=== PATIENT | female | born 1975 | race Two or more races ===

== ENCOUNTER 2016-06-11 14:30 | Inpatient (IN) | payer MEDICAID ==
[2016-06-11 15:13] LABS: APPEARANCE,URINE SLIGHTLY-CLOUDY; BILIRUBIN,URINE NEGATIVE (NEGATIVE); GLUCOSE, URINE NEGATIVE (NEGATIVE); KETONES,URINE NEGATIVE (NEGATIVE); LEUKOCYTE ESTERASE,URINE NEGATIVE (NEGATIVE); NITRITE,URINE NEGATIVE (NEGATIVE); PROTEIN,URINE 30 mg/dL (NEGATIVE); URINE SPECIFIC GRAVITY 1.025; UROBILINOGEN,URINE NEGATIVE mg/dL (<2.0)
[2016-06-11 15:30] LABS: URINE BARBITURATES SCREEN NEGATIVE; URINE METHADONE SCREEN NEGATIVE; URINE PHENCYCLIDINE SCREEN NEGATIVE
--- NOTE | 2016-06-11 16:01 | L&D Flow Sheet ---
LD Flowsheet Datetime Report Generated by CPN: 06/11/2016 16:00 Datetime: 06/11/2016 15:51 Vital Signs NBP Sys/Belia/Mean (mmHg): 106 (QS system process) : 67 (QS system process) : 81 (QS system process) Pulse: 72 (QS system process) LaborFlag: Antepartum (QS system process) Datetime: 06/11/2016 15:21 Vital Signs NBP Sys/Belia/Mean (mmHg): 107 (QS system process) : 67 (QS system process) : 81 (QS system process) Pulse: 76 (QS system process) LaborFlag: Antepartum (QS system process) Datetime: 06/11/2016 15:00 Pain Pain Presence: None/Denies (Patrick Akash, RN) Vaginal Exam Vaginal Bleeding: Scant (Annotations: Pt states she noticed after VE and only pink on tissue when she wipes. States Dr stripped her membranes in office. ) (Patrick Akash, RN) Maternal Assessment Level of Consciousness: Fully Conscious (Patrick Akash, RN) DTR's/Clonus: DTRs 2+; No Clonus (Patrick Akash, RN) Headache: Denies (Patrick Akash, RN) Breath Sounds, Left: Clear and Equal (Patrick Akash, RN) Breath Sounds, Right: Clear and Equal (Patrick Akash, RN) Nausea/Vomiting: Denies (Patrick Akash, RN) RUQ Epigastric Pain: Denies (Patrick Akash, RN) Patient Care Patient Position/Activity: Left Lateral (Patrick Bustos RN) Comfort Measures: Breathing/Relaxation; Family Support (Patrick Bustos RN) I/O Interventions: Clear Liquids Given (Patrick Bustos RN) Teaching Instructional Method: Demo; Verbal; Patient Instructed; Family/Support Person Instructed; Verbalized Understanding (Patrick Bustos RN) Plan of Care: Plan of Care Discussed (Patrick Bustos RN) Unit Routine: [place] to Room; [place]; Bed; Visiting Policy; Waiting Areas; Security; Phone/Cell Phone Use; Photography; Unit Personnel; Handwashing; Flu/Illness Precautions; Monitoring; IV Pumps; Safety/Fall Risk Prevention; Diet/Nutrition Services; Bathroom Privileges (Patrick Bustos RN) Labor/Induction: Labor Stages (Patrick Bustos RN) Pain Management: Pain Scale/Goals; Comfort Measures (Patrick Bustos RN) Related: Common Discomforts of ; Maternal Physical Changes; Maternal Emotional Changes; Nutrition; Hydration; Activity and Rest (Patrick Bustos, RN) LaborFlag: Antepartum (QS system process) Datetime: 06/11/2016 14:49 Vital Signs NBP Sys/Belia/Mean (mmHg): 118 (QS system process) : 73 (QS system process) : 90 (QS system process) Pulse: 75 (QS system process) Communication Communication Comments: Patient sent to Labor and Delivery by Carlton Jones for repeat NST and extended monitoring for varibles during NST at office. Pt VE done at office 2-/-2. Pt scheduled for induction on Tuesday. (Patrick Bustos RN) LaborFlag: Antepartum (QS system process)
[2016-06-11] MEDS ORDERED: RINGERS SOLUTION,LACTATED 1,000 ML IV ONE (17:43)
[2016-06-11] MEDS ORDERED: RINGERS SOLUTION,LACTATED 300 ML IV ONE (17:43)
[2016-06-11] MEDS ORDERED: RINGERS SOLUTION,LACTATED 1,000 ML IV PRN (17:43)
[2016-06-11] MEDS: RINGERS SOLUTION,LACTATED 1,000 ML IV PRN ×2 (17:43→19:38)
[2016-06-11] MEDS: DINOPROSTONE 10 MG VAGINAL INSERT.SR PV PRN ×2 (19:00→19:38)
[2016-06-11 19:04] LABS: ABSOLUTE BASOPHILS # (AUTO) 0.1 10^3/uL (0.0-0.2); ABSOLUTE EOSINOPHILS # (AUTO) 0.1 10^3/uL (0.0-0.6); ABSOLUTE LYMPHOCYTES (AUTO) 2.2 10^3/uL (0.5-4.7); ABSOLUTE MONOCYTES (AUTO) 1.1 10^3/uL (0.1-1.4); ABSOLUTE NEUT (AUTO) 9.6 10^3/uL (1.7-8.2); BASOPHILS % (AUTO) 0.6 % (0-2); EOSINOPHILS % (AUTO) 0.4 % (0-6); HEMATOCRIT 34.9 % (36.0-47.0); HEMOGLOBIN 11.4 g/dL (12.0-15.5); HGB HCT DIFFERENCE -0.7; MEAN CORPUSCULAR HGB CONC 32.8 g/dL (32.0-36.0); MEAN CORPUSCULAR VOLUME 79 fl (80-97); MONOCYTES % (AUTO) 8.3 % (3-13); RED BLOOD COUNT 4.41 10^6/uL (3.72-5.28); RED CELL DISTRIBUTION WIDTH 16.9 % (11.5-14.0); SEGMENTED NEUTROPHILS % (AUTO) 73.7 % (42-78)
[2016-06-11] MEDS ORDERED: DINOPROSTONE 10 MG VAGINAL INSERT.SR ONE (19:25)
[2016-06-11] MEDS ORDERED: ACETAMINOPHEN 325 MG TABLET PO PRN (19:41)
[2016-06-11] MEDS ORDERED: ZOLPIDEM TARTRATE 5 MG TABLET PO PRN (19:41)
[2016-06-11] MEDS ORDERED: ACETAMINOPHEN 325 MG TABLET ONE (19:43)
--- NOTE | 2016-06-11 20:01 | L&D Flow Sheet ---
LD Flowsheet Datetime Report Generated by CPN: 06/11/2016 20:00 Datetime: 06/11/2016 19:53 NBP Sys/Belia/Mean (mmHg): 109 (QS system process) : 69 (QS system process) : 84 (QS system process) Pulse: 80 (QS system process) LaborFlag: Antepartum (QS system process) Datetime: 06/11/2016 19:48 Analgesics/Sedatives: Tylenol (mg) @ 650 (Helen Agustín, RN) Datetime: 06/11/2016 19:33 Cervical Ripening Agents: Cervidil (Helen Agustín, RN) Datetime: 06/11/2016 19:22 NBP Sys/Belia/Mean (mmHg): 110 (QS system process) : 78 (QS system process) : 89 (QS system process) Pulse: 85 (QS system process) LaborFlag: Antepartum (QS system process) Datetime: 06/11/2016 19:15 Monitor Mode: External; Palpation (Patrick Akash, RN) Frequency (min): irregular (Patrick Bustos RN) Quality: Mild (Patrick Bustos RN) Resting Tone (Palpate): Relaxed (Patrick Bustos RN) Monitor Mode: External US (Patrick Bustos RN) FHR Baseline Rate : 135 (Patrick Bustos RN) Variability: Moderate 6-25 bpm (Patrick Bustos RN) Accelerations: 15X15 (Patrick Bustos RN) Decelerations: None (Patrick Bustos RN) Level of Consciousness: Fully Conscious (Helen Randolph RN) Communication: RN at Bedside; RN Reviewed Strip (Patrick Bustos RN) Communication Comments: Report to Jean Randolph RN Care relinquished at this time. (Patrick Bustos RN) Datetime: 06/11/2016 18:48 Monitor Interventions for FHR: Ultrasound Adjusted (Patrick Bustos RN) Communication: RN at Bedside (Patrick Bustos RN) Datetime: 06/11/2016 18:45 Respirations: 20 (Patrick Bustos, OLGA) Monitor Mode: External; Palpation (Patrick Bustos, OLGA) Frequency (min): 2-8 (Patrick Bustos RN) Quality: Mild (Patrick Bustos RN) Duration (sec): 70-100 (Patrick Bustos, RN) Resting Tone (Palpate): Relaxed (Patrick Bustos RN) Monitor Mode: External US (Patrick Bustos RN) FHR Baseline Rate : 125 (Patrick Bustos, RN) Variability: Moderate 6-25 bpm (Patrick Bustos, RN) Accelerations: 15X15 (Patrick Bustos RN) Decelerations: None (Patrick Bustos RN) Pain Presence: None/Denies (Patrick Bustos RN) Level of Consciousness: Fully Conscious (Patrick Bustos RN) Headache: Denies (Patrick Bustos RN) Nausea/Vomiting: Denies (Patrick Bustos RN) RUQ Epigastric Pain: Denies (Patrick Bustos RN) Communication: RN at Bedside; RN Reviewed Strip (Patrick Bustos RN) LaborFlag: Antepartum (QS system process) Datetime: 06/11/2016 18:33 Patient Care Comments: Pt given meal tray. (Patrick Bustos RN) Datetime: 06/11/2016 18:15 Respirations: 20 (Patrick Bustos RN) Monitor Mode: External; Palpation (Patrick Bustos RN) Resting Tone (Palpate): Relaxed (Patrick Bustos RN) Contraction Comments: uterine irritability noted (Patrick Bustos RN) Monitor Mode: External US (Patrick Bustos RN) FHR Baseline Rate : 125 (Patrick Bustos RN) Variability: Moderate 6-25 bpm (Patrick Bustos RN) Accelerations: 15X15 (Patrick Bustos RN) Decelerations: None (Patrick Bustos RN) Pain Presence: None/Denies (Patrick Bustos RN) Level of Consciousness: Fully Conscious (Patrick Bustos RN) Headache: Denies (Patrick Bustos RN) Nausea/Vomiting: Denies (Patrick Bustos RN) RUQ Epigastric Pain: Denies (Patrick Bustos RN) IV/Blood Work: IV Started; IV Bolus Started (Patrick Bustos RN) Patient Care Comments: 18G L Forearm, Site WNL, Good Blood return, pt tolerated well. (Patrick Bustos RN) Communication: RN at Bedside; RN Reviewed Strip (Patrick Bustos RN) LaborFlag: Antepartum (QS system process) Datetime: 06/11/2016 17:58 Procedures: Consents Signed (Patrick Thompsoneet, RN) Datetime: 06/11/2016 17:51 NBP Sys/Belia/Mean (mmHg): 130 (QS system process) : 73 (QS system process) : 93 (QS system process) Pulse: 78 (QS system process) LaborFlag: Antepartum (QS system process) Datetime: 06/11/2016 17:45 Monitor Mode: External; Palpation (Patrick Akash, RN) Resting Tone (Palpate): Relaxed (Patrick Akash, RN) Contraction Comments: irregular (Patrick Aksah, RN) Monitor Mode: External US (Patrick Akash, RN) FHR Baseline Rate : 125 (Patrick Akash, RN) Variability: Moderate 6-25 bpm (Patrick Akash, RN) Accelerations: 15X15 (Patrick Akash, RN) Decelerations: None (Patrick Akash, RN) Communication: RN at Bedside; RN Reviewed Strip (Patrick Akash, RN) Datetime: 06/11/2016 17:44 Communication Comments: H Beau CNM at bedside to assess pt; orders to admit pt for IOL for post dates/ AMA. Orders for cervidil at 1900, pt may order dinner tray now. (Patrick Akash, RN) Datetime: 06/11/2016 17:40 I/O Interventions: Up to BR (Patrick Akash, RN) Datetime: 06/11/2016 17:22 NBP Sys/Belia/Mean (mmHg): 110 (QS system process) : 74 (QS system process) : 88 (QS system process) Pulse: 71 (QS system process) LaborFlag: Antepartum (QS system process) Datetime: 06/11/2016 17:15 Monitor Mode: External; Palpation (Patrick Bustos RN) Frequency (min): irregular (Patrick Bustos RN) Quality: Mild (Patrick Bustos RN) Resting Tone (Palpate): Relaxed (Patrick Bustos RN) Monitor Mode: External US (Patrick Bustos RN) FHR Baseline Rate : 135 (Patrick Bustos RN) Variability: Moderate 6-25 bpm (Patrick Bustos RN) Accelerations: 15X15 (Patrick Bustos, RN) Decelerations: None (Patrick Bustos RN) Pain Presence: None/Denies (Patrick Bustos RN) Communication: RN at Bedside; RN Reviewed Strip (Patrick Bustos RN) LaborFlag: Antepartum (QS system process) Datetime: 06/11/2016 16:51 NBP Sys/Belia/Mean (mmHg): 109 (QS system process) : 71 (QS system process) : 85 (QS system process) Pulse: 71 (QS system process) LaborFlag: Antepartum (QS system process) Datetime: 06/11/2016 16:45 Monitor Mode: External; Palpation (Patrick Bustos RN) Frequency (min): irregular (Patrick Bustos, OLGA) Quality: Mild (Patrick Bustos RN) Resting Tone (Palpate): Relaxed (Patrick Bustos RN) Monitor Mode: External US (Patrick Bustos RN) FHR Baseline Rate : 135 (Patrick Bustos, RN) Variability: Moderate 6-25 bpm (Patrick Bustos, RN) Accelerations: 15X15 (Patrick Bustos, RN) Decelerations: None (Patrick Bustos, RN) Pain Presence: None/Denies (Patrick Bustos RN) Communication: RN at Bedside; RN Reviewed Strip (Patrick Bustos RN) LaborFlag: Antepartum (QS system process) Datetime: 06/11/2016 16:21 NBP Sys/Belia/Mean (mmHg): 113 (QS system process) : 72 (QS system process) : 87 (QS system process) Pulse: 66 (QS system process) LaborFlag: Antepartum (QS system process) Datetime: 06/11/2016 16:15 Monitor Mode: External; Palpation (Patrick Bustos RN) Frequency (min): 10-11 (Patrick Bustos RN) Quality: Mild (Patrick Bustos RN) Duration (sec): 70-90 (Patrick Bustos RN) Resting Tone (Palpate): Relaxed (Patrick Bustos RN) Monitor Mode: External US (Patrick Butsos RN) FHR Baseline Rate : 135 (Patrick Bustos RN) Variability: Moderate 6-25 bpm (Patrick Bustos RN) Accelerations: 15X15 (Patrick Bustos RN) Decelerations: None (Patrick Bustos RN) Communication: RN at Bedside; RN Reviewed Strip (Patrick Bustos RN)
[2016-06-11] MEDS ORDERED: ZOLPIDEM TARTRATE 5 MG TABLET ONE (21:47)
[2016-06-12] MEDS ORDERED: ACETAMINOPHEN 325 MG TABLET ONE (03:20)
--- NOTE | 2016-06-12 04:47 | L&D Current Admission ---
Current Admit Datetime Report Generated by CPN: 06/12/2016 04:45 ADMISSION INFORMATION Current Admit Date/Time: 06/11/2016 17:46 (06/11/2016 15:00:Patrick Bustos RN) Reason for Admission: Induction of Labor (06/11/2016 15:00:Patrick Bustos RN) EGA per Dates: 41.1 (06/11/2016 15:00:QS system process) Method of Arrival: Ambulatory (06/11/2016 15:00:Patrick Bustos RN) Reason for Induction: Postterm; Other (06/11/2016 15:00:Patrick Bustos RN) Reason for Induction- Other: AMA (06/11/2016 15:00:Patrick Bustos RN) Records Available: Yes (06/11/2016 15:00:Patrick Bustos RN) General Admission Information: Reviewed; Updated; Confirmed (06/11/2016 15:00:Patrick Bustos RN) General Admission Reviewed By: Kena Bustos RN (06/11/2016 15:00:Patrick Bustos RN) BELONGINGS/ADVANCED DIRECTIVES Disposition of Belongings: Kept with Patient (06/11/2016 15:00:Patrick Bustos RN) Comments Regarding Disposition: See [facility] belongings form filled out by patient (06/11/2016 15:00:Patrick Bustos RN) Advance Direct for Healthcare: No, and Wants No Information (06/11/2016 15:00:Patrick Bustos RN) Durable Power of Finance Controller: No (06/11/2016 15:00:Patrick Bustos RN) Living Will: No (06/11/2016 15:00:Patrick Bustos RN) Organ Donor: No (06/11/2016 15:00:Patrick Bustos RN) Pt Rights Information Given: Yes (06/11/2016 15:00:Patrick Bustos RN) Pt Understands Pt Rights: Yes (06/11/2016 15:00:Patrick Bustos RN) LEARNING ASSESSMENT Knowledge Level: Understands L_D Process (06/11/2016 15:00:Patrick Bustos RN) Barriers to Learning: None (06/11/2016 15:00:Patrick Bustos RN) Learning Readiness: Motivated (06/11/2016 15:00:Patrick Bustos RN) Learns Best By: 1 to 1 Instruction (06/11/2016 15:00:Patrick Bustos RN) Learning Needs: Labor and Delivery Process; Pain Management; Symptoms to Report; Treatment Plan; Medication; Diagnosis (06/11/2016 15:00:Patrick Bustos RN) DOMESTIC VIOLANCE SCREENING Dom Viol Threatened/Hurt: No (06/11/2016 15:00:Patrick Bustos RN) Hx of Abuse/Neglect past 2yrs: No (06/11/2016 15:00:Patrick Bustos RN) Feel Unsafe Going Home: No (06/11/2016 15:00:Patrick Bustos RN) Addt'l Observ Indicating Abuse: No (06/11/2016 15:00:Patrick Bustos RN) Reason Unable to Complete Screen: N/A, Screen Completed (06/11/2016 15:00:Patrick Bustos RN) Considered Personal Harm/Suicide: No (06/11/2016 15:00:Patrick Bustos RN) NUTRITIONAL/FUNCTIONAL SCREENING Problem with Appetite >5 Days: No (06/11/2016 15:00:Patrick Bustos RN) Chew/Swallow Difficulties: No (06/11/2016 15:00:Patrick Bustos RN) Inappropriate Wt Gain/Loss: No (06/11/2016 15:00:Patrick Bustos RN) Presence Skin Breakdown/Ulcer: No (06/11/2016 15:00:Patrick Bustos RN) Special Diet: No (06/11/2016 15:00:Patrick Bustos RN) Pt Requests Weigh Boss Visit: No (06/11/2016 15:00:Patrick Bustos RN) Hx of Any of the Following?: N/A (06/11/2016 15:00:Patrick Bustos RN) New Diagnosis of: N/A (06/11/2016 15:00:Patrick Bustos RN) Requires Assist w/Ambulation: No (06/11/2016 15:00:Patrick Bustos RN) Uses Assist Device to Ambulate: No (06/11/2016 15:00:Patrick Bustos RN) Pt Requires Help w/ADL's: No (06/11/2016 15:00:Patrick Bustos RN)
--- NOTE | 2016-06-12 04:47 | L&D Flow Sheet ---
LD Flowsheet Datetime Report Generated by CPN: 06/12/2016 04:45 Datetime: 06/12/2016 04:30 Monitor Mode: External; Palpation (Rucsandra Sapphire, RN) Frequency (min): 1.5-6 (Rucsandra Sapphire, RN) Quality: Mild (Rucsandra Sapphire, RN) Duration (sec): 40-80 (Rucsandra Sapphire, RN) Resting Tone (Palpate): Relaxed (Rucsandra Sapphire, RN) Monitor Mode: External US (Rucsandra Sapphire, RN) FHR Baseline Rate : 130 (Rucsandra Sapphire, RN) Variability: Moderate 6-25 bpm (Rucsandra Sapphire, RN) Accelerations: 15X15 (Rucsandra Sapphire, RN) Decelerations: None (Rucsandra Sapphire, RN) I/O Interventions: Up to BR (Rucsandra Sapphire, RN) Datetime: 06/12/2016 04:22 NBP Sys/Belia/Mean (mmHg): 113 (QS system process) : 78 (QS system process) : 91 (QS system process) Pulse: 73 (QS system process) LaborFlag: Antepartum (QS system process) Datetime: 06/12/2016 04:13 Additional Nursing Comments: Report given and care relinquished to Mati Leary, RN (Helen Agustín, RN) Datetime: 06/12/2016 04:00 Monitor Mode: External (Helen Randolph, RN) Frequency (min): occasional (Helen Randolph, RN) Quality: Moderate (Helen Agustín, RN) Duration (sec): 40-60 (Helen Agustín, RN) Resting Tone (Palpate): Relaxed (Helen Agustín, RN) Contraction Comments: irritability (Helen Agustín, RN) Monitor Mode: External US (Helen Agustín, RN) FHR Baseline Rate : 140 (Helen Agustín, RN) FHR Baseline Changes: No Baseline Change (Helen Agustín, RN) Variability: Moderate 6-25 bpm (Helen Agusítn, RN) Accelerations: None (Helen Agustín, RN) Decelerations: None (Helen Agustín, RN) Datetime: 06/12/2016 03:52 NBP Sys/Belia/Mean (mmHg): 122 (QS system process) : 82 (QS system process) : 98 (QS system process) Pulse: 73 (QS system process) LaborFlag: Antepartum (QS system process) Datetime: 06/12/2016 03:30 Monitor Mode: External (Helen Agustín, RN) Frequency (min): occasional (Helen Agustín, RN) Quality: Moderate (Helen Agustín, RN) Resting Tone (Palpate): Relaxed (Helen Agustín, RN) Contraction Comments: alot of irritability (Helen Agustín, RN) Monitor Mode: External US (Helen Agustín, RN) FHR Baseline Rate : 140 (Helen Agustín, RN) FHR Baseline Changes: Return to Previous Baseline (Helen Agustín, RN) Variability: Moderate 6-25 bpm (Helen Agustín, RN) Accelerations: None (Helen Agustín, RN) Decelerations: None (Helen Agustín, RN) Datetime: 06/12/2016 03:25 Monitor Interventions for UA: [place] Adjusted (Helen Prideoon, RN) Analgesics/Sedatives: Tylenol (mg) @ 650 (Helen Agustín, RN) Datetime: 06/12/2016 03:22 NBP Sys/Belia/Mean (mmHg): 121 (QS system process) : 87 (QS system process) : 100 (QS system process) Pulse: 67 (QS system process) LaborFlag: Antepartum (QS system process) Datetime: 06/12/2016 03:06 Pain Scale: 3 (Helen Randolph RN) Pain Presence: Intermittent (Helen Randolph RN) Pain Type: Cramping (Helen Randolph RN) Pain Location: Abdomen (Helen Randolph RN) Pain Assessment Comments: Also states that her h/a is back. (Helen Randolph RN) Patient Care Comments: Pt turned from L to R side. (Helen Randolph RN) LaborFlag: Antepartum (QS system process) Datetime: 06/12/2016 03:00 Monitor Mode: External (Helen Randolph, RN) Frequency (min): irregular (Helen Randolph, RN) Quality: Mild/Moderate (Helen Randolph, RN) Pattern: Normal: <= 5 Contractions in 10 Minutes (Helen Randolph, RN) Resting Tone (Palpate): Relaxed (Helen Randolph, RN) Monitor Mode: External US (Helen Randolph, RN) FHR Baseline Rate : 175 (eHlen Randolph, RN) FHR Baseline Changes: Tachycardia (Helen Randolph, RN) Variability: Moderate 6-25 bpm (Helen Randolph, RN) Accelerations: None (Helen Randolph RN) Decelerations: None (Helen Randolph RN) Patient Position/Activity: Left Lateral (Natali Fierro RN) Patient Care Comments: pt repositioned (Natali Fierro RN) Datetime: 06/12/2016 02:52 NBP Sys/Belia/Mean (mmHg): 109 (QS system process) : 65 (QS system process) : 82 (QS system process) Pulse: 65 (QS system process) LaborFlag: Antepartum (QS system process) Datetime: 06/12/2016 02:40 IV/Blood Work: IV Bolus Started (Natali Fierro RN) Patient Care Comments: bolus for tachycardia (Natali Fierro RN) Datetime: 06/12/2016 02:30 Monitor Mode: External (Helen Agustín, RN) Frequency (min): irrittablity (Helen Agustín, RN) Quality: Mild/Moderate (Helen Agustín, RN) Pattern: Normal: <= 5 Contractions in 10 Minutes (Helen Agustín, RN) Monitor Mode: External US (Helen Agustín, RN) FHR Baseline Rate : 165 (Helen Agustín, RN) FHR Baseline Changes: Tachycardia (Helen Agustín, RN) Variability: Moderate 6-25 bpm (Helen Agustín, RN) Accelerations: None (Helen Agustín, RN) Decelerations: None (Helen Agustín, RN) Datetime: 06/12/2016 02:23 NBP Sys/Belia/Mean (mmHg): 105 (QS system process) : 60 (QS system process) : 76 (QS system process) Pulse: 61 (QS system process) LaborFlag: Antepartum (QS system process) Datetime: 06/12/2016 02:00 Monitor Mode: External (Helen Agustín, RN) Frequency (min): irregular (Helen Agustín, RN) Quality: Mild/Moderate (Helen Agustín, RN) Duration (sec): 40-60 (Helen Agustín, RN) Pattern: Normal: <= 5 Contractions in 10 Minutes (Helen Agustín, RN) Resting Tone (Palpate): Relaxed (Helen Agustín, RN) Monitor Mode: External US (Helen Agustín, RN) FHR Baseline Rate : 145 (Helen Agustín, RN) FHR Baseline Changes: No Baseline Change (Helen Agustín, RN) Variability: Moderate 6-25 bpm (Helen Agustín, RN) Accelerations: 15X15 (Helen Agustín, RN) Decelerations: None (Helen Agustín, RN) Datetime: 06/12/2016 01:52 NBP Sys/Belia/Mean (mmHg): 93 (QS system process) : 57 (QS system process) : 70 (QS system process) Pulse: 71 (QS system process) LaborFlag: Antepartum (QS system process) Datetime: 06/12/2016 01:39 IV/Blood Work: New IV Bag Hung (Natali Chalman, RN) Datetime: 06/12/2016 01:32 I/O Interventions: Up to BR (Helen Agustín, RN) Datetime: 06/12/2016 01:31 Patient Care Comments: pt repositioned to side. (Natali Chalman, RN) Datetime: 06/12/2016 01:30 Monitor Mode: External (Helen Agustín, RN) Frequency (min): 2-7 (Helen Agustín, RN) Quality: Mild (Helen Agustín, RN) Duration (sec): 40-90 (Helen Agustín, RN) Pattern: Normal: <= 5 Contractions in 10 Minutes (Helen Agustín, RN) Resting Tone (Palpate): Relaxed (Helen Agustín, RN) Monitor Mode: External US (Helen Agustín, RN) FHR Baseline Rate : 140 (Helen Agustín, RN) FHR Baseline Changes: No Baseline Change (Helen Agustín, RN) Variability: Moderate 6-25 bpm (Helen Agustín, RN) Accelerations: 15X15 (Helen Agustín, RN) Decelerations: Late (Helen Agustín, RN) Comments: late x 1 (Helen Agustín, RN) Datetime: 06/12/2016 01:22 NBP Sys/Belia/Mean (mmHg): 99 (QS system process) : 55 (QS system process) : 72 (QS system process) Pulse: 61 (QS system process) LaborFlag: Antepartum (QS system process) Datetime: 06/12/2016 01:00 Monitor Mode: External (Helen Agustín, RN) Frequency (min): 2-7 (Helen Agustín, RN) Quality: Mild (Helen Agustín, RN) Duration (sec): 50-70 (Helen Agustín, RN) Resting Tone (Palpate): Relaxed (Helen Agustín, RN) Monitor Mode: External US (Helen Agustín, RN) FHR Baseline Rate : 135 (Helen Agustín, RN) FHR Baseline Changes: No Baseline Change (Helen Agustín, RN) Variability: Moderate 6-25 bpm (Helen Agustín, RN) Accelerations: 15X15 (Helen Agustín, RN) Decelerations: None (Helen Agustín, RN) Datetime: 06/12/2016 00:52 NBP Sys/Belia/Mean (mmHg): 99 (QS system process) : 58 (QS system process) : 75 (QS system process) Pulse: 62 (QS system process) LaborFlag: Antepartum (QS system process) Datetime: 06/12/2016 00:30 Monitor Mode: External (Helen Agustín, RN) Frequency (min): 2-6 (Helen Agustín, RN) Quality: Mild (Helen Agustín, RN) Duration (sec): 40-70 (Helen Agustín, RN) Pattern: Normal: <= 5 Contractions in 10 Minutes (Helen Agustín, RN) Resting Tone (Palpate): Relaxed (Helen Agustín, RN) Monitor Mode: External US (Helen Agustín, RN) FHR Baseline Rate : 135 (Helen Agustín, RN) FHR Baseline Changes: No Baseline Change (Helen Agustín, RN) Variability: Moderate 6-25 bpm (Helen Agustín, RN) Accelerations: 15X15 (Helen Agustín, RN) Decelerations: None (Helen Agustín, RN) Datetime: 06/12/2016 00:22 NBP Sys/Belia/Mean (mmHg): 96 (QS system process) : 56 (QS system process) : 72 (QS system process) Pulse: 67 (QS system process) LaborFlag: Antepartum (QS system process) Datetime: 06/12/2016 00:00 Monitor Mode: External (Helen Agustín, RN) Frequency (min): irregular (Helen Agustín, RN) Quality: Mild (Helen Agustín, RN) Duration (sec): 50-60 (Helen Agustín, RN) Pattern: Normal: <= 5 Contractions in 10 Minutes (Helen Agustín, RN) Resting Tone (Palpate): Relaxed (Helen Agustín, RN) Contraction Comments: irritability (Helen Agustín, RN) Monitor Mode: External US (Helen Agustín, RN) FHR Baseline Rate : 140 (Helen Agustín, RN) FHR Baseline Changes: No Baseline Change (Helen Agustín, RN) Variability: Moderate 6-25 bpm (Helen Agustín, RN) Accelerations: 15X15 (Helen Agustín, RN) Decelerations: None (Helen Agustín, RN) Datetime: 06/11/2016 23:52 NBP Sys/Belia/Mean (mmHg): 102 (QS system process) : 58 (QS system process) : 75 (QS system process) Pulse: 68 (QS system process) LaborFlag: Antepartum (QS system process) Datetime: 06/11/2016 23:47 Patient Care Comments: Pt turned from R side to L (Helen Agustín, RN) Datetime: 06/11/2016 23:30 Monitor Mode: External (Helen Agustín, RN) Frequency (min): 5-7 (Helen Agustín, RN) Quality: Mild (Helen Agustín, RN) Duration (sec): 50-80 (Helen Agustín, RN) Resting Tone (Palpate): Relaxed (Helen Agustín, RN) Monitor Mode: External US (Helen Agustín, RN) FHR Baseline Rate : 135 (Helen Agustín, RN) FHR Baseline Changes: No Baseline Change (Helen Agustín, RN) Variability: Moderate 6-25 bpm (Helen Agustín, RN) Accelerations: 15X15 (Helen Agustín, RN) Decelerations: Late (Helen Agustín, RN) Datetime: 06/11/2016 23:23 NBP Sys/Belia/Mean (mmHg): 109 (QS system process) : 68 (QS system process) : 84 (QS system process) Pulse: 76 (QS system process) LaborFlag: Antepartum (QS system process) Datetime: 06/11/2016 23:01 Monitor Mode: External (Helen Agustín, RN) Frequency (min): occasional (Helen Agustín, RN) Quality: Mild (Helen Agustín, RN) Duration (sec): 50 (Helen Agustín, RN) Resting Tone (Palpate): Relaxed (Helen Agustín, RN) Contraction Comments: irritability (Helen Agustín, RN) Monitor Mode: External US (Helen Agustín, RN) FHR Baseline Rate : 130 (Helen Agustín, RN) FHR Baseline Changes: No Baseline Change (Helen Agustín, RN) Variability: Moderate 6-25 bpm (Helen Agustín, RN) Accelerations: 15X15 (Helen Agustín, RN) Decelerations: None (Helen Agustín, RN) Datetime: 06/11/2016 22:52 NBP Sys/Belia/Mean (mmHg): 112 (QS system process) : 73 (QS system process) : 86 (QS system process) Pulse: 79 (QS system process) LaborFlag: Antepartum (QS system process) Datetime: 06/11/2016 22:30 Monitor Mode: External (Helen Agustín, RN) Frequency (min): irritability (Helen Agustín, RN) Quality: Mild (Helen Agustín, RN) Resting Tone (Palpate): Relaxed (Helen Agustín, RN) Monitor Mode: External US (Helen Agustín, RN) FHR Baseline Rate : 130 (Helen Agustín, RN) FHR Baseline Changes: No Baseline Change (Helen Agustín, RN) Variability: Moderate 6-25 bpm (Helen Agustín, RN) Accelerations: 15X15 (Helen Agustín, RN) Decelerations: None (Helen Agustín, RN) Datetime: 06/11/2016 22:23 NBP Sys/Belia/Mean (mmHg): 112 (QS system process) : 70 (QS system process) : 86 (QS system process) Pulse: 69 (QS system process) LaborFlag: Antepartum (QS system process) Datetime: 06/11/2016 22:00 Monitor Mode: External (Helen Agustín, RN) Frequency (min): occasional (Helen Agsutín, RN) Frequency (min): occasionally (Helen Agustín, RN) Quality: Mild (Helen Agustín, RN) Duration (sec): 50-60 (Helen Agustín, RN) Duration (sec): 50 (Helen Agustín, RN) Pattern: Normal: <= 5 Contractions in 10 Minutes (Helen Agustín, RN) Resting Tone (Palpate): Relaxed (Helen Agustín, RN) Contraction Comments: irritability in between noted. (Helen Agustín, RN) Contraction Comments: irritabillity noted. (Helen Agustín, RN) Monitor Mode: External US (Helen Agustín, RN) FHR Baseline Rate : 140 (Helen Agustín, RN) FHR Baseline Rate : 160 (Helen Agustín, RN) FHR Baseline Changes: No Baseline Change (Helen Agustín, RN) Variability: Moderate 6-25 bpm (Helen Agustín, RN) Accelerations: 15X15 (Helen Agustín, RN) Decelerations: None (Helen Agustín, RN) Comments: FHR had a 10 min section of tachcardia in 180's. (Helen Agustín, RN) Datetime: 06/11/2016 21:53 NBP Sys/Belia/Mean (mmHg): 100 (QS system process) : 69 (QS system process) : 80 (QS system process) Pulse: 74 (QS system process) LaborFlag: Antepartum (QS system process) Datetime: 06/11/2016 21:48 Analgesics/Sedatives: Ambien (mg) @ 5 (Helen Agustín, RN) Medication Comments: 10 mg had been ordered but patient only wanted 5 mg. (Helen Agustín, RN) Datetime: 06/11/2016 21:42 IV/Blood Work: IV Bolus Started (Helen Agustín, RN) Datetime: 06/11/2016 21:40 Patient Care Comments: Pt turned from L side to R. (Helen Agustín, RN) Communication: Provider at Bedside (Helen Agustín, RN) Datetime: 06/11/2016 21:30 Frequency (min): 0 (Helen Agustín, RN) Resting Tone (Palpate): Relaxed (Helen Agustín, RN) Monitor Mode: External US (Helen Agustín, RN) FHR Baseline Rate : 145 (Helen Agustín, RN) FHR Baseline Changes: No Baseline Change (Helen Agustín, RN) Variability: Moderate 6-25 bpm (Helen Agustín, RN) Accelerations: 15X15 (Helen Agustín, RN) Decelerations: None (Helen Agustín, RN) Datetime: 06/11/2016 21:22 NBP Sys/Belia/Mean (mmHg): 99 (QS system process) : 63 (QS system process) : 75 (QS system process) Pulse: 73 (QS system process) LaborFlag: Antepartum (QS system process) Datetime: 06/11/2016 21:07 Pain Scale: 2 (Helen Randolph RN) Pain Presence: Constant (Helen Randolph RN) Pain Type: Dull (Helen Randolph RN) Pain Location: Head (Helen Randolph RN) Medication Comments: Offered pt Ambien. She declines at present. (Helen Randolph RN) LaborFlag: Antepartum (QS system process) Datetime: 06/11/2016 21:03 I/O Interventions: Up to BR (Helen Randolph, OLGA) Datetime: 06/11/2016 21:00 Monitor Mode: External (Helen Agustín, RN) Frequency (min): irritability (Helen Agustín, RN) Quality: Mild (Helen Agustín, RN) Resting Tone (Palpate): Relaxed (Helen Agustín, RN) Monitor Mode: External US (Helen Agustín, RN) FHR Baseline Rate : 135 (Helen Agustín, RN) FHR Baseline Changes: No Baseline Change (Helen Agustín, RN) Variability: Moderate 6-25 bpm (Helen Agustín, RN) Accelerations: 15X15 (Helen Agustín, RN) Decelerations: None (Helen Agustín, RN) Datetime: 06/11/2016 20:53 NBP Sys/Belia/Mean (mmHg): 107 (QS system process) : 71 (QS system process) : 84 (QS system process) Pulse: 88 (QS system process) LaborFlag: Antepartum (QS system process) Datetime: 06/11/2016 20:30 Monitor Mode: External (Helen Agustín, RN) Frequency (min): rare (Helen Agustín, RN) Quality: Mild (Helen Agustín, RN) Duration (sec): 40 (Helen Agustín, RN) Resting Tone (Palpate): Relaxed (Helen Agustín, RN) Monitor Mode: External US (Helen Agustín, RN) FHR Baseline Rate : 140 (Helen Agustín, RN) FHR Baseline Changes: No Baseline Change (Helen Agustín, RN) Variability: Moderate 6-25 bpm (Helen Agustín, RN) Accelerations: 15X15 (Helen Agustín, RN) Decelerations: None (Helen Agustín, RN) Datetime: 06/11/2016 20:23 NBP Sys/Belia/Mean (mmHg): 114 (QS system process) : 78 (QS system process) : 90 (QS system process) Pulse: 100 (QS system process) LaborFlag: Antepartum (QS system process) Datetime: 06/11/2016 20:00 Monitor Mode: External (Helen Agustín, RN) Frequency (min): Occasional (Helen Agustín, RN) Quality: Mild (Helen Agustín, RN) Duration (sec): 40-50 (Helen Agustín, RN) Resting Tone (Palpate): Relaxed (Helen Agustín, RN) Monitor Mode: External US (Helen Agustín, RN) FHR Baseline Rate : 130 (Helen Agustín, RN) FHR Baseline Changes: No Baseline Change (Helen Agustín, RN) Variability: Moderate 6-25 bpm (Helen Agustín, RN) Accelerations: 15X15 (Helen Agustín, RN) Decelerations: None (Helen Agustín, RN) Datetime: 06/11/2016 19:53 NBP Sys/Belia/Mean (mmHg): 109 (QS system process) : 69 (QS system process) : 84 (QS system process) Pulse: 80 (QS system process) Respirations: 18 (Helen Agustín, RN) LaborFlag: Antepartum (QS system process) Datetime: 06/11/2016 19:48 Analgesics/Sedatives: Tylenol (mg) @ 650 (Helen Randolph, RN) Datetime: 06/11/2016 19:33 Dilatation (cm): 2.0 (Helen Randolph RN) Effacement (%): 60 (Helen Randolph RN) Station: -2 (Helen Randolph, RN) Exam by: SERA Cabrera (Helen Randolph RN) Dilatation (cm): 1-2 cm (Helen Randolph RN) Effacement: 60-70_ effaced (Helen Randolph RN) Station: minus 2 (Helen Randolph, OLGA) Consistency: Soft (Helen Randolph RN) Position: Midposition (Helen Randolph RN) Total Kramer's Score: 7 (QS system process) : 5-8 = Small percentage of induction failure (QS system process) Cervical Ripening Agents: Cervidil (Helen Randolph, OLGA) Datetime: 06/11/2016 19:30 Monitor Mode: External (Helen Randolph, RN) Frequency (min): occasional (Helen Randolph, RN) Quality: Mild (Helen Agustín, RN) Duration (sec): 50-60 (Helen Agustín, RN) Resting Tone (Palpate): Relaxed (Helen Randolph, RN) Monitor Mode: External US (Helen Randolph, RN) FHR Baseline Rate : 130 (Helen Agustín, RN) FHR Baseline Changes: No Baseline Change (Helen Agustín, RN) Variability: Moderate 6-25 bpm (Helen Agustín, RN) Accelerations: 15X15 (Helen Agustín, RN) Decelerations: None (Helen Randolph, RN) Pain Scale: 4 (Helen Randolph, RN) Pain Presence: Constant (Helen Randolph, RN) Pain Type: Dull; Pressure (Helen Randolph, RN) Pain Location: Head (Helen Randolph, RN) Pain Assessment Comments: states is at base of head. (Helen Ranodlph, RN) LaborFlag: Antepartum (QS system process) Datetime: 06/11/2016 19:22 NBP Sys/Belia/Mean (mmHg): 110 (QS system process) : 78 (QS system process) : 89 (QS system process) Pulse: 85 (QS system process) I/O Interventions: Up to BR (Helen Randolph, RN) LaborFlag: Antepartum (QS system process) Datetime: 06/11/2016 19:15 Monitor Mode: External; Palpation (Patrick Bustos RN) Frequency (min): irregular (Patrick Butsos RN) Quality: Mild (Patrick Bustos RN) Resting Tone (Palpate): Relaxed (Patrick Bustos RN) Monitor Mode: External US (Patrick Bustos RN) FHR Baseline Rate : 135 (Patrick Bustos RN) Variability: Moderate 6-25 bpm (Patrick Bustos RN) Accelerations: 15X15 (Patrick Bustos RN) Decelerations: None (Patrick Bustos RN) Level of Consciousness: Fully Conscious (Helen Randolph RN) Headache: Localized (Annotations: is at base of head. Pt states she thinks it is tension because she is nervous about this delivery.) (Helen Randolph RN) Breath Sounds, Left: Clear and Equal (Helen Randolph RN) Breath Sounds, Right: Clear and Equal (Helen Randolph RN) Nausea/Vomiting: Denies (Helen Randolph RN) RUQ Epigastric Pain: Denies (Helen Randolph RN) Communication: RN at Bedside; RN Reviewed Strip (Patrick Bustos RN) Communication Comments: Report to Jean Randolph RN Care relinquished at this time. (Patrick Bustos RN) Datetime: 06/11/2016 18:48 Monitor Interventions for FHR: Ultrasound Adjusted (Patrick Bustos RN) Communication: RN at Bedside (Patrick Bustos RN) Datetime: 06/11/2016 18:45 Respirations: 20 (Patrick Bustos, OLGA) Monitor Mode: External; Palpation (Patrick Bustos, OLGA) Frequency (min): 2-8 (Patrick Bustos RN) Quality: Mild (Patrick Bustos RN) Duration (sec): 70-100 (Patrick Bustos, RN) Resting Tone (Palpate): Relaxed (Patrick Bustos, OLGA) Monitor Mode: External US (Patrick Bustos RN) FHR Baseline Rate : 125 (Patrick Bustos, RN) Variability: Moderate 6-25 bpm (Patrick Bustos, RN) Accelerations: 15X15 (Patrick Bustos, RN) Decelerations: None (Patrick Bustos RN) Pain Presence: None/Denies (Patrick Bustos RN) Level of Consciousness: Fully Conscious (Patrick Bustos RN) Headache: Denies (Patrick Bustos RN) Nausea/Vomiting: Denies (Patrick Bustos RN) RUQ Epigastric Pain: Denies (Patrick Bustos RN) Communication: RN at Bedside; RN Reviewed Strip (Patrick Bustos RN) LaborFlag: Antepartum (QS system process) Datetime: 06/11/2016 18:33 Patient Care Comments: Pt given meal tray. (Patrick Bustos RN) Datetime: 06/11/2016 18:15 Respirations: 20 (Patrick Bustos RN) Monitor Mode: External; Palpation (Patrick Bustos RN) Resting Tone (Palpate): Relaxed (Patrick Bustos RN) Contraction Comments: uterine irritability noted (Patrick Bustos RN) Monitor Mode: External US (Patrick Bustos RN) FHR Baseline Rate : 125 (Patrick Bustos RN) Variability: Moderate 6-25 bpm (Patrick Bustos RN) Accelerations: 15X15 (Patrick Bustos RN) Decelerations: None (Patrick Bustos RN) Pain Presence: None/Denies (Patrick Bustos RN) Level of Consciousness: Fully Conscious (Patrick Bustos RN) Headache: Denies (Patrick Bustos RN) Nausea/Vomiting: Denies (Patrick Bustos RN) RUQ Epigastric Pain: Denies (Patrick Bustos RN) IV/Blood Work: IV Started; IV Bolus Started (Patrick Bustos RN) Patient Care Comments: 18G L Forearm, Site WNL, Good Blood return, pt tolerated well. (Patrick Bustos RN) Communication: RN at Bedside; RN Reviewed Strip (Patrick Bustos RN) LaborFlag: Antepartum (QS system process) Datetime: 06/11/2016 17:58 Procedures: Consents Signed (Patrick Bustos RN) Datetime: 06/11/2016 17:51 NBP Sys/Belia/Mean (mmHg): 130 (QS system process) : 73 (QS system process) : 93 (QS system process) Pulse: 78 (QS system process) LaborFlag: Antepartum (QS system process) Datetime: 06/11/2016 17:45 Monitor Mode: External; Palpation (Patrick Akash, RN) Resting Tone (Palpate): Relaxed (Patrick Akash, RN) Contraction Comments: irregular (Patrick Akash, RN) Monitor Mode: External US (Patrick Akash, RN) FHR Baseline Rate : 125 (Patrick Akash, RN) Variability: Moderate 6-25 bpm (Patrick Akash, RN) Accelerations: 15X15 (Patrick Akash, RN) Decelerations: None (Patrick Akash, RN) Communication: RN at Bedside; RN Reviewed Strip (Patrick Akash, RN) Datetime: 06/11/2016 17:44 Communication Comments: H Beau CNM at bedside to assess pt; orders to admit pt for IOL for post dates/ AMA. Orders for cervidil at 1900, pt may order dinner tray now. (Patrick Akash, RN) Datetime: 06/11/2016 17:40 I/O Interventions: Up to BR (Patrick Akash, RN) Datetime: 06/11/2016 17:22 NBP Sys/Belia/Mean (mmHg): 110 (QS system process) : 74 (QS system process) : 88 (QS system process) Pulse: 71 (QS system process) LaborFlag: Antepartum (QS system process) Datetime: 06/11/2016 17:15 Monitor Mode: External; Palpation (Patrick Akash, RN) Frequency (min): irregular (Patrick Akash, RN) Quality: Mild (Patrick Akash, RN) Resting Tone (Palpate): Relaxed (Patrick Bustos RN) Monitor Mode: External US (Patrick Bustos RN) FHR Baseline Rate : 135 (Patrick Bustos RN) Variability: Moderate 6-25 bpm (Patrick Bustos RN) Accelerations: 15X15 (Patrick Bustos RN) Decelerations: None (Patrick Bustos RN) Pain Presence: None/Denies (Patrick Bustos RN) Communication: RN at Bedside; RN Reviewed Strip (Patrick Bustos RN) LaborFlag: Antepartum (QS system process) Datetime: 06/11/2016 16:51 NBP Sys/Belia/Mean (mmHg): 109 (QS system process) : 71 (QS system process) : 85 (QS system process) Pulse: 71 (QS system process) LaborFlag: Antepartum (QS system process) Datetime: 06/11/2016 16:45 Monitor Mode: External; Palpation (Patrick Bustos RN) Frequency (min): irregular (Patrick Bustos RN) Quality: Mild (Patrick Bustos RN) Resting Tone (Palpate): Relaxed (Patrick Bustos RN) Monitor Mode: External US (Patrick Bustos RN) FHR Baseline Rate : 135 (Patrick Bustos RN) Variability: Moderate 6-25 bpm (Patrick Bustos RN) Accelerations: 15X15 (Patrick Bustos RN) Decelerations: None (Patrick Bustos RN) Pain Presence: None/Denies (Patrick Bustos RN) Communication: RN at Bedside; RN Reviewed Strip (Patrick Bustos RN) LaborFlag: Antepartum (QS system process)
--- NOTE | 2016-06-12 04:47 | L&D General Admission ---
General Admit Datetime Report Generated by CPN: 06/12/2016 04:45 CARE Height (in): 68 (06/11/2016 15:42:QS system process) Height (in): 68 (06/11/2016 14:46:QS system process) ALLERGIES Medication Allergies: No Known Allergies (06/11/2016) (06/11/2016 14:46:QS system process) LABS Hemoglobin: 11.4 L (06/11/2016 18:46:QS system process) Hematocrit: 34.9 L (06/11/2016 18:46:QS system process) MCV: 79 L (06/11/2016 18:46:QS system process)
--- NOTE | 2016-06-12 04:47 | L&D Admission Assessment ---
LD ADM ASMT Datetime Report Generated by CPN: 06/12/2016 04:45 PATIENT ASSESSMENT Assessment Type: Ongoing Assessment (06/11/2016 19:15:Helen Agustín, RN) Assessment Type: Admission Assessment (06/11/2016 15:00:Partick Akash, RN) WEIGHT Weight (lb): 187 (06/11/2016 14:46:QS system process) Weight (kg): 85.0 (06/11/2016 14:46:QS system process) Total Wt Gain (lb): 15 (06/11/2016 14:46:QS system process) Wt Gain (kg): 6.8 (06/11/2016 14:46:QS system process) PAIN Pain Scale: 3 (06/12/2016 03:06:Helen Randolph RN) Pain Scale: 2 (06/11/2016 21:07:Helen Randolph RN) Pain Scale: 4 (06/11/2016 19:30:Helen Randolph RN) Pain Presence: Intermittent (06/12/2016 03:06:Helen Randolph RN) Pain Presence: Constant (06/11/2016 21:07:Helen Randolph RN) Pain Presence: Constant (06/11/2016 19:30:Helen Randolph RN) Pain Presence: None/Denies (06/11/2016 18:45:Patrick Bustos RN) Pain Presence: None/Denies (06/11/2016 18:15:Patrick Bustos RN) Pain Presence: None/Denies (06/11/2016 17:15:Patrick Bustos RN) Pain Presence: None/Denies (06/11/2016 16:45:Patrick Bustos RN) Pain Presence: None/Denies (06/11/2016 15:45:Patrick Bustos RN) Pain Presence: None/Denies (06/11/2016 15:00:Patrick Bustos RN) Pain Type: Cramping (06/12/2016 03:06:Helen Randolph RN) Pain Type: Dull (06/11/2016 21:07:Helen Randolph RN) Pain Type: Dull; Pressure (06/11/2016 19:30:Helen Randolph RN) Pain Location: Abdomen (06/12/2016 03:06:Helen Randolph RN) Pain Location: Head (06/11/2016 21:07:Helen Randolph RN) Pain Location: Head (06/11/2016 19:30:Helen Randolph RN) Pain Comments: Also states that her h/a is back. (06/12/2016 03:06:Helen Randolph RN) Pain Comments: states is at base of head. (06/11/2016 19:30:Helen Randolph RN) CONTRACTIONS Frequency (min): 1.5-6 (06/12/2016 04:30:Stefanie Leary RN) Frequency (min): occasional (06/12/2016 04:00:Helen Randolph RN) Frequency (min): occasional (06/12/2016 03:30:Helen Randolph RN) Frequency (min): irregular (06/12/2016 03:00:Helen Randolph RN) Frequency (min): irrittablity (06/12/2016 02:30:Helen Randolph RN) Frequency (min): irregular (06/12/2016 02:00:Helen Randolph RN) Frequency (min): 2-7 (06/12/2016 01:30:Helen Randolph RN) Frequency (min): 2-7 (06/12/2016 01:00:Helen Randolph RN) Frequency (min): 2-6 (06/12/2016 00:30:Helen Randolph RN) Frequency (min): irregular (06/12/2016 00:00:Helen Agustín, RN) Frequency (min): 5-7 (06/11/2016 23:30:Helen Agustín, RN) Frequency (min): occasional (06/11/2016 23:01:Helen Agustín, RN) Frequency (min): irritability (06/11/2016 22:30:Helen Agustín, RN) Frequency (min): occasional (06/11/2016 22:00:Helen Agustín, RN) Frequency (min): occasionally (06/11/2016 22:00:Helen Agustín, RN) Frequency (min): 0 (06/11/2016 21:30:Helen Agustín, RN) Frequency (min): irritability (06/11/2016 21:00:Helen Agustín, RN) Frequency (min): rare (06/11/2016 20:30:Helen Agustín, RN) Frequency (min): Occasional (06/11/2016 20:00:Helen Agustín, RN) Frequency (min): occasional (06/11/2016 19:30:Helen Agustín, RN) Frequency (min): irregular (06/11/2016 19:15:Patrick Akash, RN) Frequency (min): 2-8 (06/11/2016 18:45:Patrick Akash, RN) Frequency (min): irregular (06/11/2016 17:15:Patrick Akash, RN) Frequency (min): irregular (06/11/2016 16:45:Patrick Akash, RN) Frequency (min): 10-11 (06/11/2016 16:15:Patrick Akash, RN) Frequency (min): 6-10 (06/11/2016 15:15:Patrick Akash, RN) Duration (sec): 40-80 (06/12/2016 04:30:Stefanie Leary RN) Duration (sec): 40-60 (06/12/2016 04:00:Helen Agustín, RN) Duration (sec): 40-60 (06/12/2016 02:00:Helen Agustín, RN) Duration (sec): 40-90 (06/12/2016 01:30:Helen Agustín, RN) Duration (sec): 50-70 (06/12/2016 01:00:Helen Agustín, RN) Duration (sec): 40-70 (06/12/2016 00:30:Helen Agustín, RN) Duration (sec): 50-60 (06/12/2016 00:00:Helen Agustín, RN) Duration (sec): 50-80 (06/11/2016 23:30:Helen Agustín, RN) Duration (sec): 50 (06/11/2016 23:01:Helen Agustín, RN) Duration (sec): 50-60 (06/11/2016 22:00:Helen Agustín, RN) Duration (sec): 50 (06/11/2016 22:00:Helen Agustín, RN) Duration (sec): 40 (06/11/2016 20:30:Helen Agustín, RN) Duration (sec): 40-50 (06/11/2016 20:00:Helen Agustín, RN) Duration (sec): 50-60 (06/11/2016 19:30:Helen Agustín, RN) Duration (sec): 70-100 (06/11/2016 18:45:Patrick Akash, RN) Duration (sec): 70-90 (06/11/2016 16:15:Patrick Akash, RN) Duration (sec): 60-90 (06/11/2016 15:15:Patrick Akash, RN) Quality: Mild (06/12/2016 04:30:Stefanie Leary RN) Quality: Moderate (06/12/2016 04:00:Helen Agustín, RN) Quality: Moderate (06/12/2016 03:30:Helen Agustín, RN) Quality: Mild/Moderate (06/12/2016 03:00:Helen Agustín, RN) Quality: Mild/Moderate (06/12/2016 02:30:Helen Agustín, RN) Quality: Mild/Moderate (06/12/2016 02:00:Helen Agustín, RN) Quality: Mild (06/12/2016 01:30:Helen Agustín, RN) Quality: Mild (06/12/2016 01:00:Helen Agustín, RN) Quality: Mild (06/12/2016 00:30:Helen Agustín, RN) Quality: Mild (06/12/2016 00:00:Helen Agustín, RN) Quality: Mild (06/11/2016 23:30:Helen Agustín, RN) Quality: Mild (06/11/2016 23:01:Helen Agustín, RN) Quality: Mild (06/11/2016 22:30:Helen Agustín, RN) Quality: Mild (06/11/2016 22:00:Hleen Agustín, RN) Quality: Mild (06/11/2016 21:00:Helen Agustín, RN) Quality: Mild (06/11/2016 20:30:Helen Agustín, RN) Quality: Mild (06/11/2016 20:00:Helen Agustín, RN) Quality: Mild (06/11/2016 19:30:Helen Agustín, RN) Quality: Mild (06/11/2016 19:15:Patrick Akash, RN) Quality: Mild (06/11/2016 18:45:Patrick Akash, RN) Quality: Mild (06/11/2016 17:15:Patrick Akash, RN) Quality: Mild (06/11/2016 16:45:Patrick Akash, RN) Quality: Mild (06/11/2016 16:15:Patrick Akash, RN) Quality: Mild (06/11/2016 15:45:Patrick Akash, RN) Quality: Mild (06/11/2016 15:15:Patrick Akash, RN) Pattern: Normal: <= 5 Contractions in 10 Minutes (06/12/2016 03:00:Helen Agustín, RN) Pattern: Normal: <= 5 Contractions in 10 Minutes (06/12/2016 02:30:Helen Agustín, RN) Pattern: Normal: <= 5 Contractions in 10 Minutes (06/12/2016 02:00:Helen Agustín, RN) Pattern: Normal: <= 5 Contractions in 10 Minutes (06/12/2016 01:30:Helen Agustín, RN) Pattern: Normal: <= 5 Contractions in 10 Minutes (06/12/2016 00:30:Helen Agustín, RN) Pattern: Normal: <= 5 Contractions in 10 Minutes (06/12/2016 00:00:Helen Agustín, RN) Pattern: Normal: <= 5 Contractions in 10 Minutes (06/11/2016 22:00:Helen Agustín, RN) Resting Tone [place]: Relaxed (06/12/2016 04:30:Stefanie Leary, RN) Resting Tone [place]: Relaxed (06/12/2016 04:00:Helen Agustín, RN) Resting Tone [place]: Relaxed (06/12/2016 03:30:Helen Agustín, RN) Resting Tone [place]: Relaxed (06/12/2016 03:00:Helen Agustín, RN) Resting Tone [place]: Relaxed (06/12/2016 02:00:Helen Agustín, RN) Resting Tone [place]: Relaxed (06/12/2016 01:30:Helen Agustín, RN) Resting Tone [place]: Relaxed (06/12/2016 01:00:Helen Agustín, RN) Resting Tone [place]: Relaxed (06/12/2016 00:30:Helen Agustín, RN) Resting Tone [place]: Relaxed (06/12/2016 00:00:Helen Agustín, RN) Resting Tone [place]: Relaxed (06/11/2016 23:30:Helen Agustín, RN) Resting Tone [place]: Relaxed (06/11/2016 23:01:Helen Agustín, RN) Resting Tone [place]: Relaxed (06/11/2016 22:30:Helen Agustín, RN) Resting Tone [place]: Relaxed (06/11/2016 22:00:Helen Agustín, RN) Resting Tone [place]: Relaxed (06/11/2016 21:30:Helen Agustín, RN) Resting Tone [place]: Relaxed (06/11/2016 21:00:Helen Agustín, RN) Resting Tone [place]: Relaxed (06/11/2016 20:30:Helen Agustín, RN) Resting Tone [place]: Relaxed (06/11/2016 20:00:Helen Agustín, RN) Resting Tone [place]: Relaxed (06/11/2016 19:30:Helen Agustín, RN) Resting Tone [place]: Relaxed (06/11/2016 19:15:Patrick Bustos RN) Resting Tone [place]: Relaxed (06/11/2016 18:45:Patrick [place], RN) Resting Tone [place]: Relaxed (06/11/2016 18:15:Patrick Akash, RN) Resting Tone [place]: Relaxed (06/11/2016 17:45:Patrick Akash, RN) Resting Tone [place]: Relaxed (06/11/2016 17:15:Patrick [place], RN) Resting Tone [place]: Relaxed (06/11/2016 16:45:Patrick [place], RN) Resting Tone [place]: Relaxed (06/11/2016 16:15:Patrick [place], RN) Resting Tone [place]: Relaxed (06/11/2016 15:45:Patrick [place], RN) Resting Tone [place]: Relaxed (06/11/2016 15:15:Patrick Akash, RN) Contraction Comments: irritability (06/12/2016 04:00:Helen Randolph RN) Contraction Comments: alot of irritability (06/12/2016 03:30:Helen Randolph RN) Contraction Comments: irritability (06/12/2016 00:00:Helen Randolph RN) Contraction Comments: irritability (06/11/2016 23:01:Helen Randolph RN) Contraction Comments: irritability in between noted. (06/11/2016 22:00:Helen Randolph RN) Contraction Comments: irritabillity noted. (06/11/2016 22:00:Helen Randolph RN) Contraction Comments: uterine irritability noted (06/11/2016 18:15:Patrick Bustos RN) Contraction Comments: irregular (06/11/2016 17:45:Patrick Bustos RN) Contraction Comments: Irregular (06/11/2016 15:45:Patrick Bustos RN) VAGINAL EXAM Dilatation (cm): 2.0 (06/11/2016 19:33:Helen Randolph RN) Effacement (%): 60 (06/11/2016 19:33:Helen Randolph RN) Station: -2 (06/11/2016 19:33:Helen Randolph RN) AGARWAL'S SCORE Agarwal's Score Dilatation (cm): 1-2 cm (06/11/2016 19:33:Helen Randolph RN) Agarwal's Score Effacement (%): 60-70_ effaced (06/11/2016 19:33:Helen Randolph RN) Agarwal's Score Station: minus 2 (06/11/2016 19:33:Helen Randolph RN) Agarwal's Score Consistency: Soft (06/11/2016 19:33:Helen Randolph RN) Agarwal's Score Position: Midposition (06/11/2016 19:33:Hleen Randolph RN) Total Agarwal's Score: 7 (06/11/2016 19:33:QS system process) Agarwal's Score Text: 5-8 = Small percentage of induction failure (06/11/2016 19:33:QS system process) NEURO Level of Consciousness: Fully Conscious (06/11/2016 19:15:Helen Randolph RN) Level of Consciousness: Fully Conscious (06/11/2016 18:45:Patrick Bustos RN) Level of Consciousness: Fully Conscious (06/11/2016 18:15:Patrick Bustos RN) Level of Consciousness: Fully Conscious (06/11/2016 15:45:Patrick Bustos RN) Level of Consciousness: Fully Conscious (06/11/2016 15:00:Patrick Bustos RN) DTR's/Clonus: DTRs 2+; No Clonus (06/11/2016 15:00:Patrick Bustos RN) Headache: Localized (Annotations: is at base of head. Pt states she thinks it is tension because she is nervous about this delivery.) (06/11/2016 19:15:Helen Randolph RN) Headache: Denies (06/11/2016 18:45:Patrick Bustos RN) Headache: Denies (06/11/2016 18:15:Patrick Bustos RN) Headache: Denies (06/11/2016 15:45:Patrick Bustos RN) Headache: Denies (06/11/2016 15:00:Patrick Bustos RN) Dizziness: No (06/11/2016 19:15:Helen Randolph RN) Dizziness: No (06/11/2016 15:00:Patrick Bustos RN) Blurred Vision: Yes (Annotations: at times) (06/11/2016 19:15:Helen Randolph RN) Blurred Vision: No (06/11/2016 15:00:Patrick Bustos RN) Extremity Numbness/Tingling : None (06/11/2016 19:15:Helen Randolph RN) Extremity Numbness/Tingling : None (06/11/2016 15:00:Patrick Bustos RN) Extremity Movement: Full Range of Motion (06/11/2016 19:15:Helen Randolph RN) CARDIOVASCULAR Heart Rhythm: Regular (06/11/2016 19:15:Helen Randolph RN) Heart Rhythm: Regular (06/11/2016 15:00:Patrick Bustos RN) [place]ailbeds: [place] (06/11/2016 19:15:Helen Randolph RN) [place]ailbeds: [place] (06/11/2016 15:00:Patrick Bustos RN) Capillary Refill: Less than 3 Seconds (06/11/2016 19:15:Helen Randolph RN) Capillary Refill: Less than 3 Seconds (06/11/2016 15:00:Patrick Bustos RN) Lower Extremities Edema: None (06/11/2016 19:15:Helen Randolph RN) Lower Extremities Edema: None (06/11/2016 15:00:Patrick Bustos RN) Lower Extremities Edema Degree: None (06/11/2016 19:15:Helen Randolph RN) Lower Extremities Edema Degree: None (06/11/2016 15:00:Patrick Bustos RN) Upper Extremities Edema: None (06/11/2016 19:15:Helen Randolph RN) Upper Extremities Edema: None (06/11/2016 15:00:Patrick Bustos RN) Upper Extremities Edema Degree: None (06/11/2016 19:15:Helen Randolph RN) Upper Extremities Edema Degree: None (06/11/2016 15:00:Patrick Bustos RN) Facial Edema: None (06/11/2016 19:15:Helen Randolph RN) Facial Edema: None (06/11/2016 15:00:Patrick Bustos RN) Gwendolyn's Sign Left Leg: Negative (06/11/2016 19:15:Helen Randolph RN) Gwendolyn's Sign Left Leg: Negative (06/11/2016 15:00:Patrick Bustos RN) Gwendolyn's Sign Right Leg: Negative (06/11/2016 19:15:Helen Randolph RN) Gwendolyn's Sign Right Leg: Negative (06/11/2016 15:00:Patrick Bustos RN) DVT RISK ASSESSMENT DVT Risk Age: Age 41-60 years (06/11/2016 19:15:Helen Randolph RN) DVT Risk Age: Age 41-60 years (06/11/2016 15:00:Patrick Bustos RN) DVT Risk BMI: BMI<31 (06/11/2016 19:15:Helen Randolph RN) DVT Risk BMI: BMI 31 to 40 (06/11/2016 15:00:Patrick Bustos RN) DVT Risk Surgery: None Applicable (06/11/2016 19:15:Helen Randolph RN) DVT Risk Surgery: None Applicable (06/11/2016 15:00:Patrick Bustos RN) DVT Risk Other: Women Only- or (<1 month) (06/11/2016 19:15:Helen Randolph RN) DVT Risk Other: Women Only- or (<1 month) (06/11/2016 15:00:Patrick Bustos RN) DVT Risk Total: 2 (06/11/2016 19:15:QS system process) DVT Risk Total: 3 (06/11/2016 15:00:QS system process) DVT Risk Text: Moderate Risk (10-20%) - Consider stockings, compresssion device, pharmacological therapy per hospital policy (06/11/2016 19:15:QS system process) DVT Risk Text: High Risk (20-40%)- Consider stockings, compresssion device, pharmacological therapy per hospital policy (06/11/2016 15:00:QS system process) RESPIRATORY Respiratory Effort: Unlabored; Regular Rhythm (06/11/2016 19:15:Helen Randolph RN) Respiratory Effort: Unlabored; Regular Rhythm; Equal Expansion (06/11/2016 15:00:Patrick Bustos RN) Breath Sounds, Left: Clear and Equal (06/11/2016 19:15:Helen Randolph RN) Breath Sounds, Left: Clear and Equal (06/11/2016 15:00:Patrick Bustos RN) Breath Sounds, Right: Clear and Equal (06/11/2016 19:15:Helen Randolph RN) Breath Sounds, Right: Clear and Equal (06/11/2016 15:00:Patrick Bustos RN) Cough Productivity: None (06/11/2016 19:15:Helen Randolph RN) Cough Productivity: None (06/11/2016 15:00:Patrick Bustos RN) GASTROINTESTINAL Nausea/Vomiting: Denies (06/11/2016 19:15:Helen Randolph RN) Nausea/Vomiting: Denies (06/11/2016 18:45:Patrick Bustos RN) Nausea/Vomiting: Denies (06/11/2016 18:15:Patrick Bustos RN) Nausea/Vomiting: Denies (06/11/2016 15:45:Patrick Bustos RN) Nausea/Vomiting: Denies (06/11/2016 15:00:Patrick Bustos RN) Bowel Sounds: Normoactive (06/11/2016 19:15:Helen Randolph RN) Bowel Sounds: Normoactive (06/11/2016 15:00:Patrick Bustos RN) RUQ Epigastric Pain: Denies (06/11/2016 19:15:Helen Randolph RN) RUQ Epigastric Pain: Denies (06/11/2016 18:45:Patrick Bustos RN) RUQ Epigastric Pain: Denies (06/11/2016 18:15:Patrick Bustos RN) RUQ Epigastric Pain: Denies (06/11/2016 15:45:Patrick Bustos RN) RUQ Epigastric Pain: Denies (06/11/2016 15:00:Patrick Bustos RN) Bowel Patterns: Soft, Formed Stool (06/11/2016 19:15:Helen Randolph RN) Bowel Patterns: Soft, Formed Stool (06/11/2016 15:00:Patrick Bustos RN) Hemorrhoids: None (06/11/2016 19:15:Helen Randolph RN) Hemorrhoids: None (06/11/2016 15:00:Patrick Bustos RN) Diet Type: Regular diet (06/11/2016 19:15:Helen Randolph RN) Diet Type: Regular diet (06/11/2016 15:00:Patrick Akash, RN) Last Meal: 06/11/2016 11:00 (06/11/2016 15:00:Patrick Akash, RN) GENITOURINARY Bladder: Nondistended (06/11/2016 15:00:Patrick Akash, RN) Frequency of Urination: No (06/11/2016 15:00:Patrick Akash, RN) Urination Burning: No (06/11/2016 15:00:Patrick Akash, RN) CVA Tenderness: No (06/11/2016 15:00:Patrick Akash, RN) Vaginal Discharge Amount: None (06/11/2016 15:00:Patrick Akash, RN) Vaginal Discharge Color: N/A (06/11/2016 15:00:Patrick Akash, RN) Vaginal Discharge Odor: Non-Odorous (06/11/2016 15:00:Patrick Akash, RN) Vaginal Discharge Character: None (06/11/2016 15:00:Patrick Akash, RN) INTEGUMENTARY Skin Color: Normal for Race (06/11/2016 19:15:Helen Randolph RN) Skin Color: Normal for Race (06/11/2016 15:00:Patrick Bustos RN) Skin Temperature: Warm (06/11/2016 19:15:Helen Randolph RN) Skin Temperature: Warm (06/11/2016 15:00:Patrick Bustos RN) Skin Moisture: Dry (06/11/2016 19:15:Helen Randolph RN) Skin Moisture: Dry (06/11/2016 15:00:Patrick Bustos RN) Surgical Scars: gall bladder removal (06/11/2016 19:15:Helen Randolph RN) AKUA SKIN ASSESSMENT [place] Scale Sensory Perception: No Impairment- Responds to verbal commands. Has no sensory deficit which would limit ability to feel or voice pain or discomfort (06/11/2016 19:15:Helen Randolph RN) [place] Scale Sensory Perception: No Impairment- Responds to verbal commands. Has no sensory deficit which would limit ability to feel or voice pain or discomfort (06/11/2016 15:00:Patrick Bustos RN) [place] Scale Moisture: Rarely Moist- Skin is usually dry. Linen only requires changing at routine intervals (06/11/2016 19:15:Helen Randolph RN) [place] Scale Moisture: Rarely Moist- Skin is usually dry. Linen only requires changing at routine intervals (06/11/2016 15:00:Patrick Bustos RN) Akua Scale Activity: Walks Frequently- Walks outside the room at least twice a day and inside room at least every 2 hours during the day. (06/11/2016 19:15:Helen Randolph RN) Akua Scale Activity: Walks Frequently- Walks outside the room at least twice a day and inside room at least every 2 hours during the day. (06/11/2016 15:00:Patrick Bustos RN) Akua Scale Mobility: No Limitations- Makes major and frequent changes in position without assistance (06/11/2016 19:15:Helen Randolph RN) Akua Scale Mobility: No Limitations- Makes major and frequent changes in position without assistance (06/11/2016 15:00:Patrick Bustos RN) Akua Scale Nutrition: Excellent- Eats most of every meal. Never refuses a meal. Usually eats a total of 4 or more servings of meat and dairy products. Occasionally eats between meals. Does not require supplementation (06/11/2016 19:15:Helen Randolph RN) Akua Scale Nutrition: Excellent- Eats most of every meal. Never refuses a meal. Usually eats a total of 4 or more servings of meat and dairy products. Occasionally eats between meals. Does not require supplementation (06/11/2016 15:00:Patrick Bustos RN) [place] Scale Friction and Shear: No Apparent Problem- Moves in bed and in chair independently and has sufficient muscle strength to lift up completely during move. Maintains good position in bed or chair at all times (06/11/2016 19:15:Helen Randolph RN) Akua Scale Friction and Shear: No Apparent Problem- Moves in bed and in chair independently and has sufficient muscle strength to lift up completely during move. Maintains good position in bed or chair at all times (06/11/2016 15:00:Patrick Bustos RN) [place] Scale Total: 23 (06/11/2016 19:15:QS system process) [place] Scale Total: 23 (06/11/2016 15:00:QS system process) [place] Scale Risk: No Risk of Pressure Ulcer Noted at this Time (06/11/2016 19:15:QS system process) [place] Scale Risk: No Risk of Pressure Ulcer Noted at this Time (06/11/2016 15:00:QS system process) SUPPORT Family Support: Significant Other supportive, at bedside frequently (06/11/2016 15:00:Patrick Akash, RN) Emotional State: Calm/Relaxed (06/11/2016 15:00:Patrick Akash, RN) SAFETY Call [place] Within Reach: Yes (06/11/2016 15:00:Patrick Akash, RN) Side Rails Up: Yes (06/11/2016 15:00:Patrick Akash, RN) Bed Wheels Locked: Yes (06/11/2016 15:00:Patrick Akash, RN) Arm Bands Present: Yes (06/11/2016 15:00:Patrick Akash, RN) Isolation: [place] (06/11/2016 15:00:Patrick Akash, RN) FALL SCREEN Fall Risk History of Falling: (0) No (06/11/2016 15:00:Patrick Bustos RN) Fall Risk Secondary Diagnosis: (0) No (06/11/2016 15:00:Patrick Bustos RN) Fall Risk Ambulatory Aid: (0) None/Bedrest/Wheelchair/Nurse Assist (06/11/2016 15:00:Patrick Bustos RN) Fall Risk IV Therapy: (0) No (06/11/2016 15:00:Patrick Bustos RN) Fall Risk Gait: (0) Normal/Bedrest/Immobile (06/11/2016 15:00:Patrick Bustos RN) Fall Risk Mental Status: (0) Oriented to Own Ability (06/11/2016 15:00:Patrick Bustos RN) Fall Risk Score: 0 (06/11/2016 15:00:QS system process) Fall Risk Score Definition: No Risk: No action required (06/11/2016 15:00:QS system process) RECENT TRAVEL/INFECTIOUS DISEASE Recent Exp Communicable Disease: No (06/11/2016 15:00:Patrick Bustos RN) Cough or Fever: No (06/11/2016 15:00:Patrick Bustos RN) Foreign Travel Past 10 Days: No (06/11/2016 15:00:Patrick Bustos RN) Open Wounds or Sores: No (06/11/2016 15:00:Patrick Bustos RN) Prior Antibiotic Resistance Tx: No (06/11/2016 15:00:Patrick Bustos RN) Cultures Obtained: Not Applicable (06/11/2016 15:00:Patrick Bustos RN) Isolation Initiated: No (06/11/2016 15:00:Patrick Bustos RN) Pt/Family Education: Not Applicable (06/11/2016 15:00:Patrick Bustos RN) BABY A FHR Baseline Rate (bpm) Baby A: 130 (06/12/2016 04:30:Stefanie Leary RN) FHR Baseline Rate (bpm) Baby A: 140 (06/12/2016 04:00:Helen Randolph RN) FHR Baseline Rate (bpm) Baby A: 140 (06/12/2016 03:30:Helen Randolph RN) FHR Baseline Rate (bpm) Baby A: 175 (06/12/2016 03:00:Helen Randolph RN) FHR Baseline Rate (bpm) Baby A: 165 (06/12/2016 02:30:Helen Randolph RN) FHR Baseline Rate (bpm) Baby A: 145 (06/12/2016 02:00:Helen Randolph RN) FHR Baseline Rate (bpm) Baby A: 140 (06/12/2016 01:30:Helen Randolph RN) FHR Baseline Rate (bpm) Baby A: 135 (06/12/2016 01:00:Helen Randolph RN) FHR Baseline Rate (bpm) Baby A: 135 (06/12/2016 00:30:Helen Randolph RN) FHR Baseline Rate (bpm) Baby A: 140 (06/12/2016 00:00:Helen Randolph RN) FHR Baseline Rate (bpm) Baby A: 135 (06/11/2016 23:30:Helen Randolph RN) FHR Baseline Rate (bpm) Baby A: 130 (06/11/2016 23:01:Helen Randolph RN) FHR Baseline Rate (bpm) Baby A: 130 (06/11/2016 22:30:Helen Randolph RN) FHR Baseline Rate (bpm) Baby A: 140 (06/11/2016 22:00:Helen Randolph RN) FHR Baseline Rate (bpm) Baby A: 160 (06/11/2016 22:00:Helen Randolph RN) FHR Baseline Rate (bpm) Baby A: 145 (06/11/2016 21:30:Helen Randolph RN) FHR Baseline Rate (bpm) Baby A: 135 (06/11/2016 21:00:Helen Randolph RN) FHR Baseline Rate (bpm) Baby A: 140 (06/11/2016 20:30:Helen Randolph RN) FHR Baseline Rate (bpm) Baby A: 130 (06/11/2016 20:00:Helen Randolph RN) FHR Baseline Rate (bpm) Baby A: 130 (06/11/2016 19:30:Helen Randolph RN) FHR Baseline Rate (bpm) Baby A: 135 (06/11/2016 19:15:Patrick Bustos RN) FHR Baseline Rate (bpm) Baby A: 125 (06/11/2016 18:45:Patrick Bustos RN) FHR Baseline Rate (bpm) Baby A: 125 (06/11/2016 18:15:Patrick Bustos RN) FHR Baseline Rate (bpm) Baby A: 125 (06/11/2016 17:45:Patrick Bustos RN) FHR Baseline Rate (bpm) Baby A: 135 (06/11/2016 17:15:Patrick Bustos RN) FHR Baseline Rate (bpm) Baby A: 135 (06/11/2016 16:45:Patrick Bustos RN) FHR Baseline Rate (bpm) Baby A: 135 (06/11/2016 16:15:Patrick Bustos RN) FHR Baseline Rate (bpm) Baby A: 140 (06/11/2016 15:45:Patrick Bustos RN) FHR Baseline Rate (bpm) Baby A: 140 (06/11/2016 15:15:Patrick Bustos RN) Variability Baby A: Moderate 6-25 bpm (06/12/2016 04:30:Stefanie Leary RN) Variability Baby A: Moderate 6-25 bpm (06/12/2016 04:00:Helen Randolph RN) Variability Baby A: Moderate 6-25 bpm (06/12/2016 03:30:Helen Randolph RN) Variability Baby A: Moderate 6-25 bpm (06/12/2016 03:00:Helen Randolph RN) Variability Baby A: Moderate 6-25 bpm (06/12/2016 02:30:Helen Randolph RN) Variability Baby A: Moderate 6-25 bpm (06/12/2016 02:00:Helen Randolph RN) Variability Baby A: Moderate 6-25 bpm (06/12/2016 01:30:Helen Randolph RN) Variability Baby A: Moderate 6-25 bpm (06/12/2016 01:00:Helen Randolph RN) Variability Baby A: Moderate 6-25 bpm (06/12/2016 00:30:Helen Randolph RN) Variability Baby A: Moderate 6-25 bpm (06/12/2016 00:00:Helen Randolph RN) Variability Baby A: Moderate 6-25 bpm (06/11/2016 23:30:Helen Randolph RN) Variability Baby A: Moderate 6-25 bpm (06/11/2016 23:01:Helen Randolph RN) Variability Baby A: Moderate 6-25 bpm (06/11/2016 22:30:Helen Randolph RN) Variability Baby A: Moderate 6-25 bpm (06/11/2016 22:00:Helen Randolph RN) Variability Baby A: Moderate 6-25 bpm (06/11/2016 21:30:Helen Randolph RN) Variability Baby A: Moderate 6-25 bpm (06/11/2016 21:00:Helen Randolph RN) Variability Baby A: Moderate 6-25 bpm (06/11/2016 20:30:Helen Randolph RN) Variability Baby A: Moderate 6-25 bpm (06/11/2016 20:00:Helen Randolph RN) Variability Baby A: Moderate 6-25 bpm (06/11/2016 19:30:Helen Randolph RN) Variability Baby A: Moderate 6-25 bpm (06/11/2016 19:15:Patrick Bustos RN) Variability Baby A: Moderate 6-25 bpm (06/11/2016 18:45:Patrick Bustos RN) Variability Baby A: Moderate 6-25 bpm (06/11/2016 18:15:Patrick Bustos RN) Variability Baby A: Moderate 6-25 bpm (06/11/2016 17:45:Patrick Bustos RN) Variability Baby A: Moderate 6-25 bpm (06/11/2016 17:15:Patrick Bustos RN) Variability Baby A: Moderate 6-25 bpm (06/11/2016 16:45:Patrick Bustos RN) Variability Baby A: Moderate 6-25 bpm (06/11/2016 16:15:Patrick Bustos RN) Variability Baby A: Moderate 6-25 bpm (06/11/2016 15:45:Patrick Bustos RN) Variability Baby A: Moderate 6-25 bpm (06/11/2016 15:15:Patrick Bustos RN) Accelerations Baby A: 15X15 (06/12/2016 04:30:Stefanie Leary RN) Accelerations Baby A: None (06/12/2016 04:00:Helen Randolph RN) Accelerations Baby A: None (06/12/2016 03:30:Helen Randolph RN) Accelerations Baby A: None (06/12/2016 03:00:Helen Randolph RN) Accelerations Baby A: None (06/12/2016 02:30:Helen Randolph RN) Accelerations Baby A: 15X15 (06/12/2016 02:00:Helen Randolph RN) Accelerations Baby A: 15X15 (06/12/2016 01:30:Helen Randolph RN) Accelerations Baby A: 15X15 (06/12/2016 01:00:Helen Randolph RN) Accelerations Baby A: 15X15 (06/12/2016 00:30:Helen Randolph RN) Accelerations Baby A: 15X15 (06/12/2016 00:00:Helen Randolph RN) Accelerations Baby A: 15X15 (06/11/2016 23:30:Helen Randolph RN) Accelerations Baby A: 15X15 (06/11/2016 23:01:Helen Randolph RN) Accelerations Baby A: 15X15 (06/11/2016 22:30:Helen Randolph RN) Accelerations Baby A: 15X15 (06/11/2016 22:00:Helen Randolph RN) Accelerations Baby A: 15X15 (06/11/2016 21:30:Helen Randolph RN) Accelerations Baby A: 15X15 (06/11/2016 21:00:eHlen Randolph RN) Accelerations Baby A: 15X15 (06/11/2016 20:30:Helen Randolph RN) Accelerations Baby A: 15X15 (06/11/2016 20:00:Helen Randolph RN) Accelerations Baby A: 15X15 (06/11/2016 19:30:Helen Randolph RN) Accelerations Baby A: 15X15 (06/11/2016 19:15:Patrick Bustos RN) Accelerations Baby A: 15X15 (06/11/2016 18:45:Patrick Bustos RN) Accelerations Baby A: 15X15 (06/11/2016 18:15:Patrick Bustos RN) Accelerations Baby A: 15X15 (06/11/2016 17:45:Patrick Bustos RN) Accelerations Baby A: 15X15 (06/11/2016 17:15:Patrick Bustos RN) Accelerations Baby A: 15X15 (06/11/2016 16:45:Patrick Bustos RN) Accelerations Baby A: 15X15 (06/11/2016 16:15:Patrick Bustos RN) Accelerations Baby A: 15X15 (06/11/2016 15:45:Patrick Bustos RN) Accelerations Baby A: 15X15 (06/11/2016 15:15:Patrick Bustos RN) Decelerations Baby A: None (06/12/2016 04:30:Stefanie Leary RN) Decelerations Baby A: None (06/12/2016 04:00:Helen Randolph RN) Decelerations Baby A: None (06/12/2016 03:30:Helen Randolph RN) Decelerations Baby A: None (06/12/2016 03:00:Helen Randolph RN) Decelerations Baby A: None (06/12/2016 02:30:Helen Randolph RN) Decelerations Baby A: None (06/12/2016 02:00:Helen Randolph RN) Decelerations Baby A: Late (06/12/2016 01:30:Helen Randolph RN) Decelerations Baby A: None (06/12/2016 01:00:Helen Randolph RN) Decelerations Baby A: None (06/12/2016 00:30:Helen Randolph RN) Decelerations Baby A: None (06/12/2016 00:00:Helen Randolph RN) Decelerations Baby A: Late (06/11/2016 23:30:Helen Randolph RN) Decelerations Baby A: None (06/11/2016 23:01:Helen Randolph RN) Decelerations Baby A: None (06/11/2016 22:30:Helen Randolph RN) Decelerations Baby A: None (06/11/2016 22:00:Helen Randolph RN) Decelerations Baby A: None (06/11/2016 21:30:Helen Randolph RN) Decelerations Baby A: None (06/11/2016 21:00:Helen Randolph RN) Decelerations Baby A: None (06/11/2016 20:30:Helen Randolph RN) Decelerations Baby A: None (06/11/2016 20:00:Helen Randolph RN) Decelerations Baby A: None (06/11/2016 19:30:Helen Randolph RN) Decelerations Baby A: None (06/11/2016 19:15:Patrick Bustos RN) Decelerations Baby A: None (06/11/2016 18:45:Patrick Bustos RN) Decelerations Baby A: None (06/11/2016 18:15:Patrick Bustos RN) Decelerations Baby A: None (06/11/2016 17:45:Patrick Bustos RN) Decelerations Baby A: None (06/11/2016 17:15:Patrick Bustos RN) Decelerations Baby A: None (06/11/2016 16:45:Patrick Bustos RN) Decelerations Baby A: None (06/11/2016 16:15:Patrick Bustos RN) Decelerations Baby A: None (06/11/2016 15:45:Patrick Bustos RN) Decelerations Baby A: None (06/11/2016 15:15:Patrick Bustos RN) ADDITIONAL COMMENTS Assessment Flag: Admission Assessment (06/11/2016 15:00:QS system process)
[2016-06-12] MEDS: RINGERS SOLUTION,LACTATED 1,000 ML IV PRN ×2 (06:00→11:41)
--- NOTE | 2016-06-12 06:23 | L&D Current Admission ---
Current Admit Datetime Report Generated by CPN: 06/12/2016 06:00 ADMISSION INFORMATION Current Admit Date/Time: 06/11/2016 17:46 (06/11/2016 15:00:Patrick Bustos RN) Reason for Admission: Induction of Labor (06/11/2016 15:00:Patrick Bustos RN) EGA per Dates: 41.1 (06/11/2016 15:00:QS system process) Method of Arrival: Ambulatory (06/11/2016 15:00:aPtrick Bustos RN) Reason for Induction: Postterm; Other (06/11/2016 15:00:Patrick Bustos RN) Reason for Induction- Other: AMA (06/11/2016 15:00:Patrick Bustos RN) Records Available: Yes (06/11/2016 15:00:Patrick Bustos RN) General Admission Information: Reviewed; Updated; Confirmed (06/11/2016 15:00:Patrick Bustos RN) General Admission Reviewed By: Kena Bustos RN (06/11/2016 15:00:Patrick Bustos RN) BELONGINGS/ADVANCED DIRECTIVES Disposition of Belongings: Kept with Patient (06/11/2016 15:00:Patrick Bustos RN) Comments Regarding Disposition: See [facility] belongings form filled out by patient (06/11/2016 15:00:Patrick Bustos RN) Advance Direct for Healthcare: No, and Wants No Information (06/11/2016 15:00:Patrick Bustos RN) Durable Power of Stove Fitter: No (06/11/2016 15:00:Patrick Bustos RN) Living Will: No (06/11/2016 15:00:Patrick Bustos RN) Organ Donor: No (06/11/2016 15:00:Patrick Bustos RN) Pt Rights Information Given: Yes (06/11/2016 15:00:Patrick Bustos RN) Pt Understands Pt Rights: Yes (06/11/2016 15:00:Patrick Bustos RN) LEARNING ASSESSMENT Knowledge Level: Understands L_D Process (06/11/2016 15:00:Patrick Bustos RN) Barriers to Learning: None (06/11/2016 15:00:Patrick Bustos RN) Learning Readiness: Motivated (06/11/2016 15:00:Patrick Bustos RN) Learns Best By: 1 to 1 Instruction (06/11/2016 15:00:Patrick Bustos RN) Learning Needs: Labor and Delivery Process; Pain Management; Symptoms to Report; Treatment Plan; Medication; Diagnosis (06/11/2016 15:00:Patrick Bustos RN) DOMESTIC VIOLANCE SCREENING Dom Viol Threatened/Hurt: No (06/11/2016 15:00:Patrick Bustos RN) Hx of Abuse/Neglect past 2yrs: No (06/11/2016 15:00:Patrick Bustos RN) Feel Unsafe Going Home: No (06/11/2016 15:00:Patrick Bustos RN) Addt'l Observ Indicating Abuse: No (06/11/2016 15:00:Patrick Bustos RN) Reason Unable to Complete Screen: N/A, Screen Completed (06/11/2016 15:00:Patrick Bustos RN) Considered Personal Harm/Suicide: No (06/11/2016 15:00:Patrick Bustos RN) NUTRITIONAL/FUNCTIONAL SCREENING Problem with Appetite >5 Days: No (06/11/2016 15:00:Patrick Bustos RN) Chew/Swallow Difficulties: No (06/11/2016 15:00:Patrick Bustos RN) Inappropriate Wt Gain/Loss: No (06/11/2016 15:00:Patrick Bustos RN) Presence Skin Breakdown/Ulcer: No (06/11/2016 15:00:Patrick Bustos RN) Special Diet: No (06/11/2016 15:00:Patrick Bustos RN) Pt Requests Checkroom Attendant Visit: No (06/11/2016 15:00:Patrick Bustos RN) Hx of Any of the Following?: N/A (06/11/2016 15:00:Patrick Bustos RN) New Diagnosis of: N/A (06/11/2016 15:00:Patrick Bustos RN) Requires Assist w/Ambulation: No (06/11/2016 15:00:Patrick Bustos RN) Uses Assist Device to Ambulate: No (06/11/2016 15:00:Patrick Bustos RN) Pt Requires Help w/ADL's: No (06/11/2016 15:00:Patrick Bustos RN)
--- NOTE | 2016-06-12 06:23 | L&D General Admission ---
General Admit Datetime Report Generated by CPN: 06/12/2016 06:00 INFORMATION Patient Age: 41 (04/30/2016 18:04:QS system process) EDC: 06/03/2016 00:00 (04/30/2016 18:08:Yane Vitale RN) LMP: 08/28/2015 00:00 (04/30/2016 18:08:Patrick Bustos RN) : 4 (04/30/2016 18:08:Yane Vitale RN) Para: 2 (04/30/2016 18:08:Helen Randolph RN) Term: 2 (04/30/2016 18:08:Yane Vitale RN) Induced Abortions: 1 (04/30/2016 18:08:Yane Vitale RN) Livin (04/30/2016 18:08:Patrick Bustos RN) Cesareans: 0 (04/30/2016 18:08:Patrick Bustos RN) Baby, Number in Womb: 1 (04/30/2016 18:40:Yane Iam, RN) CARE Primary Paper Tester: [facility] (04/30/2016 18:08:Yane Vitale RN) Month of 1st Visit: September (04/30/2016 18:08:Yane Vitale RN) Adequate Care: Yes (04/30/2016 18:08:Yane Vitale RN) Prepregnancy Weight (lb): 172 (04/30/2016 18:08:Patrick Bustos RN) Prepregnancy Weight (kg): 78.2 (04/30/2016 18:08:QS system process) Height (in): 68 (06/11/2016 15:42:QS system process) ALLERGIES Medication Allergy: No (04/30/2016 18:08:Yane Vitale RN) Medication Allergies: No Known Allergies (06/11/2016) (06/11/2016 14:46:QS system process) Latex Allergy: No Latex Allergies (04/30/2016 18:08:Yane Vitale RN) Food Allergies: n/a (04/30/2016 18:08:Yane Vitale RN) Environmental Allergies: n/a (04/30/2016 18:08:Yane Vitale RN) COMMUNICATION Primary Language: Ukrainian (04/30/2016 18:08:Yane Vitale RN) Medical Tx Preferred Language: Ukrainian (04/30/2016 18:08:Yane Vitale RN) Communication Barrier(s): None (04/30/2016 18:08:Patrick Bustos RN) DEMOGRAPHICS Address: [address] [place] [id number] (04/30/2016 18:04:QS system process) Zipcode: [address] (04/30/2016 18:04:QS system process) Home (04/30/2016 18:04:QS system process) SSN: [id number] (04/30/2016 18:04:QS system process) Next of Kin Name: JERAYM WYNNE (04/30/2016 18:04:QS system process) Next of Kin (04/30/2016 18:04:QS system process) Next of Kin Relationship: SPO (04/30/2016 18:04:QS system process) Date of : 1975 (04/30/2016 18:04:QS system process) Marital Status: (04/30/2016 18:04:QS system process) Sex: Female (04/30/2016 18:04:QS system process) Race: Other (04/30/2016 18:04:QS system process) Ethnicity: Non- or (04/30/2016 18:04:QS system process) Hoahaoism: Taoist (04/30/2016 18:04:QS system process) DRUG AND ALCOHOL USE Alcohol: No (04/30/2016 18:08:Yane Vitale RN) Cigarettes: Never Smoker. [id number] (04/30/2016 18:08:Yane Vitale RN) Marijuana: No (04/30/2016 18:08:Yane Vitale RN) Cocaine: No (04/30/2016 18:08:Yane Vitale RN) Other Illicit Drugs: No (04/30/2016 18:08:Yane Vitale RN) VACCINE HISTORY Influenza Vaccine: No (04/30/2016 18:08:Yane Vitale RN) Pneumococcal Vaccine: No (04/30/2016 18:08:Yaen Vitale RN) Tetanus Vaccine: Uncertain (04/30/2016 18:08:Yane Vitale RN) Tdap Vaccine: Yes (04/30/2016 18:08:Patrick Bustos RN) Tdap Date: 11/23/2011 (04/30/2016 18:08:Patrick Bustos RN) Hepatitis B Vaccine: Uncertain (04/30/2016 18:08:Yane Vitale RN) Tanning Wheel Filler: [facility] (04/30/2016 18:08:Yane Vitale RN) Feeding Preference: Breast (04/30/2016 18:08:Yane Vitale RN) Benefit of Breast Feed Discussed: Yes (04/30/2016 18:08:Yane Vitale RN) Circumcision: N/A (04/30/2016 18:08:Yane Vitale RN) Classes Attended: No (04/30/2016 18:08:Yane Vitale RN) Tubal Ligation: No (04/30/2016 18:08:Yane Vitale RN) Tubal Authorization Signed: N/A (04/30/2016 18:08:Yane Vitale RN) Consent: N/A (04/30/2016 18:08:Yane Vitale RN) Consent Signed: N/A (04/30/2016 18:08:Yane Vitale RN) Pain Management Plans: Natural (04/30/2016 18:08:Patrick Bustos RN) Plans for Labor and Delivery: None (04/30/2016 18:08:Yane Vitale RN) Support Person: Jeramy Wnyne (04/30/2016 18:08:Yane Vitale RN) Support Person Relationship: (04/30/2016 18:08:Yane Vitale RN) Cultural/Spritual Practice: [facility] (04/30/2016 18:08:Yane Vitale RN) Spir/Cult Dietary Needs: [facility] (04/30/2016 18:08:Yane Vitale RN) LIVING SITUATION/DISCHARGE PLAN Living Arrangements: House (04/30/2016 18:08:Yane Vitale RN) Adequate Access to:: Electric; Heat; Refrigeration; Plumbing/Running water; Phone; Transportation (04/30/2016 18:08:Yane Vitale RN) WIC Program: [facility] (04/30/2016 18:08:Yane Vitale RN) Discharge District Captain Person: Jeramy Wynne (04/30/2016 18:08:Yane Vitale RN) Person to Help after Discharge: Jeramy Wynne (04/30/2016 18:08:Yane Vitale RN) Currently Using Commun Resources: [facility] (04/30/2016 18:08:Yane Vitale RN) Outside Agency/Back End Architect: [facility] (04/30/2016 18:08:Yane Vitale RN) Car Seat for Discharge: [facility] (04/30/2016 18:08:Yane Vitale RN) Adoption Requested: [facility] (04/30/2016 18:08:Yane Vitale RN) Pt Contact w/infant Post : N/A (04/30/2016 18:08:Yane Vitale RN) LABS Blood Type: O Positive (04/30/2016 18:08:Patrick Bustos RN) Antibody Screen: Negative (04/30/2016 18:08:Patrick Bustos RN) Hemoglobin: 11.4 L (06/11/2016 18:46:QS system process) Hematocrit: 34.9 L (06/11/2016 18:46:QS system process) MCV: 79 L (06/11/2016 18:46:QS system process) Group Beta Strep: Negative (04/30/2016 18:08:Patrick Bustos RN) Gonorrhea: Negative (04/30/2016 18:08:Patrick Bustos RN) Chlamydia: Negative (04/30/2016 18:08:Patrick Bustos RN) RPR/VDRL: Nonreactive (04/30/2016 18:08:Yane Vitale RN) HIV Exposure Test: Negative (04/30/2016 18:08:Patrick Bustos RN) Hepatitis B: Negative (04/30/2016 18:08:Patrick Bustos RN) Rubella: Immune (04/30/2016 18:08:Patrick Bustos RN) Varicella: Positive (04/30/2016 18:08:Patrick Bustos RN) Varicella Titer: 641 (04/30/2016 18:08:Patrick Bustos RN) OB/PREVIOUS HISTORY LMP: 08/28/2015 00:00 (04/30/2016 18:08:Patrick Bustos RN) Previous Procedures: Ultrasound; NST (04/30/2016 18:08:Yane Vitale RN) Current Procedures: Ultrasound; NST (04/30/2016 18:08:Yane Vitale RN) History of Previous : No (04/30/2016 18:08:Yane Vitale RN) History of Gestational Diabetes: No (04/30/2016 18:08:Yane Vitale RN) History of PIH: No (04/30/2016 18:08:Yane Vitale RN) History of Incompetent Cervix: No (04/30/2016 18:08:Yane Vitale RN) History of Placenta Previa/Abrup: No (04/30/2016 18:08:Yane Vitale RN) History of Macrosomia: No (04/30/2016 18:08:Yane Vitale RN) History of IUGR: No (04/30/2016 18:08:Yane Vitale RN) History of Hemorrhage: No (04/30/2016 18:08:Yane Vitale RN) History of Loss/Stillborn: No (04/30/2016 18:08:Yane Vitale RN) History of : No (04/30/2016 18:08:Yane Vitale RN) History of D (Rh) Sensitization: No (04/30/2016 18:08:Yane Vitale RN) History Recurrent Loss/Stillborn: No (04/30/2016 18:08:Yane Vitale RN) History Depression/PP Depression: No (04/30/2016 18:08:Yane Vitale RN) History of Uterine Anomaly/NEVAEH: No (04/30/2016 18:08:Yane Vitale RN) History of Infertility: No (04/30/2016 18:08:Yane Vitale RN) History of ART Treatment: No (04/30/2016 18:08:Yane Vitale RN) History of NEVAEH: No (04/30/2016 18:08:Yane Vitale RN) Comments Obstetrical History: G1- 1993 at 40 weeks G2- 1995- at 40 weeks G3- 2007- EAB G4- current (04/30/2016 18:08:Yane Vitale RN) MEDICAL HISTORY Med Hx Diabetes: No (04/30/2016 18:08:Ynae Vitale RN) Med Hx Hypertension: No (04/30/2016 18:08:Yane Vitale RN) Med Hx Heart Disease: No (04/30/2016 18:08:Yane Vitale RN) Med Hx Autoimmune Disorder: No (04/30/2016 18:08:Yane Vitale RN) Med Hx Kidney Disease/UTI: No (04/30/2016 18:08:Yane Vitale RN) Med Hx Neurologic/Epilepsy: No (04/30/2016 18:08:Yane Vitale RN) Med Hx Psychiatric Disorders: No (04/30/2016 18:08:Yane Vtiale RN) Med Hx Hepatitis/Liver Disease: No (04/30/2016 18:08:Yane Vitale RN) Med Hx Varicosities/Phlebitis: No (04/30/2016 18:08:Yane Vitale RN) Med Hx Thyroid Dysfunction: No (04/30/2016 18:08:Yane Vitale RN) Med Hx Trauma/Violence: No (04/30/2016 18:08:Yane Vitale RN) Med Hx Blood Transfusion: No (04/30/2016 18:08:Yane Vitale RN) Med Hx Pulmonary (Asthma,TB): No (04/30/2016 18:08:Yane Vitale RN) Med Hx Breast: No (04/30/2016 18:08:Yane Vitale RN) Med Hx HOMICIDE SQUAD SERGEANT Surgery: No (04/30/2016 18:08:Yane Vitale RN) Med Hx Hospitalization/Surgery: Yes (04/30/2016 18:08:Yane Vitale RN) Med Hx Anesthetic Complications: No (04/30/2016 18:08:Yane Vitale RN) Med Hx Abnormal Pap Smear: No (04/30/2016 18:08:Yane Vitale RN) Other Medical Diseases: No (04/30/2016 18:08:Yane Vitale RN) Med Hx Significant Family Hx: No (04/30/2016 18:08:Yane Vitale RN) Details of Med/Surg Hx: 1994 gallbladder removal (04/30/2016 18:08:Yane Vitale RN) INFECTIOUS HISTORY Inf Hx Gonorrhea: No (04/30/2016 18:08:Yane Vitale RN) Inf Hx Chlamydia: Yes (04/30/2016 18:08:Yane Vitale RN) Inf Hx Syphilis: No (04/30/2016 18:08:Yane Vitale RN) Inf Hx HIV/AIDS: No (04/30/2016 18:08:Yane Vitale RN) Inf Hx Human Papilloma Virus: No (04/30/2016 18:08:Yane Vitale RN) Inf Hx Pt/Partner Genital Herpes: No (04/30/2016 18:08:Yane Vitale RN) Inf Hx Tuberculosis/Exposure: No (04/30/2016 18:08:Yane Vitale RN) Inf Hx Hepatitis B,C: No (04/30/2016 18:08:Yane Vitale RN) Inf Hx Rash or Viral Illness: No (04/30/2016 18:08:Yane Vitale RN) Details of Infectious Hx: Chlamydia 1994 (04/30/2016 18:08:Yane Vitale RN) GENETIC HISTORY Gen Hx Age >=35 at [place]: Yes (04/30/2016 18:08:Mary Vidales RN) Gen Hx Thalassemia: No (04/30/2016 18:08:Yane Vitale RN) Gen Hx Congenital Heart Defect: No (04/30/2016 18:08:Yane Vitale RN) Gen Hx Neural Tube Defect: No (04/30/2016 18:08:Yane Vitale RN) Gen Hx Down's Syndrome: No (04/30/2016 18:08:Yane Vitale RN) Gen Hx Andrew-Sachs: No (04/30/2016 18:08:Yane Vitale RN) Gen Hx Cara: No (04/30/2016 18:08:Yane Vitale RN) Gen Hx Familial Dysautonomia: No (04/30/2016 18:08:Yane Vitale RN) Gen Hx Sickle Cell Disease/Trait: No (04/30/2016 18:08:Yane Vitale RN) Gen Hx Hemophilia/Blood Disorder: No (04/30/2016 18:08:Yane Vitale RN) Gen Hx Muscular Dystrophy: No (04/30/2016 18:08:Yane Vitale RN) Gen Hx Cystic Fibrosis: No (04/30/2016 18:08:Yane Vitale RN) Gen Hx Huntingtons Chorea: No (04/30/2016 18:08:Yane Vitale RN) Gen Hx Mental Retardation/Autism: No (04/30/2016 18:08:Yane Vitale RN) Gen Hx Tested for Fragile X: No (04/30/2016 18:08:Yane Vitale RN) Gen Hx Other Inher/Chromosomal: No (04/30/2016 18:08:Yane Vitale RN) Gen Hx Maternal Metabolic DO: No (04/30/2016 18:08:Yane Vitale RN) Gen Hx Pt Father or FOB Defect: No (04/30/2016 18:08:Yane Vitale RN) Gen Hx Other Genetic History: No (04/30/2016 18:08:Yane Vitale RN) Gen Hx Drugs/Meds since LMP: Yes (04/30/2016 18:08:Yane Vitale RN) Gen Hx Medications: folic acid, tylenol tylenol (04/30/2016 18:08:Patrick Bustos RN)
[2016-06-12] MEDS: DINOPROSTONE 10 MG VAGINAL INSERT.SR PV PRN (07:00)
[2016-06-12] MEDS ORDERED: MISOPROSTOL 0.2 MG TABLET ONE (07:08)
[2016-06-12] MEDS ORDERED: OXYTOCIN/NORMAL SALINE 20 UNIT/1,000 ML RTUINJ ONE (07:08)
[2016-06-12] MEDS ORDERED: LIDOCAINE 1% INJ-PF (10 MG/ML) 30 ML SDV ONE (07:08)
--- NOTE | 2016-06-12 08:01 | L&D Flow Sheet ---
LD Flowsheet Datetime Report Generated by CPN: 06/12/2016 08:00 Datetime: 06/12/2016 07:22 NBP Sys/Belia/Mean (mmHg): 118 (QS system process) : 61 (QS system process) : 81 (QS system process) Pulse: 74 (QS system process) LaborFlag: Antepartum (QS system process) Datetime: 06/12/2016 07:18 Communication Comments: Dr Atkinson at bedside (Rucsandra Sapphire, RN) Datetime: 06/12/2016 07:14 Monitor Mode: External; Palpation (Natali Fierro, RN) Frequency (min): 2-4 (Natali Fierro, RN) Quality: Moderate to Strong (Natali Vadim, RN) Duration (sec): 40-80 (Natali Pjman, RN) Pattern: Normal: <= 5 Contractions in 10 Minutes (Natali Vadim, RN) Resting Tone (Palpate): Relaxed (Natali Vadim, RN) Monitor Mode: External US (Natali Chalman, RN) FHR Baseline Rate : 150 (Natali Pjman, RN) Variability: Moderate 6-25 bpm (Natali Chalman, RN) Decelerations: Late (Natali Pjman, RN) Stage 2 Comments: of viable baby girl, see delivery summary (Rucholo Leary, RN) Datetime: 06/12/2016 07:12 Pushing Progress: with Pushing (Stefanie Leary, RN) Datetime: 06/12/2016 07:10 Pushing Progress: Descent with Pushing; Presenting Part Visible (Rucsandra Sapphire, RN) Datetime: 06/12/2016 07:09 Maternal Comments: pt instructed to continue breathing through ctx like blowing out candles. (Rucsandra Sapphire, RN) Datetime: 06/12/2016 07:08 Maternal Comments: pt continues to pushing involuntarily. (Rucsandra Sapphire, RN) Datetime: 06/12/2016 07:05 Maternal Comments: pt pushing uncontrollably. Instructed to breath through ctx. (Stefanie Leary, RN) Datetime: 06/12/2016 07:04 Maternal Comments: Additional staff at bedside. (Stefanie Leary, OLGA) Datetime: 06/12/2016 07:02 Dilatation (cm): 10.0 (Stefanie Leary RN) Effacement (%): 100 (Stefanie Leary RN) Station: 0 (Stefanie Leary RN) Exam by: Hieu Leary RN (Stefanie Leary RN) Vaginal Bleeding: Normal Show (Stefanie Leary RN) Datetime: 06/12/2016 07:01 Maternal Comments: pt transfered from birthing ball to bed (Stefanie Leary RN) Datetime: 06/12/2016 07:00 Frequency (min): 1.5-3 (Zelda Souza RN) Quality: Moderate to Strong (Zelda Souza RN) Duration (sec): 40-70 (Zelda Souza RN) Duration Criteria: Less than Two 120 Second Contractions (Zelda Souza RN) Pattern: Normal: <= 5 Contractions in 10 Minutes (Zelda Souza RN) Resting Tone (Palpate): Relaxed (Zelda Souza RN) Monitor Mode: External US (Zelda Souza RN) FHR Baseline Rate : 140 (Zelda Souza RN) Variability: Moderate 6-25 bpm (Zelda Souza RN) Accelerations: 15X15 (Zelda Harley, RN) Comments: RN remains at bedside adjusting u/s continuously monitoring FHT (Zeldachet Ivoryco, RN) Comments: broken tracing, unable to determine decel noted (Zelda Harley, RN) Datetime: 06/12/2016 06:59 Membranes Rupture Method: Spontaneous (Stefanie Leary, OLGA) Amniotic Fluid Color: Clear (Stefanie Leary, OLGA) Amniotic Fluid Amount: Small (Stefanie Leary, OLGA) Maternal Comments: pt reports feeling a gush of fluid (Stefanie Leary, OLGA) Datetime: 06/12/2016 06:58 Maternal Comments: pt reports feeling increased pressure. (Stefanie Leary, RN) Datetime: 06/12/2016 06:55 Maternal Comments: pt remains on birthing ball (Stefanie Leary, RN) Datetime: 06/12/2016 06:45 Monitor Mode: External; Palpation (Natali Pjman, RN) Frequency (min): 2-5 (Natali Chalman, RN) Quality: Moderate to Strong (Natali Chalman, RN) Duration (sec): 50-90 (Natali Chalman, RN) Pattern: Normal: <= 5 Contractions in 10 Minutes (Natali Chalman, RN) Resting Tone (Palpate): Relaxed (Natali Chalman, RN) Monitor Mode: External US (Natali Chalman, RN) FHR Baseline Rate : 140 (Natali Chalman, RN) FHR Baseline Changes: No Baseline Change (Natali Chalman, RN) Variability: Moderate 6-25 bpm (Natali Chalman, RN) Decelerations: None (Natali Chalman, RN) Datetime: 06/12/2016 06:44 Pain Relief Measures: Comfort Measures (Rucsandra Sapphire, RN) Comfort Measures: Hot/Cold Pack (Rucsandra Sapphire, RN) LaborFlag: Antepartum (QS system process) Datetime: 06/12/2016 06:41 Monitor Interventions for UA: [place] Adjusted (Rucslidiara Sapphire, RN) Datetime: 06/12/2016 06:39 Maternal Comments: Pt remains on birthing ball, maternal pulse palpated and tracing (Rucsandra Sapphire, RN) Datetime: 06/12/2016 06:34 Pain Scale: 4 (Stefanie Leary RN) Pain Presence: Intermittent (Stefanie Leary RN) Pain Type: Contraction (Stefanie Leary RN) Pain Location: Abdomen (Stefanie Leary RN) Pain Relief Measures: Comfort Measures (Stefanie Leary RN) Pain Coping: Breathing Through Contractions (Stefanie Leary RN) Comfort Measures: Breathing/Relaxation; Coaching; Family Support (Stefanie Leary RN) LaborFlag: Antepartum (QS system process) Datetime: 06/12/2016 06:30 Monitor Mode: External; Palpation (Stefanie Leary RN) Frequency (min): 2-4 (Stefanie Leary RN) Quality: Mild/Moderate (Stefanie Leary RN) Duration (sec): 50-70 (Stefanie Leary RN) Resting Tone (Palpate): Relaxed (Stefanie Leary RN) Monitor Mode: External US (Stefanie Leary RN) FHR Baseline Rate : 140 (Stefanie Leary RN) Variability: Moderate 6-25 bpm (Stefanie Leary RN) Accelerations: None (Stefanie Leary RN) Decelerations: None (Stefanie Leary RN) Dilatation (cm): 3.0 (Stefanie Leary RN) Effacement (%): 70 (Stefanie Leary RN) Station: -1 (Stefanie Leary RN) Exam by: Hieu Leary RN (Stefanie Leary RN) Vaginal Bleeding: None (Stefanie Leary RN) Medication Comments: Cervidil removed. (Stefanie Leary RN) Datetime: 06/12/2016 06:23 NBP Sys/Belia/Mean (mmHg): 146 (QS system process) : 60 (QS system process) : 86 (QS system process) Pulse: 90 (QS system process) LaborFlag: Antepartum (QS system process) Datetime: 06/12/2016 06:17 Maternal Comments: pt reports having a BM (Stefanie Leary RN) Patient Position/Activity: Birthing Ball (Stefanie Leary RN) Datetime: 06/12/2016 06:06 Maternal Comments: pt states she is trying to have a BM (Rucsandra Sapphire, RN) Datetime: 06/12/2016 06:00 Monitor Mode: External; Palpation (Rucsandra Sapphire, RN) Frequency (min): 2-7 (Rucsandra Sapphire, RN) Quality: Mild/Moderate (Rucsandra Sapphire, RN) Duration (sec): 40-80 (Rucsandra Sapphire, RN) Resting Tone (Palpate): Relaxed (Rucsandra Sapphire, RN) Monitor Mode: External US (Rucsandra Sapphire, RN) FHR Baseline Rate : 135 (Rucsandra Sapphire, RN) Variability: Moderate 6-25 bpm (Rucsandra Sapphire, RN) Accelerations: 15X15 (Rucsandra Sapphire, RN) Decelerations: None (Rucsandra Sapphire, RN) Datetime: 06/12/2016 05:58 I/O Interventions: Up to BR (Stefanie Leary, OLGA) Datetime: 06/12/2016 05:56 Dilatation (cm): 3.0 (Stefanie Leary RN) Effacement (%): 70 (Stefanie Leary RN) Station: -2 (Stefanie Leary RN) Exam by: Hieu Leary RN (Stefanie Leary, RN) Vaginal Bleeding: None (Stefanie Leary RN) Datetime: 06/12/2016 05:30 Monitor Mode: External; Palpation (Stefanie eLary, OLGA) Frequency (min): occasional (Stefanie Leary RN) Quality: Mild (Stefanie Leary RN) Duration (sec): 40-60 (Stefanie Leary RN) Resting Tone (Palpate): Relaxed (Rucsandra Leary, RN) Monitor Mode: External US (Stefanie Leary, RN) FHR Baseline Rate : 130 (Rucsandra Leary, RN) Variability: Moderate 6-25 bpm (Rucsandra Sapphire, RN) Accelerations: 15X15 (Rucsandra Sapphire, RN) Decelerations: None (Rucsandra Sapphire, RN) Datetime: 06/12/2016 05:22 NBP Sys/Belia/Mean (mmHg): 109 (QS system process) : 70 (QS system process) : 85 (QS system process) Pulse: 61 (QS system process) LaborFlag: Antepartum (QS system process) Datetime: 06/12/2016 05:00 Monitor Mode: External; Palpation (Stefanie Leary, RN) Frequency (min): x2 (Rusharondaandra Leary, RN) Quality: Mild (Rucsandra Sapphire, RN) Duration (sec): 40-50 (Rucsandra Leary, RN) Resting Tone (Palpate): Relaxed (Rucholo Leary, RN) Contraction Comments: irritability noted (Honeyandra Leary, RN) Monitor Mode: External US (Stefanie Leary, RN) FHR Baseline Rate : 135 (Honeyandra Leary, RN) Variability: Moderate 6-25 bpm (Rucsandra Sapphire, RN) Accelerations: 15X15 (Rucsandra Sapphire, RN) Decelerations: None (Rucsandra Sapphire, RN) Datetime: 06/12/2016 04:52 NBP Sys/Belia/Mean (mmHg): 114 (QS system process) : 75 (QS system process) : 90 (QS system process) Pulse: 61 (QS system process) LaborFlag: Antepartum (QS system process) Datetime: 06/12/2016 04:35 Maternal Comments: pt back to bed without incident. (Rucsandra Sapphire, RN) Datetime: 06/12/2016 04:30 Monitor Mode: External; Palpation (Rucsandra Sapphire, RN) Frequency (min): 1.5-6 (Rucsandra Sapphire, RN) Quality: Mild (Rucsandra Sapphire, RN) Duration (sec): 40-80 (Rucsandra Sapphire, RN) Resting Tone (Palpate): Relaxed (Rucsandra Sapphire, RN) Monitor Mode: External US (Rucsandra Sapphire, RN) FHR Baseline Rate : 130 (Rucsandra Sapphire, RN) Variability: Moderate 6-25 bpm (Rucsandra Sapphire, RN) Accelerations: 15X15 (Rucsandra Sapphire, RN) Decelerations: None (Rucsandra Sapphire, RN) I/O Interventions: Up to BR (Rucsandra Sapphire, RN) Datetime: 06/12/2016 04:22 NBP Sys/Belia/Mean (mmHg): 113 (QS system process) : 78 (QS system process) : 91 (QS system process) Pulse: 73 (QS system process) LaborFlag: Antepartum (QS system process) Datetime: 06/12/2016 04:13 Additional Nursing Comments: Report given and care relinquished to Erika Leary RN (Helen Agustín, RN) Datetime: 06/12/2016 04:00 Monitor Mode: External (Helen Agustín, RN) Frequency (min): occasional (Helen Agustín, RN) Quality: Moderate (Helen Agustín, RN) Duration (sec): 40-60 (Helen Agustín, RN) Resting Tone (Palpate): Relaxed (Helen Agustín, RN) Contraction Comments: irritability (Helen Agustín, RN) Monitor Mode: External US (Helen Agustín, RN) FHR Baseline Rate : 140 (Helen Agustín, RN) FHR Baseline Changes: No Baseline Change (Helen Agustín, RN) Variability: Moderate 6-25 bpm (Helen Agustín, RN) Accelerations: None (Helen Agustín, RN) Decelerations: None (Helen Agustín, RN) Datetime: 06/12/2016 03:52 NBP Sys/Belia/Mean (mmHg): 122 (QS system process) : 82 (QS system process) : 98 (QS system process) Pulse: 73 (QS system process) LaborFlag: Antepartum (QS system process) Datetime: 06/12/2016 03:30 Monitor Mode: External (Helen Agustín, RN) Frequency (min): occasional (Helen Agustín, RN) Quality: Moderate (Helen Agustín, RN) Resting Tone (Palpate): Relaxed (Helen Agustín, RN) Contraction Comments: alot of irritability (Helen Agustín, RN) Monitor Mode: External US (Helen Agustín, RN) FHR Baseline Rate : 140 (Helen Agustín, RN) FHR Baseline Changes: Return to Previous Baseline (Helen Agustín, RN) Variability: Moderate 6-25 bpm (Helen Agustín, RN) Accelerations: None (Helen Agustín, RN) Decelerations: None (Helen Agustín, RN) Datetime: 06/12/2016 03:25 Monitor Interventions for UA: [place] Adjusted (Helen Randolph RN) Analgesics/Sedatives: Tylenol (mg) @ 650 (Helen Randolph RN) Datetime: 06/12/2016 03:22 NBP Sys/Belia/Mean (mmHg): 121 (QS system process) : 87 (QS system process) : 100 (QS system process) Pulse: 67 (QS system process) LaborFlag: Antepartum (QS system process) Datetime: 06/12/2016 03:06 Pain Scale: 3 (Helen Randolph RN) Pain Presence: Intermittent (Helen Randolph RN) Pain Type: Cramping (Helen Randolph RN) Pain Location: Abdomen (Helen Randolph RN) Pain Assessment Comments: Also states that her h/a is back. (Helen Randolph RN) Patient Care Comments: Pt turned from L to R side. (Helen Randolph RN) LaborFlag: Antepartum (QS system process) Datetime: 06/12/2016 03:00 Monitor Mode: External (Helen Randolph, RN) Frequency (min): irregular (Helen Randolph, RN) Quality: Mild/Moderate (Helen Randolph, RN) Pattern: Normal: <= 5 Contractions in 10 Minutes (Helen Randolph RN) Resting Tone (Palpate): Relaxed (Helen Randolph, RN) Monitor Mode: External US (Helen Randolph, RN) FHR Baseline Rate : 175 (Helen Randolph, RN) FHR Baseline Changes: Tachycardia (Helen Randolph, RN) Variability: Moderate 6-25 bpm (Helen Randolph, RN) Accelerations: None (Helen Randolph, RN) Decelerations: None (Helen Randolph RN) Patient Position/Activity: Left Lateral (Natali Fierro RN) Patient Care Comments: pt repositioned (Natali Fierro RN) Datetime: 06/12/2016 02:52 NBP Sys/Belia/Mean (mmHg): 109 (QS system process) : 65 (QS system process) : 82 (QS system process) Pulse: 65 (QS system process) LaborFlag: Antepartum (QS system process) Datetime: 06/12/2016 02:40 IV/Blood Work: IV Bolus Started (Natali Fierro RN) Patient Care Comments: bolus for tachycardia (Natali Fierro RN) Datetime: 06/12/2016 02:30 Monitor Mode: External (Helen Randolph RN) Frequency (min): irrittablity (Helen Randolph RN) Quality: Mild/Moderate (Helen Randolph RN) Pattern: Normal: <= 5 Contractions in 10 Minutes (Helen Randolph RN) Monitor Mode: External US (Helen Randolph RN) FHR Baseline Rate : 165 (Helen Randolph RN) FHR Baseline Changes: Tachycardia (Helen Randolph RN) Variability: Moderate 6-25 bpm (Helen Randolph RN) Accelerations: None (Helen Randolph RN) Decelerations: None (Helen Agustín, RN) Datetime: 06/12/2016 02:23 NBP Sys/Belia/Mean (mmHg): 105 (QS system process) : 60 (QS system process) : 76 (QS system process) Pulse: 61 (QS system process) LaborFlag: Antepartum (QS system process) Datetime: 06/12/2016 02:00 Monitor Mode: External (Helen Agustín, RN) Frequency (min): irregular (Helen Agustín, RN) Quality: Mild/Moderate (Helen Agustín, RN) Duration (sec): 40-60 (Helen Agustín, RN) Pattern: Normal: <= 5 Contractions in 10 Minutes (Helen Agustín, RN) Resting Tone (Palpate): Relaxed (Helen Agustín, RN) Monitor Mode: External US (Helen Agustín, RN) FHR Baseline Rate : 145 (Helen Agustín, RN) FHR Baseline Changes: No Baseline Change (Helen Agustín, RN) Variability: Moderate 6-25 bpm (Helen Agustín, RN) Accelerations: 15X15 (Helen Agustín, RN) Decelerations: None (Helne Agustín, RN) Datetime: 06/12/2016 01:52 NBP Sys/Belia/Mean (mmHg): 93 (QS system process) : 57 (QS system process) : 70 (QS system process) Pulse: 71 (QS system process) LaborFlag: Antepartum (QS system process) Datetime: 06/12/2016 01:39 IV/Blood Work: New IV Bag Hung (Natali Chalman, RN) Datetime: 06/12/2016 01:32 I/O Interventions: Up to BR (Helen Randolph, RN) Datetime: 06/12/2016 01:31 Patient Care Comments: pt repositioned to side. (Natali Fierro RN) Datetime: 06/12/2016 01:30 Monitor Mode: External (Helen Randolph RN) Frequency (min): 2-7 (Helen Randolph RN) Quality: Mild (Helen Randolph RN) Duration (sec): 40-90 (Helen Randolph, RN) Pattern: Normal: <= 5 Contractions in 10 Minutes (Helen Randolph, RN) Resting Tone (Palpate): Relaxed (Helen Randolph RN) Monitor Mode: External US (Helen Randolph RN) FHR Baseline Rate : 140 (Helen Randolph RN) FHR Baseline Changes: No Baseline Change (Helen Randolph RN) Variability: Moderate 6-25 bpm (Helen Randolph, RN) Accelerations: 15X15 (Helen Randolph, RN) Decelerations: Late (Helen Agustín, RN) Comments: late x 1 (Helen Agustín, RN) Datetime: 06/12/2016 01:22 NBP Sys/Belia/Mean (mmHg): 99 (QS system process) : 55 (QS system process) : 72 (QS system process) Pulse: 61 (QS system process) LaborFlag: Antepartum (QS system process) Datetime: 06/12/2016 01:00 Monitor Mode: External (Helen Agustín, RN) Frequency (min): 2-7 (Helen Agustín, RN) Quality: Mild (Helen Agustín, RN) Duration (sec): 50-70 (Helen Agustín, RN) Resting Tone (Palpate): Relaxed (Helen Agustín, RN) Monitor Mode: External US (Helen Agustín, RN) FHR Baseline Rate : 135 (Helen Agustín, RN) FHR Baseline Changes: No Baseline Change (Helen Agustín, RN) Variability: Moderate 6-25 bpm (Helen Agustín, RN) Accelerations: 15X15 (Helen Agustín, RN) Decelerations: None (Helen Agustín, RN) Datetime: 06/12/2016 00:52 NBP Sys/Belia/Mean (mmHg): 99 (QS system process) : 58 (QS system process) : 75 (QS system process) Pulse: 62 (QS system process) LaborFlag: Antepartum (QS system process) Datetime: 06/12/2016 00:30 Monitor Mode: External (Helne Agustín, RN) Frequency (min): 2-6 (Helen Agustín, RN) Quality: Mild (Helen Agustín, RN) Duration (sec): 40-70 (Helen Agustín, RN) Pattern: Normal: <= 5 Contractions in 10 Minutes (Helen Agustín, RN) Resting Tone (Palpate): Relaxed (Helen Agustín, RN) Monitor Mode: External US (Helen Agustín, RN) FHR Baseline Rate : 135 (Helen Agustín, RN) FHR Baseline Changes: No Baseline Change (Helen Agustín, RN) Variability: Moderate 6-25 bpm (Helen Agustín, RN) Accelerations: 15X15 (Helen Agustín, RN) Decelerations: None (Helen Agustín, RN) Datetime: 06/12/2016 00:22 NBP Sys/Belia/Mean (mmHg): 96 (QS system process) : 56 (QS system process) : 72 (QS system process) Pulse: 67 (QS system process) LaborFlag: Antepartum (QS system process) Datetime: 06/12/2016 00:00 Monitor Mode: External (Helen Agustín, RN) Frequency (min): irregular (Helen Agustín, RN) Quality: Mild (Helen Agustín, RN) Duration (sec): 50-60 (Helen Agustín, RN) Pattern: Normal: <= 5 Contractions in 10 Minutes (Helen Agustín, RN) Resting Tone (Palpate): Relaxed (Helen Agustín, RN) Contraction Comments: irritability (Helen Agustín, RN) Monitor Mode: External US (Helen Agustín, RN) FHR Baseline Rate : 140 (Helen Agustín, RN) FHR Baseline Changes: No Baseline Change (Helen Agustín, RN) Variability: Moderate 6-25 bpm (Heeln Agustín, RN) Accelerations: 15X15 (Helen Agustín, RN) Decelerations: None (Helen Agustín, RN) Datetime: 06/11/2016 23:52 NBP Sys/Belia/Mean (mmHg): 102 (QS system process) : 58 (QS system process) : 75 (QS system process) Pulse: 68 (QS system process) LaborFlag: Antepartum (QS system process) Datetime: 06/11/2016 23:47 Patient Care Comments: Pt turned from R side to L (Helen Agustín, RN) Datetime: 06/11/2016 23:30 Monitor Mode: External (Helen Agustín, RN) Frequency (min): 5-7 (Helen Agustín, RN) Quality: Mild (Helen Agustín, RN) Duration (sec): 50-80 (Helen Agustín, RN) Resting Tone (Palpate): Relaxed (Helen Agustín, RN) Monitor Mode: External US (Helen Agustín, RN) FHR Baseline Rate : 135 (Helen Agustín, RN) FHR Baseline Changes: No Baseline Change (Helen Agustín, RN) Variability: Moderate 6-25 bpm (Helen Agustín, RN) Accelerations: 15X15 (Helen Agustín, RN) Decelerations: Late (Helen Agustín, RN) Datetime: 06/11/2016 23:23 NBP Sys/Belia/Mean (mmHg): 109 (QS system process) : 68 (QS system process) : 84 (QS system process) Pulse: 76 (QS system process) LaborFlag: Antepartum (QS system process) Datetime: 06/11/2016 23:01 Monitor Mode: External (Helen Agustín, RN) Frequency (min): occasional (Helen Agustín, RN) Quality: Mild (Helen Agustín, RN) Duration (sec): 50 (Helen Agustín, RN) Resting Tone (Palpate): Relaxed (Helen Agustín, RN) Contraction Comments: irritability (Helen Agustín, RN) Monitor Mode: External US (Helen Agustín, RN) FHR Baseline Rate : 130 (Helen Agustín, RN) FHR Baseline Changes: No Baseline Change (Helen Agustín, RN) Variability: Moderate 6-25 bpm (Helen Agustín, RN) Accelerations: 15X15 (Helen Agustín, RN) Decelerations: None (Helen Agustín, RN) Datetime: 06/11/2016 22:52 NBP Sys/Belia/Mean (mmHg): 112 (QS system process) : 73 (QS system process) : 86 (QS system process) Pulse: 79 (QS system process) LaborFlag: Antepartum (QS system process) Datetime: 06/11/2016 22:30 Monitor Mode: External (Helen Agustín, RN) Frequency (min): irritability (Helen Agustín, RN) Quality: Mild (Helen Agustín, RN) Resting Tone (Palpate): Relaxed (Helen Agustín, RN) Monitor Mode: External US (Helen Agustín, RN) FHR Baseline Rate : 130 (Helen Agsutín, RN) FHR Baseline Changes: No Baseline Change (Helen Agustín, RN) Variability: Moderate 6-25 bpm (Helen Agustín, RN) Accelerations: 15X15 (Helen Agustín, RN) Decelerations: None (Helen Agustín, RN) Datetime: 06/11/2016 22:23 NBP Sys/Belia/Mean (mmHg): 112 (QS system process) : 70 (QS system process) : 86 (QS system process) Pulse: 69 (QS system process) LaborFlag: Antepartum (QS system process) Datetime: 06/11/2016 22:00 Monitor Mode: External (Helen Agustín, RN) Frequency (min): occasional (Helen Agustín, RN) Frequency (min): occasionally (Helen Randolph, RN) Quality: Mild (Helen Agustín, RN) Duration (sec): 50-60 (Helen Agustín, RN) Duration (sec): 50 (Helen Agustín, RN) Pattern: Normal: <= 5 Contractions in 10 Minutes (Helen Agustín, RN) Resting Tone (Palpate): Relaxed (Helen Agustín, RN) Contraction Comments: irritability in between noted. (Helen Randolph, RN) Contraction Comments: irritabillity noted. (Helen Randolph, RN) Monitor Mode: External US (Helen Randolph, RN) FHR Baseline Rate : 140 (Helen Agustín, RN) FHR Baseline Rate : 160 (Helen Agustín, RN) FHR Baseline Changes: No Baseline Change (Helen Randolph, RN) Variability: Moderate 6-25 bpm (Helen Agustín, RN) Accelerations: 15X15 (Helen Agustín, RN) Decelerations: None (Helen Randolph, RN) Comments: FHR had a 10 min section of tachcardia in 180's. (Helen Randolph, RN) Datetime: 06/11/2016 21:53 NBP Sys/Belia/Mean (mmHg): 100 (QS system process) : 69 (QS system process) : 80 (QS system process) Pulse: 74 (QS system process) LaborFlag: Antepartum (QS system process) Datetime: 06/11/2016 21:48 Analgesics/Sedatives: Ambien (mg) @ 5 (Helen Agustín, RN) Medication Comments: 10 mg had been ordered but patient only wanted 5 mg. (Helen Agustín, RN) Datetime: 06/11/2016 21:42 IV/Blood Work: IV Bolus Started (Helen Agustín, RN) Datetime: 06/11/2016 21:40 Patient Care Comments: Pt turned from L side to R. (Helen Agustín, RN) Communication: Provider at Bedside (Helen Agustín, RN) Datetime: 06/11/2016 21:30 Frequency (min): 0 (Helen Agustín, RN) Resting Tone (Palpate): Relaxed (Helen Agustín, RN) Monitor Mode: External US (Helen Agustín, RN) FHR Baseline Rate : 145 (Helen Agustín, RN) FHR Baseline Changes: No Baseline Change (Helen Agustín, RN) Variability: Moderate 6-25 bpm (Helen Agustín, RN) Accelerations: 15X15 (Helen Agustín, RN) Decelerations: None (Helen Agustín, RN) Datetime: 06/11/2016 21:22 NBP Sys/Belia/Mean (mmHg): 99 (QS system process) : 63 (QS system process) : 75 (QS system process) Pulse: 73 (QS system process) LaborFlag: Antepartum (QS system process) Datetime: 06/11/2016 21:07 Pain Scale: 2 (Helen Randolph RN) Pain Presence: Constant (Helen Randolph RN) Pain Type: Dull (Helen Randolph RN) Pain Location: Head (Helen Randolph RN) Medication Comments: Offered pt Ambien. She declines at present. (Helen Randolph RN) LaborFlag: Antepartum (QS system process) Datetime: 06/11/2016 21:03 I/O Interventions: Up to BR (Helen Randolph RN) Datetime: 06/11/2016 21:00 Monitor Mode: External (Helen Randolph RN) Frequency (min): irritability (Helen Randolph RN) Quality: Mild (Helen Randolph RN) Resting Tone (Palpate): Relaxed (Helen Randolph RN) Monitor Mode: External US (Helen Randolph RN) FHR Baseline Rate : 135 (Helen Agustín, RN) FHR Baseline Changes: No Baseline Change (Helen Agustín, RN) Variability: Moderate 6-25 bpm (Helen Agustín, RN) Accelerations: 15X15 (Helen Agustín, RN) Decelerations: None (Helen Agustín, RN) Datetime: 06/11/2016 20:53 NBP Sys/Belia/Mean (mmHg): 107 (QS system process) : 71 (QS system process) : 84 (QS system process) Pulse: 88 (QS system process) LaborFlag: Antepartum (QS system process) Datetime: 06/11/2016 20:30 Monitor Mode: External (Helen Agustín, RN) Frequency (min): rare (Helen Agustín, RN) Quality: Mild (Helen Agustín, RN) Duration (sec): 40 (Helen Agustín, RN) Resting Tone (Palpate): Relaxed (Helen Agustín, RN) Monitor Mode: External US (Helen Agustín, RN) FHR Baseline Rate : 140 (Helen Agustín, RN) FHR Baseline Changes: No Baseline Change (Helen Agustín, RN) Variability: Moderate 6-25 bpm (Helen Agustín, RN) Accelerations: 15X15 (Helen Agustín, RN) Decelerations: None (Helen Agustín, RN) Datetime: 06/11/2016 20:23 NBP Sys/Belia/Mean (mmHg): 114 (QS system process) : 78 (QS system process) : 90 (QS system process) Pulse: 100 (QS system process) LaborFlag: Antepartum (QS system process) Datetime: 06/11/2016 20:00 Monitor Mode: External (Helen Agustín, RN) Frequency (min): Occasional (Helen Agustín, RN) Quality: Mild (Helen Agustín, RN) Duration (sec): 40-50 (Helen Agustín, RN) Resting Tone (Palpate): Relaxed (Helen Agustín, RN) Monitor Mode: External US (Helen Agustín, RN) FHR Baseline Rate : 130 (Helen Agustín, RN) FHR Baseline Changes: No Baseline Change (Helen Agustín, RN) Variability: Moderate 6-25 bpm (Helen Agustín, RN) Accelerations: 15X15 (Helen Randolph RN) Decelerations: None (Helen Randolph RN)
[2016-06-12] MEDS ORDERED: AMMONIA INHALANTS 10 AMPUL/BOX IH ONE (09:46)
--- NOTE | 2016-06-12 10:46 | Delivery Summary ---
Del Sum A-C Datetime Report Generated by CPN: 06/12/2016 10:46 ADMISSION DATA Chief Complaint: Other Chief Complaint Comments: Variables on nst at office, extended monitoring Indication for Induction: Post Dates Admission Impression: Term, Intrauterine ; No Active Labor; Intact Membranes; Induction of Labor Admit Provider Comments: Pt sent in from office for variables on NST in office. Will admit to L _ D for induction of labor considering gestational age and AMA. GBS negative Plan for cervidil over night, pitocin in AM. See record for complete medical, surgical, hsitory. DELIVERY PERSONNEL Delivery Doctor:: Jovon Atkinson, DO Labor and Delivery Nurse:: Asiya Hyatt RNdeputy attorney general Nurse:: Stefanie Leary RN Fish Smoker/VARNISHING UNIT TOOL SETTER: Jennifer Ogden, STAFF FORESTER Additional Personnel: : Iliana Rutherford, RN MATERNAL INFORMATION Delivery Anesthesia: None Medications After Delivery: Pitocin Drip 20 Units/1000ml NSS Estimated Blood Loss (ml): 400 Maternal Complications: Precipitous Labor (<3hrs) Provider Comments: of viable female by nurse control Placenta delievered spontaneous and intact with 3v cord Fundus firm LABOR SUMMARY EDC: 06/03/2016 00:00 No. Babies in Womb: 1 Attempted: No Labor Anesthesia: None LABOR INFORMATION Reason for Induction: Not Applicable Onset of Labor: 06/12/2016 06:30 Complete Dilatation: 06/12/2016 07:02 Cervical Ripening Agents: Cervidil Oxytocin: N/A Group B Beta Strep: Negative Antibiotics # of Doses: 0 Antibiotics Time of Last Dose: n/a Steroids Given: None Reason Steroids Not Administered: Not Applicable MEMBRANES Membranes Rupture Method: Spontaneous Rupture of Membranes: 06/12/2016 06:59 Length of Rupture (hr): 0.25 Amniotic Fluid Color: Clear Amniotic Fluid Amount: Small Amniotic Fluid Odor: Normal STAGES OF LABOR Stage 1 hr: 0 Stage 1 min: 32 Stage 2 hr: 0 Stage 2 min: 12 Stage 3 hr: 0 Stage 3 min: 13 Total Time in Labor hr: 0 Total Time in Labor min: 57 VAGINAL DELIVERY Episiotomy: None Laceration Extension: First Degree Laceration Type: Perineal; Periurethral Laceration Repair: Yes Laceration Repair Note: repaired with 2-0 and 3-0 chromic in usual fashion with good hemostasis Sponge Count Correct: N/A Sharps Count Correct: Yes CSECTION DELIVERY Primary Indication: N/A Secondary Indication: N/A CSection Incidence: N/A Labor: N/A Elective: N/A CSection Incision: N/A BABY A INFORMATION Infant Delivery Date/Time: 06/12/2016 07:14 Method of Delivery: Vaginal Born in Route : No : N/A Forceps: N/A Vacuum Extraction: N/A Shoulder Dystocia : No PRESENTATION/POSITION BABY A Presentation: Cephalic Cephalic Presentation: Vertex Vertex Position: Left Occipital Anterior Breech Presentation: N/A PLACENTA INFORMATION BABY A Placenta Delivery Time : 06/12/2016 07:27 Placenta Method of Delivery: Spontaneous Placenta Status: Delivered SCORES BABY A Heart Rate 1 min: >100 bpm Resp Effort 1 min: Good Cry Reflex Irritability 1 min: Cough or Sneeze or Pulls Away Muscle Tone 1 min: Active Motion Color 1 min: Body Faison, Extremities Blue Resuscitation Effort 1 min: Tactile Stimulation SCORE 1 MIN: 9 Heart Rate 5 min: >100 bpm Resp Effort 5 min: Good Cry Reflex Irritability 5 min: Cough or Sneeze or Pulls Away Muscle Tone 5 min: Active Motion Color 5 min: Body Faison, Extremities Blue Resuscitation Effort 5 min: N/A SCORE 5 MIN: 9 INFORMATION BABY A Gestational Age at Delivery: 41.2 Gestational Status: Late Term- 41- 41.6 Weeks Infant Outcome : Liveborn Condition : Stable Sex: Female IDENTIFICATION BABY A Infant Verification Date/Time: 06/12/2016 09:05 ID Band Number: [id number] Mother's Name Verified: Yes RN Verifying Infant: Eran Hyatt RN and Nini Bazan RN WEIGHT/LENGTH BABY A Birthweight (gm): 3600 Infant Weight (lb): 7 Weight (oz): 15 Infant Length (in): 21.00 Infant Length (cm): 53.34 CORD INFORMATION BABY A No. Cord Vessels: 3 Nuchal Cord : N/A Cord Blood Taken: Yes-For Eval (Mom's Blood Type - or O+) Infant Suction: None ASSESSMENT BABY A Complications: Other Infant Complications- Other: terminal meconium Physical Findings at Delivery: Within Normal Limits Infant Respirations: Appears Normal Skin to Skin: Yes Skin to Skin Time (min): 45 Loader Helper Sorting Yard/ALS Called : No Infant Care By: Matt Rutherford RN Transferred To: Remains with Mother BABY B INFORMATION : N/A SIGNATURES Signature: with User ID: [email or web address]
[2016-06-12] MEDS ORDERED: BENZOCAINE/MENTHOL AEROSOL SPRAY 56 ML TOP PRN (10:52)
[2016-06-12] MEDS ORDERED: DIBUCAINE 1% OINTMENT 28 GM TP PRN (10:52)
[2016-06-12] MEDS ORDERED: ACETAMINOPHEN WITH CODEINE #3 TABLET PO PRN ×2 (10:52)
[2016-06-12] MEDS ORDERED: MEASLES,MUMPS&RUBELLA VACC/PF 0.5 ML VIAL SUBCUT PRN (10:52)
[2016-06-12] MEDS ORDERED: DIPH/PERTUSS(ACELL)/TETANUS VAC/PF 0.5 ML SYR (>=10YO) IM PRN (10:52)
[2016-06-12] MEDS ORDERED: ZOLPIDEM TARTRATE 5 MG TABLET PO PRN (10:52)
[2016-06-12] MEDS ORDERED: OXYTOCIN/NORMAL SALINE 1,000 ML IV PRN (10:52)
[2016-06-12] MEDS ORDERED: ONDANSETRON HCL INJ/PF 4 MG/2 ML SDV ONE (11:05)
--- NOTE | 2016-06-12 11:30 | Admission Physical ---
Datetime Report Generated by CPN: 06/12/2016 11:30 CURRENT ADMISSION Hx Assessment: The History has been Reviewed and is Current Chief Complaint: Other Chief Complaint Other: Variables on nst at office, extended monitoring Indication for Induction: Post Dates Admit Plan: Admit to Unit; Initiate Labor Induction Protocol ALLERGIES Medication Allergies: No Medication Allergies: No Known Allergies (06/11/2016) Latex: No Latex Allergies Food Allergies: n/a Environmental Allergies: n/a OBSTETRICAL HISTORY EDC: 06/03/2016 00:00 : 4 Para: 2 Term: 2 IAB: 1 Livin Cesareans: 0 Gestational Diabetes: No Rh Sensitization: No Incompetent Cervix: No NEVAEH: No Infertility: No ART Treatment: No Uterine Anomaly: No IUGR: No Hx Previous C/S: No Macrosomia: No Hx Loss/Stillborn: No PIH: No Hx : No Placenta Previa/Abruption: No Depression/PP Depression: No PTL/PROM: No Post Hemorrhage: No Current Procedures: Ultrasound; NST Obstetrical History Comments: G1- 1993 at 40 weeks G2- 1995- at 40 weeks G3- 2006- EAB G4- current SEE RECORDS Alcohol: No Marijuana : No Cocaine: No Other Illicit Drugs: No Cigarettes: Never Smoker. [id number] MEDICAL HISTORY Diabetes: No Blood Transfusion: No Pulmonary Disease (Asthma, TB): No Breast Disease: No Hypertension: No Title Attorney Surgery: No Heart Disease: No Hosp/Surgery: Yes Autoimmune Disorder: No Anesthetic Complications: No Kidney Disease: No Abnormal Pap Smear: No Neuro/Epilepsy: No Psychiatric Disorders: No Other Medical Diseases: No Hepatitis/Liver Disease: No Significant Family History: No Varicosities/Phlebitis: No Trauma/Violence : No Thyroid Dysfunction: No Medical History Comments: 1994 gallbladder removal INFECTIOUS HISTORY Gonorrhea: No Genital Herpes: No Chlamydia: Yes Tuberculosis: No Syphilis: No Hepatitis: No HIV/AIDS Exposure: No Rash or Viral Illness: No HPV: No Infectious History Comments: Chlamydia 1995 PHYSICAL EXAM General: Normal HEENT: Normal Neurologic: Normal Thyroid: Deferred Heart: Normal Lungs: Normal Breast: Deferred Back: Normal Abdomen: Normal Genitourinary Exam: Normal Extremities: Normal DTRs: Normal Pelvic Type: Adequate Physical Exam Comments: proven to 7 lbs 11 oz Vital Signs: Reviewed; Within Normal Limits VAGINAL EXAM Dilatation: 2 Effacement: 50 Station: -2 Contraction Comments: irregular MEMBRANES Membranes: Intact FETUS A EGA: 41.1 Monitoring: External US FHR- Baseline: 135 Variability: Moderate 6-25bpm Decelerations: None FHR Category: Category I Estimated Weight (gm): 3600 Presentation: Vertex Admit Comment: Pt sent in from office for variables on NST in office. Will admit to L _ D for induction of labor considering gestational age and AMA. GBS negative Plan for cervidil over night, pitocin in AM. See record for complete medical, surgical, hsitory. PLANS FOR LABOR AND DELIVERY Labor and Delivery: None Pain Management: Natural Feeding Preference: Both Benefit of Breast Feed Discussed: Yes Circumcision: N/A INFORMED CONSENT Assignment: Tahira Gonzalez MD Signature: with User ID: Prema : with User ID: [email or web address]
[2016-06-12] MEDS: IBUPROFEN 800 MG TABLET PO SCH ×2 (14:32→21:35)
[2016-06-12] MEDS: FERROUS SULFATE 325 MG TABLET PO SCH (17:17)
[2016-06-12] MEDS: DOCUSATE SODIUM 100 MG CAPSULE PO SCH (17:17)
--- NOTE | 2016-06-12 19:01 | L&D Flow Sheet ---
LD Flowsheet Datetime Report Generated by CPN: 06/12/2016 19:00 Datetime: 06/12/2016 11:30 Pain Scale: 2 (Asiya Hyatt, RN) Pain Presence: Intermittent (Asiya Hyatt, RN) Pain Type: Cramping (Asiya Hyatt, RN) Pain Location: Abdomen (Asiya Hyatt, RN) Pain Goal: 0 (Asiya Hyatt, RN) Pain Relief Measures: Comfort Measures (Asiya Hyatt, RN) Datetime: 06/12/2016 10:54 NBP Sys/Belia/Mean (mmHg): 94 (QS system process) : 64 (QS system process) : 75 (QS system process) Pulse: 90 (QS system process) Respirations: 16 (Asiya Hyatt RN) Datetime: 06/12/2016 10:39 NBP Sys/Belia/Mean (mmHg): 93 (QS system process) : 63 (QS system process) : 73 (QS system process) Pulse: 86 (QS system process) Respirations: 16 (Asiya Hyatt RN) Datetime: 06/12/2016 10:24 NBP Sys/Belia/Mean (mmHg): 98 (QS system process) : 56 (QS system process) : 71 (QS system process) Pulse: 93 (QS system process) Respirations: 16 (Asiya Hyatt RN) Pain Scale: 2 (Asiya Hyatt RN) Pain Presence: Intermittent (Asiya Hyatt RN) Pain Type: Cramping (Asiya Hyatt RN) Pain Location: Abdomen (Asiya Hyatt RN) Pain Goal: 0 (Asiya Hyatt, RN) Pain Relief Measures: Comfort Measures (Asiya Hyatt RN) Datetime: 06/12/2016 10:09 NBP Sys/Belia/Mean (mmHg): 126 (QS system process) : 57 (QS system process) : 80 (QS system process) Pulse: 102 (QS system process) Respirations: 16 (Asiya Hyatt RN) Pain Scale: 2 (Asiya Hyatt RN) Pain Presence: Intermittent (Asiya Hyatt RN) Pain Type: Cramping (Asiya Hyatt RN) Pain Location: Abdomen (Asiya Hyatt RN) Pain Goal: 0 (Asiya Hyatt RN) Pain Relief Measures: Comfort Measures (Asiya Hyatt RN) Datetime: 06/12/2016 09:53 NBP Sys/Belia/Mean (mmHg): 96 (QS system process) : 56 (QS system process) : 71 (QS system process) Pulse: 84 (QS system process) Respirations: 16 (Asiya Hyatt RN) Pain Scale: 2 (Asiya Hyatt RN) Pain Presence: Intermittent (Asiya Hyatt RN) Pain Type: Cramping (Asiya Hyatt RN) Pain Location: Abdomen (Asiya Haytt RN) Pain Goal: 0 (Asiya Hyatt RN) Pain Relief Measures: Comfort Measures (Asiya Hyatt RN) Datetime: 06/12/2016 09:22 NBP Sys/Belia/Mean (mmHg): 104 (QS system process) : 66 (QS system process) : 80 (QS system process) Pulse: 88 (QS system process) Respirations: 16 (Asiya Hyatt RN) Pain Scale: 2 (Asiya Hyatt RN) Pain Presence: Intermittent (Asiya Hyatt RN) Pain Type: Cramping (Asiya Hyatt RN) Pain Location: Abdomen (Asiya Hyatt RN) Pain Goal: 0 (Asiya Hyatt RN) Pain Relief Measures: Comfort Measures (Asiya Hyatt RN) Datetime: 06/12/2016 08:52 NBP Sys/Belia/Mean (mmHg): 106 (QS system process) : 83 (QS system process) : 92 (QS system process) Pulse: 100 (QS system process) Respirations: 16 (Asiya Hyatt RN) Pain Scale: 2 (Asiya Hyatt RN) Pain Presence: Constant (Asiya Hyatt RN) Pain Type: N/A (Asiya Hyatt RN) Pain Location: Abdomen (Asiya Hyatt RN) Pain Goal: 0 (Asiya Hyatt RN) Pain Relief Measures: Comfort Measures (Asiya Hyatt, RN) Datetime: 06/12/2016 08:22 NBP Sys/Belia/Mean (mmHg): 107 (QS system process) : 56 (QS system process) : 76 (QS system process) Pulse: 77 (QS system process) Respirations: 16 (Asiya Hyatt RN) Pain Scale: 2 (Asiya Hyatt RN) Pain Presence: Constant (Asiya Hyatt RN) Pain Type: Cramping (Asiya Hyatt RN) Pain Location: Abdomen (Asiya Hyatt RN) Pain Goal: 0 (Asiya Hyatt RN) Pain Relief Measures: Comfort Measures (Asiya Hyatt, OLGA) Datetime: 06/12/2016 07:27 Stage of : Recovery (Asiya Hyatt, RN) Datetime: 06/12/2016 07:22 NBP Sys/Belia/Mean (mmHg): 118 (QS system process) : 61 (QS system process) : 81 (QS system process) Pulse: 74 (QS system process) LaborFlag: Antepartum (QS system process) Datetime: 06/12/2016 07:18 Communication Comments: Dr Atkinson at bedside (Rucsandra Sapphire, RN) Datetime: 06/12/2016 07:14 Monitor Mode: External; Palpation (Natali iFerro, RN) Frequency (min): 2-4 (Natali Fierro, RN) Quality: Moderate to Strong (Natali Chalman, RN) Duration (sec): 40-80 (Natali Chalman, RN) Pattern: Normal: <= 5 Contractions in 10 Minutes (Natali Chalman, RN) Resting Tone (Palpate): Relaxed (Natali Chalman, RN) Monitor Mode: External US (Natali Fierro, RN) FHR Baseline Rate : 150 (Natali Chalman, RN) Variability: Moderate 6-25 bpm (Natali Chalman, RN) Decelerations: Late (Natali Chalman, RN) Stage 2 Comments: of viable baby girl, see delivery summary (Stefanie Leary, RN) Datetime: 06/12/2016 07:12 Pushing Progress: with Pushing (Stefanie Sapphire, RN) Datetime: 06/12/2016 07:10 Pushing Progress: Descent with Pushing; Presenting Part Visible (Rucsandra Sapphire, RN) Datetime: 06/12/2016 07:09 Maternal Comments: pt instructed to continue breathing through ctx like blowing out candles. (Rucsandra Sapphire, RN) Datetime: 06/12/2016 07:08 Maternal Comments: pt continues to pushing involuntarily. (Rucsandra Sapphire, RN) Communication Comments: call placed to Dr. Gonzalez again to attempt to reach her for delivery (Shannan Chato, RN) Datetime: 06/12/2016 07:06 Communication Comments: Call placed to Dr. Gonzalez to give update on patient's cervical exam and to request her for delivery (Shannan Chato, RN) Datetime: 06/12/2016 07:05 Maternal Comments: pt pushing uncontrollably. Instructed to breath through ctx. (Rucsandra Sapphire, RN) Datetime: 06/12/2016 07:04 Maternal Comments: Additional staff at bedside. (Rucsandra Sapphire, RN) Datetime: 06/12/2016 07:02 Dilatation (cm): 10.0 (Stefanie Leary RN) Effacement (%): 100 (Stefanie Leary RN) Station: 0 (Stefanie Leary RN) Exam by: Hieu Leary RN (Stefanie Leary RN) Vaginal Bleeding: Normal Show (Stefanie Leary RN) Datetime: 06/12/2016 07:01 Maternal Comments: pt transfered from birthing ball to bed (Honeygalindo Sapphire, RN) Datetime: 06/12/2016 07:00 Frequency (min): 1.5-3 (Zelda Souza RN) Quality: Moderate to Strong (Zelda Souza RN) Duration (sec): 40-70 (Zelda Souza RN) Duration Criteria: Less than Two 120 Second Contractions (Zelda Souza RN) Pattern: Normal: <= 5 Contractions in 10 Minutes (Zelda Souza RN) Resting Tone (Palpate): Relaxed (Zelda Souza RN) Monitor Mode: External US (Zelda Souza RN) FHR Baseline Rate : 140 (Zelda Souza RN) Variability: Moderate 6-25 bpm (Zelda Souza RN) Accelerations: 15X15 (Zelda Souza RN) Comments: RN remains at bedside adjusting u/s continuously monitoring FHT (Zelda Souza RN) Comments: broken tracing, unable to determine decel noted (Zelda Souza RN)
[2016-06-13] MEDS: IBUPROFEN 800 MG TABLET PO SCH ×3 (06:05→21:07)
--- NOTE | 2016-06-13 06:12 | L&D Current Admission ---
Current Admit Datetime Report Generated by CPN: 06/13/2016 06:00 ADMISSION INFORMATION Current Admit Date/Time: 06/11/2016 17:46 (06/11/2016 15:00:Patrick Bustos RN) Reason for Admission: Induction of Labor (06/11/2016 15:00:Patrick Bustos RN) EGA per Dates: 41.1 (06/11/2016 15:00:QS system process) Method of Arrival: Ambulatory (06/11/2016 15:00:Patrick Bustos RN) Reason for Induction: Postterm; Other (06/11/2016 15:00:Patrick Bustos RN) Reason for Induction- Other: AMA (06/11/2016 15:00:Patrick Bustos RN) Records Available: Yes (06/11/2016 15:00:Patrick Bustos RN) General Admission Information: Reviewed; Updated; Confirmed (06/11/2016 15:00:Patrick Bustos RN) General Admission Reviewed By: Kena Bustos RN (06/11/2016 15:00:Patrick Bustos RN) BELONGINGS/ADVANCED DIRECTIVES Disposition of Belongings: Kept with Patient (06/11/2016 15:00:Patrick Bustos RN) Comments Regarding Disposition: See [facility] belongings form filled out by patient (06/11/2016 15:00:Patrick Bustos RN) Advance Direct for Healthcare: No, and Wants No Information (06/11/2016 15:00:Patrick Bustos RN) Durable Power of Manager Branch: No (06/11/2016 15:00:Patrick Bustos RN) Living Will: No (06/11/2016 15:00:Patrick Bustos RN) Organ Donor: No (06/11/2016 15:00:Patrick Bustos RN) Pt Rights Information Given: Yes (06/11/2016 15:00:Patrick Bustos RN) Pt Understands Pt Rights: Yes (06/11/2016 15:00:Patrick Bustos RN) LEARNING ASSESSMENT Knowledge Level: Understands L_D Process (06/11/2016 15:00:Patrick Bustos RN) Barriers to Learning: None (06/11/2016 15:00:Patrick Bustos RN) Learning Readiness: Motivated (06/11/2016 15:00:Patrick Bustos RN) Learns Best By: 1 to 1 Instruction (06/11/2016 15:00:Patrick Bustos RN) Learning Needs: Labor and Delivery Process; Pain Management; Symptoms to Report; Treatment Plan; Medication; Diagnosis (06/11/2016 15:00:Patrick Bustos RN) DOMESTIC VIOLANCE SCREENING Dom Viol Threatened/Hurt: No (06/11/2016 15:00:Patrick Bustos RN) Hx of Abuse/Neglect past 2yrs: No (06/11/2016 15:00:Patrick Bustos RN) Feel Unsafe Going Home: No (06/11/2016 15:00:Patrick Bustos RN) Addt'l Observ Indicating Abuse: No (06/11/2016 15:00:Patrick Bustos RN) Reason Unable to Complete Screen: N/A, Screen Completed (06/11/2016 15:00:Patrick Bustos RN) Considered Personal Harm/Suicide: No (06/11/2016 15:00:Patrick Bustos RN) NUTRITIONAL/FUNCTIONAL SCREENING Problem with Appetite >5 Days: No (06/11/2016 15:00:Patrick Bustos RN) Chew/Swallow Difficulties: No (06/11/2016 15:00:Patrick Bustos RN) Inappropriate Wt Gain/Loss: No (06/11/2016 15:00:Patrick Bustos RN) Presence Skin Breakdown/Ulcer: No (06/11/2016 15:00:Patrick Bustos RN) Special Diet: No (06/11/2016 15:00:Patrick Bustos RN) Pt Requests Telegraph Mechanic Visit: No (06/11/2016 15:00:Patrick Bustos RN) Hx of Any of the Following?: N/A (06/11/2016 15:00:Patrick Bustos RN) New Diagnosis of: N/A (06/11/2016 15:00:Patrick Bustos RN) Requires Assist w/Ambulation: No (06/11/2016 15:00:Patrick Bustos RN) Uses Assist Device to Ambulate: No (06/11/2016 15:00:Patrick Bustos RN) Pt Requires Help w/ADL's: No (06/11/2016 15:00:Patrick Bustos RN)
--- NOTE | 2016-06-13 06:12 | L&D General Admission ---
General Admit Datetime Report Generated by CPN: 06/13/2016 06:00 INFORMATION Patient Age: 41 (04/30/2016 18:04:QS system process) EDC: 06/03/2016 00:00 (04/30/2016 18:08:Yane Vitale RN) LMP: 08/28/2015 00:00 (04/30/2016 18:08:Patrick Bustos RN) : 4 (04/30/2016 18:08:Yane Vitale RN) Para: 2 (04/30/2016 18:08:Helen Randolph RN) Term: 2 (04/30/2016 18:08:Yane Vitale RN) Induced Abortions: 1 (04/30/2016 18:08:Yane Vitale RN) Livin (04/30/2016 18:08:Patrick Bustos RN) Cesareans: 0 (04/30/2016 18:08:Patrick Bustos RN) Baby, Number in Womb: 1 (04/30/2016 18:40:Yane Iam, RN) CARE Primary Rod Puller And Coiler: [facility] (04/30/2016 18:08:Yane Vitale RN) Month of 1st Visit: September (04/30/2016 18:08:Yane Vitale RN) Adequate Care: Yes (04/30/2016 18:08:Yane Vitale RN) Prepregnancy Weight (lb): 172 (04/30/2016 18:08:Patrick Bustos RN) Prepregnancy Weight (kg): 78.2 (04/30/2016 18:08:QS system process) Height (in): 68 (06/12/2016 11:28:QS system process) ALLERGIES Medication Allergy: No (04/30/2016 18:08:Yane Vitale RN) Medication Allergies: No Known Allergies (06/11/2016) (06/11/2016 14:46:QS system process) Latex Allergy: No Latex Allergies (04/30/2016 18:08:Yane Vitale RN) Food Allergies: n/a (04/30/2016 18:08:Yane Vitale RN) Environmental Allergies: n/a (04/30/2016 18:08:Yane Vitale RN) COMMUNICATION Primary Language: Singaporean (04/30/2016 18:08:Yane Vitale RN) Medical Tx Preferred Language: Singaporean (04/30/2016 18:08:Yane Vitale RN) Communication Barrier(s): None (04/30/2016 18:08:Patrick Bustos RN) DEMOGRAPHICS Address: [address] [place] [id number] (04/30/2016 18:04:QS system process) Zipcode: [address] (04/30/2016 18:04:QS system process) Home (04/30/2016 18:04:QS system process) SSN: [id number] (04/30/2016 18:04:QS system process) Next of Kin Name: JERAMY WYNNE (04/30/2016 18:04:QS system process) Next of Kin (04/30/2016 18:04:QS system process) Next of Kin Relationship: SPO (04/30/2016 18:04:QS system process) Date of : 1975 (04/30/2016 18:04:QS system process) Marital Status: (04/30/2016 18:04:QS system process) Sex: Female (04/30/2016 18:04:QS system process) Race: Other (04/30/2016 18:04:QS system process) Ethnicity: Non- or (04/30/2016 18:04:QS system process) Christianity: Taoism (04/30/2016 18:04:QS system process) DRUG AND ALCOHOL USE Alcohol: No (04/30/2016 18:08:Yane Vitale RN) Cigarettes: Never Smoker. [id number] (04/30/2016 18:08:Yane Vitale RN) Marijuana: No (04/30/2016 18:08:Yane Vitale RN) Cocaine: No (04/30/2016 18:08:Yane Vitale RN) Other Illicit Drugs: No (04/30/2016 18:08:Yane Vtiale RN) VACCINE HISTORY Influenza Vaccine: No (04/30/2016 18:08:Yane Vitale RN) Pneumococcal Vaccine: No (04/30/2016 18:08:Yane Vitale RN) Tetanus Vaccine: Uncertain (04/30/2016 18:08:Yane Vitale RN) Tdap Vaccine: Yes (04/30/2016 18:08:Patrick Bustos RN) Tdap Date: 11/23/2011 (04/30/2016 18:08:Patrick Bustos RN) Hepatitis B Vaccine: Uncertain (04/30/2016 18:08:Yane Vitale RN) Forest Officer: [facility] (04/30/2016 18:08:Yane Vitale RN) Feeding Preference: Both (04/30/2016 18:08:Shelby Smith RN) Benefit of Breast Feed Discussed: Yes (04/30/2016 18:08:Yane Vitale RN) Circumcision: N/A (04/30/2016 18:08:Yane Vitale RN) Classes Attended: No (04/30/2016 18:08:Yane Vitale RN) Tubal Ligation: No (04/30/2016 18:08:Yane Vitale RN) Tubal Authorization Signed: N/A (04/30/2016 18:08:Yane Vitale RN) Consent: N/A (04/30/2016 18:08:Yane Vitale RN) Consent Signed: N/A (04/30/2016 18:08:Yane Vitale RN) Pain Management Plans: Natural (04/30/2016 18:08:Patrick Bustos RN) Plans for Labor and Delivery: None (04/30/2016 18:08:Yane Vitale RN) Support Person: Jeramy Wynne (04/30/2016 18:08:Yane Vitale RN) Support Person Relationship: (04/30/2016 18:08:Yane Vitale RN) Cultural/Spritual Practice: [facility] (04/30/2016 18:08:Yane Vitale RN) Spir/Cult Dietary Needs: [facility] (04/30/2016 18:08:Yane Vitale RN) LIVING SITUATION/DISCHARGE PLAN Living Arrangements: House (04/30/2016 18:08:Yane Vitale RN) Adequate Access to:: Electric; Heat; Refrigeration; Plumbing/Running water; Phone; Transportation (04/30/2016 18:08:Yane Vitale RN) WIC Program: [facility] (04/30/2016 18:08:Yane Vitale RN) Discharge Animal Killer Person: Jeramy Wynne (04/30/2016 18:08:Yane Vitale RN) Person to Help after Discharge: Jeramy Wynne (04/30/2016 18:08:Yane Vitale RN) Currently Using Commun Resources: [facility] (04/30/2016 18:08:Yane Vitale RN) Outside Agency/Position Description Manager: [facility] (04/30/2016 18:08:Yane Vitale RN) Car Seat for Discharge: [facility] (04/30/2016 18:08:Yane Vitale RN) Adoption Requested: [facility] (04/30/2016 18:08:Yane Vitale RN) Pt Contact w/infant Post : N/A (04/30/2016 18:08:Yane Vitale RN) LABS Blood Type: O Positive (04/30/2016 18:08:Patrick Bustos RN) Antibody Screen: Negative (04/30/2016 18:08:Patrick Bustos RN) Hemoglobin: 11.4 L (06/11/2016 18:46:QS system process) Hematocrit: 34.9 L (06/11/2016 18:46:QS system process) MCV: 79 L (06/11/2016 18:46:QS system process) Group Beta Strep: Negative (04/30/2016 18:08:Patrick Bustos RN) Gonorrhea: Negative (04/30/2016 18:08:Patrick Bustos RN) Chlamydia: Negative (04/30/2016 18:08:Patrick Bustos RN) RPR/VDRL: Nonreactive (04/30/2016 18:08:Yane Vitale RN) HIV Exposure Test: Negative (04/30/2016 18:08:Patrick Bustos RN) Hepatitis B: Negative (04/30/2016 18:08:Patrick Bustos RN) Rubella: Immune (04/30/2016 18:08:Patrick Bustos RN) Varicella: Positive (04/30/2016 18:08:Patrick Bustos RN) Varicella Titer: 641 (04/30/2016 18:08:Patrick Bustos RN) OB/PREVIOUS HISTORY LMP: 08/28/2015 00:00 (04/30/2016 18:08:Patrick Bustos RN) Previous Procedures: Ultrasound; NST (04/30/2016 18:08:Yane Vitale RN) Current Procedures: Ultrasound; NST (04/30/2016 18:08:Yane Vitale RN) History of Previous : No (04/30/2016 18:08:Yane Vitale RN) History of Gestational Diabetes: No (04/30/2016 18:08:Yane Vitale RN) History of PIH: No (04/30/2016 18:08:Yane Vitale RN) History of Incompetent Cervix: No (04/30/2016 18:08:Yane Vitale RN) History of Placenta Previa/Abrup: No (04/30/2016 18:08:Yane Vitale RN) History of Macrosomia: No (04/30/2016 18:08:Yane Vitale RN) History of IUGR: No (04/30/2016 18:08:Yane Vitale RN) History of Hemorrhage: No (04/30/2016 18:08:Yane Vitale RN) History of Loss/Stillborn: No (04/30/2016 18:08:Yane Vitlae RN) History of : No (04/30/2016 18:08:Yane Vitale RN) History of D (Rh) Sensitization: No (04/30/2016 18:08:Yane Vitale RN) History Recurrent Loss/Stillborn: No (04/30/2016 18:08:Yane Vitale RN) History Depression/PP Depression: No (04/30/2016 18:08:Yane Vitale RN) History of Uterine Anomaly/NEVAEH: No (04/30/2016 18:08:Yane Vitale RN) History of Infertility: No (04/30/2016 18:08:Yane Vitale RN) History of ART Treatment: No (04/30/2016 18:08:Yane Vitale RN) History of NEVAEH: No (04/30/2016 18:08:Yane Vitale RN) Comments Obstetrical History: G1- 1993 at 40 weeks G2- 1995- at 40 weeks G3- 2007- EAB G4- current (04/30/2016 18:08:Yane Vitale RN) MEDICAL HISTORY Med Hx Diabetes: No (04/30/2016 18:08:Yane Vitale RN) Med Hx Hypertension: No (04/30/2016 18:08:Yane Vitale RN) Med Hx Heart Disease: No (04/30/2016 18:08:Yane Vitale RN) Med Hx Autoimmune Disorder: No (04/30/2016 18:08:Yane Vitale RN) Med Hx Kidney Disease/UTI: No (04/30/2016 18:08:Yane Vitale RN) Med Hx Neurologic/Epilepsy: No (04/30/2016 18:08:Yane Vitale RN) Med Hx Psychiatric Disorders: No (04/30/2016 18:08:Yane Vitale RN) Med Hx Hepatitis/Liver Disease: No (04/30/2016 18:08:Yane Vitale RN) Med Hx Varicosities/Phlebitis: No (04/30/2016 18:08:Yane Vitale RN) Med Hx Thyroid Dysfunction: No (04/30/2016 18:08:Yane Vitale RN) Med Hx Trauma/Violence: No (04/30/2016 18:08:Yane Vitale RN) Med Hx Blood Transfusion: No (04/30/2016 18:08:Yane Vitale RN) Med Hx Pulmonary (Asthma,TB): No (04/30/2016 18:08:Yane Vitale RN) Med Hx Breast: No (04/30/2016 18:08:Yane Vitale RN) Med Hx APPEALS SPECIALIST Surgery: No (04/30/2016 18:08:Yane Vitale RN) Med Hx Hospitalization/Surgery: Yes (04/30/2016 18:08:Yane Vitale RN) Med Hx Anesthetic Complications: No (04/30/2016 18:08:Yane Vitale RN) Med Hx Abnormal Pap Smear: No (04/30/2016 18:08:Yane Vitale RN) Other Medical Diseases: No (04/30/2016 18:08:Yane Vitale RN) Med Hx Significant Family Hx: No (04/30/2016 18:08:Yane Vitale RN) Details of Med/Surg Hx: 1994 gallbladder removal (04/30/2016 18:08:Yane Vitale RN) INFECTIOUS HISTORY Inf Hx Gonorrhea: No (04/30/2016 18:08:Yane Vitale RN) Inf Hx Chlamydia: Yes (04/30/2016 18:08:Yane Vitale RN) Inf Hx Syphilis: No (04/30/2016 18:08:Yane Vitale RN) Inf Hx HIV/AIDS: No (04/30/2016 18:08:Yane Vitale RN) Inf Hx Human Papilloma Virus: No (04/30/2016 18:08:Yane Vitale RN) Inf Hx Pt/Partner Genital Herpes: No (04/30/2016 18:08:Yane Vitale RN) Inf Hx Tuberculosis/Exposure: No (04/30/2016 18:08:Yane Vitale RN) Inf Hx Hepatitis B,C: No (04/30/2016 18:08:Yane Vitale RN) Inf Hx Rash or Viral Illness: No (04/30/2016 18:08:Yane Vitale RN) Details of Infectious Hx: Chlamydia 1994 (04/30/2016 18:08:Yane Vitale RN) GENETIC HISTORY Gen Hx Age >=35 at [place]: Yes (04/30/2016 18:08:Mary Vidales RN) Gen Hx Thalassemia: No (04/30/2016 18:08:Yane Vitale RN) Gen Hx Congenital Heart Defect: No (04/30/2016 18:08:Yane Vitale RN) Gen Hx Neural Tube Defect: No (04/30/2016 18:08:Yane Vitale RN) Gen Hx Down's Syndrome: No (04/30/2016 18:08:Yane Vitale RN) Gen Hx Andrew-Sachs: No (04/30/2016 18:08:Yane Vitale RN) Gen Hx Cara: No (04/30/2016 18:08:Yane Vitale RN) Gen Hx Familial Dysautonomia: No (04/30/2016 18:08:Yane Vitale RN) Gen Hx Sickle Cell Disease/Trait: No (04/30/2016 18:08:Yane Vitale RN) Gen Hx Hemophilia/Blood Disorder: No (04/30/2016 18:08:Yane Vitale RN) Gen Hx Muscular Dystrophy: No (04/30/2016 18:08:Yane Vitale RN) Gen Hx Cystic Fibrosis: No (04/30/2016 18:08:Yane Vitale RN) Gen Hx Huntingtons Chorea: No (04/30/2016 18:08:Yane Vitale RN) Gen Hx Mental Retardation/Autism: No (04/30/2016 18:08:Yane Vitale RN) Gen Hx Tested for Fragile X: No (04/30/2016 18:08:Yane Vitale RN) Gen Hx Other Inher/Chromosomal: No (04/30/2016 18:08:Yane Vitale RN) Gen Hx Maternal Metabolic DO: No (04/30/2016 18:08:Yane Vitale RN) Gen Hx Pt Father or FOB Defect: No (04/30/2016 18:08:Yane Vitale RN) Gen Hx Other Genetic History: No (04/30/2016 18:08:Yane Vitale RN) Gen Hx Drugs/Meds since LMP: Yes (04/30/2016 18:08:Yane Vitale RN) Gen Hx Medications: folic acid, tylenol tylenol (04/30/2016 18:08:Patrick Bustos RN)
--- NOTE | 2016-06-13 06:24 | L&D Care Plan ---
LD CARE PLANS Datetime Report Generated by CPN: 06/13/2016 06:16 Datetime: 06/11/2016 17:48 Pain State: Risk For (Patrick Bustos RN) Related To: Labor and Delivery Process; Treatment and Procedures; Post (Patrick Bustos RN) Goal(s): Patients Pain will be Assessed and Managed; Patient will Verbalize Adequate Relief of Pain or the Ability to [place] with Current Pain (Patrick Bustos RN) Interventions: Assess Pain Severity on Scale of 0 (None) to 5 (Severe); Assess Type, Location and Intensity of Pain Each Time Client Reports Discomfort and Notify Provider if Unusal Pain Develops; Encourage Proper Breathing and Relaxation Techniques; Offer Alternatives Such as Repositioning, Calm Environment, Massages, Diversional Activities, Ice Pack, Splinting, and Ambulation; Administer Analgesics as Ordered; Assist with Epidural Placement as Appropriate; Evaluate Therapeutic Effectiveness of Medication and Treatments (Patrick Bustos RN) Outcome: Patient will Report Absence or Relief of Pain Consistent with Established Pain Goal (Patrick Bustos RN) Status: Ongoing (Patrick Bustos RN) Outcome: Patient will have a Decrease in Signs and Symptoms of Discomfort (Patrick Bustos RN) Status: Ongoing (Patrick Bustos RN) Outcome: Pain will be Controlled During Procedures (Patrick Bustos RN) Status: Ongoing (Patrick Bustos RN) Anxiety State: Risk For (Patrick Bustos RN) Related To: Labor and Delivery Process; Significant Life Event (Patrick Bustos RN) Goal(s): Patient will have Decreased Anxiety and be able to Function at Acceptable Levels (Patrick Bustos RN) Interventions: Assess Verbal and Nonverbal Behavioral Indicators of Anxiety; Assist Patient to Identify and Verbalize Symptoms of Anxiety; Identify and Demonstrate Techniques to Control Anxiety; Assist Patient with Coping Mechanisms to Manage Anxiety; Explain to Patient, Using a Calm Reassuring Approach and Nonmedical Terms, All Activities, Procedures, and Concerns; Instruct Patient and Family about Post Discharge Care, Limitations, Symptoms to Report and Resources Available (Patrick Bustos RN) Outcome: Patient will Identify, Verbalize and Demonstrate Techniques to Control Anxiety (Patrick Bustos RN) Status: Ongoing (Patrick Bustos RN) Outcome: Patient's Posture, Facial Expressions, Gestures and Activity Level will Reflect Decreased Anxiety (Patrick Bustos RN) Status: Ongoing (Patrikc Bustos RN) Outcome: Patient will Verbalize a Sense of Control and/or Acceptance of the Situation (Patrick Bustos RN) Status: Ongoing (Patrick Bustos RN) Outcome: Patient will Identify and Utilize Support Person (Patrick Bustos RN) Status: Ongoing (Patrick Bustos RN) Knowledge Deficit State: Risk For (Patrick Bustos RN) Related To: Labor and Delivery Process (Patrick Bustos RN) Goal(s): Patient will Accurately Verbalize Understanding of Plan of Care and Treatment; Patient and Family will Accurately Verbalize Understanding of the Disease Process (Patrick Bustos RN) Interventions: Assess Motivation and Willingness of Patient/Family to Learn; Assess Preferred Learning Mode: One to One Instruction, Reading, Videos, Group Discussion or Demonstration; Assess Barriers to Learning: Pain, Emotional State, Language Barrier, Cognitive Impairment, Visual or Hearing Deficits; Assess Patient and Family Knowledge of Disease Process, Medications and Treatment; Discuss Therapy and/or Treatment Options, Describe Rationale Behind Management, Therapy and Treatment Recommendations; Instruct Patient and Family on Signs and Symptoms to Report; Instruct Patient and Family on Medication Effects and Side Effects; Provide Appropriate and Timely Education Using Multiple Techniques; Provide Patient and Family with Support Group Information and Resources; Give Clear and Thorough Explanations and Demonstrations (Patrick Bustos RN) Outcome: Patient and Family will Verbalize Understanding of Condition, Treatment and Signs and Symptoms to Report (Patrick Bustos RN) Status: Ongoing (Patrick Bustos RN) Outcome: Patient will Identify Perceived Learning Needs and Express Motivation to Learn (Patrick Bustos RN) Status: Ongoing (Patrick Bustos RN) Outcome: Patient will Verbalize Understanding of Desired Content, and/or Performs Desired Skill Prior to Discharge (Patrick Bustos RN) Status: Ongoing (Patrick Bustos RN) Infection State: Risk For (Patrick Bustos RN) Related To: Invasive Procedures (Patrick Bustos RN) Goal(s): The Patient will be Free of Infection, Vital Signs Stable and Lab Work within Normal Parameters (Patrick Bustos RN) Interventions: Instruct and Reinforce Proper Handwashing, Hygiene, and Care Techniques to Patient and Family; Monitor Vital Signs; Monitor Patient for the Following Signs of Infection: Fever, Abdominal Tenderness, Unusual Discharge; Monitor Aminiotic Fluid, Urine and Lochia for Color and Odor; Observe Wounds, Incisions and Invasive Line Sites for Redness, Drainage and Edema; Assess IV Sites per Hospital Policy; Monitor Lab and Test Results and Notify Provider of Abnormal Findings; Assess Nutritional Status and Promote Good Nutrition (Patrick Bustos RN) Outcome: Patient will Remain Free of Infection (Patrick Bustos RN) Status: Ongoing (Patrick Bustos RN) Outcome: Infection will be Recognized Early to Allow for Prompt Treatment (Patrick Bustos RN) Status: Ongoing (Patrick Bustos RN) Outcome: Patient will have Vital Signs Within Expected Range (Patrick Bustos RN) Status: Ongoing (Patrick Bustos RN) Injury State: Risk For (Patrick Bustos RN) Related To: Labor and Delivery Process (Patrick Bustos RN) Goal(s): Patient will Remain Free from Injury (Patrick Bustos RN) Interventions: Monitoring as per Hospital Protocol; Assess Neurological Status; Perform Risk Assessment of Patients with Induction and ; Perform Fall Risk Assessment and Prevention per Hospital Protocol; Perform DVT Risk Assessment and Prophylaxis per Hospital Protocol; Ensure that Oxygen, Suction, and Resuscitation Medications and Equipment are Readily Available; Confirm Patient ID Prior to Procedure(s) and Medication Administration per Hospital Policy (Patrick Bustos RN) Outcome: Successful Fall Risk Prevention (Patrick Bustos RN) Status: Ongoing (Patrick Bustos RN) Outcome: Patient will Deliver without Adverse [place] (Patrick Bustos RN) Status: Ongoing (Patrick Bustos RN) Outcome: Patient's Neurological Status will Remain Stable (Patrick Bustos RN) Status: Ongoing (Patrick Bustos RN) Impaired Skin Integrity State: Risk For (Patrick Bustos RN) Related To: Vaginal Delivery; Invasive Procedures (Patrick Bustos RN) Goal(s): Patient will Maintain Optimal Skin Integrity, Free of Breakdown, Injury or Infection (Patrick Bustos RN) Interventions: Complete Screening for Pressure Ulcer Risk and Initiate Protocol per Hospital Policy; Monitor Site of Skin Impairment for Color Changes, Redness, Swelling, Warmth, Pain or Other Signs of Infection; Encourage and Assist with Position Changes; Monitor Patient's Mobility Status; Provide Adequate Nutrition and Fluids; Teach Patient Appropriate Hygienic Care; Teach Patient/Family Skin Care Management (Patrick Bustos RN) Outcome: Patient will not have Evidence of Injury Such as Skin Breakdown, Scrapes, Cuts, or Bruising (Patrick Bustos RN) Status: Ongoing (Patrick Bustos RN) Outcome: Patient will Report Any Altered Sensation or Pain at Site of Skin Impairment (Patrick Bustos RN) Status: Ongoing (Patrick Bustos RN) Outcome: Patients Incisions and Wounds will be without Signs or Symptoms of Infection (Patrick Bustos RN) Status: Ongoing (Patrick Bustos RN) Outcome: Patient will Demonstrate Understanding of Plan to Heal Skin and Prevent Reinjury and Verbalize Risk Factors (Patrick Bustos RN) Status: Ongoing (Patrick Bustos RN)
[2016-06-13 07:09] LABS: HEMATOCRIT 27.4 % (36.0-47.0); MEAN CORPUSCULAR HEMOGLOBIN 25.7 pg (27.0-33.4); MEAN CORPUSCULAR HGB CONC 32.1 g/dL (32.0-36.0); MEAN CORPUSCULAR VOLUME 80 fl (80-97); RED BLOOD COUNT 3.42 10^6/uL (3.72-5.28); RED CELL DISTRIBUTION WIDTH 16.8 % (11.5-14.0)
[2016-06-13 07:17] LABS: HEMOGLOBIN 8.8 g/dL (12.0-15.5)
[2016-06-13] MEDS: FERROUS SULFATE 325 MG TABLET PO SCH ×2 (09:03→17:08)
[2016-06-13] MEDS: DOCUSATE SODIUM 100 MG CAPSULE PO SCH ×2 (09:03→17:09)
[2016-06-13] MEDS: SENNOSIDES/DOCUSATE 8.6-50 MG 1 EACH TABLET PO SCH (09:03)
[2016-06-13] MEDS: PRENATAL VITAMIN W-O CA NO5/FE FUMARATE/FA CAPSULE PO SCH (09:03)
--- NOTE | 2016-06-13 09:23 | PDOC PROGRESS REPORT ---
Subjective-OB Subjective: Post Delivery Day: 1 41 year old. Denies any needs at this time, states pain is well controlled, voiding without difficulty, lochia is stable. Physical Exam (OB) Vital Signs: Temp Pulse Resp BP Pulse Ox 97.8 F 73 18 97/61 L 100 06/13/16 07:41 06/13/16 07:41 06/13/16 07:41 06/13/16 07:41 06/13/16 07:41 Intake & Output 06/12/16 06/13/16 06/14/16 06:59 06:59 06:59 Weight 85 kg - Lochia Lochia Amount: Small 10-25 ml Lochia Color: Rubra/Red - Abdomen Description: Tender, Soft, Round Hernia Present: No Fundal Description: Firm, Midline Describe if Not Midline: deviation to left post void Fundal Height: u/u - u/2 Objective-Diagnostic Laboratory: 06/13/16 06:47 06/13/16 06:47 WBC 14.0 H RBC 3.42 L Hgb 8.8 L D Hct 27.4 L MCV 80 MCH 25.7 L MCHC 32.1 RDW 16.8 H Plt Count 213 Assessment and Plan(PN) - Assessment and Plan (1) Acute blood loss anemia Is this a current diagnosis for this admission?: YesPlan: ferrous sulfate increase dietary iron (2) Vaginal delivery Is this a current diagnosis for this admission?: YesPlan: routine pp care d/c home tomorrow - Time Spent with Patient Time with patient: Less than 15 minutes Critical Time spent with patient: Less than 15 minutes Medications reviewed and adjusted accordingly: Yes - Disposition Anticipated Discharge: Home Within: within 24 hours
[2016-06-14] MEDS: IBUPROFEN 800 MG TABLET PO SCH (05:26)
--- NOTE | 2016-06-14 06:11 | L&D Current Admission ---
Current Admit Datetime Report Generated by CPN: 06/14/2016 06:00 ADMISSION INFORMATION Current Admit Date/Time: 06/11/2016 17:46 (06/11/2016 15:00:Patrick Bustos RN) Reason for Admission: Induction of Labor (06/11/2016 15:00:Patrick Bustos RN) EGA per Dates: 41.1 (06/11/2016 15:00:QS system process) Method of Arrival: Ambulatory (06/11/2016 15:00:Patrick Bustos RN) Reason for Induction: Postterm; Other (06/11/2016 15:00:Patrick Bustos RN) Reason for Induction- Other: AMA (06/11/2016 15:00:Patrick Bustos RN) Records Available: Yes (06/11/2016 15:00:Patrick Bustos RN) General Admission Information: Reviewed; Updated; Confirmed (06/11/2016 15:00:Patrick Bustos RN) General Admission Reviewed By: Kena Bustos RN (06/11/2016 15:00:Patrick Bustos RN) BELONGINGS/ADVANCED DIRECTIVES Disposition of Belongings: Kept with Patient (06/11/2016 15:00:Patrick Bustos RN) Comments Regarding Disposition: See [facility] belongings form filled out by patient (06/11/2016 15:00:Patrick Bustos RN) Advance Direct for Healthcare: No, and Wants No Information (06/11/2016 15:00:Patrick Bustos RN) Durable Power of Application Infrastructure Engineer: No (06/11/2016 15:00:Patrick Bustos RN) Living Will: No (06/11/2016 15:00:Patrick Bustos RN) Organ Donor: No (06/11/2016 15:00:Patrick Bustos RN) Pt Rights Information Given: Yes (06/11/2016 15:00:Patrick Bustos RN) Pt Understands Pt Rights: Yes (06/11/2016 15:00:Patrick Bustos RN) LEARNING ASSESSMENT Knowledge Level: Understands L_D Process (06/11/2016 15:00:Patrick Bustos RN) Barriers to Learning: None (06/11/2016 15:00:Patrick Bustos RN) Learning Readiness: Motivated (06/11/2016 15:00:Patrick Bustos RN) Learns Best By: 1 to 1 Instruction (06/11/2016 15:00:Patrick Bustos RN) Learning Needs: Labor and Delivery Process; Pain Management; Symptoms to Report; Treatment Plan; Medication; Diagnosis (06/11/2016 15:00:Patrick Bustos RN) DOMESTIC VIOLANCE SCREENING Dom Viol Threatened/Hurt: No (06/11/2016 15:00:Patrick Bustos RN) Hx of Abuse/Neglect past 2yrs: No (06/11/2016 15:00:Patrick Bustos RN) Feel Unsafe Going Home: No (06/11/2016 15:00:Patrick Bustos RN) Addt'l Observ Indicating Abuse: No (06/11/2016 15:00:Patrick Bustos RN) Reason Unable to Complete Screen: N/A, Screen Completed (06/11/2016 15:00:Patrick Bustos RN) Considered Personal Harm/Suicide: No (06/11/2016 15:00:Patrick Bustos RN) NUTRITIONAL/FUNCTIONAL SCREENING Problem with Appetite >5 Days: No (06/11/2016 15:00:Patrick Bustos RN) Chew/Swallow Difficulties: No (06/11/2016 15:00:Patrick Bustos RN) Inappropriate Wt Gain/Loss: No (06/11/2016 15:00:Patrick Bustos RN) Presence Skin Breakdown/Ulcer: No (06/11/2016 15:00:Patrick Bustos RN) Special Diet: No (06/11/2016 15:00:Patrick Bustos RN) Pt Requests Director Of Special Services Visit: No (06/11/2016 15:00:Patrick Bustos RN) Hx of Any of the Following?: N/A (06/11/2016 15:00:Patrick Bustos RN) New Diagnosis of: N/A (06/11/2016 15:00:Patrick Bustos RN) Requires Assist w/Ambulation: No (06/11/2016 15:00:Patrick Bustos RN) Uses Assist Device to Ambulate: No (06/11/2016 15:00:Patrick Bustos RN) Pt Requires Help w/ADL's: No (06/11/2016 15:00:Patrick Bustos RN)
--- NOTE | 2016-06-14 06:11 | L&D General Admission ---
General Admit Datetime Report Generated by CPN: 06/14/2016 06:00 INFORMATION Patient Age: 41 (04/30/2016 18:04:QS system process) EDC: 06/03/2016 00:00 (04/30/2016 18:08:Yane Vitale RN) LMP: 08/28/2015 00:00 (04/30/2016 18:08:Patrick Bustos RN) : 4 (04/30/2016 18:08:Yane Vitale RN) Para: 2 (04/30/2016 18:08:Helen Randolph RN) Term: 2 (04/30/2016 18:08:Yane Vitale RN) Induced Abortions: 1 (04/30/2016 18:08:Yane Vitale RN) Livin (04/30/2016 18:08:Patrick Bustos RN) Cesareans: 0 (04/30/2016 18:08:Patrick Bustos RN) Baby, Number in Womb: 1 (04/30/2016 18:40:Yane Iam, RN) CARE Primary Elementary Reading Specialist: [employer] [facility] (04/30/2016 18:08:Yane Vitale RN) Month of 1st Visit: September (04/30/2016 18:08:Yane Vitale RN) Adequate Care: Yes (04/30/2016 18:08:Yane Vitale RN) Prepregnancy Weight (lb): 172 (04/30/2016 18:08:Patrick Bustos RN) Prepregnancy Weight (kg): 78.2 (04/30/2016 18:08:QS system process) Height (in): 68 (06/12/2016 11:28:QS system process) ALLERGIES Medication Allergy: No (04/30/2016 18:08:Yane Vitale RN) Medication Allergies: No Known Allergies (06/11/2016) (06/11/2016 14:46:QS system process) Latex Allergy: No Latex Allergies (04/30/2016 18:08:Yane Vitale RN) Food Allergies: n/a (04/30/2016 18:08:Yane Vitale RN) Environmental Allergies: n/a (04/30/2016 18:08:Yane Vitale RN) COMMUNICATION Primary Language: Nigerien (04/30/2016 18:08:Yane Vitale RN) Medical Tx Preferred Language: Nigerien (04/30/2016 18:08:Yane Vitale RN) Communication Barrier(s): None (04/30/2016 18:08:Patrick Bustos RN) DEMOGRAPHICS Address: [address] [place] [id number] (04/30/2016 18:04:QS system process) Zipcode: [address] (04/30/2016 18:04:QS system process) Home (04/30/2016 18:04:QS system process) SSN: [id number] (04/30/2016 18:04:QS system process) Next of Kin Name: JERAMY WYNNE (04/30/2016 18:04:QS system process) Next of Kin (04/30/2016 18:04:QS system process) Next of Kin Relationship: SPO (04/30/2016 18:04:QS system process) Date of : 1975 (04/30/2016 18:04:QS system process) Marital Status: (04/30/2016 18:04:QS system process) Sex: Female (04/30/2016 18:04:QS system process) Race: Other (04/30/2016 18:04:QS system process) Ethnicity: Non- or (04/30/2016 18:04:QS system process) Jew: Congregation (04/30/2016 18:04:QS system process) DRUG AND ALCOHOL USE Alcohol: No (04/30/2016 18:08:Yane Vitale RN) Cigarettes: Never Smoker. 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: [facility] (04/30/2016 18:08:Yane Vitale RN) Feeding Preference: Both (04/30/2016 18:08:Shelby Smith RN) Benefit of Breast Feed Discussed: Yes (04/30/2016 18:08:Yane Vitale RN) Circumcision: N/A (04/30/2016 18:08:Yane Vitale RN) Classes Attended: No (04/30/2016 18:08:Yane Vitale RN) Tubal Ligation: No (04/30/2016 18:08:Yane Vitale RN) Tubal Authorization Signed: N/A (04/30/2016 18:08:Yane Vitale RN) Consent: N/A (04/30/2016 18:08:Yane Vitale RN) Consent Signed: N/A (04/30/2016 18:08:Yane Vitale RN) Pain Management Plans: Natural (04/30/2016 18:08:Patrick Bustos RN) Plans for Labor and Delivery: None (04/30/2016 18:08:Yane Vitale RN) Support Person: Jeramy Wynne (04/30/2016 18:08:Yane Vitale RN) Support Person Relationship: (04/30/2016 18:08:Yane Vitale RN) Cultural/Spritual Practice: [facility] (04/30/2016 18:08:Yane Vitale RN) Spir/Cult Dietary Needs: [facility] (04/30/2016 18:08:Yane Vitale RN) LIVING SITUATION/DISCHARGE PLAN Living Arrangements: House (04/30/2016 18:08:Yane Vitale RN) Adequate Access to:: Electric; Heat; Refrigeration; Plumbing/Running water; Phone; Transportation (04/30/2016 18:08:Yane Vitale RN) WIC Program: [facility] (04/30/2016 18:08:Yane Vitale RN) Discharge Deputy Editor In Chief Person: Jeramy Wynne (04/30/2016 18:08:Yane Vitale RN) Person to Help after Discharge: Jeramy Wynne (04/30/2016 18:08:Yane Vitale RN) Currently Using Commun Resources: [facility] (04/30/2016 18:08:Yane Vitale RN) Outside Agency/Cleat Layer: [facility] (04/30/2016 18:08:Yane Vitale RN) Car Seat for Discharge: [facility] (04/30/2016 18:08:Yane Vitale RN) Adoption Requested: [facility] (04/30/2016 18:08:Yane Vitale RN) Pt Contact w/ Post : N/A (04/30/2016 18:08:Yane Vitale RN) LABS Blood Type: O Positive (04/30/2016 18:08:Patrick Bustos RN) Antibody Screen: Negative (04/30/2016 18:08:Patrick Bustos RN) Hemoglobin: 8.8 L (06/13/2016 06:47:QS system process) Hematocrit: 27.4 L (06/13/2016 06:47:QS system process) MCV: 80 (06/13/2016 06:47:QS system process) Group Beta Strep: Negative (04/30/2016 18:08:Patrick Bustos RN) Gonorrhea: Negative (04/30/2016 18:08:Patrick Bustos RN) Chlamydia: Negative (04/30/2016 18:08:Patrick Bustos RN) RPR/VDRL: Nonreactive (04/30/2016 18:08:Yane Vitale RN) HIV Exposure Test: Negative (04/30/2016 18:08:Patrick Bustos RN) Hepatitis B: Negative (04/30/2016 18:08:Patrick Bustos RN) Rubella: Immune (04/30/2016 18:08:Patrick Bustos RN) Varicella: Positive (04/30/2016 18:08:Patrick Bustos RN) Varicella Titer: 641 (04/30/2016 18:08:Patrick Bustos RN) OB/PREVIOUS HISTORY LMP: 08/28/2015 00:00 (04/30/2016 18:08:Patrick Bustos RN) Previous Procedures: Ultrasound; NST (04/30/2016 18:08:Yane Vitale RN) Current Procedures: Ultrasound; NST (04/30/2016 18:08:Yane Vitale RN) History of Previous : No (04/30/2016 18:08:Yane Vitale RN) History of Gestational Diabetes: No (04/30/2016 18:08:Yane Vitale RN) History of PIH: No (04/30/2016 18:08:Yane Vitale RN) History of Incompetent Cervix: No (04/30/2016 18:08:Yane Vitale RN) History of Placenta Previa/Abrup: No (04/30/2016 18:08:Yane Vitale RN) History of Macrosomia: No (04/30/2016 18:08:Yane Vitale RN) History of IUGR: No (04/30/2016 18:08:Yane Vitale RN) History of Hemorrhage: No (04/30/2016 18:08:Yane Vitale RN) History of Loss/Stillborn: No (04/30/2016 18:08:Yane Vitale RN) History of : No (04/30/2016 18:08:Yane Vitale RN) History of D (Rh) Sensitization: No (04/30/2016 18:08:Yane Vitale RN) History Recurrent Loss/Stillborn: No (04/30/2016 18:08:Yane Vitale RN) History Depression/PP Depression: No (04/30/2016 18:08:Yane Vitale RN) History of Uterine Anomaly/NEVAEH: No (04/30/2016 18:08:Yane Vitale RN) History of Infertility: No (04/30/2016 18:08:Yane Vitale RN) History of ART Treatment: No (04/30/2016 18:08:Yane Vitale RN) History of NEVAEH: No (04/30/2016 18:08:Yane Vitale RN) Comments Obstetrical History: G1- 1993 at 40 weeks G2- 1995- at 40 weeks G3- 2007- EAB G4- current (04/30/2016 18:08:Yane Vitale RN) MEDICAL HISTORY Med Hx Diabetes: No (04/30/2016 18:08:Yane Vitale RN) Med Hx Hypertension: No (04/30/2016 18:08:Yane Vitale RN) Med Hx Heart Disease: No (04/30/2016 18:08:Yane Vitale RN) Med Hx Autoimmune Disorder: No (04/30/2016 18:08:Yane Vitale RN) Med Hx Kidney Disease/UTI: No (04/30/2016 18:08:Yane Vitale RN) Med Hx Neurologic/Epilepsy: No (04/30/2016 18:08:Yane Vitale RN) Med Hx Psychiatric Disorders: No (04/30/2016 18:08:Yane Vitale RN) Med Hx Hepatitis/Liver Disease: No (04/30/2016 18:08:Yane Vitale RN) Med Hx Varicosities/Phlebitis: No (04/30/2016 18:08:Yane Vitale RN) Med Hx Thyroid Dysfunction: No (04/30/2016 18:08:Yane Vitale RN) Med Hx Trauma/Violence: No (04/30/2016 18:08:Yane Vitale RN) Med Hx Blood Transfusion: No (04/30/2016 18:08:Yane Vitale RN) Med Hx Pulmonary (Asthma,TB): No (04/30/2016 18:08:Yane Vitale RN) Med Hx Breast: No (04/30/2016 18:08:Yane Vitale RN) Med Hx [employer] Surgery: No (04/30/2016 18:08:Yane Vitale RN) Med Hx Hospitalization/Surgery: Yes (04/30/2016 18:08:Yane Vitale RN) Med Hx Anesthetic Complications: No (04/30/2016 18:08:Yane Vitale RN) Med Hx Abnormal Pap Smear: No (04/30/2016 18:08:Yane Vitale RN) Other Medical Diseases: No (04/30/2016 18:08:Yane Vitale RN) Med Hx Significant Family Hx: No (04/30/2016 18:08:Yane Vitale RN) Details of Med/Surg Hx: 1994 gallbladder removal (04/30/2016 18:08:Yane Vitale RN) INFECTIOUS HISTORY Inf Hx Gonorrhea: No (04/30/2016 18:08:Yane Vitale RN) Inf Hx Chlamydia: Yes (04/30/2016 18:08:Yane Vitale RN) Inf Hx Syphilis: No (04/30/2016 18:08:Yane Vitale RN) Inf Hx HIV/AIDS: No (04/30/2016 18:08:Yane Vitale RN) Inf Hx Human Papilloma Virus: No (04/30/2016 18:08:Yane Vitale RN) Inf Hx Pt/Partner Genital Herpes: No (04/30/2016 18:08:Yane Vitale RN) Inf Hx Tuberculosis/Exposure: No (04/30/2016 18:08:Yane Vitale RN) Inf Hx Hepatitis B,C: No (04/30/2016 18:08:Yane Vitale RN) Inf Hx Rash or Viral Illness: No (04/30/2016 18:08:Yane Vitale RN) Details of Infectious Hx: Chlamydia 1994 (04/30/2016 18:08:Yane Vitale RN) GENETIC HISTORY Gen Hx Age >=35 at [place]: Yes (04/30/2016 18:08:Mary Vidales RN) Gen Hx Thalassemia: No (04/30/2016 18:08:Yane Vitale RN) Gen Hx Congenital Heart Defect: No (04/30/2016 18:08:Yane Vitale RN) Gen Hx Neural Tube Defect: No (04/30/2016 18:08:Yane Vitale RN) Gen Hx Down's Syndrome: No (04/30/2016 18:08:Yane Vitale RN) Gen Hx Andrew-Sachs: No (04/30/2016 18:08:Yane Vitale RN) Gen Hx Cara: No (04/30/2016 18:08:Yane Vitale RN) Gen Hx Familial Dysautonomia: No (04/30/2016 18:08:Yane Vitale RN) Gen Hx Sickle Cell Disease/Trait: No (04/30/2016 18:08:Yane Vitale RN) Gen Hx Hemophilia/Blood Disorder: No (04/30/2016 18:08:Yane Vitale RN) Gen Hx Muscular Dystrophy: No (04/30/2016 18:08:Yane Vitale RN) Gen Hx Cystic Fibrosis: No (04/30/2016 18:08:Yane Vitale RN) Gen Hx Huntingtons Chorea: No (04/30/2016 18:08:Yane Vitale RN) Gen Hx Mental Retardation/Autism: No (04/30/2016 18:08:Yane Vitale RN) Gen Hx Tested for Fragile X: No (04/30/2016 18:08:Yane Vitale RN) Gen Hx Other Inher/Chromosomal: No (04/30/2016 18:08:Yane Vitale RN) Gen Hx Maternal Metabolic DO: No (04/30/2016 18:08:Yane Vitale RN) Gen Hx Pt Father or FOB Defect: No (04/30/2016 18:08:Yane Vitale RN) Gen Hx Other Genetic History: No (04/30/2016 18:08:Yane Vitale RN) Gen Hx Drugs/Meds since LMP: Yes (04/30/2016 18:08:Yane Vitale RN) Gen Hx Medications: folic acid, tylenol tylenol (04/30/2016 18:08:Patrick Bustos RN)
[2016-06-14 09:27] VITALS: BP 102/57
[2016-06-14] MEDS: FERROUS SULFATE 325 MG TABLET PO SCH (09:36)
[2016-06-14] MEDS: SENNOSIDES/DOCUSATE 8.6-50 MG 1 EACH TABLET PO SCH (09:36)
[2016-06-14] MEDS: PRENATAL VITAMIN W-O CA NO5/FE FUMARATE/FA CAPSULE PO SCH (09:36)
[2016-06-14] MEDS: DOCUSATE SODIUM 100 MG CAPSULE PO SCH (09:36)
--- NOTE | 2016-06-14 10:10 | PDOC PROGRESS REPORT ---
Subjective-OB Subjective: Post Delivery Day: 41 year old. Denies any needs at this time Doing well, no c/o, voiding, scant lochia, Physical Exam (OB) Vital Signs: Temp Pulse Resp BP Pulse Ox 98.1 F 81 15 102/57 L 100 06/14/16 09:23 06/14/16 09:23 06/14/16 09:23 06/14/16 09:23 06/14/16 09:23 Intake & Output 06/13/16 06/14/16 06/15/16 06:59 06:59 06:59 Intake Total 240 Balance 240 - Lochia Lochia Amount: Scant < 10 ml Lochia Color: Rubra/Red - Abdomen Description: Soft, Round Hernia Present: No Fundal Description: Firm, Midline Describe if Not Midline: deviation to left post void Fundal Height: u/u - u/2 Objective-Diagnostic Laboratory: 06/13/16 06:47 Assessment and Plan(PN) - Assessment and Plan (1) Acute blood loss anemia Is this a current diagnosis for this admission?: Yes (2) Vaginal delivery Is this a current diagnosis for this admission?: Yes - Time Spent with Patient Medications reviewed and adjusted accordingly: Yes - Disposition Anticipated Discharge: Home Within: Other - home today
--- NOTE | 2016-06-14 10:13 | PDOC DISCHARGE SUMMARY ---
Discharge Summary-OB Discharge Date: 06/14/16 - Final Diagnosis (2) Vaginal delivery Is this a current diagnosis for this admission?: Yes - Discharge Medication Home Medications: Acetaminophen [Tylenol Extra Strength] 500 mg PO Q6 PRN 04/30/16 Folic Acid 0.4 mg PO DAILY 04/30/16 Gestational Age: 41.2 Reason(s) for Admission: Induction of Labor Procedures: NST, Ultrasound Intrapartum Procedure(s): Spontaneous Vaginal Delivery Complication(s): Laceration-Perineal, Laceration-Periurethral Laceration-Degree: 1st - Diagnosis Test Laboratory: Temp Pulse Resp BP Pulse Ox 98.1 F 81 15 102/57 L 100 06/14/16 09:23 06/14/16 09:23 06/14/16 09:23 06/14/16 09:23 06/14/16 09:23 06/11/16 06/11/16 06/13/16 14:43 18:46 06:47 RBC 4.41 3.42 L Hgb 11.4 L 8.8 L D Hct 34.9 L 27.4 L Urine Opiates Screen NEGATIVE - Discharge information/Instructions Discharge Activity: Activity As Tolerated, Keep Legs Elevated, Pelvic Rest, No tub bath Discharge Diet: As Tolerated, Regular Disposition: HOME, SELF-CARE Follow up with: [facility] in: 4, Weeks
--- NOTE | 2016-06-15 06:11 | L&D Current Admission ---
Current Admit Datetime Report Generated by CPN: 06/15/2016 06:00 ADMISSION INFORMATION Current Admit Date/Time: 06/11/2016 17:46 (06/11/2016 15:00:Patrick Bustos RN) Reason for Admission: Induction of Labor (06/11/2016 15:00:Patrick Bustos RN) EGA per Dates: 41.1 (06/11/2016 15:00:QS system process) Method of Arrival: Ambulatory (06/11/2016 15:00:Patrick Bustos RN) Reason for Induction: Postterm; Other (06/11/2016 15:00:Patrick Bustos RN) Reason for Induction- Other: AMA (06/11/2016 15:00:Patrick Bustos RN) Records Available: Yes (06/11/2016 15:00:Patrick Bustos RN) General Admission Information: Reviewed; Updated; Confirmed (06/11/2016 15:00:Patrick Bustos RN) General Admission Reviewed By: Kena Bustos RN (06/11/2016 15:00:Patrick Bustos RN) BELONGINGS/ADVANCED DIRECTIVES Disposition of Belongings: Kept with Patient (06/11/2016 15:00:Patrick Bustos RN) Comments Regarding Disposition: See [facility] belongings form filled out by patient (06/11/2016 15:00:Patrick Bustos RN) Advance Direct for Healthcare: No, and Wants No Information (06/11/2016 15:00:Patrick Busots RN) Durable Power of Abstract Clerk: No (06/11/2016 15:00:Patrick Bustos RN) Living Will: No (06/11/2016 15:00:Patrick Bustos RN) Organ Donor: No (06/11/2016 15:00:Patrick Bustos RN) Pt Rights Information Given: Yes (06/11/2016 15:00:Patrick Bustos RN) Pt Understands Pt Rights: Yes (06/11/2016 15:00:Patrick Bustos RN) LEARNING ASSESSMENT Knowledge Level: Understands L_D Process (06/11/2016 15:00:Patrick Bustos RN) Barriers to Learning: None (06/11/2016 15:00:Patrick Bustos RN) Learning Readiness: Motivated (06/11/2016 15:00:Patrick Bustos RN) Learns Best By: 1 to 1 Instruction (06/11/2016 15:00:Patrick Bustos RN) Learning Needs: Labor and Delivery Process; Pain Management; Symptoms to Report; Treatment Plan; Medication; Diagnosis (06/11/2016 15:00:Patrick Bustos RN) DOMESTIC VIOLANCE SCREENING Dom Viol Threatened/Hurt: No (06/11/2016 15:00:Patrick Bustos RN) Hx of Abuse/Neglect past 2yrs: No (06/11/2016 15:00:Patrick Bustos RN) Feel Unsafe Going Home: No (06/11/2016 15:00:Patrick Bustos RN) Addt'l Observ Indicating Abuse: No (06/11/2016 15:00:Patrick Bustos RN) Reason Unable to Complete Screen: N/A, Screen Completed (06/11/2016 15:00:Patrick Bustos RN) Considered Personal Harm/Suicide: No (06/11/2016 15:00:Patrick Bustos RN) NUTRITIONAL/FUNCTIONAL SCREENING Problem with Appetite >5 Days: No (06/11/2016 15:00:Patrick Bustos RN) Chew/Swallow Difficulties: No (06/11/2016 15:00:Patrick Bustos RN) Inappropriate Wt Gain/Loss: No (06/11/2016 15:00:Patrick Bustos RN) Presence Skin Breakdown/Ulcer: No (06/11/2016 15:00:Patrick Bustos RN) Special Diet: No (06/11/2016 15:00:Patrick Bustos RN) Pt Requests Utility Aide Visit: No (06/11/2016 15:00:Patrick Bustos RN) Hx of Any of the Following?: N/A (06/11/2016 15:00:Patrick Bustos RN) New Diagnosis of: N/A (06/11/2016 15:00:Patrick Bustos RN) Requires Assist w/Ambulation: No (06/11/2016 15:00:Patrick Bustos RN) Uses Assist Device to Ambulate: No (06/11/2016 15:00:Patrick Bustos RN) Pt Requires Help w/ADL's: No (06/11/2016 15:00:Patrick Bustos RN)
--- NOTE | 2016-06-15 06:11 | L&D General Admission ---
General Admit Datetime Report Generated by CPN: 06/15/2016 06:00 INFORMATION Patient Age: 41 (04/30/2016 18:04:QS system process) EDC: 06/03/2016 00:00 (04/30/2016 18:08:Yane Vitale RN) LMP: 08/28/2015 00:00 (04/30/2016 18:08:Patrick Bustos RN) : 4 (04/30/2016 18:08:Yane Vitale RN) Para: 2 (04/30/2016 18:08:Helen Randolph RN) Term: 2 (04/30/2016 18:08:Yane Vitale RN) Induced Abortions: 1 (04/30/2016 18:08:Yane Vitale RN) Livin (04/30/2016 18:08:Patrick Bustos RN) Cesareans: 0 (04/30/2016 18:08:Patrick Bustos RN) Baby, Number in Womb: 1 (04/30/2016 18:40:Yane Iam, RN) CARE Primary Produce Specialist: [facility] (04/30/2016 18:08:Yane Vitale RN) Month of 1st Visit: September (04/30/2016 18:08:Yane Vitale RN) Adequate Care: Yes (04/30/2016 18:08:Yane Vtiale RN) Prepregnancy Weight (lb): 172 (04/30/2016 18:08:Patrick Bustos RN) Prepregnancy Weight (kg): 78.2 (04/30/2016 18:08:QS system process) Height (in): 68 (06/14/2016 10:13:QS system process) ALLERGIES Medication Allergy: No (04/30/2016 18:08:Yane Vitale RN) Medication Allergies: No Known Allergies (06/11/2016) (06/11/2016 14:46:QS system process) Latex Allergy: No Latex Allergies (04/30/2016 18:08:Yane Vitale RN) Food Allergies: n/a (04/30/2016 18:08:Yane Vitale RN) Environmental Allergies: n/a (04/30/2016 18:08:Yane Vitale RN) COMMUNICATION Primary Language: Cambodian (04/30/2016 18:08:Yane Vitale RN) Medical Tx Preferred Language: Cambodian (04/30/2016 18:08:Yane Vitale RN) Communication Barrier(s): None (04/30/2016 18:08:Patrick Bustos RN) DEMOGRAPHICS Address: [address] [place] [id number] (04/30/2016 18:04:QS system process) Zipcode: [id number] (04/30/2016 18:04:QS system process) Home (04/30/2016 18:04:QS system process) SSN: [id number] (04/30/2016 18:04:QS system process) Next of Kin Name: JERAMY WYNNE (04/30/2016 18:04:QS system process) Next of Kin (04/30/2016 18:04:QS system process) Next of Kin Relationship: SPO (04/30/2016 18:04:QS system process) Date of : 1975 (04/30/2016 18:04:QS system process) Marital Status: (04/30/2016 18:04:QS system process) Sex: Female (04/30/2016 18:04:QS system process) Race: Other (04/30/2016 18:04:QS system process) Ethnicity: Non- or (04/30/2016 18:04:QS system process) Anabaptist: Anabaptism (04/30/2016 18:04:QS system process) DRUG AND ALCOHOL USE Alcohol: No (04/30/2016 18:08:Yane Vitale RN) Cigarettes: Never Smoker. 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: [facility] (04/30/2016 18:08:Yane Vitale RN) Feeding Preference: Both (04/30/2016 18:08:Shelby Smith RN) Benefit of Breast Feed Discussed: Yes (04/30/2016 18:08:Yane Vitale RN) Circumcision: N/A (04/30/2016 18:08:Yane Vitale RN) Classes Attended: No (04/30/2016 18:08:Yane Vitale RN) Tubal Ligation: No (04/30/2016 18:08:Yane Vitale RN) Tubal Authorization Signed: N/A (04/30/2016 18:08:Yane Vitale RN) Consent: N/A (04/30/2016 18:08:Yane Vitale RN) Consent Signed: N/A (04/30/2016 18:08:Yane Vitale RN) Pain Management Plans: Natural (04/30/2016 18:08:Patrick Bustos RN) Plans for Labor and Delivery: None (04/30/2016 18:08:Yane Vitale RN) Support Person: Jeramy Wynne (04/30/2016 18:08:Yane Vitale RN) Support Person Relationship: (04/30/2016 18:08:Yane Vitale RN) Cultural/Spritual Practice: [facility] (04/30/2016 18:08:Yane Vitale RN) Spir/Cult Dietary Needs: [facility] (04/30/2016 18:08:Yane Vitale RN) LIVING SITUATION/DISCHARGE PLAN Living Arrangements: House (04/30/2016 18:08:Yane Vitale RN) Adequate Access to:: Electric; Heat; Refrigeration; Plumbing/Running water; Phone; Transportation (04/30/2016 18:08:Yane Vitale RN) WIC Program: [facility] (04/30/2016 18:08:Yane Vitale RN) Discharge [place] Operator Person: Jeramy Wynne (04/30/2016 18:08:Yane Vitale RN) Person to Help after Discharge: Jeramy Wynne (04/30/2016 18:08:Yane Vitale RN) Currently Using Commun Resources: [facility] (04/30/2016 18:08:Yane Vitale RN) Outside Agency/Paper Cone Machine Tender: [facility] (04/30/2016 18:08:Yane Vitale RN) Car Seat for Discharge: [facility] (04/30/2016 18:08:Yane Vitale RN) Adoption Requested: [facility] (04/30/2016 18:08:Yane Vitale RN) Pt Contact w/ Post : N/A (04/30/2016 18:08:Yane Vitale RN) LABS Blood Type: O Positive (04/30/2016 18:08:Patrick Bustos RN) Antibody Screen: Negative (04/30/2016 18:08:Patrick Bustos RN) Hemoglobin: 8.8 L (06/13/2016 06:47:QS system process) Hematocrit: 27.4 L (06/13/2016 06:47:QS system process) MCV: 80 (06/13/2016 06:47:QS system process) Group Beta Strep: Negative (04/30/2016 18:08:Patrick Bustos RN) Gonorrhea: Negative (04/30/2016 18:08:Patrick Bustos RN) Chlamydia: Negative (04/30/2016 18:08:Patrick Bustos RN) RPR/VDRL: Nonreactive (04/30/2016 18:08:Yane Vitale RN) HIV Exposure Test: Negative (04/30/2016 18:08:Patrick Bustos RN) Hepatitis B: Negative (04/30/2016 18:08:Patrick Bustos RN) Rubella: Immune (04/30/2016 18:08:Patrick Bustos RN) Varicella: Positive (04/30/2016 18:08:Patrick Bustos RN) Varicella Titer: 641 (04/30/2016 18:08:Partick Bustos RN) OB/PREVIOUS HISTORY LMP: 08/28/2015 00:00 (04/30/2016 18:08:Patrick Bustos RN) Previous Procedures: Ultrasound; NST (04/30/2016 18:08:Yane Vitale RN) Current Procedures: Ultrasound; NST (04/30/2016 18:08:Yane Vitale RN) History of Previous : No (04/30/2016 18:08:Yane Vitale RN) History of Gestational Diabetes: No (04/30/2016 18:08:Yane Vitale RN) History of PIH: No (04/30/2016 18:08:Yane Vitale RN) History of Incompetent Cervix: No (04/30/2016 18:08:Yane Vitale RN) History of Placenta Previa/Abrup: No (04/30/2016 18:08:Yane Vitale RN) History of Macrosomia: No (04/30/2016 18:08:Yane Vitale RN) History of IUGR: No (04/30/2016 18:08:Yane Vitale RN) History of Hemorrhage: No (04/30/2016 18:08:Yane Vitale RN) History of Loss/Stillborn: No (04/30/2016 18:08:Yane Vitale RN) History of : No (04/30/2016 18:08:Yane Vitale RN) History of D (Rh) Sensitization: No (04/30/2016 18:08:Yane Vitale RN) History Recurrent Loss/Stillborn: No (04/30/2016 18:08:Yane Vitale RN) History Depression/PP Depression: No (04/30/2016 18:08:Yane Vitale RN) History of Uterine Anomaly/NEVAEH: No (04/30/2016 18:08:Yane Vitale RN) History of Infertility: No (04/30/2016 18:08:Yane Vitale RN) History of ART Treatment: No (04/30/2016 18:08:Yane Vitale RN) History of NEVAEH: No (04/30/2016 18:08:Yane Vitale RN) Comments Obstetrical History: G1- 1993 at 40 weeks G2- 1995- at 40 weeks G3- 2007- EAB G4- current (04/30/2016 18:08:Yane Vitale RN) MEDICAL HISTORY Med Hx Diabetes: No (04/30/2016 18:08:Yane Vitale RN) Med Hx Hypertension: No (04/30/2016 18:08:Yane Vitale RN) Med Hx Heart Disease: No (04/30/2016 18:08:Yane Vitale RN) Med Hx Autoimmune Disorder: No (04/30/2016 18:08:Yane Vitale RN) Med Hx Kidney Disease/UTI: No (04/30/2016 18:08:Yane Vitale RN) Med Hx Neurologic/Epilepsy: No (04/30/2016 18:08:Yane Vitale RN) Med Hx Psychiatric Disorders: No (04/30/2016 18:08:Yane Vitale RN) Med Hx Hepatitis/Liver Disease: No (04/30/2016 18:08:Yane Vitale RN) Med Hx Varicosities/Phlebitis: No (04/30/2016 18:08:Yane Vitale RN) Med Hx Thyroid Dysfunction: No (04/30/2016 18:08:Yane Vitale RN) Med Hx Trauma/Violence: No (04/30/2016 18:08:Yane Vitale RN) Med Hx Blood Transfusion: No (04/30/2016 18:08:Yane Vitale RN) Med Hx Pulmonary (Asthma,TB): No (04/30/2016 18:08:Yane Vitale RN) Med Hx Breast: No (04/30/2016 18:08:Yane Vitale RN) 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 Surgery: No (04/30/2016 18:08:Yane Vitale RN) Med Hx Hospitalization/Surgery: Yes (04/30/2016 18:08:Yane Vitale RN) Med Hx Anesthetic Complications: No (04/30/2016 18:08:Yane Vitale RN) Med Hx Abnormal Pap Smear: No (04/30/2016 18:08:Yane Vitale RN) Other Medical Diseases: No (04/30/2016 18:08:Yane Vitale RN) Med Hx Significant Family Hx: No (04/30/2016 18:08:Yane Vitale RN) Details of Med/Surg Hx: 1994 gallbladder removal (04/30/2016 18:08:Yane Vitale RN) INFECTIOUS HISTORY Inf Hx Gonorrhea: No (04/30/2016 18:08:Yane Vitale RN) Inf Hx Chlamydia: Yes (04/30/2016 18:08:Yane Vitale RN) Inf Hx Syphilis: No (04/30/2016 18:08:Yane Vitale RN) Inf Hx HIV/AIDS: No (04/30/2016 18:08:Yane Vitale RN) Inf Hx Human Papilloma Virus: No (04/30/2016 18:08:Yane Vitale RN) Inf Hx Pt/Partner Genital Herpes: No (04/30/2016 18:08:Yane Vitale RN) Inf Hx Tuberculosis/Exposure: No (04/30/2016 18:08:Yane Vitale RN) Inf Hx Hepatitis B,C: No (04/30/2016 18:08:Yane Vitale RN) Inf Hx Rash or Viral Illness: No (04/30/2016 18:08:Yane Vitale RN) Details of Infectious Hx: Chlamydia 1994 (04/30/2016 18:08:Yane Vitale RN) GENETIC HISTORY Gen Hx Age >=35 at [place]: Yes (04/30/2016 18:08:Mary Vidales RN) Gen Hx Thalassemia: No (04/30/2016 18:08:Yane Vitale RN) Gen Hx Congenital Heart Defect: No (04/30/2016 18:08:Yane Vitale RN) Gen Hx Neural Tube Defect: No (04/30/2016 18:08:Yane Vitale RN) Gen Hx Down's Syndrome: No (04/30/2016 18:08:Yane Vitale RN) Gen Hx Andrew-Sachs: No (04/30/2016 18:08:Yane Vitale RN) Gen Hx Cara: No (04/30/2016 18:08:Yane Vitale RN) Gen Hx Familial Dysautonomia: No (04/30/2016 18:08:Yane Vitale RN) Gen Hx Sickle Cell Disease/Trait: No (04/30/2016 18:08:Yane Vitale RN) Gen Hx Hemophilia/Blood Disorder: No (04/30/2016 18:08:Yane Vitale RN) Gen Hx Muscular Dystrophy: No (04/30/2016 18:08:Yane Vitale RN) Gen Hx Cystic Fibrosis: No (04/30/2016 18:08:Yane Vitale RN) Gen Hx [place] Chorea: No (04/30/2016 18:08:Yane Vitale RN) Gen Hx Mental Retardation/Autism: No (04/30/2016 18:08:Yane Vitale RN) Gen Hx Tested for Fragile X: No (04/30/2016 18:08:Yane Vitale RN) Gen Hx Other Inher/Chromosomal: No (04/30/2016 18:08:Yane Vitale RN) Gen Hx Maternal Metabolic DO: No (04/30/2016 18:08:Yane Vitale RN) Gen Hx Pt Father or FOB Defect: No (04/30/2016 18:08:Yane Vitale RN) Gen Hx Other Genetic History: No (04/30/2016 18:08:Yane Vitale RN) Gen Hx Drugs/Meds since LMP: Yes (04/30/2016 18:08:Yane Vitale RN) Gen Hx Medications: folic acid, tylenol tylenol (04/30/2016 18:08:Patrick Bustos RN)
--- NOTE | 2016-06-16 06:12 | L&D General Admission ---
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[employer] [facility] (04/30/2016 18:08:Yane Vitale RN) Month of 1st Visit: September (04/30/2016 18:08:Yane Vitale RN) Adequate Care: Yes (04/30/2016 18:08:Yane Vitale RN) Prepregnancy Weight (lb): 172 (04/30/2016 18:08:Patrick Bustos RN) Prepregnancy Weight (kg): 78.2 (04/30/2016 18:08:QS system process) Height (in): 68 (06/14/2016 10:13:QS system process) ALLERGIES Medication Allergy: No (04/30/2016 18:08:Yane Vitale RN) Medication Allergies: No Known Allergies (06/11/2016) (06/11/2016 14:46:QS system process) Latex Allergy: No Latex Allergies (04/30/2016 18:08:Yane Vitale RN) Food Allergies: n/a (04/30/2016 18:08:Yane Vitale RN) Environmental Allergies: n/a (04/30/2016 18:08:Yane Vitale RN) COMMUNICATION Primary Language: Swiss (04/30/2016 18:08:Yane Vitale RN) Medical Tx Preferred Language: Swiss (04/30/2016 18:08:Yane Vitale RN) Communication Barrier(s): None (04/30/2016 18:08:Patrick Bustos RN) DEMOGRAPHICS Address: [address] [place] [id number] (04/30/2016 18:04:QS system process) Zipcode: [phone] (04/30/2016 18:04:QS system process) Home (04/30/2016 18:04:QS system process) SSN: [id number] (04/30/2016 18:04:QS system process) Next of Kin Name: JERAMY WYNNE (04/30/2016 18:04:QS system process) Next of Kin (04/30/2016 18:04:QS system process) Next of Kin Relationship: SPO (04/30/2016 18:04:QS system process) Date of : 1975 (04/30/2016 18:04:QS system process) Marital Status: (04/30/2016 18:04:QS system process) Sex: Female (04/30/2016 18:04:QS system process) Race: Other (04/30/2016 18:04:QS system process) Ethnicity: Non- or (04/30/2016 18:04:QS system process) Mormon: Cheondoism (04/30/2016 18:04:QS system process) DRUG AND ALCOHOL USE Alcohol: No (04/30/2016 18:08:Yane Vitale RN) Cigarettes: Never Smoker. [id number] (04/30/2016 18:08:Yane Vitale RN) Marijuana: No (04/30/2016 18:08:Yane Vitale RN) Cocaine: No (04/30/2016 18:08:Yane Vitale RN) Other Illicit Drugs: No (04/30/2016 18:08:Yane Vitale RN) VACCINE HISTORY Influenza Vaccine: No (04/30/2016 18:08:Yane Vitale RN) Pneumococcal Vaccine: No (04/30/2016 18:08:Yane Vitale RN) Tetanus Vaccine: Uncertain (04/30/2016 18:08:Yane Vitale RN) Tdap Vaccine: Yes (04/30/2016 18:08:Patrick Bustos RN) Tdap Date: 11/23/2011 (04/30/2016 18:08:Patrick Bustos RN) Hepatitis B Vaccine: Uncertain (04/30/2016 18:08:Yane Vitale RN) Conservation Educator: [facility] (04/30/2016 18:08:Yane Vitale RN) Feeding Preference: Both (04/30/2016 18:08:Shelby Smith RN) Benefit of Breast Feed Discussed: Yes (04/30/2016 18:08:Yane Vitale RN) Circumcision: N/A (04/30/2016 18:08:Yane Vitale RN) Classes Attended: No (04/30/2016 18:08:Ynae Vitale RN) Tubal Ligation: No (04/30/2016 18:08:Yane Vitale RN) Tubal Authorization Signed: N/A (04/30/2016 18:08:Yane Vitale RN) Consent: N/A (04/30/2016 18:08:Yane Vitale RN) Consent Signed: N/A (04/30/2016 18:08:Yane Vitale RN) Pain Management Plans: Natural (04/30/2016 18:08:Patrick Bustos RN) Plans for Labor and Delivery: None (04/30/2016 18:08:Yane Vitale RN) Support Person: Jeramy Wynne (04/30/2016 18:08:Yane Vitale RN) Support Person Relationship: (04/30/2016 18:08:Yane Vitale RN) Cultural/Spritual Practice: [facility] (04/30/2016 18:08:Yane Vitale RN) Spir/Cult Dietary Needs: [facility] (04/30/2016 18:08:Yane Vitale RN) LIVING SITUATION/DISCHARGE PLAN Living Arrangements: House (04/30/2016 18:08:Yane Vitale RN) Adequate Access to:: Electric; Heat; Refrigeration; Plumbing/Running water; Phone; Transportation (04/30/2016 18:08:Yane Vitale RN) WIC Program: [facility] (04/30/2016 18:08:Yane Vitale RN) 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: Jeramy Wynne (04/30/2016 18:08:Yane Vitale RN) Person to Help after Discharge: Jeramy Wynne (04/30/2016 18:08:Yane Vitale RN) Currently Using Commun Resources: [facility] (04/30/2016 18:08:Yane Vitale RN) Outside Agency/At Home Independent Call Center Agent: [facility] (04/30/2016 18:08:Yane Vitale RN) Car Seat for Discharge: [facility] (04/30/2016 18:08:Yane Vitale RN) Adoption Requested: [facility] (04/30/2016 18:08:Yane Vitale RN) Pt Contact w/ Post : N/A (04/30/2016 18:08:Yane Vitale RN) LABS Blood Type: O Positive (04/30/2016 18:08:Patrick Bustos RN) Antibody Screen: Negative (04/30/2016 18:08:Patrick Bustos RN) Hemoglobin: 8.8 L (06/13/2016 06:47:QS system process) Hematocrit: 27.4 L (06/13/2016 06:47:QS system process) MCV: 80 (06/13/2016 06:47:QS system process) Group Beta Strep: Negative (04/30/2016 18:08:Patrick Bustos RN) Gonorrhea: Negative (04/30/2016 18:08:Patrick Bustos RN) Chlamydia: Negative (04/30/2016 18:08:Patrick Bustos RN) RPR/VDRL: Nonreactive (04/30/2016 18:08:Yane Vitale RN) HIV Exposure Test: Negative (04/30/2016 18:08:Patrick Bustos RN) Hepatitis B: Negative (04/30/2016 18:08:Patrick Bustos RN) Rubella: Immune (04/30/2016 18:08:Patrick Bustos RN) Varicella: Positive (04/30/2016 18:08:Patrick Bustos RN) Varicella Titer: 641 (04/30/2016 18:08:Patrick Bustos RN) OB/PREVIOUS HISTORY LMP: 08/28/2015 00:00 (04/30/2016 18:08:Patrick Bustos RN) Previous Procedures: Ultrasound; NST (04/30/2016 18:08:Yane Vitale RN) Current Procedures: Ultrasound; NST (04/30/2016 18:08:Yane Vitale RN) History of Previous : No (04/30/2016 18:08:Yane Vitale RN) History of Gestational Diabetes: No (04/30/2016 18:08:Yane Vitale RN) History of PIH: No (04/30/2016 18:08:Yane Vitale RN) History of Incompetent Cervix: No (04/30/2016 18:08:Yane Vitale RN) History of Placenta Previa/Abrup: No (04/30/2016 18:08:Yane Vitale RN) History of Macrosomia: No (04/30/2016 18:08:Yane Vitale RN) History of IUGR: No (04/30/2016 18:08:Yane Vitale RN) History of Hemorrhage: No (04/30/2016 18:08:Yane Vitale RN) History of Loss/Stillborn: No (04/30/2016 18:08:Yane Vitale RN) History of : No (04/30/2016 18:08:Yane Vitale RN) History of D (Rh) Sensitization: No (04/30/2016 18:08:Yane Vitale RN) History Recurrent Loss/Stillborn: No (04/30/2016 18:08:Yane Vitale RN) History Depression/PP Depression: No (04/30/2016 18:08:Yane Vitale RN) History of Uterine Anomaly/NEVAEH: No (04/30/2016 18:08:Yane Vitale RN) History of Infertility: No (04/30/2016 18:08:Yane Vitale RN) History of ART Treatment: No (04/30/2016 18:08:Yane Vitale RN) History of NEVAEH: No (04/30/2016 18:08:Yane Vitale RN) Comments Obstetrical History: G1- 1993 at 40 weeks G2- 1995- at 40 weeks G3- 2007- EAB G4- current (04/30/2016 18:08:Yane Vitale RN) MEDICAL HISTORY Med Hx Diabetes: No (04/30/2016 18:08:Yane Vitale RN) Med Hx Hypertension: No (04/30/2016 18:08:Yane Vitale RN) Med Hx Heart Disease: No (04/30/2016 18:08:Yane Vitale RN) Med Hx Autoimmune Disorder: No (04/30/2016 18:08:Yane Vitale RN) Med Hx Kidney Disease/UTI: No (04/30/2016 18:08:Yane Vitale RN) Med Hx Neurologic/Epilepsy: No (04/30/2016 18:08:Yane Vitale RN) Med Hx Psychiatric Disorders: No (04/30/2016 18:08:Yane Vitale RN) Med Hx Hepatitis/Liver Disease: No (04/30/2016 18:08:Yane Vitale RN) Med Hx Varicosities/Phlebitis: No (04/30/2016 18:08:Yane Vitale RN) Med Hx Thyroid Dysfunction: No (04/30/2016 18:08:Yane Vitale RN) Med Hx Trauma/Violence: No (04/30/2016 18:08:Yane Vitale RN) Med Hx Blood Transfusion: No (04/30/2016 18:08:Yane Vitale RN) Med Hx Pulmonary (Asthma,TB): No (04/30/2016 18:08:Yane Vitale RN) Med Hx Breast: No (04/30/2016 18:08:Yane Vitale RN) 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 (04/30/2016 18:08:Yane Vitale RN) Med Hx Hospitalization/Surgery: Yes (04/30/2016 18:08:Yane Vitale RN) Med Hx Anesthetic Complications: No (04/30/2016 18:08:Yane Vitale RN) Med Hx Abnormal Pap Smear: No (04/30/2016 18:08:Yane Vitale RN) Other Medical Diseases: No (04/30/2016 18:08:Yane Vitale RN) Med Hx Significant Family Hx: No (04/30/2016 18:08:Yane Vitale RN) Details of Med/Surg Hx: 1994 gallbladder removal (04/30/2016 18:08:Yane Vitale RN) INFECTIOUS HISTORY Inf Hx Gonorrhea: No (04/30/2016 18:08:Yane Vitale RN) Inf Hx Chlamydia: Yes (04/30/2016 18:08:Yane Vitale RN) Inf Hx Syphilis: No (04/30/2016 18:08:Yane Vitale RN) Inf Hx HIV/AIDS: No (04/30/2016 18:08:Yane Vitale RN) Inf Hx Human Papilloma Virus: No (04/30/2016 18:08:Yane Vitale RN) Inf Hx Pt/Partner Genital Herpes: No (04/30/2016 18:08:Yane Vitale RN) Inf Hx Tuberculosis/Exposure: No (04/30/2016 18:08:Yane Vitale RN) Inf Hx Hepatitis B,C: No (04/30/2016 18:08:Yane Vitale RN) Inf Hx Rash or Viral Illness: No (04/30/2016 18:08:Yane Vitale RN) Details of Infectious Hx: Chlamydia 1994 (04/30/2016 18:08:Yane Vitale RN) GENETIC HISTORY Gen Hx Age >=35 at [place]: Yes (04/30/2016 18:08:Mary Vidales RN) Gen Hx Thalassemia: No (04/30/2016 18:08:Yane Vitale RN) Gen Hx Congenital Heart Defect: No (04/30/2016 18:08:Yane Vitale RN) Gen Hx Neural Tube Defect: No (04/30/2016 18:08:Yane Vitale RN) Gen Hx Down's Syndrome: No (04/30/2016 18:08:Yane Vitale RN) Gen Hx Andrew-Sachs: No (04/30/2016 18:08:Yane Vitale RN) Gen Hx Cara: No (04/30/2016 18:08:Yane Vitale RN) Gen Hx Familial Dysautonomia: No (04/30/2016 18:08:Yane Vitale RN) Gen Hx Sickle Cell Disease/Trait: No (04/30/2016 18:08:Yane Vitale RN) Gen Hx Hemophilia/Blood Disorder: No (04/30/2016 18:08:Yane Vitale RN) Gen Hx Muscular Dystrophy: No (04/30/2016 18:08:Yane Vitale RN) Gen Hx Cystic Fibrosis: No (04/30/2016 18:08:Yane Vitale RN) Gen Hx [place] Chorea: No (04/30/2016 18:08:Yane Vitale RN) Gen Hx Mental Retardation/Autism: No (04/30/2016 18:08:Yane Vitale RN) Gen Hx Tested for Fragile X: No (04/30/2016 18:08:Yane Vitale RN) Gen Hx Other Inher/Chromosomal: No (04/30/2016 18:08:Yane Vitale RN) Gen Hx Maternal Metabolic DO: No (04/30/2016 18:08:Yane Vitale RN) Gen Hx Pt Father or FOB Defect: No (04/30/2016 18:08:Yane Vitale RN) Gen Hx Other Genetic History: No (04/30/2016 18:08:Yane Vitale RN) Gen Hx Drugs/Meds since LMP: Yes (04/30/2016 18:08:Yane Vitale RN) Gen Hx Medications: folic acid, tylenol tylenol (04/30/2016 18:08:Patrick Bustos RN)
--- NOTE | 2016-06-16 06:12 | L&D Current Admission ---
Current Admit Datetime Report Generated by CPN: 06/16/2016 06:00 ADMISSION INFORMATION Current Admit Date/Time: 06/11/2016 17:46 (06/11/2016 15:00:Patrick Bustos RN) Reason for Admission: Induction of Labor (06/11/2016 15:00:Patrick Bustos RN) EGA per Dates: 41.1 (06/11/2016 15:00:QS system process) Method of Arrival: Ambulatory (06/11/2016 15:00:Patrick Bustos RN) Reason for Induction: Postterm; Other (06/11/2016 15:00:Patrick Bustos RN) Reason for Induction- Other: AMA (06/11/2016 15:00:Patrick Bustos RN) Records Available: Yes (06/11/2016 15:00:Patrick Bustos RN) General Admission Information: Reviewed; Updated; Confirmed (06/11/2016 15:00:Patrick Bustos RN) General Admission Reviewed By: Kena Bustos RN (06/11/2016 15:00:Patrick Bustos RN) BELONGINGS/ADVANCED DIRECTIVES Disposition of Belongings: Kept with Patient (06/11/2016 15:00:Patrick Bustos RN) Comments Regarding Disposition: See [facility] belongings form filled out by patient (06/11/2016 15:00:Patrick Bustos RN) Advance Direct for Healthcare: No, and Wants No Information (06/11/2016 15:00:Patrick Bustos RN) Durable Power of [employer]: No (06/11/2016 15:00:Patrick Bustos RN) Living Will: No (06/11/2016 15:00:Patrick Bustos RN) Organ Donor: No (06/11/2016 15:00:Patrick Bustos RN) Pt Rights Information Given: Yes (06/11/2016 15:00:Patrick Bustos RN) Pt Understands Pt Rights: Yes (06/11/2016 15:00:Patrick Bustos RN) LEARNING ASSESSMENT Knowledge Level: Understands L_D Process (06/11/2016 15:00:Patrick Bustos RN) Barriers to Learning: None (06/11/2016 15:00:Patrick Bustos RN) Learning Readiness: Motivated (06/11/2016 15:00:Patrick Bustos RN) Learns Best By: 1 to 1 Instruction (06/11/2016 15:00:Patrick Bustos RN) Learning Needs: Labor and Delivery Process; Pain Management; Symptoms to Report; Treatment Plan; Medication; Diagnosis (06/11/2016 15:00:Patrick Bustos RN) DOMESTIC VIOLANCE SCREENING Dom Viol Threatened/Hurt: No (06/11/2016 15:00:Patrick Bustos RN) Hx of Abuse/Neglect past 2yrs: No (06/11/2016 15:00:Patrick Bustos RN) Feel Unsafe Going Home: No (06/11/2016 15:00:Patrick Bustos RN) Addt'l Observ Indicating Abuse: No (06/11/2016 15:00:Patrick Bustos RN) Reason Unable to Complete Screen: N/A, Screen Completed (06/11/2016 15:00:Patrick Bustos RN) Considered Personal Harm/Suicide: No (06/11/2016 15:00:Patrick Bustos RN) NUTRITIONAL/FUNCTIONAL SCREENING Problem with Appetite >5 Days: No (06/11/2016 15:00:Patrick Bustos RN) Chew/Swallow Difficulties: No (06/11/2016 15:00:Patrick Bustos RN) Inappropriate Wt Gain/Loss: No (06/11/2016 15:00:Patrick Bustos RN) Presence Skin Breakdown/Ulcer: No (06/11/2016 15:00:Patrick Bustos RN) Special Diet: No (06/11/2016 15:00:Patrick Bustos RN) Pt Requests [facility] Fixer Visit: No (06/11/2016 15:00:Patrick Bustos RN) Hx of Any of the Following?: N/A (06/11/2016 15:00:Patrick Bustos RN) New Diagnosis of: N/A (06/11/2016 15:00:Patrick Bustos RN) Requires Assist w/Ambulation: No (06/11/2016 15:00:Patrick Bustos RN) Uses Assist Device to Ambulate: No (06/11/2016 15:00:Patrick Bustos RN) Pt Requires Help w/ADL's: No (06/11/2016 15:00:Patrick Bustos RN)
--- NOTE | 2016-06-17 06:12 | L&D General Admission ---
General Admit Datetime Report Generated by CPN: 06/17/2016 06:00 INFORMATION Patient Age: 41 (04/30/2016 18:04:QS system process) EDC: 06/03/2016 00:00 (04/30/2016 18:08:Yane Vitale RN) LMP: 08/28/2015 00:00 (04/30/2016 18:08:Patrick Bustos RN) : 4 (04/30/2016 18:08:Yane Vitale RN) Para: 2 (04/30/2016 18:08:Helen Randolph RN) Term: 2 (04/30/2016 18:08:Yane Vitale RN) Induced Abortions: 1 (04/30/2016 18:08:Yane Vitale RN) Livin (04/30/2016 18:08:Patrick Bustos RN) Cesareans: 0 (04/30/2016 18:08:Patrick Bustos RN) Baby, Number in Womb: 1 (04/30/2016 18:40:Yane Iam, RN) CARE Primary Roller Stitcher: [employer] [facility] (04/30/2016 18:08:Yane Vitale RN) Month of 1st Visit: September (04/30/2016 18:08:Yane Vitale RN) Adequate Care: Yes (04/30/2016 18:08:Yane Vitale RN) Prepregnancy Weight (lb): 172 (04/30/2016 18:08:Patrick Bustos RN) Prepregnancy Weight (kg): 78.2 (04/30/2016 18:08:QS system process) Height (in): 68 (06/14/2016 10:13:QS system process) ALLERGIES Medication Allergy: No (04/30/2016 18:08:Yane Vitale RN) Medication Allergies: No Known Allergies (06/11/2016) (06/11/2016 14:46:QS system process) Latex Allergy: No Latex Allergies (04/30/2016 18:08:Yane Vitale RN) Food Allergies: n/a (04/30/2016 18:08:Yane Vitale RN) Environmental Allergies: n/a (04/30/2016 18:08:Yane Vitale RN) COMMUNICATION Primary Language: Honduran (04/30/2016 18:08:Yane Vitale RN) Medical Tx Preferred Language: Honduran (04/30/2016 18:08:Yane Vitale RN) Communication Barrier(s): None (04/30/2016 18:08:Patrick Bustos RN) DEMOGRAPHICS Address: [address] [place] [id number] (04/30/2016 18:04:QS system process) Zipcode: [address] (04/30/2016 18:04:QS system process) Home (04/30/2016 18:04:QS system process) SSN: [id number] (04/30/2016 18:04:QS system process) Next of Kin Name: JERAMY WYNNE (04/30/2016 18:04:QS system process) Next of Kin (04/30/2016 18:04:QS system process) Next of Kin Relationship: SPO (04/30/2016 18:04:QS system process) Date of : 1975 (04/30/2016 18:04:QS system process) Marital Status: (04/30/2016 18:04:QS system process) Sex: Female (04/30/2016 18:04:QS system process) Race: Other (04/30/2016 18:04:QS system process) Ethnicity: Non- or (04/30/2016 18:04:QS system process) Hinduism: Restorationist (04/30/2016 18:04:QS system process) DRUG AND ALCOHOL USE Alcohol: No (04/30/2016 18:08:Yane Vitale RN) Cigarettes: Never Smoker. [id number] (04/30/2016 18:08:Yane Vitale RN) Marijuana: No (04/30/2016 18:08:Yane Vitale RN) Cocaine: No (04/30/2016 18:08:Yane Vitale RN) Other Illicit Drugs: No (04/30/2016 18:08:Yane Vitale RN) VACCINE HISTORY Influenza Vaccine: No (04/30/2016 18:08:Yane Vitale RN) Pneumococcal Vaccine: No (04/30/2016 18:08:Yane Vitale RN) Tetanus Vaccine: Uncertain (04/30/2016 18:08:Yane Vitale RN) Tdap Vaccine: Yes (04/30/2016 18:08:Patrick Bustos RN) Tdap Date: 11/23/2011 (04/30/2016 18:08:Patrick Bustos RN) Hepatitis B Vaccine: Uncertain (04/30/2016 18:08:Yane Vitale RN) Dietitian Research: [facility] (04/30/2016 18:08:Yane Vitale RN) Feeding Preference: Both (04/30/2016 18:08:Shelby Smith RN) Benefit of Breast Feed Discussed: Yes (04/30/2016 18:08:Yane Vitale RN) Circumcision: N/A (04/30/2016 18:08:Yane Vitale RN) Classes Attended: No (04/30/2016 18:08:Yane Vitale RN) Tubal Ligation: No (04/30/2016 18:08:Yane Vitale RN) Tubal Authorization Signed: N/A (04/30/2016 18:08:Yane Vitale RN) Consent: N/A (04/30/2016 18:08:Yane Vitale RN) Consent Signed: N/A (04/30/2016 18:08:Yane Vitale RN) Pain Management Plans: Natural (04/30/2016 18:08:Patrick Bustos RN) Plans for Labor and Delivery: None (04/30/2016 18:08:Yane Vitale RN) Support Person: Jeramy Wynne (04/30/2016 18:08:Yane Vitale RN) Support Person Relationship: (04/30/2016 18:08:Yane Vitale RN) Cultural/Spritual Practice: [facility] (04/30/2016 18:08:Yane Vitale RN) Spir/Cult Dietary Needs: [facility] (04/30/2016 18:08:Yane Vitale RN) LIVING SITUATION/DISCHARGE PLAN Living Arrangements: House (04/30/2016 18:08:Yane Vitale RN) Adequate Access to:: Electric; Heat; Refrigeration; Plumbing/Running water; Phone; Transportation (04/30/2016 18:08:Yane Vitale RN) WIC Program: [facility] (04/30/2016 18:08:Yane Vitale RN) Discharge Motor Vehicle Compliance Analyst Person: Jeramy Wynne (04/30/2016 18:08:Yane Vitale RN) Person to Help after Discharge: Jeramy Wynne (04/30/2016 18:08:Yane Vitale RN) Currently Using Commun Resources: [facility] (04/30/2016 18:08:Yane Vitale RN) Outside Agency/Clinical Data Specialist: [facility] (04/30/2016 18:08:Yane Vitale RN) Car Seat for Discharge: [facility] (04/30/2016 18:08:Yane Vitale RN) Adoption Requested: [facility] (04/30/2016 18:08:Yane Vitale RN) Pt Contact w/ Post : N/A (04/30/2016 18:08:Yane Vitale RN) LABS Blood Type: O Positive (04/30/2016 18:08:Patrick Bustos RN) Antibody Screen: Negative (04/30/2016 18:08:Patrick Bustos RN) Hemoglobin: 8.8 L (06/13/2016 06:47:QS system process) Hematocrit: 27.4 L (06/13/2016 06:47:QS system process) MCV: 80 (06/13/2016 06:47:QS system process) Group Beta Strep: Negative (04/30/2016 18:08:Patrick Bustos RN) Gonorrhea: Negative (04/30/2016 18:08:Patrick Bustos RN) Chlamydia: Negative (04/30/2016 18:08:Patrick Bustos RN) RPR/VDRL: Nonreactive (04/30/2016 18:08:Yane Vitale RN) HIV Exposure Test: Negative (04/30/2016 18:08:Patrick Bustos RN) Hepatitis B: Negative (04/30/2016 18:08:Patrick Bustos RN) Rubella: Immune (04/30/2016 18:08:Patrick Bustos RN) Varicella: Positive (04/30/2016 18:08:Patrick Bustos RN) Varicella Titer: 641 (04/30/2016 18:08:Patrick Bustos RN) OB/PREVIOUS HISTORY LMP: 08/28/2015 00:00 (04/30/2016 18:08:Patrick Bustos RN) Previous Procedures: Ultrasound; NST (04/30/2016 18:08:Yane Vitale RN) Current Procedures: Ultrasound; NST (04/30/2016 18:08:Yane Vitale RN) History of Previous : No (04/30/2016 18:08:Yane Vitale RN) History of Gestational Diabetes: No (04/30/2016 18:08:Yane Vitale RN) History of PIH: No (04/30/2016 18:08:Yane Vitale RN) History of Incompetent Cervix: No (04/30/2016 18:08:Yane Vitale RN) History of Placenta Previa/Abrup: No (04/30/2016 18:08:Yane Vitale RN) History of Macrosomia: No (04/30/2016 18:08:Yane Vitale RN) History of IUGR: No (04/30/2016 18:08:Yane Vitale RN) History of Hemorrhage: No (04/30/2016 18:08:Yane Vitale RN) History of Loss/Stillborn: No (04/30/2016 18:08:Yane Vitale RN) History of : No (04/30/2016 18:08:Yane Vitale RN) History of D (Rh) Sensitization: No (04/30/2016 18:08:Yane Vitale RN) History Recurrent Loss/Stillborn: No (04/30/2016 18:08:Yane Vitale RN) History Depression/PP Depression: No (04/30/2016 18:08:Yane Vitale RN) History of Uterine Anomaly/NEVAEH: No (04/30/2016 18:08:Yane Vitale RN) History of Infertility: No (04/30/2016 18:08:Yane Vitale RN) History of ART Treatment: No (04/30/2016 18:08:Yane Vitale RN) History of NEVAEH: No (04/30/2016 18:08:Yane Vitale RN) Comments Obstetrical History: G1- 1993 at 40 weeks G2- 1995- at 40 weeks G3- 2007- EAB G4- current (04/30/2016 18:08:Yane Vitale RN) MEDICAL HISTORY Med Hx Diabetes: No (04/30/2016 18:08:Yane Vitale RN) Med Hx Hypertension: No (04/30/2016 18:08:Yane Vitale RN) Med Hx Heart Disease: No (04/30/2016 18:08:Yane Vitale RN) Med Hx Autoimmune Disorder: No (04/30/2016 18:08:Yane Vitale RN) Med Hx Kidney Disease/UTI: No (04/30/2016 18:08:Yane Vitale RN) Med Hx Neurologic/Epilepsy: No (04/30/2016 18:08:Yane Vitale RN) Med Hx Psychiatric Disorders: No (04/30/2016 18:08:Yane Vitale RN) Med Hx Hepatitis/Liver Disease: No (04/30/2016 18:08:Yane Vitale RN) Med Hx Varicosities/Phlebitis: No (04/30/2016 18:08:Yane Vitale RN) Med Hx Thyroid Dysfunction: No (04/30/2016 18:08:Yane Vitale RN) Med Hx Trauma/Violence: No (04/30/2016 18:08:Yane Vitale RN) Med Hx Blood Transfusion: No (04/30/2016 18:08:Yane Vitale RN) Med Hx Pulmonary (Asthma,TB): No (04/30/2016 18:08:Yane Vitale RN) Med Hx Breast: No (04/30/2016 18:08:Yane Vitale RN) Med Hx CABLE LACER Surgery: No (04/30/2016 18:08:Yane Vitale RN) Med Hx Hospitalization/Surgery: Yes (04/30/2016 18:08:Yane Vitale RN) Med Hx Anesthetic Complications: No (04/30/2016 18:08:Yane Vitale RN) Med Hx Abnormal Pap Smear: No (04/30/2016 18:08:Yane Vitale RN) Other Medical Diseases: No (04/30/2016 18:08:Yane Vitale RN) Med Hx Significant Family Hx: No (04/30/2016 18:08:Yane Vitale RN) Details of Med/Surg Hx: 1994 gallbladder removal (04/30/2016 18:08:Yane Vitale RN) INFECTIOUS HISTORY Inf Hx Gonorrhea: No (04/30/2016 18:08:Yane Vitale RN) Inf Hx Chlamydia: Yes (04/30/2016 18:08:Yane Vitale RN) Inf Hx Syphilis: No (04/30/2016 18:08:Yane Vitale RN) Inf Hx HIV/AIDS: No (04/30/2016 18:08:Yane Vitale RN) Inf Hx Human Papilloma Virus: No (04/30/2016 18:08:Yane Vitale RN) Inf Hx Pt/Partner Genital Herpes: No (04/30/2016 18:08:Yane Vitale RN) Inf Hx Tuberculosis/Exposure: No (04/30/2016 18:08:Yane Vitale RN) Inf Hx Hepatitis B,C: No (04/30/2016 18:08:Yane Vitale RN) Inf Hx Rash or Viral Illness: No (04/30/2016 18:08:Yane Vitale RN) Details of Infectious Hx: Chlamydia 1994 (04/30/2016 18:08:Yane Vitale RN) GENETIC HISTORY Gen Hx Age >=35 at [place]: Yes (04/30/2016 18:08:Mary Vidales RN) Gen Hx Thalassemia: No (04/30/2016 18:08:Yane Vitale RN) Gen Hx Congenital Heart Defect: No (04/30/2016 18:08:Yane Vitale RN) Gen Hx Neural Tube Defect: No (04/30/2016 18:08:Yane Vitale RN) Gen Hx Down's Syndrome: No (04/30/2016 18:08:Yane Vitale RN) Gen Hx Andrew-Sachs: No (04/30/2016 18:08:Yane Vitale RN) Gen Hx Cara: No (04/30/2016 18:08:Yane Vitale RN) Gen Hx Familial Dysautonomia: No (04/30/2016 18:08:Yane Vitale RN) Gen Hx Sickle Cell Disease/Trait: No (04/30/2016 18:08:Yane Vitale RN) Gen Hx Hemophilia/Blood Disorder: No (04/30/2016 18:08:Yane Vitale RN) Gen Hx Muscular Dystrophy: No (04/30/2016 18:08:Yane Vitale RN) Gen Hx Cystic Fibrosis: No (04/30/2016 18:08:Yane Vitale RN) Gen Hx Huntingtons Chorea: No (04/30/2016 18:08:Yane Vitale RN) Gen Hx Mental Retardation/Autism: No (04/30/2016 18:08:Yane Vitale RN) Gen Hx Tested for Fragile X: No (04/30/2016 18:08:Yane Vitale RN) Gen Hx Other Inher/Chromosomal: No (04/30/2016 18:08:Yane Vitale RN) Gen Hx Maternal Metabolic DO: No (04/30/2016 18:08:Yane Vitale RN) Gen Hx Pt Father or FOB Defect: No (04/30/2016 18:08:Yane Vitale RN) Gen Hx Other Genetic History: No (04/30/2016 18:08:Yane Vitale RN) Gen Hx Drugs/Meds since LMP: Yes (04/30/2016 18:08:Yane Vitale RN) Gen Hx Medications: folic acid, tylenol tylenol (04/30/2016 18:08:Patrick Bustos RN)
--- NOTE | 2016-06-17 06:12 | L&D Current Admission ---
Current Admit Datetime Report Generated by CPN: 06/17/2016 06:00 ADMISSION INFORMATION Current Admit Date/Time: 06/11/2016 17:46 (06/11/2016 15:00:Patrick Bustos RN) Reason for Admission: Induction of Labor (06/11/2016 15:00:Patrick Bustos RN) EGA per Dates: 41.1 (06/11/2016 15:00:QS system process) Method of Arrival: Ambulatory (06/11/2016 15:00:Patrick Bustos RN) Reason for Induction: Postterm; Other (06/11/2016 15:00:Patrick Bustos RN) Reason for Induction- Other: AMA (06/11/2016 15:00:Patrick Bustos RN) Records Available: Yes (06/11/2016 15:00:Patrick Bustos RN) General Admission Information: Reviewed; Updated; Confirmed (06/11/2016 15:00:Patrick Bustos RN) General Admission Reviewed By: Kena Bustos RN (06/11/2016 15:00:Patrick Bustos RN) BELONGINGS/ADVANCED DIRECTIVES Disposition of Belongings: Kept with Patient (06/11/2016 15:00:Patrick Bustos RN) Comments Regarding Disposition: See [facility] belongings form filled out by patient (06/11/2016 15:00:Patrick Bustos RN) Advance Direct for Healthcare: No, and Wants No Information (06/11/2016 15:00:Patrick Bustos RN) Durable Power of Front End Alignment Specialist: No (06/11/2016 15:00:Patrick Bustos RN) Living Will: No (06/11/2016 15:00:Patrick Bustos RN) Organ Donor: No (06/11/2016 15:00:Patrick Bustos RN) Pt Rights Information Given: Yes (06/11/2016 15:00:Patrick Bustos RN) Pt Understands Pt Rights: Yes (06/11/2016 15:00:Patrick Bustos RN) LEARNING ASSESSMENT Knowledge Level: Understands L_D Process (06/11/2016 15:00:Patrick Bustos RN) Barriers to Learning: None (06/11/2016 15:00:Patrick Bustos RN) Learning Readiness: Motivated (06/11/2016 15:00:Patrick Bustos RN) Learns Best By: 1 to 1 Instruction (06/11/2016 15:00:Patrick Bustos RN) Learning Needs: Labor and Delivery Process; Pain Management; Symptoms to Report; Treatment Plan; Medication; Diagnosis (06/11/2016 15:00:Patrick Bustos RN) DOMESTIC VIOLANCE SCREENING Dom Viol Threatened/Hurt: No (06/11/2016 15:00:Patrick Bustos RN) Hx of Abuse/Neglect past 2yrs: No (06/11/2016 15:00:Patrick Bustos RN) Feel Unsafe Going Home: No (06/11/2016 15:00:Patrick Bustos RN) Addt'l Observ Indicating Abuse: No (06/11/2016 15:00:Patrick Bustos RN) Reason Unable to Complete Screen: N/A, Screen Completed (06/11/2016 15:00:Patrick Bustos RN) Considered Personal Harm/Suicide: No (06/11/2016 15:00:Patrick Bustos RN) NUTRITIONAL/FUNCTIONAL SCREENING Problem with Appetite >5 Days: No (06/11/2016 15:00:Patrick Bustos RN) Chew/Swallow Difficulties: No (06/11/2016 15:00:Patrick Bustos RN) Inappropriate Wt Gain/Loss: No (06/11/2016 15:00:Patrick Bustos RN) Presence Skin Breakdown/Ulcer: No (06/11/2016 15:00:Patrick Bustos RN) Special Diet: No (06/11/2016 15:00:Patrick Bustos RN) Pt Requests Grave Cleaner Visit: No (06/11/2016 15:00:Patrick Bustos RN) Hx of Any of the Following?: N/A (06/11/2016 15:00:Patrick Bustos RN) New Diagnosis of: N/A (06/11/2016 15:00:Patrick Bustos RN) Requires Assist w/Ambulation: No (06/11/2016 15:00:Patrick Bustos RN) Uses Assist Device to Ambulate: No (06/11/2016 15:00:Patrick Bustos RN) Pt Requires Help w/ADL's: No (06/11/2016 15:00:Patrick Bustos RN)
--- NOTE | 2016-06-18 06:13 | L&D General Admission ---
General Admit Datetime Report Generated by CPN: 06/18/2016 06:00 INFORMATION Patient Age: 41 (04/30/2016 18:04:QS system process) EDC: 06/03/2016 00:00 (04/30/2016 18:08:Yane Vitale RN) LMP: 08/28/2015 00:00 (04/30/2016 18:08:Patrick Bustos RN) : 4 (04/30/2016 18:08:Yane Vitale RN) Para: 2 (04/30/2016 18:08:Helen Randolph RN) Term: 2 (04/30/2016 18:08:Yane Vitale RN) Induced Abortions: 1 (04/30/2016 18:08:Yane Vitale RN) Livin (04/30/2016 18:08:Patrick Bustos RN) Cesareans: 0 (04/30/2016 18:08:Patrick Bustos RN) Baby, Number in Womb: 1 (04/30/2016 18:40:Yane Iam, RN) CARE Primary Pilot Can Router: [facility] (04/30/2016 18:08:Yane Vitale RN) Month of 1st Visit: September (04/30/2016 18:08:Yane Vitale RN) Adequate Care: Yes (04/30/2016 18:08:Yane Vitale RN) Prepregnancy Weight (lb): 172 (04/30/2016 18:08:Patrick Bustos RN) Prepregnancy Weight (kg): 78.2 (04/30/2016 18:08:QS system process) Height (in): 68 (06/14/2016 10:13:QS system process) ALLERGIES Medication Allergy: No (04/30/2016 18:08:Yane Vitale RN) Medication Allergies: No Known Allergies (06/11/2016) (06/11/2016 14:46:QS system process) Latex Allergy: No Latex Allergies (04/30/2016 18:08:Yane Vitale RN) Food Allergies: n/a (04/30/2016 18:08:Yane Vitale RN) Environmental Allergies: n/a (04/30/2016 18:08:Yane Vitale RN) COMMUNICATION Primary Language: Nauruan (04/30/2016 18:08:Yane Vitale RN) Medical Tx Preferred Language: Nauruan (04/30/2016 18:08:Yane Vitale RN) Communication Barrier(s): None (04/30/2016 18:08:Patrick Bustos RN) DEMOGRAPHICS Address: [address] [place] [id number] (04/30/2016 18:04:QS system process) Zipcode: [address] (04/30/2016 18:04:QS system process) Home (04/30/2016 18:04:QS system process) SSN: [id number] (04/30/2016 18:04:QS system process) Next of Kin Name: JERAMY WYNNE (04/30/2016 18:04:QS system process) Next of Kin (04/30/2016 18:04:QS system process) Next of Kin Relationship: SPO (04/30/2016 18:04:QS system process) Date of : 1975 (04/30/2016 18:04:QS system process) Marital Status: (04/30/2016 18:04:QS system process) Sex: Female (04/30/2016 18:04:QS system process) Race: Other (04/30/2016 18:04:QS system process) Ethnicity: Non- or (04/30/2016 18:04:QS system process) Jew: Uatsdin (04/30/2016 18:04:QS system process) DRUG AND ALCOHOL USE Alcohol: No (04/30/2016 18:08:Yane Vitale RN) Cigarettes: Never Smoker. [id number] (04/30/2016 18:08:Yane Vitale RN) Marijuana: No (04/30/2016 18:08:Yane Vitale RN) Cocaine: No (04/30/2016 18:08:Yane Vitale RN) Other Illicit Drugs: No (04/30/2016 18:08:Yane Vitale RN) VACCINE HISTORY Influenza Vaccine: No (04/30/2016 18:08:Yane Vitale RN) Pneumococcal Vaccine: No (04/30/2016 18:08:Yane Vitale RN) Tetanus Vaccine: Uncertain (04/30/2016 18:08:Yane Vitale RN) Tdap Vaccine: Yes (04/30/2016 18:08:Patrick Bustos RN) Tdap Date: 11/23/2011 (04/30/2016 18:08:Patrick Bustos RN) Hepatitis B Vaccine: Uncertain (04/30/2016 18:08:Yane Vitale RN) Neurological Surgery Teacher: [facility] (04/30/2016 18:08:Yane Vitale RN) Feeding Preference: Both (04/30/2016 18:08:Shelby Smith RN) Benefit of Breast Feed Discussed: Yes (04/30/2016 18:08:Yane Vitale RN) Circumcision: N/A (04/30/2016 18:08:Yane Vitale RN) Classes Attended: No (04/30/2016 18:08:Yane Vitale RN) Tubal Ligation: No (04/30/2016 18:08:Yane Vitale RN) Tubal Authorization Signed: N/A (04/30/2016 18:08:Yane Vitale RN) Consent: N/A (04/30/2016 18:08:Yane Vitale RN) Consent Signed: N/A (04/30/2016 18:08:Yane Vitale RN) Pain Management Plans: Natural (04/30/2016 18:08:Patrick Bustos RN) Plans for Labor and Delivery: None (04/30/2016 18:08:Yane Vitale RN) Support Person: Jeramy Wynne (04/30/2016 18:08:Yane Vitale RN) Support Person Relationship: (04/30/2016 18:08:Yane Vitale RN) Cultural/Spritual Practice: [facility] (04/30/2016 18:08:Yane Vitale RN) Spir/Cult Dietary Needs: [facility] (04/30/2016 18:08:Yane Vitale RN) LIVING SITUATION/DISCHARGE PLAN Living Arrangements: House (04/30/2016 18:08:Yane Vitale RN) Adequate Access to:: Electric; Heat; Refrigeration; Plumbing/Running water; Phone; Transportation (04/30/2016 18:08:Yane Vitale RN) WIC Program: [facility] (04/30/2016 18:08:Yane Vitale RN) Discharge Continuous Miner Person: Jeramy Wynne (04/30/2016 18:08:Yane Vitale RN) Person to Help after Discharge: Jeramy Wynne (04/30/2016 18:08:Yane Vitale RN) Currently Using Commun Resources: [facility] (04/30/2016 18:08:Yane Vitale RN) Outside Agency/Reaming Machine Tender: [facility] (04/30/2016 18:08:Yane Vitale RN) Car Seat for Discharge: [facility] (04/30/2016 18:08:Yane Vitale RN) Adoption Requested: [facility] (04/30/2016 18:08:Yane Vitale RN) Pt Contact w/ Post : N/A (04/30/2016 18:08:Yane Vitale RN) LABS Blood Type: O Positive (04/30/2016 18:08:Patrick Bustos RN) Antibody Screen: Negative (04/30/2016 18:08:Patrick Bustos RN) Hemoglobin: 8.8 L (06/13/2016 06:47:QS system process) Hematocrit: 27.4 L (06/13/2016 06:47:QS system process) MCV: 80 (06/13/2016 06:47:QS system process) Group Beta Strep: Negative (04/30/2016 18:08:Patrick Bustos RN) Gonorrhea: Negative (04/30/2016 18:08:Patrick Bustos RN) Chlamydia: Negative (04/30/2016 18:08:Patrick Bustos RN) RPR/VDRL: Nonreactive (04/30/2016 18:08:Yane Vitale RN) HIV Exposure Test: Negative (04/30/2016 18:08:Patrick Bustos RN) Hepatitis B: Negative (04/30/2016 18:08:Patrick Bustos RN) Rubella: Immune (04/30/2016 18:08:Patrick Bustos RN) Varicella: Positive (04/30/2016 18:08:Patrick Bustos RN) Varicella Titer: 641 (04/30/2016 18:08:Patrick Bustos RN) OB/PREVIOUS HISTORY LMP: 08/28/2015 00:00 (04/30/2016 18:08:Patrick Bustos RN) Previous Procedures: Ultrasound; NST (04/30/2016 18:08:Yane Vitale RN) Current Procedures: Ultrasound; NST (04/30/2016 18:08:Yane Vitale RN) History of Previous : No (04/30/2016 18:08:Yane Vitale RN) History of Gestational Diabetes: No (04/30/2016 18:08:Yane Vitale RN) History of PIH: No (04/30/2016 18:08:Yane Vitale RN) History of Incompetent Cervix: No (04/30/2016 18:08:Yane Vitale RN) History of Placenta Previa/Abrup: No (04/30/2016 18:08:Yane Vitale RN) History of Macrosomia: No (04/30/2016 18:08:Yane Vitale RN) History of IUGR: No (04/30/2016 18:08:Yane Vitale RN) History of Hemorrhage: No (04/30/2016 18:08:Yane Vitale RN) History of Loss/Stillborn: No (04/30/2016 18:08:Yane Vitale RN) History of : No (04/30/2016 18:08:Yane Vitale RN) History of D (Rh) Sensitization: No (04/30/2016 18:08:Yane Vitale RN) History Recurrent Loss/Stillborn: No (04/30/2016 18:08:Yane Vitale RN) History Depression/PP Depression: No (04/30/2016 18:08:Yane Vitale RN) History of Uterine Anomaly/NEVAEH: No (04/30/2016 18:08:Yane Vitale RN) History of Infertility: No (04/30/2016 18:08:Yane Vitale RN) History of ART Treatment: No (04/30/2016 18:08:Yane Vitale RN) History of NEVAEH: No (04/30/2016 18:08:Yane Vitale RN) Comments Obstetrical History: G1- 1993 at 40 weeks G2- 1995- at 40 weeks G3- 2007- EAB G4- current (04/30/2016 18:08:Yane Vitale RN) MEDICAL HISTORY Med Hx Diabetes: No (04/30/2016 18:08:Yane Vitale RN) Med Hx Hypertension: No (04/30/2016 18:08:Yane Vitale RN) Med Hx Heart Disease: No (04/30/2016 18:08:Yane Vitale RN) Med Hx Autoimmune Disorder: No (04/30/2016 18:08:Yane Vitale RN) Med Hx Kidney Disease/UTI: No (04/30/2016 18:08:Yane Vitale RN) Med Hx Neurologic/Epilepsy: No (04/30/2016 18:08:Yane Vitale RN) Med Hx Psychiatric Disorders: No (04/30/2016 18:08:Yane Vitale RN) Med Hx Hepatitis/Liver Disease: No (04/30/2016 18:08:Yane Vitale RN) Med Hx Varicosities/Phlebitis: No (04/30/2016 18:08:Yane Vitale RN) Med Hx Thyroid Dysfunction: No (04/30/2016 18:08:Yane Vitale RN) Med Hx Trauma/Violence: No (04/30/2016 18:08:Yane Vitale RN) Med Hx Blood Transfusion: No (04/30/2016 18:08:Yane Vitale RN) Med Hx Pulmonary (Asthma,TB): No (04/30/2016 18:08:Yane Vitale RN) Med Hx Breast: No (04/30/2016 18:08:Yane Vitale RN) Med Hx CHEMIST INTERN Surgery: No (04/30/2016 18:08:Yane Vitale RN) Med Hx Hospitalization/Surgery: Yes (04/30/2016 18:08:Yane Vitale RN) Med Hx Anesthetic Complications: No (04/30/2016 18:08:Yane Vitale RN) Med Hx Abnormal Pap Smear: No (04/30/2016 18:08:Yane Vitale RN) Other Medical Diseases: No (04/30/2016 18:08:Yane Vitale RN) Med Hx Significant Family Hx: No (04/30/2016 18:08:Yane Vitale RN) Details of Med/Surg Hx: 1994 gallbladder removal (04/30/2016 18:08:Yane Vitale RN) INFECTIOUS HISTORY Inf Hx Gonorrhea: No (04/30/2016 18:08:Yane Vitale RN) Inf Hx Chlamydia: Yes (04/30/2016 18:08:Yane Vitale RN) Inf Hx Syphilis: No (04/30/2016 18:08:Yane Vitale RN) Inf Hx HIV/AIDS: No (04/30/2016 18:08:Yane Vitale RN) Inf Hx Human Papilloma Virus: No (04/30/2016 18:08:Yane Vitale RN) Inf Hx Pt/Partner Genital Herpes: No (04/30/2016 18:08:Yane Vitale RN) Inf Hx Tuberculosis/Exposure: No (04/30/2016 18:08:Yane Vitale RN) Inf Hx Hepatitis B,C: No (04/30/2016 18:08:Yane Vitale RN) Inf Hx Rash or Viral Illness: No (04/30/2016 18:08:Yane Vitale RN) Details of Infectious Hx: Chlamydia 1994 (04/30/2016 18:08:Yane Vitale RN) GENETIC HISTORY Gen Hx Age >=35 at [place]: Yes (04/30/2016 18:08:Mary Vidales RN) Gen Hx Thalassemia: No (04/30/2016 18:08:Yane Vitale RN) Gen Hx Congenital Heart Defect: No (04/30/2016 18:08:Yane Vitale RN) Gen Hx Neural Tube Defect: No (04/30/2016 18:08:Yane Vitale RN) Gen Hx Down's Syndrome: No (04/30/2016 18:08:Yane Vitale RN) Gen Hx Andrew-Sachs: No (04/30/2016 18:08:Yane Vitale RN) Gen Hx Cara: No (04/30/2016 18:08:Yane Vitale RN) Gen Hx Familial Dysautonomia: No (04/30/2016 18:08:Yane Vitale RN) Gen Hx Sickle Cell Disease/Trait: No (04/30/2016 18:08:Yane Vitale RN) Gen Hx Hemophilia/Blood Disorder: No (04/30/2016 18:08:Yane Vitale RN) Gen Hx Muscular Dystrophy: No (04/30/2016 18:08:Yane Vitale RN) Gen Hx Cystic Fibrosis: No (04/30/2016 18:08:Yane Vitale RN) Gen Hx Huntingtons Chorea: No (04/30/2016 18:08:Yane Vitale RN) Gen Hx Mental Retardation/Autism: No (04/30/2016 18:08:Yane Vitale RN) Gen Hx Tested for Fragile X: No (04/30/2016 18:08:Yane Vitale RN) Gen Hx Other Inher/Chromosomal: No (04/30/2016 18:08:Yane Vitale RN) Gen Hx Maternal Metabolic DO: No (04/30/2016 18:08:Yane Vitale RN) Gen Hx Pt Father or FOB Defect: No (04/30/2016 18:08:Yane Vitale RN) Gen Hx Other Genetic History: No (04/30/2016 18:08:Yane Vitale RN) Gen Hx Drugs/Meds since LMP: Yes (04/30/2016 18:08:Yane Vitale RN) Gen Hx Medications: folic acid, tylenol tylenol (04/30/2016 18:08:Patrick Bustos RN)
--- NOTE | 2016-06-18 06:13 | L&D Current Admission ---
Current Admit Datetime Report Generated by CPN: 06/18/2016 06:00 ADMISSION INFORMATION Current Admit Date/Time: 06/11/2016 17:46 (06/11/2016 15:00:Patrick Bustos RN) Reason for Admission: Induction of Labor (06/11/2016 15:00:Patrick Bustos RN) EGA per Dates: 41.1 (06/11/2016 15:00:QS system process) Method of Arrival: Ambulatory (06/11/2016 15:00:Patrick Bustos RN) Reason for Induction: Postterm; Other (06/11/2016 15:00:Patrick Bustos RN) Reason for Induction- Other: AMA (06/11/2016 15:00:Patrick Bustos RN) Records Available: Yes (06/11/2016 15:00:Patrick Bustos RN) General Admission Information: Reviewed; Updated; Confirmed (06/11/2016 15:00:Patrick Bustos RN) General Admission Reviewed By: Kena Bustos RN (06/11/2016 15:00:Patrick Bustos RN) BELONGINGS/ADVANCED DIRECTIVES Disposition of Belongings: Kept with Patient (06/11/2016 15:00:Patrick Bustos RN) Comments Regarding Disposition: See [facility] belongings form filled out by patient (06/11/2016 15:00:Patrick Bustos RN) Advance Direct for Healthcare: No, and Wants No Information (06/11/2016 15:00:Patrick Bustos RN) Durable Power of [place] Cutting Machine Operator: No (06/11/2016 15:00:Patrick Bustos RN) Living Will: No (06/11/2016 15:00:Patrick Bustos RN) Organ Donor: No (06/11/2016 15:00:Patrick Bustos RN) Pt Rights Information Given: Yes (06/11/2016 15:00:Patrick Bustos RN) Pt Understands Pt Rights: Yes (06/11/2016 15:00:Patrick Bustos RN) LEARNING ASSESSMENT Knowledge Level: Understands L_D Process (06/11/2016 15:00:Patrick Bustos RN) Barriers to Learning: None (06/11/2016 15:00:Patrick Bustos RN) Learning Readiness: Motivated (06/11/2016 15:00:Patrick Bustos RN) Learns Best By: 1 to 1 Instruction (06/11/2016 15:00:Patrick Bustos RN) Learning Needs: Labor and Delivery Process; Pain Management; Symptoms to Report; Treatment Plan; Medication; Diagnosis (06/11/2016 15:00:Patrick Bustos RN) DOMESTIC VIOLANCE SCREENING Dom Viol Threatened/Hurt: No (06/11/2016 15:00:Patrick Bustos RN) Hx of Abuse/Neglect past 2yrs: No (06/11/2016 15:00:Patrick Bustos RN) Feel Unsafe Going Home: No (06/11/2016 15:00:Patrick Bustos RN) Addt'l Observ Indicating Abuse: No (06/11/2016 15:00:Patrick Bustos RN) Reason Unable to Complete Screen: N/A, Screen Completed (06/11/2016 15:00:Patrick Bustos RN) Considered Personal Harm/Suicide: No (06/11/2016 15:00:Patrick Bustos RN) NUTRITIONAL/FUNCTIONAL SCREENING Problem with Appetite >5 Days: No (06/11/2016 15:00:Patrick Bustos RN) Chew/Swallow Difficulties: No (06/11/2016 15:00:Patrick Bustos RN) Inappropriate Wt Gain/Loss: No (06/11/2016 15:00:Patrick Bustos RN) Presence Skin Breakdown/Ulcer: No (06/11/2016 15:00:Patrick Bustos RN) Special Diet: No (06/11/2016 15:00:Patrick Bustos RN) Pt Requests Agile Java Developer Visit: No (06/11/2016 15:00:Patrick Bustos RN) Hx of Any of the Following?: N/A (06/11/2016 15:00:Patrick Bustos RN) New Diagnosis of: N/A (06/11/2016 15:00:Patrick Bustos RN) Requires Assist w/Ambulation: No (06/11/2016 15:00:Patrick Bustos RN) Uses Assist Device to Ambulate: No (06/11/2016 15:00:Patrick Bustos RN) Pt Requires Help w/ADL's: No (06/11/2016 15:00:Patrick Bustos RN)
--- NOTE | 2016-06-19 06:14 | L&D General Admission ---
General Admit Datetime Report Generated by CPN: 06/19/2016 06:00 INFORMATION Patient Age: 41 (04/30/2016 18:04:QS system process) EDC: 06/03/2016 00:00 (04/30/2016 18:08:Yane Vitale RN) LMP: 08/28/2015 00:00 (04/30/2016 18:08:Patrick Bustos RN) : 4 (04/30/2016 18:08:Yane Vitale RN) Para: 2 (04/30/2016 18:08:Helen Randolph RN) Term: 2 (04/30/2016 18:08:Yane Vitale RN) Induced Abortions: 1 (04/30/2016 18:08:Yane Vitale RN) Livin (04/30/2016 18:08:Patrick Bustos RN) Cesareans: 0 (04/30/2016 18:08:Patrick Bustos RN) Baby, Number in Womb: 1 (04/30/2016 18:40:Yane Iam, RN) CARE Primary Juice Bar Team Member: [facility] (04/30/2016 18:08:Yane Vitale RN) Month of 1st Visit: September (04/30/2016 18:08:Yane Vitale RN) Adequate Care: Yes (04/30/2016 18:08:Yane Vitale RN) Prepregnancy Weight (lb): 172 (04/30/2016 18:08:Patrick Bustos RN) Prepregnancy Weight (kg): 78.2 (04/30/2016 18:08:QS system process) Height (in): 68 (06/14/2016 10:13:QS system process) ALLERGIES Medication Allergy: No (04/30/2016 18:08:Yane Vitale RN) Medication Allergies: No Known Allergies (06/11/2016) (06/11/2016 14:46:QS system process) Latex Allergy: No Latex Allergies (04/30/2016 18:08:Yane Vitale RN) Food Allergies: n/a (04/30/2016 18:08:Yane Vitale RN) Environmental Allergies: n/a (04/30/2016 18:08:Yane Vitale RN) COMMUNICATION Primary Language: Guyanese (04/30/2016 18:08:Yane Vitale RN) Medical Tx Preferred Language: Guyanese (04/30/2016 18:08:Yane Vitale RN) Communication Barrier(s): None (04/30/2016 18:08:Patrick Bustos RN) DEMOGRAPHICS Address: [address] [place] [id number] (04/30/2016 18:04:QS system process) Zipcode: [address] (04/30/2016 18:04:QS system process) Home (04/30/2016 18:04:QS system process) SSN: [id number] (04/30/2016 18:04:QS system process) Next of Kin Name: JERAMY WYNNE (04/30/2016 18:04:QS system process) Next of Kin (04/30/2016 18:04:QS system process) Next of Kin Relationship: SPO (04/30/2016 18:04:QS system process) Date of : 1975 (04/30/2016 18:04:QS system process) Marital Status: (04/30/2016 18:04:QS system process) Sex: Female (04/30/2016 18:04:QS system process) Race: Other (04/30/2016 18:04:QS system process) Ethnicity: Non- or (04/30/2016 18:04:QS system process) Adventist: Synagogue (04/30/2016 18:04:QS system process) DRUG AND ALCOHOL USE Alcohol: No (04/30/2016 18:08:Yane Vitale RN) Cigarettes: Never Smoker. [id number] (04/30/2016 18:08:Yane Vitale RN) Marijuana: No (04/30/2016 18:08:Yane Vitale RN) Cocaine: No (04/30/2016 18:08:Yane Vitale RN) Other Illicit Drugs: No (04/30/2016 18:08:Yane Vitale RN) VACCINE HISTORY Influenza Vaccine: No (04/30/2016 18:08:Yane Vitale RN) Pneumococcal Vaccine: No (04/30/2016 18:08:Yane Vitale RN) Tetanus Vaccine: Uncertain (04/30/2016 18:08:Yane Vitale RN) Tdap Vaccine: Yes (04/30/2016 18:08:Patrick Bustos RN) Tdap Date: 11/23/2011 (04/30/2016 18:08:Patrick Bustos RN) Hepatitis B Vaccine: Uncertain (04/30/2016 18:08:Yane Vitale RN) Associate Media Planner: [facility] (04/30/2016 18:08:Yane Vitale RN) Feeding Preference: Both (04/30/2016 18:08:Shelby Smith RN) Benefit of Breast Feed Discussed: Yes (04/30/2016 18:08:Yane Vitale RN) Circumcision: N/A (04/30/2016 18:08:Yane Vitale RN) Classes Attended: No (04/30/2016 18:08:Yane Vitale RN) Tubal Ligation: No (04/30/2016 18:08:Yane Vitale RN) Tubal Authorization Signed: N/A (04/30/2016 18:08:Yane Vitale RN) Consent: N/A (04/30/2016 18:08:Yane Vitale RN) Consent Signed: N/A (04/30/2016 18:08:Yane Vitale RN) Pain Management Plans: Natural (04/30/2016 18:08:Patrick Bustos RN) Plans for Labor and Delivery: None (04/30/2016 18:08:Yane Vitale RN) Support Person: Jeramy Wynne (04/30/2016 18:08:Yane Vitale RN) Support Person Relationship: (04/30/2016 18:08:Yane Vitale RN) Cultural/Spritual Practice: [facility] (04/30/2016 18:08:Yane Vitale RN) Spir/Cult Dietary Needs: [facility] (04/30/2016 18:08:Yane Vitale RN) LIVING SITUATION/DISCHARGE PLAN Living Arrangements: House (04/30/2016 18:08:Yane Vitale RN) Adequate Access to:: Electric; Heat; Refrigeration; Plumbing/Running water; Phone; Transportation (04/30/2016 18:08:Yane Vitale RN) WIC Program: [facility] (04/30/2016 18:08:Yane Vitale RN) Discharge Roofer Helper Vinyl Coating Person: Jeramy Wynne (04/30/2016 18:08:Yane Vitale RN) Person to Help after Discharge: Jeramy Wynne (04/30/2016 18:08:Yane Vitale RN) Currently Using Commun Resources: [facility] (04/30/2016 18:08:Yane Vitale RN) Outside Agency/Mechanical Systems Engineer: [facility] (04/30/2016 18:08:Yane Vitale RN) Car Seat for Discharge: [facility] (04/30/2016 18:08:Yane Vitale RN) Adoption Requested: [facility] (04/30/2016 18:08:Yane Vitale RN) Pt Contact w/ Post : N/A (04/30/2016 18:08:Yane Vitale RN) LABS Blood Type: O Positive (04/30/2016 18:08:Patrick Bustos RN) Antibody Screen: Negative (04/30/2016 18:08:Patrick Bustos RN) Hemoglobin: 8.8 L (06/13/2016 06:47:QS system process) Hematocrit: 27.4 L (06/13/2016 06:47:QS system process) MCV: 80 (06/13/2016 06:47:QS system process) Group Beta Strep: Negative (04/30/2016 18:08:Patrick Bustos RN) Gonorrhea: Negative (04/30/2016 18:08:Patrick Bustos RN) Chlamydia: Negative (04/30/2016 18:08:Patrick Bustos RN) RPR/VDRL: Nonreactive (04/30/2016 18:08:Yane Vitale RN) HIV Exposure Test: Negative (04/30/2016 18:08:Patrick Bustos RN) Hepatitis B: Negative (04/30/2016 18:08:Patrick Bustos RN) Rubella: Immune (04/30/2016 18:08:Patrick Bustos RN) Varicella: Positive (04/30/2016 18:08:Patrick Bustos RN) Varicella Titer: 641 (04/30/2016 18:08:Patrick Bustos RN) OB/PREVIOUS HISTORY LMP: 08/28/2015 00:00 (04/30/2016 18:08:Patrick Bustos RN) Previous Procedures: Ultrasound; NST (04/30/2016 18:08:Yane Vitale RN) Current Procedures: Ultrasound; NST (04/30/2016 18:08:Yane Vitale RN) History of Previous : No (04/30/2016 18:08:Yane Vitale RN) History of Gestational Diabetes: No (04/30/2016 18:08:Yane Vitale RN) History of PIH: No (04/30/2016 18:08:Yane Vitale RN) History of Incompetent Cervix: No (04/30/2016 18:08:Yane Vitale RN) History of Placenta Previa/Abrup: No (04/30/2016 18:08:Yane Vitale RN) History of Macrosomia: No (04/30/2016 18:08:Yane Vitale RN) History of IUGR: No (04/30/2016 18:08:Yane Vitale RN) History of Hemorrhage: No (04/30/2016 18:08:Yane Vitale RN) History of Loss/Stillborn: No (04/30/2016 18:08:Yane Vitale RN) History of : No (04/30/2016 18:08:Yane Vitale RN) History of D (Rh) Sensitization: No (04/30/2016 18:08:Yane Vitale RN) History Recurrent Loss/Stillborn: No (04/30/2016 18:08:Yane Vitale RN) History Depression/PP Depression: No (04/30/2016 18:08:Yane Vitale RN) History of Uterine Anomaly/NEVAEH: No (04/30/2016 18:08:Yane Vitale RN) History of Infertility: No (04/30/2016 18:08:Yane Vitale RN) History of ART Treatment: No (04/30/2016 18:08:Yane Vitale RN) History of NEVAEH: No (04/30/2016 18:08:Yane Vitale RN) Comments Obstetrical History: G1- 1993 at 40 weeks G2- 1995- at 40 weeks G3- 2007- EAB G4- current (04/30/2016 18:08:Yane Vitale RN) MEDICAL HISTORY Med Hx Diabetes: No (04/30/2016 18:08:Yane Vitale RN) Med Hx Hypertension: No (04/30/2016 18:08:Yane Vitale RN) Med Hx Heart Disease: No (04/30/2016 18:08:Yane Vitale RN) Med Hx Autoimmune Disorder: No (04/30/2016 18:08:Yane Vitale RN) Med Hx Kidney Disease/UTI: No (04/30/2016 18:08:Yane Vitale RN) Med Hx Neurologic/Epilepsy: No (04/30/2016 18:08:Yane Vitale RN) Med Hx Psychiatric Disorders: No (04/30/2016 18:08:Yane Vitale RN) Med Hx Hepatitis/Liver Disease: No (04/30/2016 18:08:Yane Vitale RN) Med Hx Varicosities/Phlebitis: No (04/30/2016 18:08:Ynae Vitale RN) Med Hx Thyroid Dysfunction: No (04/30/2016 18:08:Yane Vitale RN) Med Hx Trauma/Violence: No (04/30/2016 18:08:Yane Vitale RN) Med Hx Blood Transfusion: No (04/30/2016 18:08:Yane Vitale RN) Med Hx Pulmonary (Asthma,TB): No (04/30/2016 18:08:Yane Vitale RN) Med Hx Breast: No (04/30/2016 18:08:Yane Vitale RN) Med Hx MAXILLOFACIAL PATHOLOGY Surgery: No (04/30/2016 18:08:Yane Vitale RN) Med Hx Hospitalization/Surgery: Yes (04/30/2016 18:08:Yane Vitale RN) Med Hx Anesthetic Complications: No (04/30/2016 18:08:Yane Vitale RN) Med Hx Abnormal Pap Smear: No (04/30/2016 18:08:Yane Vitale RN) Other Medical Diseases: No (04/30/2016 18:08:Yane Vitale RN) Med Hx Significant Family Hx: No (04/30/2016 18:08:Yane Vitale RN) Details of Med/Surg Hx: 1994 gallbladder removal (04/30/2016 18:08:Yane Vitale RN) INFECTIOUS HISTORY Inf Hx Gonorrhea: No (04/30/2016 18:08:Yane Vitale RN) Inf Hx Chlamydia: Yes (04/30/2016 18:08:Yane Vitale RN) Inf Hx Syphilis: No (04/30/2016 18:08:Yane Vitale RN) Inf Hx HIV/AIDS: No (04/30/2016 18:08:Yane Vitale RN) Inf Hx Human Papilloma Virus: No (04/30/2016 18:08:Yane Vitale RN) Inf Hx Pt/Partner Genital Herpes: No (04/30/2016 18:08:Yane Vitale RN) Inf Hx Tuberculosis/Exposure: No (04/30/2016 18:08:Yane Vitale RN) Inf Hx Hepatitis B,C: No (04/30/2016 18:08:Yane Vitale RN) Inf Hx Rash or Viral Illness: No (04/30/2016 18:08:Yane Vitale RN) Details of Infectious Hx: Chlamydia 1994 (04/30/2016 18:08:Yane Vitale RN) GENETIC HISTORY Gen Hx Age >=35 at [place]: Yes (04/30/2016 18:08:Mary Vidales RN) Gen Hx Thalassemia: No (04/30/2016 18:08:Yane Vitale RN) Gen Hx Congenital Heart Defect: No (04/30/2016 18:08:Yane Vitale RN) Gen Hx Neural Tube Defect: No (04/30/2016 18:08:Yane Vitale RN) Gen Hx Down's Syndrome: No (04/30/2016 18:08:Yane Vitale RN) Gen Hx Andrew-Sachs: No (04/30/2016 18:08:Yane Vitale RN) Gen Hx Cara: No (04/30/2016 18:08:Yane Vitale RN) Gen Hx Familial Dysautonomia: No (04/30/2016 18:08:Yane Vitale RN) Gen Hx Sickle Cell Disease/Trait: No (04/30/2016 18:08:Yane Vitale RN) Gen Hx Hemophilia/Blood Disorder: No (04/30/2016 18:08:Yane Vitale RN) Gen Hx Muscular Dystrophy: No (04/30/2016 18:08:Yane Vitale RN) Gen Hx Cystic Fibrosis: No (04/30/2016 18:08:Yane Vitale RN) Gen Hx Huntingtons Chorea: No (04/30/2016 18:08:Yane Vitale RN) Gen Hx Mental Retardation/Autism: No (04/30/2016 18:08:Yane Vitale RN) Gen Hx Tested for Fragile X: No (04/30/2016 18:08:Yane Vitale RN) Gen Hx Other Inher/Chromosomal: No (04/30/2016 18:08:Yane Vitale RN) Gen Hx Maternal Metabolic DO: No (04/30/2016 18:08:Yane Vitale RN) Gen Hx Pt Father or FOB Defect: No (04/30/2016 18:08:Yane Vitale RN) Gen Hx Other Genetic History: No (04/30/2016 18:08:Yane Vitale RN) Gen Hx Drugs/Meds since LMP: Yes (04/30/2016 18:08:Yane Vitale RN) Gen Hx Medications: folic acid, tylenol tylenol (04/30/2016 18:08:Patrick Bustos RN)
--- NOTE | 2016-06-19 06:14 | L&D Current Admission ---
Current Admit Datetime Report Generated by CPN: 06/19/2016 06:00 ADMISSION INFORMATION Current Admit Date/Time: 06/11/2016 17:46 (06/11/2016 15:00:Patrick Bustos RN) Reason for Admission: Induction of Labor (06/11/2016 15:00:Patrick Bustos RN) EGA per Dates: 41.1 (06/11/2016 15:00:QS system process) Method of Arrival: Ambulatory (06/11/2016 15:00:Patrick Bustos RN) Reason for Induction: Postterm; Other (06/11/2016 15:00:Patrick Bustos RN) Reason for Induction- Other: AMA (06/11/2016 15:00:Patrick Bustos RN) Records Available: Yes (06/11/2016 15:00:Patrick Bustos RN) General Admission Information: Reviewed; Updated; Confirmed (06/11/2016 15:00:Patrick Bustos RN) General Admission Reviewed By: Kena Bustos RN (06/11/2016 15:00:Patrick Bustos RN) BELONGINGS/ADVANCED DIRECTIVES Disposition of Belongings: Kept with Patient (06/11/2016 15:00:Patrick Bustos RN) Comments Regarding Disposition: See [facility] belongings form filled out by patient (06/11/2016 15:00:Patrick Bustos RN) Advance Direct for Healthcare: No, and Wants No Information (06/11/2016 15:00:Patrick Bustos RN) Durable Power of Oil Rigger: No (06/11/2016 15:00:Patrick Bustos RN) Living Will: No (06/11/2016 15:00:Patrick Bustos RN) Organ Donor: No (06/11/2016 15:00:Patrick Bustos RN) Pt Rights Information Given: Yes (06/11/2016 15:00:Patrick Bustos RN) Pt Understands Pt Rights: Yes (06/11/2016 15:00:Patrick Bustos RN) LEARNING ASSESSMENT Knowledge Level: Understands L_D Process (06/11/2016 15:00:Patrick Bustos RN) Barriers to Learning: None (06/11/2016 15:00:Patrick Bustos RN) Learning Readiness: Motivated (06/11/2016 15:00:Patrick Bustos RN) Learns Best By: 1 to 1 Instruction (06/11/2016 15:00:Patrick Bustos RN) Learning Needs: Labor and Delivery Process; Pain Management; Symptoms to Report; Treatment Plan; Medication; Diagnosis (06/11/2016 15:00:Patrick Bustos RN) DOMESTIC VIOLANCE SCREENING Dom Viol Threatened/Hurt: No (06/11/2016 15:00:Patrick Bustos RN) Hx of Abuse/Neglect past 2yrs: No (06/11/2016 15:00:Patrick Bustos RN) Feel Unsafe Going Home: No (06/11/2016 15:00:Patrick Bustos RN) Addt'l Observ Indicating Abuse: No (06/11/2016 15:00:Patrick Bustos RN) Reason Unable to Complete Screen: N/A, Screen Completed (06/11/2016 15:00:Patrick Bustos RN) Considered Personal Harm/Suicide: No (06/11/2016 15:00:Patrick Bustos RN) NUTRITIONAL/FUNCTIONAL SCREENING Problem with Appetite >5 Days: No (06/11/2016 15:00:Patrick Bustos RN) Chew/Swallow Difficulties: No (06/11/2016 15:00:Patrick Bustos RN) Inappropriate Wt Gain/Loss: No (06/11/2016 15:00:Patrick Bustos RN) Presence Skin Breakdown/Ulcer: No (06/11/2016 15:00:Patrick Bustos RN) Special Diet: No (06/11/2016 15:00:Patrick Bustos RN) Pt Requests Meter Tester Polyphase Visit: No (06/11/2016 15:00:Patrick Bustos RN) Hx of Any of the Following?: N/A (06/11/2016 15:00:Patrick Bustos RN) New Diagnosis of: N/A (06/11/2016 15:00:Patrick Bustos RN) Requires Assist w/Ambulation: No (06/11/2016 15:00:Patrick Bustos RN) Uses Assist Device to Ambulate: No (06/11/2016 15:00:Patrick Bustos RN) Pt Requires Help w/ADL's: No (06/11/2016 15:00:Patrick Bustos RN)
--- NOTE | 2016-06-20 06:12 | L&D Current Admission ---
Current Admit Datetime Report Generated by CPN: 06/20/2016 06:00 ADMISSION INFORMATION Current Admit Date/Time: 06/11/2016 17:46 (06/11/2016 15:00:Patrick Bustos RN) Reason for Admission: Induction of Labor (06/11/2016 15:00:Patrick Bustos RN) EGA per Dates: 41.1 (06/11/2016 15:00:QS system process) Method of Arrival: Ambulatory (06/11/2016 15:00:Patrick Bustos RN) Reason for Induction: Postterm; Other (06/11/2016 15:00:Patrick Bustos RN) Reason for Induction- Other: AMA (06/11/2016 15:00:Patrick Bustos RN) Records Available: Yes (06/11/2016 15:00:Patrick Bustos RN) General Admission Information: Reviewed; Updated; Confirmed (06/11/2016 15:00:Patrick Bustos RN) General Admission Reviewed By: Kena Bustos RN (06/11/2016 15:00:Patrick Bustos RN) BELONGINGS/ADVANCED DIRECTIVES Disposition of Belongings: Kept with Patient (06/11/2016 15:00:Patrick Bustos RN) Comments Regarding Disposition: See [facility] belongings form filled out by patient (06/11/2016 15:00:Patrick Bustos RN) Advance Direct for Healthcare: No, and Wants No Information (06/11/2016 15:00:Patrick Bustos RN) Durable Power of Diesel Powerplant Supervisor: No (06/11/2016 15:00:Patrick Bustos RN) Living Will: No (06/11/2016 15:00:Patrick Bustos RN) Organ Donor: No (06/11/2016 15:00:Patrick Bustos RN) Pt Rights Information Given: Yes (06/11/2016 15:00:Patrick Bustos RN) Pt Understands Pt Rights: Yes (06/11/2016 15:00:Patrick Bustos RN) LEARNING ASSESSMENT Knowledge Level: Understands L_D Process (06/11/2016 15:00:Patrick Bustos RN) Barriers to Learning: None (06/11/2016 15:00:Patrick Bustos RN) Learning Readiness: Motivated (06/11/2016 15:00:Patrick Bustos RN) Learns Best By: 1 to 1 Instruction (06/11/2016 15:00:Patrick Bustos RN) Learning Needs: Labor and Delivery Process; Pain Management; Symptoms to Report; Treatment Plan; Medication; Diagnosis (06/11/2016 15:00:Patrick Bustos RN) DOMESTIC VIOLANCE SCREENING Dom Viol Threatened/Hurt: No (06/11/2016 15:00:Patrick Bustos RN) Hx of Abuse/Neglect past 2yrs: No (06/11/2016 15:00:Patrick Bustos RN) Feel Unsafe Going Home: No (06/11/2016 15:00:Patrick Bustos RN) Addt'l Observ Indicating Abuse: No (06/11/2016 15:00:Patrick Bustos RN) Reason Unable to Complete Screen: N/A, Screen Completed (06/11/2016 15:00:Patrick Bustos RN) Considered Personal Harm/Suicide: No (06/11/2016 15:00:Patrick Bustos RN) NUTRITIONAL/FUNCTIONAL SCREENING Problem with Appetite >5 Days: No (06/11/2016 15:00:Patrick Bustos RN) Chew/Swallow Difficulties: No (06/11/2016 15:00:Patrick Bustos RN) Inappropriate Wt Gain/Loss: No (06/11/2016 15:00:Patrick Bustos RN) Presence Skin Breakdown/Ulcer: No (06/11/2016 15:00:Patrick Bustos RN) Special Diet: No (06/11/2016 15:00:Patrick Bustos RN) Pt Requests Franchise Specialist Visit: No (06/11/2016 15:00:Patrick Bustos RN) Hx of Any of the Following?: N/A (06/11/2016 15:00:Patrick Bustos RN) New Diagnosis of: N/A (06/11/2016 15:00:Patrick Bustos RN) Requires Assist w/Ambulation: No (06/11/2016 15:00:Patrick Bustos RN) Uses Assist Device to Ambulate: No (06/11/2016 15:00:Patrick Bustos RN) Pt Requires Help w/ADL's: No (06/11/2016 15:00:Patrick Bustos RN)
--- NOTE | 2016-06-20 06:12 | L&D General Admission ---
General Admit Datetime Report Generated by CPN: 06/20/2016 06:00 INFORMATION Patient Age: 41 (04/30/2016 18:04:QS system process) EDC: 06/03/2016 00:00 (04/30/2016 18:08:Yane Vitale RN) LMP: 08/28/2015 00:00 (04/30/2016 18:08:Patrick Bustos RN) : 4 (04/30/2016 18:08:Yane Vitale RN) Para: 2 (04/30/2016 18:08:Helen Randolph RN) Term: 2 (04/30/2016 18:08:Yane Vitale RN) Induced Abortions: 1 (04/30/2016 18:08:Yane Vitale RN) Livin (04/30/2016 18:08:Patrick Bustos RN) Cesareans: 0 (04/30/2016 18:08:Patrick Bustos RN) Baby, Number in Womb: 1 (04/30/2016 18:40:Yane Iam, RN) CARE Primary Plate Cutter: [facility] (04/30/2016 18:08:Yane Vitale RN) Month of 1st Visit: September (04/30/2016 18:08:Yane Vitale RN) Adequate Care: Yes (04/30/2016 18:08:Yane Vitale RN) Prepregnancy Weight (lb): 172 (04/30/2016 18:08:Patrick Bustos RN) Prepregnancy Weight (kg): 78.2 (04/30/2016 18:08:QS system process) Height (in): 68 (06/14/2016 10:13:QS system process) ALLERGIES Medication Allergy: No (04/30/2016 18:08:Yane Vitale RN) Medication Allergies: No Known Allergies (06/11/2016) (06/11/2016 14:46:QS system process) Latex Allergy: No Latex Allergies (04/30/2016 18:08:Yane Vitale RN) Food Allergies: n/a (04/30/2016 18:08:Yane Vitale RN) Environmental Allergies: n/a (04/30/2016 18:08:Yane Vitale RN) COMMUNICATION Primary Language: Tuvaluan (04/30/2016 18:08:Yane Vitale RN) Medical Tx Preferred Language: Tuvaluan (04/30/2016 18:08:Yane Vitale RN) Communication Barrier(s): None (04/30/2016 18:08:Patrick Bustos RN) DEMOGRAPHICS Address: [address] [place] [id number] (04/30/2016 18:04:QS system process) Zipcode: [address] (04/30/2016 18:04:QS system process) Home (04/30/2016 18:04:QS system process) SSN: [id number] (04/30/2016 18:04:QS system process) Next of Kin Name: JERAMY WYNNE (04/30/2016 18:04:QS system process) Next of Kin (04/30/2016 18:04:QS system process) Next of Kin Relationship: SPO (04/30/2016 18:04:QS system process) Date of : 1975 (04/30/2016 18:04:QS system process) Marital Status: (04/30/2016 18:04:QS system process) Sex: Female (04/30/2016 18:04:QS system process) Race: Other (04/30/2016 18:04:QS system process) Ethnicity: Non- or (04/30/2016 18:04:QS system process) Catholic: [employer]aritan (04/30/2016 18:04:QS system process) DRUG AND ALCOHOL USE Alcohol: No (04/30/2016 18:08:Yane Vitale RN) Cigarettes: Never Smoker. [id number] (04/30/2016 18:08:Yane Vitale RN) Marijuana: No (04/30/2016 18:08:Yane Vitale RN) Cocaine: No (04/30/2016 18:08:Yane Vitale RN) Other Illicit Drugs: No (04/30/2016 18:08:Yane Vitale RN) VACCINE HISTORY Influenza Vaccine: No (04/30/2016 18:08:Yane Vitale RN) Pneumococcal Vaccine: No (04/30/2016 18:08:Yane Vitale RN) Tetanus Vaccine: Uncertain (04/30/2016 18:08:Yane Vitale RN) Tdap Vaccine: Yes (04/30/2016 18:08:Patrick Bustos RN) Tdap Date: 11/23/2011 (04/30/2016 18:08:Patrick Bustos RN) Hepatitis B Vaccine: Uncertain (04/30/2016 18:08:Yane Vitale RN) Camera Mechanic: [facility] (04/30/2016 18:08:Yane Vitale RN) Feeding Preference: Both (04/30/2016 18:08:Shelby Smith RN) Benefit of Breast Feed Discussed: Yes (04/30/2016 18:08:Yane Vitale RN) Circumcision: N/A (04/30/2016 18:08:Yane Vitale RN) Classes Attended: No (04/30/2016 18:08:Yane Vitale RN) Tubal Ligation: No (04/30/2016 18:08:Yane Vitale RN) Tubal Authorization Signed: N/A (04/30/2016 18:08:Yane Vitale RN) Consent: N/A (04/30/2016 18:08:Yane Vitale RN) Consent Signed: N/A (04/30/2016 18:08:Yane Vitale RN) Pain Management Plans: Natural (04/30/2016 18:08:Patrick Bustos RN) Plans for Labor and Delivery: None (04/30/2016 18:08:Yane Vitale RN) Support Person: Jeramy Wynne (04/30/2016 18:08:Yane Vitale RN) Support Person Relationship: (04/30/2016 18:08:Yane Vitale RN) Cultural/Spritual Practice: [facility] (04/30/2016 18:08:Yane Vitale RN) Spir/Cult Dietary Needs: [facility] (04/30/2016 18:08:Yane Vitale RN) LIVING SITUATION/DISCHARGE PLAN Living Arrangements: House (04/30/2016 18:08:Yane Vitale RN) Adequate Access to:: Electric; Heat; Refrigeration; Plumbing/Running water; Phone; Transportation (04/30/2016 18:08:Yane Vitale RN) WIC Program: [facility] (04/30/2016 18:08:Yane Vitale RN) Discharge Director Of Medical Education Person: Jeramy Wynne (04/30/2016 18:08:Yane Vitale RN) Person to Help after Discharge: Jeramy Wynne (04/30/2016 18:08:Yane Vitale RN) Currently Using Commun Resources: [facility] (04/30/2016 18:08:Yane Vitale RN) Outside Agency/Yeast Cake Cutter: [facility] (04/30/2016 18:08:Yane Vitale RN) Car Seat for Discharge: [facility] (04/30/2016 18:08:Yane Vitale RN) Adoption Requested: [facility] (04/30/2016 18:08:Yane Vitale RN) Pt Contact w/ Post : N/A (04/30/2016 18:08:Yane Vitale RN) LABS Blood Type: O Positive (04/30/2016 18:08:Patrick Bustos RN) Antibody Screen: Negative (04/30/2016 18:08:Patrick Bustos RN) Hemoglobin: 8.8 L (06/13/2016 06:47:QS system process) Hematocrit: 27.4 L (06/13/2016 06:47:QS system process) MCV: 80 (06/13/2016 06:47:QS system process) Group Beta Strep: Negative (04/30/2016 18:08:Patrick Bustso RN) Gonorrhea: Negative (04/30/2016 18:08:Patrick Bustos RN) Chlamydia: Negative (04/30/2016 18:08:Patrick Bustos RN) RPR/VDRL: Nonreactive (04/30/2016 18:08:Yane Vitale RN) HIV Exposure Test: Negative (04/30/2016 18:08:Patrick Bustos RN) Hepatitis B: Negative (04/30/2016 18:08:Patrick Bustos RN) Rubella: Immune (04/30/2016 18:08:Patrick Bustos RN) Varicella: Positive (04/30/2016 18:08:Patrick Bustos RN) Varicella Titer: 641 (04/30/2016 18:08:Patrick Bustos RN) OB/PREVIOUS HISTORY LMP: 08/28/2015 00:00 (04/30/2016 18:08:Patrick Bustos RN) Previous Procedures: Ultrasound; NST (04/30/2016 18:08:Yane Vitale RN) Current Procedures: Ultrasound; NST (04/30/2016 18:08:Yane Vitale RN) History of Previous : No (04/30/2016 18:08:Yane Vitale RN) History of Gestational Diabetes: No (04/30/2016 18:08:Yane Vitale RN) History of PIH: No (04/30/2016 18:08:Yane Vitale RN) History of Incompetent Cervix: No (04/30/2016 18:08:Yane Vitale RN) History of Placenta Previa/Abrup: No (04/30/2016 18:08:Yane Vitale RN) History of Macrosomia: No (04/30/2016 18:08:Yane Vitale RN) History of IUGR: No (04/30/2016 18:08:Yane Vitale RN) History of Hemorrhage: No (04/30/2016 18:08:Yane Vitale RN) History of Loss/Stillborn: No (04/30/2016 18:08:Yane Vitale RN) History of : No (04/30/2016 18:08:Yane Vitale RN) History of D (Rh) Sensitization: No (04/30/2016 18:08:Yane Vitale RN) History Recurrent Loss/Stillborn: No (04/30/2016 18:08:Yane Vitale RN) History Depression/PP Depression: No (04/30/2016 18:08:Yane Vitale RN) History of Uterine Anomaly/NEVAEH: No (04/30/2016 18:08:Yane Vitale RN) History of Infertility: No (04/30/2016 18:08:Yane Vitale RN) History of ART Treatment: No (04/30/2016 18:08:Yane Vitale RN) History of NEVAEH: No (04/30/2016 18:08:Yane Vitale RN) Comments Obstetrical History: G1- 1993 at 40 weeks G2- 1995- at 40 weeks G3- 2007- EAB G4- current (04/30/2016 18:08:Yane Vitale RN) MEDICAL HISTORY Med Hx Diabetes: No (04/30/2016 18:08:Yane Vitale RN) Med Hx Hypertension: No (04/30/2016 18:08:Yane Vitale RN) Med Hx Heart Disease: No (04/30/2016 18:08:Yane Vitale RN) Med Hx Autoimmune Disorder: No (04/30/2016 18:08:Yane Vitale RN) Med Hx Kidney Disease/UTI: No (04/30/2016 18:08:Yane Vitale RN) Med Hx Neurologic/Epilepsy: No (04/30/2016 18:08:Yane Vitale RN) Med Hx Psychiatric Disorders: No (04/30/2016 18:08:Yane Vitale RN) Med Hx Hepatitis/Liver Disease: No (04/30/2016 18:08:Yane Vitale RN) Med Hx Varicosities/Phlebitis: No (04/30/2016 18:08:Yane Vitale RN) Med Hx Thyroid Dysfunction: No (04/30/2016 18:08:Yane Vitale RN) Med Hx Trauma/Violence: No (04/30/2016 18:08:Yane Vitale RN) Med Hx Blood Transfusion: No (04/30/2016 18:08:Yane Vitale RN) Med Hx Pulmonary (Asthma,TB): No (04/30/2016 18:08:Yane Vitale RN) Med Hx Breast: No (04/30/2016 18:08:Yane Vitale RN) Med Hx TIME STUDY ENGINEER Surgery: No (04/30/2016 18:08:Yane Vitale RN) Med Hx Hospitalization/Surgery: Yes (04/30/2016 18:08:Yane Vitale RN) Med Hx Anesthetic Complications: No (04/30/2016 18:08:Yane Vitale RN) Med Hx Abnormal Pap Smear: No (04/30/2016 18:08:Yane Vitale RN) Other Medical Diseases: No (04/30/2016 18:08:Yane Vitale RN) Med Hx Significant Family Hx: No (04/30/2016 18:08:Yane Vitale RN) Details of Med/Surg Hx: 1994 gallbladder removal (04/30/2016 18:08:Yane Viatle RN) INFECTIOUS HISTORY Inf Hx Gonorrhea: No (04/30/2016 18:08:Yane Vitale RN) Inf Hx Chlamydia: Yes (04/30/2016 18:08:Yane Vitale RN) Inf Hx Syphilis: No (04/30/2016 18:08:Yane Vitale RN) Inf Hx HIV/AIDS: No (04/30/2016 18:08:Yane Vitale RN) Inf Hx Human Papilloma Virus: No (04/30/2016 18:08:Yane Vitale RN) Inf Hx Pt/Partner Genital Herpes: No (04/30/2016 18:08:Yane Vitale RN) Inf Hx Tuberculosis/Exposure: No (04/30/2016 18:08:Yane Vitale RN) Inf Hx Hepatitis B,C: No (04/30/2016 18:08:Yane Vitale RN) Inf Hx Rash or Viral Illness: No (04/30/2016 18:08:Yane Vitale RN) Details of Infectious Hx: Chlamydia 1994 (04/30/2016 18:08:Yane Vitale RN) GENETIC HISTORY Gen Hx Age >=35 at [place]: Yes (04/30/2016 18:08:Mary Vidales RN) Gen Hx Thalassemia: No (04/30/2016 18:08:Yane Vitale RN) Gen Hx Congenital Heart Defect: No (04/30/2016 18:08:Yane Vitale RN) Gen Hx Neural Tube Defect: No (04/30/2016 18:08:Yane Vitale RN) Gen Hx Down's Syndrome: No (04/30/2016 18:08:Yane Vitale RN) Gen Hx Andrew-Sachs: No (04/30/2016 18:08:Yane Vitale RN) Gen Hx Cara: No (04/30/2016 18:08:Yane Vitale RN) Gen Hx Familial Dysautonomia: No (04/30/2016 18:08:Yane Vitale RN) Gen Hx Sickle Cell Disease/Trait: No (04/30/2016 18:08:Yane Vitale RN) Gen Hx Hemophilia/Blood Disorder: No (04/30/2016 18:08:Yane Vitale RN) Gen Hx Muscular Dystrophy: No (04/30/2016 18:08:Yane Vitale RN) Gen Hx Cystic Fibrosis: No (04/30/2016 18:08:Yane Vitale RN) Gen Hx Huntingtons Chorea: No (04/30/2016 18:08:Yane Vitale RN) Gen Hx Mental Retardation/Autism: No (04/30/2016 18:08:Yane Vitale RN) Gen Hx Tested for Fragile X: No (04/30/2016 18:08:Yane Vitale RN) Gen Hx Other Inher/Chromosomal: No (04/30/2016 18:08:Yane Vitale RN) Gen Hx Maternal Metabolic DO: No (04/30/2016 18:08:Yane Vitale RN) Gen Hx Pt Father or FOB Defect: No (04/30/2016 18:08:Yane Vitale RN) Gen Hx Other Genetic History: No (04/30/2016 18:08:Yane Vitale RN) Gen Hx Drugs/Meds since LMP: Yes (04/30/2016 18:08:Yane Vitale RN) Gen Hx Medications: folic acid, tylenol tylenol (04/30/2016 18:08:Patrick Bustos RN)
--- NOTE | 2016-06-21 06:12 | L&D Current Admission ---
Current Admit Datetime Report Generated by CPN: 06/21/2016 06:00 ADMISSION INFORMATION Current Admit Date/Time: 06/11/2016 17:46 (06/11/2016 15:00:Patrick Bustos RN) Reason for Admission: Induction of Labor (06/11/2016 15:00:Patrick Bustos RN) EGA per Dates: 41.1 (06/11/2016 15:00:QS system process) Method of Arrival: Ambulatory (06/11/2016 15:00:Patrick Bustos RN) Reason for Induction: Postterm; Other (06/11/2016 15:00:Patrick Bustos RN) Reason for Induction- Other: AMA (06/11/2016 15:00:Patrick Bustos RN) Records Available: Yes (06/11/2016 15:00:Patrick Bustos RN) General Admission Information: Reviewed; Updated; Confirmed (06/11/2016 15:00:Patrick Bustos RN) General Admission Reviewed By: Kena Bustos RN (06/11/2016 15:00:Patrick Bustos RN) BELONGINGS/ADVANCED DIRECTIVES Disposition of Belongings: Kept with Patient (06/11/2016 15:00:Patrick Bustos RN) Comments Regarding Disposition: See [facility] belongings form filled out by patient (06/11/2016 15:00:Patrick Bustos RN) Advance Direct for Healthcare: No, and Wants No Information (06/11/2016 15:00:Patrick Bustos RN) Durable Power of Manual Arts Therapist: No (06/11/2016 15:00:Patrick Bustos RN) Living Will: No (06/11/2016 15:00:Patrick Bustos RN) Organ Donor: No (06/11/2016 15:00:Patrick Bustos RN) Pt Rights Information Given: Yes (06/11/2016 15:00:Patrick Bustos RN) Pt Understands Pt Rights: Yes (06/11/2016 15:00:Patrick Bustos RN) LEARNING ASSESSMENT Knowledge Level: Understands L_D Process (06/11/2016 15:00:Patrick Bustos RN) Barriers to Learning: None (06/11/2016 15:00:Patrick Bustos RN) Learning Readiness: Motivated (06/11/2016 15:00:Patrick Bustos RN) Learns Best By: 1 to 1 Instruction (06/11/2016 15:00:Patrick Bustos RN) Learning Needs: Labor and Delivery Process; Pain Management; Symptoms to Report; Treatment Plan; Medication; Diagnosis (06/11/2016 15:00:Patrick Bustos RN) DOMESTIC VIOLANCE SCREENING Dom Viol Threatened/Hurt: No (06/11/2016 15:00:Patrick Bustos RN) Hx of Abuse/Neglect past 2yrs: No (06/11/2016 15:00:Patrick Bustos RN) Feel Unsafe Going Home: No (06/11/2016 15:00:Patrick Bustos RN) Addt'l Observ Indicating Abuse: No (06/11/2016 15:00:Patrick Bustos RN) Reason Unable to Complete Screen: N/A, Screen Completed (06/11/2016 15:00:Patrick Bustos RN) Considered Personal Harm/Suicide: No (06/11/2016 15:00:Patrick Bustos RN) NUTRITIONAL/FUNCTIONAL SCREENING Problem with Appetite >5 Days: No (06/11/2016 15:00:Patrick Bustos RN) Chew/Swallow Difficulties: No (06/11/2016 15:00:Patrick Bustos RN) Inappropriate Wt Gain/Loss: No (06/11/2016 15:00:Patrick Bustos RN) Presence Skin Breakdown/Ulcer: No (06/11/2016 15:00:Patrick Bustos RN) Special Diet: No (06/11/2016 15:00:Patrick Bustos RN) Pt Requests Malt House Supervisor Visit: No (06/11/2016 15:00:Patrick Bustos RN) Hx of Any of the Following?: N/A (06/11/2016 15:00:Patrick Bustos RN) New Diagnosis of: N/A (06/11/2016 15:00:Patrick Bustos RN) Requires Assist w/Ambulation: No (06/11/2016 15:00:Patrick Bustos RN) Uses Assist Device to Ambulate: No (06/11/2016 15:00:Patrick Bustos RN) Pt Requires Help w/ADL's: No (06/11/2016 15:00:Patrick Bustos RN)
--- NOTE | 2016-06-21 06:13 | L&D General Admission ---
General Admit Datetime Report Generated by CPN: 06/21/2016 06:00 INFORMATION Patient Age: 41 (04/30/2016 18:04:QS system process) EDC: 06/03/2016 00:00 (04/30/2016 18:08:Yane Vitale RN) LMP: 08/28/2015 00:00 (04/30/2016 18:08:Patrick Bustos RN) : 4 (04/30/2016 18:08:Yane Vitale RN) Para: 2 (04/30/2016 18:08:Helen Randolph RN) Term: 2 (04/30/2016 18:08:Yane Vitale RN) Induced Abortions: 1 (04/30/2016 18:08:Yane Vitale RN) Livin (04/30/2016 18:08:Patrick Bustos RN) Cesareans: 0 (04/30/2016 18:08:Patrick Bustos RN) Baby, Number in Womb: 1 (04/30/2016 18:40:Yane Iam, RN) CARE Primary Hypo Splasher: [facility] (04/30/2016 18:08:Yane Vitale RN) Month of 1st Visit: September (04/30/2016 18:08:Yane Vitale RN) Adequate Care: Yes (04/30/2016 18:08:Yane Vitale RN) Prepregnancy Weight (lb): 172 (04/30/2016 18:08:Patrick Bustos RN) Prepregnancy Weight (kg): 78.2 (04/30/2016 18:08:QS system process) Height (in): 68 (06/14/2016 10:13:QS system process) ALLERGIES Medication Allergy: No (04/30/2016 18:08:Yane Vitale RN) Medication Allergies: No Known Allergies (06/11/2016) (06/11/2016 14:46:QS system process) Latex Allergy: No Latex Allergies (04/30/2016 18:08:Yane Vitale RN) Food Allergies: n/a (04/30/2016 18:08:Yane Vitale RN) Environmental Allergies: n/a (04/30/2016 18:08:Yane Vitale RN) COMMUNICATION Primary Language: Maltese (04/30/2016 18:08:Yane Vitale RN) Medical Tx Preferred Language: Maltese (04/30/2016 18:08:Yane Vitale RN) Communication Barrier(s): None (04/30/2016 18:08:Patrick Bustos RN) DEMOGRAPHICS Address: [address] [place] [id number] (04/30/2016 18:04:QS system process) Zipcode: [address] (04/30/2016 18:04:QS system process) Home (04/30/2016 18:04:QS system process) SSN: [id number] (04/30/2016 18:04:QS system process) Next of Kin Name: JERAMY WYNNE (04/30/2016 18:04:QS system process) Next of Kin (04/30/2016 18:04:QS system process) Next of Kin Relationship: SPO (04/30/2016 18:04:QS system process) Date of : 1975 (04/30/2016 18:04:QS system process) Marital Status: (04/30/2016 18:04:QS system process) Sex: Female (04/30/2016 18:04:QS system process) Race: Other (04/30/2016 18:04:QS system process) Ethnicity: Non- or (04/30/2016 18:04:QS system process) Yarsani: [employer] (04/30/2016 18:04:QS system process) DRUG AND ALCOHOL USE Alcohol: No (04/30/2016 18:08:Yane Vitale RN) Cigarettes: Never Smoker. [id number] (04/30/2016 18:08:Yane Vitale RN) Marijuana: No (04/30/2016 18:08:Yane Vitale RN) Cocaine: No (04/30/2016 18:08:Yane Vitale RN) Other Illicit Drugs: No (04/30/2016 18:08:Yane Vitale RN) VACCINE HISTORY Influenza Vaccine: No (04/30/2016 18:08:Yane Vitale RN) Pneumococcal Vaccine: No (04/30/2016 18:08:Yane Vitale RN) Tetanus Vaccine: Uncertain (04/30/2016 18:08:Yane Vitale RN) Tdap Vaccine: Yes (04/30/2016 18:08:Patrick Bustos RN) Tdap Date: 11/23/2011 (04/30/2016 18:08:Patrick Bustos RN) Hepatitis B Vaccine: Uncertain (04/30/2016 18:08:Yane Vitale RN) Meat And Seafood Manager: [facility] (04/30/2016 18:08:Yane Vitale RN) Feeding Preference: Both (04/30/2016 18:08:Shelby Smith RN) Benefit of Breast Feed Discussed: Yes (04/30/2016 18:08:Yane Vitale RN) Circumcision: N/A (04/30/2016 18:08:Yane Vitale RN) Classes Attended: No (04/30/2016 18:08:Yane Vitale RN) Tubal Ligation: No (04/30/2016 18:08:Yane Vitale RN) Tubal Authorization Signed: N/A (04/30/2016 18:08:Yane Vitale RN) Consent: N/A (04/30/2016 18:08:Yane Vitale RN) Consent Signed: N/A (04/30/2016 18:08:Yane Vitale RN) Pain Management Plans: Natural (04/30/2016 18:08:Patrick Bustos RN) Plans for Labor and Delivery: None (04/30/2016 18:08:Yane Vitale RN) Support Person: Jeramy Wynne (04/30/2016 18:08:Yane Vitale RN) Support Person Relationship: (04/30/2016 18:08:Yane Vitale RN) Cultural/Spritual Practice: [facility] (04/30/2016 18:08:Yane Vitale RN) Spir/Cult Dietary Needs: [facility] (04/30/2016 18:08:Yane Vitale RN) LIVING SITUATION/DISCHARGE PLAN Living Arrangements: House (04/30/2016 18:08:Yane Vitale RN) Adequate Access to:: Electric; Heat; Refrigeration; Plumbing/Running water; Phone; Transportation (04/30/2016 18:08:Yane Vitale RN) WIC Program: [facility] (04/30/2016 18:08:Yane Vitale RN) Discharge Pump Erector Helper Person: Jeramy Wynne (04/30/2016 18:08:Yane Vitale RN) Person to Help after Discharge: Jeramy Wynne (04/30/2016 18:08:Yane Vitale RN) Currently Using Commun Resources: [facility] (04/30/2016 18:08:Yane Vitale RN) Outside Agency/Certified Surgical Assistant: [facility] (04/30/2016 18:08:Yane Vitale RN) Car Seat for Discharge: [facility] (04/30/2016 18:08:Yane Vitale RN) Adoption Requested: [facility] (04/30/2016 18:08:Yane Vitale RN) Pt Contact w/ Post : N/A (04/30/2016 18:08:Yane Vitale RN) LABS Blood Type: O Positive (04/30/2016 18:08:Patrick Bustos RN) Antibody Screen: Negative (04/30/2016 18:08:Patrick Bustos RN) Hemoglobin: 8.8 L (06/13/2016 06:47:QS system process) Hematocrit: 27.4 L (06/13/2016 06:47:QS system process) MCV: 80 (06/13/2016 06:47:QS system process) Group Beta Strep: Negative (04/30/2016 18:08:Patrick Bustos RN) Gonorrhea: Negative (04/30/2016 18:08:Patrick Bustos RN) Chlamydia: Negative (04/30/2016 18:08:Patrick Bustos RN) RPR/VDRL: Nonreactive (04/30/2016 18:08:Yane Vitale RN) HIV Exposure Test: Negative (04/30/2016 18:08:Patrick Bustos RN) Hepatitis B: Negative (04/30/2016 18:08:Patrick Bustos RN) Rubella: Immune (04/30/2016 18:08:Patrick Bustos RN) Varicella: Positive (04/30/2016 18:08:Patrick Bustos RN) Varicella Titer: 641 (04/30/2016 18:08:Patrick Bustos RN) OB/PREVIOUS HISTORY LMP: 08/28/2015 00:00 (04/30/2016 18:08:Patrick Bustos RN) Previous Procedures: Ultrasound; NST (04/30/2016 18:08:Yane Vitale RN) Current Procedures: Ultrasound; NST (04/30/2016 18:08:Yane Vitale RN) History of Previous : No (04/30/2016 18:08:Yane Vitale RN) History of Gestational Diabetes: No (04/30/2016 18:08:Yane Vitale RN) History of PIH: No (04/30/2016 18:08:Yane Vitale RN) History of Incompetent Cervix: No (04/30/2016 18:08:Yane Vitale RN) History of Placenta Previa/Abrup: No (04/30/2016 18:08:Yane Vitale RN) History of Macrosomia: No (04/30/2016 18:08:Yane Vitale RN) History of IUGR: No (04/30/2016 18:08:Yane Vitale RN) History of Hemorrhage: No (04/30/2016 18:08:Yane Vitale RN) History of Loss/Stillborn: No (04/30/2016 18:08:Yane Vitale RN) History of : No (04/30/2016 18:08:Yane Vitale RN) History of D (Rh) Sensitization: No (04/30/2016 18:08:Yane Vitale RN) History Recurrent Loss/Stillborn: No (04/30/2016 18:08:Yane Vitale RN) History Depression/PP Depression: No (04/30/2016 18:08:Yane Vitale RN) History of Uterine Anomaly/NEVAEH: No (04/30/2016 18:08:Yane Vitale RN) History of Infertility: No (04/30/2016 18:08:Yane Vitale RN) History of ART Treatment: No (04/30/2016 18:08:Yane Vitale RN) History of NEVAEH: No (04/30/2016 18:08:Yane Vitale RN) Comments Obstetrical History: G1- 1993 at 40 weeks G2- 1995- at 40 weeks G3- 2007- EAB G4- current (04/30/2016 18:08:Yane Vitale RN) MEDICAL HISTORY Med Hx Diabetes: No (04/30/2016 18:08:Yane Vitale RN) Med Hx Hypertension: No (04/30/2016 18:08:Yane Vitale RN) Med Hx Heart Disease: No (04/30/2016 18:08:Yane Vitale RN) Med Hx Autoimmune Disorder: No (04/30/2016 18:08:Yane Vitale RN) Med Hx Kidney Disease/UTI: No (04/30/2016 18:08:Yane Vitale RN) Med Hx Neurologic/Epilepsy: No (04/30/2016 18:08:Yane Vitale RN) Med Hx Psychiatric Disorders: No (04/30/2016 18:08:Yane Vitale RN) Med Hx Hepatitis/Liver Disease: No (04/30/2016 18:08:Yane Vitale RN) Med Hx Varicosities/Phlebitis: No (04/30/2016 18:08:Yane Vitale RN) Med Hx Thyroid Dysfunction: No (04/30/2016 18:08:Yane Vitale RN) Med Hx Trauma/Violence: No (04/30/2016 18:08:Yane Vitale RN) Med Hx Blood Transfusion: No (04/30/2016 18:08:Yane Vitale RN) Med Hx Pulmonary (Asthma,TB): No (04/30/2016 18:08:Yane Vitale RN) Med Hx Breast: No (04/30/2016 18:08:Yane Vitale RN) Med Hx FIELD CROPS HAR[employer] Surgery: No (04/30/2016 18:08:Yane Vitale RN) Med Hx Hospitalization/Surgery: Yes (04/30/2016 18:08:Yane Vitale RN) Med Hx Anesthetic Complications: No (04/30/2016 18:08:Yane Vitale RN) Med Hx Abnormal Pap Smear: No (04/30/2016 18:08:Yane Vitale RN) Other Medical Diseases: No (04/30/2016 18:08:Yane Vitale RN) Med Hx Significant Family Hx: No (04/30/2016 18:08:Yane Vitale RN) Details of Med/Surg Hx: 1994 gallbladder removal (04/30/2016 18:08:Yane Vitale RN) INFECTIOUS HISTORY Inf Hx Gonorrhea: No (04/30/2016 18:08:Yane Vitale RN) Inf Hx Chlamydia: Yes (04/30/2016 18:08:Yane Vitale RN) Inf Hx Syphilis: No (04/30/2016 18:08:Yane Vitale RN) Inf Hx HIV/AIDS: No (04/30/2016 18:08:Yane Vitale RN) Inf Hx Human Papilloma Virus: No (04/30/2016 18:08:Yane Vitale RN) Inf Hx Pt/Partner Genital Herpes: No (04/30/2016 18:08:Yane Vitale RN) Inf Hx Tuberculosis/Exposure: No (04/30/2016 18:08:Yane Vitale RN) Inf Hx Hepatitis B,C: No (04/30/2016 18:08:Yane Vitale RN) Inf Hx Rash or Viral Illness: No (04/30/2016 18:08:Yane Vitale RN) Details of Infectious Hx: Chlamydia 1994 (04/30/2016 18:08:Yane Vitale RN) GENETIC HISTORY Gen Hx Age >=35 at [place]: Yes (04/30/2016 18:08:Mary Vidales RN) Gen Hx Thalassemia: No (04/30/2016 18:08:Yane Vitale RN) Gen Hx Congenital Heart Defect: No (04/30/2016 18:08:Yane Vitale RN) Gen Hx Neural Tube Defect: No (04/30/2016 18:08:Yane Vitale RN) Gen Hx Down's Syndrome: No (04/30/2016 18:08:Yane Vitale RN) Gen Hx Andrew-Sachs: No (04/30/2016 18:08:Yane Vitale RN) Gen Hx Cara: No (04/30/2016 18:08:Yane Vitale RN) Gen Hx Familial Dysautonomia: No (04/30/2016 18:08:Yane Vitale RN) Gen Hx Sickle Cell Disease/Trait: No (04/30/2016 18:08:Yane Vitale RN) Gen Hx Hemophilia/Blood Disorder: No (04/30/2016 18:08:Yane Vitale RN) Gen Hx Muscular Dystrophy: No (04/30/2016 18:08:Yane Vitale RN) Gen Hx Cystic Fibrosis: No (04/30/2016 18:08:Yane Vitale RN) Gen Hx Huntingtons Chorea: No (04/30/2016 18:08:Yane Vitale RN) Gen Hx Mental Retardation/Autism: No (04/30/2016 18:08:Yane Vitale RN) Gen Hx Tested for Fragile X: No (04/30/2016 18:08:Yane Vitale RN) Gen Hx Other Inher/Chromosomal: No (04/30/2016 18:08:Yane Vitale RN) Gen Hx Maternal Metabolic DO: No (04/30/2016 18:08:Yane Vitale RN) Gen Hx Pt Father or FOB Defect: No (04/30/2016 18:08:Ynae Vitale RN) Gen Hx Other Genetic History: No (04/30/2016 18:08:Yane Vitale RN) Gen Hx Drugs/Meds since LMP: Yes (04/30/2016 18:08:Yane Vitale RN) Gen Hx Medications: folic acid, tylenol tylenol (04/30/2016 18:08:Patrick Bustos RN)
--- NOTE | 2016-06-22 06:13 | L&D Current Admission ---
Current Admit Datetime Report Generated by CPN: 06/22/2016 06:00 ADMISSION INFORMATION Current Admit Date/Time: 06/11/2016 17:46 (06/11/2016 15:00:Patrick Bustos RN) Reason for Admission: Induction of Labor (06/11/2016 15:00:Patrick Bustos RN) EGA per Dates: 41.1 (06/11/2016 15:00:QS system process) Method of Arrival: Ambulatory (06/11/2016 15:00:Patrick Bustos RN) Reason for Induction: Postterm; Other (06/11/2016 15:00:Patrick Bustos RN) Reason for Induction- Other: AMA (06/11/2016 15:00:Patrick Bustos RN) Records Available: Yes (06/11/2016 15:00:Patrick Bustos RN) General Admission Information: Reviewed; Updated; Confirmed (06/11/2016 15:00:Patrick Bustos RN) General Admission Reviewed By: Kena Bustos RN (06/11/2016 15:00:Patrick Bustos RN) BELONGINGS/ADVANCED DIRECTIVES Disposition of Belongings: Kept with Patient (06/11/2016 15:00:Patrick Bustos RN) Comments Regarding Disposition: See [facility] belongings form filled out by patient (06/11/2016 15:00:Patrick Bustos RN) Advance Direct for Healthcare: No, and Wants No Information (06/11/2016 15:00:Patrick Bustos RN) Durable Power of Mechanical Engineering Intern: No (06/11/2016 15:00:Patrick Bustos RN) Living Will: No (06/11/2016 15:00:Patrick Bustos RN) Organ Donor: No (06/11/2016 15:00:Patrick Bustos RN) Pt Rights Information Given: Yes (06/11/2016 15:00:Patrick Bustos RN) Pt Understands Pt Rights: Yes (06/11/2016 15:00:Patrick Bustos RN) LEARNING ASSESSMENT Knowledge Level: Understands L_D Process (06/11/2016 15:00:Patrick Bustos RN) Barriers to Learning: None (06/11/2016 15:00:Patrick Bustos RN) Learning Readiness: Motivated (06/11/2016 15:00:Patrick Bustos RN) Learns Best By: 1 to 1 Instruction (06/11/2016 15:00:Patrick Bustos RN) Learning Needs: Labor and Delivery Process; Pain Management; Symptoms to Report; Treatment Plan; Medication; Diagnosis (06/11/2016 15:00:Patrick Bustos RN) DOMESTIC VIOLANCE SCREENING Dom Viol Threatened/Hurt: No (06/11/2016 15:00:Patrick Bustos RN) Hx of Abuse/Neglect past 2yrs: No (06/11/2016 15:00:Patrick Bustos RN) Feel Unsafe Going Home: No (06/11/2016 15:00:Patrick Bustos RN) Addt'l Observ Indicating Abuse: No (06/11/2016 15:00:Patrick Bustos RN) Reason Unable to Complete Screen: N/A, Screen Completed (06/11/2016 15:00:Patrick Bustos RN) Considered Personal Harm/Suicide: No (06/11/2016 15:00:Patrick Bustos RN) NUTRITIONAL/FUNCTIONAL SCREENING Problem with Appetite >5 Days: No (06/11/2016 15:00:Patrick Bustos RN) Chew/Swallow Difficulties: No (06/11/2016 15:00:Patrick Bustos RN) Inappropriate Wt Gain/Loss: No (06/11/2016 15:00:Patrick Bustos RN) Presence Skin Breakdown/Ulcer: No (06/11/2016 15:00:Patrick Bustos RN) Special Diet: No (06/11/2016 15:00:Patrick Bustos RN) Pt Requests Detective Homicide Squad Visit: No (06/11/2016 15:00:Patrick Bustos RN) Hx of Any of the Following?: N/A (06/11/2016 15:00:Patrick Bustos RN) New Diagnosis of: N/A (06/11/2016 15:00:Patrick Bustos RN) Requires Assist w/Ambulation: No (06/11/2016 15:00:Patrick Bustos RN) Uses Assist Device to Ambulate: No (06/11/2016 15:00:Patrick Bustos RN) Pt Requires Help w/ADL's: No (06/11/2016 15:00:Patrick Bustos RN)
--- NOTE | 2016-06-22 06:13 | L&D General Admission ---
General Admit Datetime Report Generated by CPN: 06/22/2016 06:00 INFORMATION Patient Age: 41 (04/30/2016 18:04:QS system process) EDC: 06/03/2016 00:00 (04/30/2016 18:08:Yane Vitale RN) LMP: 08/28/2015 00:00 (04/30/2016 18:08:Patrick Bustos RN) : 4 (04/30/2016 18:08:Yane Vitale RN) Para: 2 (04/30/2016 18:08:Helen Randolph RN) Term: 2 (04/30/2016 18:08:Yane Vitale RN) Induced Abortions: 1 (04/30/2016 18:08:Yane Vitale RN) Livin (04/30/2016 18:08:Patrick Bustos RN) Cesareans: 0 (04/30/2016 18:08:Patrick Bustos RN) Baby, Number in Womb: 1 (04/30/2016 18:40:Yane Iam, RN) CARE Primary Condenser Tester: [facility] (04/30/2016 18:08:Yane Vitale RN) Month of 1st Visit: September (04/30/2016 18:08:Yane Vitale RN) Adequate Care: Yes (04/30/2016 18:08:Yane Vitale RN) Prepregnancy Weight (lb): 172 (04/30/2016 18:08:Patrick Bustos RN) Prepregnancy Weight (kg): 78.2 (04/30/2016 18:08:QS system process) Height (in): 68 (06/14/2016 10:13:QS system process) ALLERGIES Medication Allergy: No (04/30/2016 18:08:Yane Vitale RN) Medication Allergies: No Known Allergies (06/11/2016) (06/11/2016 14:46:QS system process) Latex Allergy: No Latex Allergies (04/30/2016 18:08:Yane Vitale RN) Food Allergies: n/a (04/30/2016 18:08:Yane Vitale RN) Environmental Allergies: n/a (04/30/2016 18:08:Yane Vitale RN) COMMUNICATION Primary Language: Lao (04/30/2016 18:08:Yane Vitale RN) Medical Tx Preferred Language: Lao (04/30/2016 18:08:Yane Vitale RN) Communication Barrier(s): None (04/30/2016 18:08:Patrick Bustos RN) DEMOGRAPHICS Address: [address] [place] [id number] (04/30/2016 18:04:QS system process) Zipcode: [address] (04/30/2016 18:04:QS system process) Home (04/30/2016 18:04:QS system process) SSN: [id number] (04/30/2016 18:04:QS system process) Next of Kin Name: JERAMY WYNNE (04/30/2016 18:04:QS system process) Next of Kin (04/30/2016 18:04:QS system process) Next of Kin Relationship: SPO (04/30/2016 18:04:QS system process) Date of : 1975 (04/30/2016 18:04:QS system process) Marital Status: (04/30/2016 18:04:QS system process) Sex: Female (04/30/2016 18:04:QS system process) Race: Other (04/30/2016 18:04:QS system process) Ethnicity: Non- or (04/30/2016 18:04:QS system process) Islam: Tenriism (04/30/2016 18:04:QS system process) DRUG AND ALCOHOL USE Alcohol: No (04/30/2016 18:08:Yane Vitale RN) Cigarettes: Never Smoker. [id number] (04/30/2016 18:08:Yane Vitale RN) Marijuana: No (04/30/2016 18:08:Yane Vitale RN) Cocaine: No (04/30/2016 18:08:Yane Vitale RN) Other Illicit Drugs: No (04/30/2016 18:08:Yane Vitale RN) VACCINE HISTORY Influenza Vaccine: No (04/30/2016 18:08:Yane Vitale RN) Pneumococcal Vaccine: No (04/30/2016 18:08:Yane Vitale RN) Tetanus Vaccine: Uncertain (04/30/2016 18:08:Yane Vitale RN) Tdap Vaccine: Yes (04/30/2016 18:08:Patrick Bustos RN) Tdap Date: 11/23/2011 (04/30/2016 18:08:Patrick Bustos RN) Hepatitis B Vaccine: Uncertain (04/30/2016 18:08:Yane Vitale RN) Manager Art: [facility] (04/30/2016 18:08:Yane Vitale RN) Feeding Preference: Both (04/30/2016 18:08:Shelby Smith RN) Benefit of Breast Feed Discussed: Yes (04/30/2016 18:08:Yane Vitale RN) Circumcision: N/A (04/30/2016 18:08:Yane Vitale RN) Classes Attended: No (04/30/2016 18:08:Yane Vitale RN) Tubal Ligation: No (04/30/2016 18:08:Yane Vitale RN) Tubal Authorization Signed: N/A (04/30/2016 18:08:Yane Vitale RN) Consent: N/A (04/30/2016 18:08:Yane Vitale RN) Consent Signed: N/A (04/30/2016 18:08:Yane Vitale RN) Pain Management Plans: Natural (04/30/2016 18:08:Patrick Bustos RN) Plans for Labor and Delivery: None (04/30/2016 18:08:Yane Vitale RN) Support Person: Jeramy Wynne (04/30/2016 18:08:Yane Vitale RN) Support Person Relationship: (04/30/2016 18:08:Yane Vitale RN) Cultural/Spritual Practice: [facility] (04/30/2016 18:08:Yane Vitale RN) Spir/Cult Dietary Needs: [facility] (04/30/2016 18:08:Yane Vitale RN) LIVING SITUATION/DISCHARGE PLAN Living Arrangements: House (04/30/2016 18:08:Yane Vitale RN) Adequate Access to:: Electric; Heat; Refrigeration; Plumbing/Running water; Phone; Transportation (04/30/2016 18:08:Yane Vitale RN) WIC Program: [facility] (04/30/2016 18:08:Yane Vitale RN) Discharge Clinical Informatics Strategist Person: Jeramy Wynne (04/30/2016 18:08:Yane Vitale RN) Person to Help after Discharge: Jeramy Wynne (04/30/2016 18:08:Yane Vitale RN) Currently Using Commun Resources: [facility] (04/30/2016 18:08:Yane Vitale RN) Outside Agency/[place] Manager: [facility] (04/30/2016 18:08:Yane Vitale RN) Car Seat for Discharge: [facility] (04/30/2016 18:08:Yane Vitale RN) Adoption Requested: [facility] (04/30/2016 18:08:Yane Vitale RN) Pt Contact w/ Post : N/A (04/30/2016 18:08:Yane Vitale RN) LABS Blood Type: O Positive (04/30/2016 18:08:Patrick Bustos RN) Antibody Screen: Negative (04/30/2016 18:08:Patrick Bustos RN) Hemoglobin: 8.8 L (06/13/2016 06:47:QS system process) Hematocrit: 27.4 L (06/13/2016 06:47:QS system process) MCV: 80 (06/13/2016 06:47:QS system process) Group Beta Strep: Negative (04/30/2016 18:08:Patrick Bustos RN) Gonorrhea: Negative (04/30/2016 18:08:Patrick Bustos RN) Chlamydia: Negative (04/30/2016 18:08:Patrick Bustos RN) RPR/VDRL: Nonreactive (04/30/2016 18:08:Yane Vitale RN) HIV Exposure Test: Negative (04/30/2016 18:08:Patrick Bustos RN) Hepatitis B: Negative (04/30/2016 18:08:Patrick Bustos RN) Rubella: Immune (04/30/2016 18:08:Patrick Bustos RN) Varicella: Positive (04/30/2016 18:08:Patrick Bustos RN) Varicella Titer: 641 (04/30/2016 18:08:Patrick Bustos RN) OB/PREVIOUS HISTORY LMP: 08/28/2015 00:00 (04/30/2016 18:08:Patrick Bustos RN) Previous Procedures: Ultrasound; NST (04/30/2016 18:08:Yane Vitale RN) Current Procedures: Ultrasound; NST (04/30/2016 18:08:Yane Vitale RN) History of Previous : No (04/30/2016 18:08:Yane Vitale RN) History of Gestational Diabetes: No (04/30/2016 18:08:Yane Vitale RN) History of PIH: No (04/30/2016 18:08:Yane Vitale RN) History of Incompetent Cervix: No (04/30/2016 18:08:Yane Vitale RN) History of Placenta Previa/Abrup: No (04/30/2016 18:08:Yane Vitale RN) History of Macrosomia: No (04/30/2016 18:08:Yane Vitale RN) History of IUGR: No (04/30/2016 18:08:Yane Vitale RN) History of Hemorrhage: No (04/30/2016 18:08:Yane Vitale RN) History of Loss/Stillborn: No (04/30/2016 18:08:Yane Vitale RN) History of : No (04/30/2016 18:08:Yane Vitale RN) History of D (Rh) Sensitization: No (04/30/2016 18:08:Yane Vitale RN) History Recurrent Loss/Stillborn: No (04/30/2016 18:08:Yane Vitale RN) History Depression/PP Depression: No (04/30/2016 18:08:Yane Vitale RN) History of Uterine Anomaly/NEVAEH: No (04/30/2016 18:08:Yane Vitale RN) History of Infertility: No (04/30/2016 18:08:Yane Vitale RN) History of ART Treatment: No (04/30/2016 18:08:Yane Vitale RN) History of NEVAEH: No (04/30/2016 18:08:Yane Vitale RN) Comments Obstetrical History: G1- 1993 at 40 weeks G2- 1995- at 40 weeks G3- 2007- EAB G4- current (04/30/2016 18:08:Yane Vitale RN) MEDICAL HISTORY Med Hx Diabetes: No (04/30/2016 18:08:Yane Vitale RN) Med Hx Hypertension: No (04/30/2016 18:08:Yane Vitale RN) Med Hx Heart Disease: No (04/30/2016 18:08:Yane Vitale RN) Med Hx Autoimmune Disorder: No (04/30/2016 18:08:Yane Vitale RN) Med Hx Kidney Disease/UTI: No (04/30/2016 18:08:Yane Vitale RN) Med Hx Neurologic/Epilepsy: No (04/30/2016 18:08:Yane Vitale RN) Med Hx Psychiatric Disorders: No (04/30/2016 18:08:Yane Vitale RN) Med Hx Hepatitis/Liver Disease: No (04/30/2016 18:08:Yane Vitale RN) Med Hx Varicosities/Phlebitis: No (04/30/2016 18:08:Yane Vitale RN) Med Hx Thyroid Dysfunction: No (04/30/2016 18:08:Yane Vitale RN) Med Hx Trauma/Violence: No (04/30/2016 18:08:Yane Vitale RN) Med Hx Blood Transfusion: No (04/30/2016 18:08:Yane Vitale RN) Med Hx Pulmonary (Asthma,TB): No (04/30/2016 18:08:Yane Vitale RN) Med Hx Breast: No (04/30/2016 18:08:Yane Vitale RN) Med Hx FUEL TESTING TECHNICIAN Surgery: No (04/30/2016 18:08:Yane Vitale RN) Med Hx Hospitalization/Surgery: Yes (04/30/2016 18:08:Yane Vitale RN) Med Hx Anesthetic Complications: No (04/30/2016 18:08:Yane Vitale RN) Med Hx Abnormal Pap Smear: No (04/30/2016 18:08:Yane Vitale RN) Other Medical Diseases: No (04/30/2016 18:08:Yane Vitale RN) Med Hx Significant Family Hx: No (04/30/2016 18:08:Yane Vitale RN) Details of Med/Surg Hx: 1994 gallbladder removal (04/30/2016 18:08:Yane Vitale RN) INFECTIOUS HISTORY Inf Hx Gonorrhea: No (04/30/2016 18:08:Yane Vitale RN) Inf Hx Chlamydia: Yes (04/30/2016 18:08:Yane Vitale RN) Inf Hx Syphilis: No (04/30/2016 18:08:Yane Vitale RN) Inf Hx HIV/AIDS: No (04/30/2016 18:08:Yane Vitale RN) Inf Hx Human Papilloma Virus: No (04/30/2016 18:08:Yane Vitale RN) Inf Hx Pt/Partner Genital Herpes: No (04/30/2016 18:08:Yane Vitale RN) Inf Hx Tuberculosis/Exposure: No (04/30/2016 18:08:Yane Vitale RN) Inf Hx Hepatitis B,C: No (04/30/2016 18:08:Yane Vitale RN) Inf Hx Rash or Viral Illness: No (04/30/2016 18:08:Yane Vitale RN) Details of Infectious Hx: Chlamydia 1994 (04/30/2016 18:08:Yane Vitale RN) GENETIC HISTORY Gen Hx Age >=35 at [place]: Yes (04/30/2016 18:08:Mary Vidales RN) Gen Hx Thalassemia: No (04/30/2016 18:08:Yane Vitale RN) Gen Hx Congenital Heart Defect: No (04/30/2016 18:08:Yane Vitale RN) Gen Hx Neural Tube Defect: No (04/30/2016 18:08:Yane Vitale RN) Gen Hx Down's Syndrome: No (04/30/2016 18:08:Yane Vitale RN) Gen Hx Andrew-Sachs: No (04/30/2016 18:08:Yane Vitale RN) Gen Hx Cara: No (04/30/2016 18:08:Yane Vitale RN) Gen Hx Familial Dysautonomia: No (04/30/2016 18:08:Yane Vitale RN) Gen Hx Sickle Cell Disease/Trait: No (04/30/2016 18:08:Yane Vitale RN) Gen Hx Hemophilia/Blood Disorder: No (04/30/2016 18:08:Yane Vitale RN) Gen Hx Muscular Dystrophy: No (04/30/2016 18:08:Yane Vitale RN) Gen Hx Cystic Fibrosis: No (04/30/2016 18:08:Yane Vitale RN) Gen Hx [place] Chorea: No (04/30/2016 18:08:Yane Vitale RN) Gen Hx Mental Retardation/Autism: No (04/30/2016 18:08:Yane Vitale RN) Gen Hx Tested for Fragile X: No (04/30/2016 18:08:Yane Vitale RN) Gen Hx Other Inher/Chromosomal: No (04/30/2016 18:08:Yane Vitale RN) Gen Hx Maternal Metabolic DO: No (04/30/2016 18:08:Yane Vitale RN) Gen Hx Pt Father or FOB Defect: No (04/30/2016 18:08:Yane Vitale RN) Gen Hx Other Genetic History: No (04/30/2016 18:08:Yane Vitale RN) Gen Hx Drugs/Meds since LMP: Yes (04/30/2016 18:08:Yane Vitale RN) Gen Hx Medications: folic acid, tylenol tylenol (04/30/2016 18:08:Patrick Bustos RN)
--- NOTE | 2016-06-23 06:13 | L&D General Admission ---
General Admit Datetime Report Generated by CPN: 06/23/2016 06:00 INFORMATION Patient Age: 41 (04/30/2016 18:04:QS system process) EDC: 06/03/2016 00:00 (04/30/2016 18:08:Yane Vitale RN) LMP: 08/28/2015 00:00 (04/30/2016 18:08:Patrick Bustos RN) : 4 (04/30/2016 18:08:Yane Vitale RN) Para: 2 (04/30/2016 18:08:Helen Randolph RN) Term: 2 (04/30/2016 18:08:Yane Vitale RN) Induced Abortions: 1 (04/30/2016 18:08:Yane Vitale RN) Livin (04/30/2016 18:08:Patrick Bustos RN) Cesareans: 0 (04/30/2016 18:08:Patrick Bustos RN) Baby, Number in Womb: 1 (04/30/2016 18:40:Ynae Iam, RN) CARE Primary Business Applications Analyst: [employer] (04/30/2016 18:08:Yane Vitale RN) Month of 1st Visit: September (04/30/2016 18:08:Yane Vitale RN) Adequate Care: Yes (04/30/2016 18:08:Yane Vitale RN) Prepregnancy Weight (lb): 172 (04/30/2016 18:08:Patrick Bustos RN) Prepregnancy Weight (kg): 78.2 (04/30/2016 18:08:QS system process) Height (in): 68 (06/14/2016 10:13:QS system process) ALLERGIES Medication Allergy: No (04/30/2016 18:08:Yane Vitale RN) Medication Allergies: No Known Allergies (06/11/2016) (06/11/2016 14:46:QS system process) Latex Allergy: No Latex Allergies (04/30/2016 18:08:Yane Vitale RN) Food Allergies: n/a (04/30/2016 18:08:Yane Vitale RN) Environmental Allergies: n/a (04/30/2016 18:08:Yane Vitale RN) COMMUNICATION Primary Language: North Korean (04/30/2016 18:08:Yane Vitale RN) Medical Tx Preferred Language: North Korean (04/30/2016 18:08:Yane Vitale RN) Communication Barrier(s): None (04/30/2016 18:08:Patrick Bustos RN) DEMOGRAPHICS Address: [address] [place] [id number] (04/30/2016 18:04:QS system process) Zipcode: [address] (04/30/2016 18:04:QS system process) Home (04/30/2016 18:04:QS system process) SSN: [id number] (04/30/2016 18:04:QS system process) Next of Kin Name: JERAMY WYNNE (04/30/2016 18:04:QS system process) Next of Kin (04/30/2016 18:04:QS system process) Next of Kin Relationship: SPO (04/30/2016 18:04:QS system process) Date of : 1975 (04/30/2016 18:04:QS system process) Marital Status: (04/30/2016 18:04:QS system process) Sex: Female (04/30/2016 18:04:QS system process) Race: Other (04/30/2016 18:04:QS system process) Ethnicity: Non- or (04/30/2016 18:04:QS system process) Jainism: Mormonism (04/30/2016 18:04:QS system process) DRUG AND ALCOHOL USE Alcohol: No (04/30/2016 18:08:Yane Vitale RN) Cigarettes: Never Smoker. [id number] (04/30/2016 18:08:Yane Vitale RN) Marijuana: No (04/30/2016 18:08:Yane Vitale RN) Cocaine: No (04/30/2016 18:08:Yane Vitale RN) Other Illicit Drugs: No (04/30/2016 18:08:Yane Vitale RN) VACCINE HISTORY Influenza Vaccine: No (04/30/2016 18:08:Yane Vitale RN) Pneumococcal Vaccine: No (04/30/2016 18:08:Yane Vitale RN) Tetanus Vaccine: Uncertain (04/30/2016 18:08:Yane Vitale RN) Tdap Vaccine: Yes (04/30/2016 18:08:Patrick Bustos RN) Tdap Date: 11/23/2011 (04/30/2016 18:08:Patrick Bustos RN) Hepatitis B Vaccine: Uncertain (04/30/2016 18:08:Yane Vitale RN) [place]: [facility] (04/30/2016 18:08:Yane Vitale RN) Feeding Preference: Both (04/30/2016 18:08:Shelby Smith RN) Benefit of Breast Feed Discussed: Yes (04/30/2016 18:08:Yane Vitale RN) Circumcision: N/A (04/30/2016 18:08:Yane Vitale RN) Classes Attended: No (04/30/2016 18:08:Yane Vitale RN) Tubal Ligation: No (04/30/2016 18:08:Yane Vitale RN) Tubal Authorization Signed: N/A (04/30/2016 18:08:Yane Vitale RN) Consent: N/A (04/30/2016 18:08:Yane Vitale RN) Consent Signed: N/A (04/30/2016 18:08:Yane Vitale RN) Pain Management Plans: Natural (04/30/2016 18:08:Patrick Bustos RN) Plans for Labor and Delivery: None (04/30/2016 18:08:Yane Vitale RN) Support Person: Jeramy Wynne (04/30/2016 18:08:Yane Vitale RN) Support Person Relationship: (04/30/2016 18:08:Yane Vitale RN) Cultural/Spritual Practice: [facility] (04/30/2016 18:08:Yane Vitale RN) Spir/Cult Dietary Needs: [facility] (04/30/2016 18:08:Yane Vitale RN) LIVING SITUATION/DISCHARGE PLAN Living Arrangements: House (04/30/2016 18:08:Yane Vitale RN) Adequate Access to:: Electric; Heat; Refrigeration; Plumbing/Running water; Phone; Transportation (04/30/2016 18:08:Yane Vitale RN) WIC Program: [facility] (04/30/2016 18:08:Yane Vitale RN) Discharge Multimedia Technician Person: Jeramy Wynne (04/30/2016 18:08:Yane Vitale RN) Person to Help after Discharge: Jeramy Wynne (04/30/2016 18:08:Yane Vitale RN) Currently Using Commun Resources: [facility] (04/30/2016 18:08:Yane Vitale RN) Outside Agency/Product Picker: [facility] (04/30/2016 18:08:Yane Vitale RN) Car Seat for Discharge: [facility] (04/30/2016 18:08:Yane Vitale RN) Adoption Requested: [facility] (04/30/2016 18:08:Yane Vitale RN) Pt Contact w/ Post : N/A (04/30/2016 18:08:Yane Vitale RN) LABS Blood Type: O Positive (04/30/2016 18:08:Patrick Bustos RN) Antibody Screen: Negative (04/30/2016 18:08:Patrick Bustos RN) Hemoglobin: 8.8 L (06/13/2016 06:47:QS system process) Hematocrit: 27.4 L (06/13/2016 06:47:QS system process) MCV: 80 (06/13/2016 06:47:QS system process) Group Beta Strep: Negative (04/30/2016 18:08:Patrick Bustos RN) Gonorrhea: Negative (04/30/2016 18:08:Patrick Bustos RN) Chlamydia: Negative (04/30/2016 18:08:Patrick Bustos RN) RPR/VDRL: Nonreactive (04/30/2016 18:08:Yane Vitale RN) HIV Exposure Test: Negative (04/30/2016 18:08:Patrick Bustos RN) Hepatitis B: Negative (04/30/2016 18:08:Patrick Bustos RN) Rubella: Immune (04/30/2016 18:08:Patrick Bustos RN) Varicella: Positive (04/30/2016 18:08:Patrick Bustos RN) Varicella Titer: 641 (04/30/2016 18:08:Patrick Bustos RN) OB/PREVIOUS HISTORY LMP: 08/28/2015 00:00 (04/30/2016 18:08:Patrick Bustos RN) Previous Procedures: Ultrasound; NST (04/30/2016 18:08:Yane Vitale RN) Current Procedures: Ultrasound; NST (04/30/2016 18:08:Yane Vitale RN) History of Previous : No (04/30/2016 18:08:Yane Vitale RN) History of Gestational Diabetes: No (04/30/2016 18:08:Yane Vitale RN) History of PIH: No (04/30/2016 18:08:Yane Vitale RN) History of Incompetent Cervix: No (04/30/2016 18:08:Yane Vitale RN) History of Placenta Previa/Abrup: No (04/30/2016 18:08:Yane Vitale RN) History of Macrosomia: No (04/30/2016 18:08:Yane Vitale RN) History of IUGR: No (04/30/2016 18:08:Yane Vitale RN) History of Hemorrhage: No (04/30/2016 18:08:Yane Vitale RN) History of Loss/Stillborn: No (04/30/2016 18:08:Yane Vitale RN) History of : No (04/30/2016 18:08:Yane Vitale RN) History of D (Rh) Sensitization: No (04/30/2016 18:08:Yane Vitale RN) History Recurrent Loss/Stillborn: No (04/30/2016 18:08:Yane Vitale RN) History Depression/PP Depression: No (04/30/2016 18:08:Yane Vitale RN) History of Uterine Anomaly/NEVAEH: No (04/30/2016 18:08:Yane Vitale RN) History of Infertility: No (04/30/2016 18:08:Yane Vitale RN) History of ART Treatment: No (04/30/2016 18:08:Yane Vitale RN) History of NEVAEH: No (04/30/2016 18:08:Yane Vitale RN) Comments Obstetrical History: G1- 1993 at 40 weeks G2- 1995- at 40 weeks G3- 2007- EAB G4- current (04/30/2016 18:08:Yane Vitale RN) MEDICAL HISTORY Med Hx Diabetes: No (04/30/2016 18:08:Yane Vitale RN) Med Hx Hypertension: No (04/30/2016 18:08:Yane Vitale RN) Med Hx Heart Disease: No (04/30/2016 18:08:Yane Vitale RN) Med Hx Autoimmune Disorder: No (04/30/2016 18:08:Yane Vitale RN) Med Hx Kidney Disease/UTI: No (04/30/2016 18:08:Yane Vitale RN) Med Hx Neurologic/Epilepsy: No (04/30/2016 18:08:Yane Vitale RN) Med Hx Psychiatric Disorders: No (04/30/2016 18:08:Yane Vitale RN) Med Hx Hepatitis/Liver Disease: No (04/30/2016 18:08:Yane Vitale RN) Med Hx Varicosities/Phlebitis: No (04/30/2016 18:08:Yane Vitale RN) Med Hx Thyroid Dysfunction: No (04/30/2016 18:08:Yane Vitale RN) Med Hx Trauma/Violence: No (04/30/2016 18:08:Yane Vitale RN) Med Hx Blood Transfusion: No (04/30/2016 18:08:Yane Vitale RN) Med Hx Pulmonary (Asthma,TB): No (04/30/2016 18:08:Yane Vitale RN) Med Hx Breast: No (04/30/2016 18:08:Yane Vitale RN) Med Hx SENIOR 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 (04/30/2016 18:08:Yane Vitale RN) Med Hx Hospitalization/Surgery: Yes (04/30/2016 18:08:Yane Vitale RN) Med Hx Anesthetic Complications: No (04/30/2016 18:08:Yane Vitale RN) Med Hx Abnormal Pap Smear: No (04/30/2016 18:08:Yane Vitale RN) Other Medical Diseases: No (04/30/2016 18:08:Yane Vitale RN) Med Hx Significant Family Hx: No (04/30/2016 18:08:Yane Vitale RN) Details of Med/Surg Hx: 1994 gallbladder removal (04/30/2016 18:08:Yane Vitale RN) INFECTIOUS HISTORY Inf Hx Gonorrhea: No (04/30/2016 18:08:Yane Vitale RN) Inf Hx Chlamydia: Yes (04/30/2016 18:08:Yane Vitale RN) Inf Hx Syphilis: No (04/30/2016 18:08:Yane Vitale RN) Inf Hx HIV/AIDS: No (04/30/2016 18:08:Yane Vitale RN) Inf Hx Human Papilloma Virus: No (04/30/2016 18:08:Yane Viatle RN) Inf Hx Pt/Partner Genital Herpes: No (04/30/2016 18:08:Yane Vitale RN) Inf Hx Tuberculosis/Exposure: No (04/30/2016 18:08:Yane Vitale RN) Inf Hx Hepatitis B,C: No (04/30/2016 18:08:Yane Vitale RN) Inf Hx Rash or Viral Illness: No (04/30/2016 18:08:Yane Vitale RN) Details of Infectious Hx: Chlamydia 1994 (04/30/2016 18:08:Yane Vitale RN) GENETIC HISTORY Gen Hx Age >=35 at [place]: Yes (04/30/2016 18:08:Mary Vidales RN) Gen Hx Thalassemia: No (04/30/2016 18:08:Yane Vitale RN) Gen Hx Congenital Heart Defect: No (04/30/2016 18:08:Yane Vitale RN) Gen Hx Neural Tube Defect: No (04/30/2016 18:08:Yane Vitale RN) Gen Hx Down's Syndrome: No (04/30/2016 18:08:Yane Vitale RN) Gen Hx Andrew-Sachs: No (04/30/2016 18:08:Yane Vitale RN) Gen Hx Cara: No (04/30/2016 18:08:Yane Vitale RN) Gen Hx Familial Dysautonomia: No (04/30/2016 18:08:Yane Vitale RN) Gen Hx Sickle Cell Disease/Trait: No (04/30/2016 18:08:Yane Vitale RN) Gen Hx Hemophilia/Blood Disorder: No (04/30/2016 18:08:Yane Vitale RN) Gen Hx Muscular Dystrophy: No (04/30/2016 18:08:Yane Vitale RN) Gen Hx Cystic Fibrosis: No (04/30/2016 18:08:Yane Vitale RN) Gen Hx Huntingtons Chorea: No (04/30/2016 18:08:Yane Vitale RN) Gen Hx Mental Retardation/Autism: No (04/30/2016 18:08:Yane Vitale RN) Gen Hx Tested for Fragile X: No (04/30/2016 18:08:Yane Vitale RN) Gen Hx Other Inher/Chromosomal: No (04/30/2016 18:08:Yane Vitale RN) Gen Hx Maternal Metabolic DO: No (04/30/2016 18:08:Yane Vitale RN) Gen Hx Pt Father or FOB Defect: No (04/30/2016 18:08:Yane Vitale RN) Gen Hx Other Genetic History: No (04/30/2016 18:08:Yane Vitale RN) Gen Hx Drugs/Meds since LMP: Yes (04/30/2016 18:08:Yane Vitale RN) Gen Hx Medications: folic acid, tylenol tylenol (04/30/2016 18:08:Patrick Bustos RN)
--- NOTE | 2016-06-23 06:13 | L&D Current Admission ---
Current Admit Datetime Report Generated by CPN: 06/23/2016 06:00 ADMISSION INFORMATION Current Admit Date/Time: 06/11/2016 17:46 (06/11/2016 15:00:Patrick Bustos RN) Reason for Admission: Induction of Labor (06/11/2016 15:00:Patrick Bustos RN) EGA per Dates: 41.1 (06/11/2016 15:00:QS system process) Method of Arrival: Ambulatory (06/11/2016 15:00:Patrick Bustos RN) Reason for Induction: Postterm; Other (06/11/2016 15:00:Patrick Bustos RN) Reason for Induction- Other: AMA (06/11/2016 15:00:Patrick Bustos RN) Records Available: Yes (06/11/2016 15:00:Patrick Bustos RN) General Admission Information: Reviewed; Updated; Confirmed (06/11/2016 15:00:Patrick Bustos RN) General Admission Reviewed By: Kena Bustos RN (06/11/2016 15:00:Patrick Bustos RN) BELONGINGS/ADVANCED DIRECTIVES Disposition of Belongings: Kept with Patient (06/11/2016 15:00:Patrick Bustos RN) Comments Regarding Disposition: See [facility] belongings form filled out by patient (06/11/2016 15:00:Patrick Bustos RN) Advance Direct for Healthcare: No, and Wants No Information (06/11/2016 15:00:Patrick Bustos RN) Durable Power of [employer] Professor: No (06/11/2016 15:00:Patrick Bustos RN) Living Will: No (06/11/2016 15:00:Patrick Bustos RN) Organ Donor: No (06/11/2016 15:00:Patrick Bustos RN) Pt Rights Information Given: Yes (06/11/2016 15:00:Patrick Bustos RN) Pt Understands Pt Rights: Yes (06/11/2016 15:00:Patrick Bustos RN) LEARNING ASSESSMENT Knowledge Level: Understands L_D Process (06/11/2016 15:00:Patrick Bustos RN) Barriers to Learning: None (06/11/2016 15:00:Patrick Bustos RN) Learning Readiness: Motivated (06/11/2016 15:00:Patrick Bustos RN) Learns Best By: 1 to 1 Instruction (06/11/2016 15:00:Patrick Bustos RN) Learning Needs: Labor and Delivery Process; Pain Management; Symptoms to Report; Treatment Plan; Medication; Diagnosis (06/11/2016 15:00:Patrick Bustos RN) DOMESTIC VIOLANCE SCREENING Dom Viol Threatened/Hurt: No (06/11/2016 15:00:Patrick Bustos RN) Hx of Abuse/Neglect past 2yrs: No (06/11/2016 15:00:Patrick Bustos RN) Feel Unsafe Going Home: No (06/11/2016 15:00:Patrick Bustos RN) Addt'l Observ Indicating Abuse: No (06/11/2016 15:00:Patrick Bustos RN) Reason Unable to Complete Screen: N/A, Screen Completed (06/11/2016 15:00:Patrick Bustos RN) Considered Personal Harm/Suicide: No (06/11/2016 15:00:Patrick Bustos RN) NUTRITIONAL/FUNCTIONAL SCREENING Problem with Appetite >5 Days: No (06/11/2016 15:00:Patrick Bustos RN) Chew/Swallow Difficulties: No (06/11/2016 15:00:Patrick Bustos RN) Inappropriate Wt Gain/Loss: No (06/11/2016 15:00:Patrick Bustos RN) Presence Skin Breakdown/Ulcer: No (06/11/2016 15:00:Patrick Bustos RN) Special Diet: No (06/11/2016 15:00:Patrick Bustos RN) Pt Requests Manager Freelance Visit: No (06/11/2016 15:00:Patrick Bustos RN) Hx of Any of the Following?: N/A (06/11/2016 15:00:Patrick Bustos RN) New Diagnosis of: N/A (06/11/2016 15:00:Patrick Bustos RN) Requires Assist w/Ambulation: No (06/11/2016 15:00:Patrick Bustos RN) Uses Assist Device to Ambulate: No (06/11/2016 15:00:Patrick Bustos RN) Pt Requires Help w/ADL's: No (06/11/2016 15:00:Patrick Bustos RN)
--- NOTE | 2016-06-24 06:13 | L&D General Admission ---
General Admit Datetime Report Generated by CPN: 06/24/2016 06:00 INFORMATION Patient Age: 41 (04/30/2016 18:04:QS system process) EDC: 06/03/2016 00:00 (04/30/2016 18:08:Yane Vitale RN) LMP: 08/28/2015 00:00 (04/30/2016 18:08:Patrick Bustos RN) : 4 (04/30/2016 18:08:Yane Vitale RN) Para: 2 (04/30/2016 18:08:Helen Randolph RN) Term: 2 (04/30/2016 18:08:Yane Vitale RN) Induced Abortions: 1 (04/30/2016 18:08:Yane Vitale RN) Livin (04/30/2016 18:08:Patrick Bustos RN) Cesareans: 0 (04/30/2016 18:08:Patrick Bustos RN) Baby, Number in Womb: 1 (04/30/2016 18:40:Yane Iam, RN) CARE Primary Zigzagger: [facility] (04/30/2016 18:08:Yane Vitale RN) Month of 1st Visit: September (04/30/2016 18:08:Yane Vitale RN) Adequate Care: Yes (04/30/2016 18:08:Yane Vitale RN) Prepregnancy Weight (lb): 172 (04/30/2016 18:08:Patrick Bustos RN) Prepregnancy Weight (kg): 78.2 (04/30/2016 18:08:QS system process) Height (in): 68 (06/14/2016 10:13:QS system process) ALLERGIES Medication Allergy: No (04/30/2016 18:08:Yane Vitale RN) Medication Allergies: No Known Allergies (06/11/2016) (06/11/2016 14:46:QS system process) Latex Allergy: No Latex Allergies (04/30/2016 18:08:Yane Vitale RN) Food Allergies: n/a (04/30/2016 18:08:Yane Vitale RN) Environmental Allergies: n/a (04/30/2016 18:08:Yane Vitale RN) COMMUNICATION Primary Language: Yemeni (04/30/2016 18:08:Yane Vitale RN) Medical Tx Preferred Language: Yemeni (04/30/2016 18:08:Yane Vitale RN) Communication Barrier(s): None (04/30/2016 18:08:Patrick Bustos RN) DEMOGRAPHICS Address: [address] [place] [id number] (04/30/2016 18:04:QS system process) Zipcode: [address] (04/30/2016 18:04:QS system process) Home (04/30/2016 18:04:QS system process) SSN: [id number] (04/30/2016 18:04:QS system process) Next of Kin Name: JERAMY WYNNE (04/30/2016 18:04:QS system process) Next of Kin (04/30/2016 18:04:QS system process) Next of Kin Relationship: SPO (04/30/2016 18:04:QS system process) Date of : 1975 (04/30/2016 18:04:QS system process) Marital Status: (04/30/2016 18:04:QS system process) Sex: Female (04/30/2016 18:04:QS system process) Race: Other (04/30/2016 18:04:QS system process) Ethnicity: Non- or (04/30/2016 18:04:QS system process) Protestant: Mandaeism (04/30/2016 18:04:QS system process) DRUG AND ALCOHOL USE Alcohol: No (04/30/2016 18:08:Yane Vitale RN) Cigarettes: Never Smoker. [id number] (04/30/2016 18:08:Yane Vitale RN) Marijuana: No (04/30/2016 18:08:Yane Vitale RN) Cocaine: No (04/30/2016 18:08:Yane Vitale RN) Other Illicit Drugs: No (04/30/2016 18:08:Yane Vitale RN) VACCINE HISTORY Influenza Vaccine: No (04/30/2016 18:08:Yane Viatle RN) Pneumococcal Vaccine: No (04/30/2016 18:08:Yane Vitale RN) Tetanus Vaccine: Uncertain (04/30/2016 18:08:Yane Vitale RN) Tdap Vaccine: Yes (04/30/2016 18:08:Patrick Bustos RN) Tdap Date: 11/23/2011 (04/30/2016 18:08:Patrick Bustos RN) Hepatitis B Vaccine: Uncertain (04/30/2016 18:08:Yane Vitale RN) Inspector Salvage: [facility] (04/30/2016 18:08:Yane Vitale RN) Feeding Preference: Both (04/30/2016 18:08:Shelby Smith RN) Benefit of Breast Feed Discussed: Yes (04/30/2016 18:08:Yane Vitale RN) Circumcision: N/A (04/30/2016 18:08:Yane Vitale RN) Classes Attended: No (04/30/2016 18:08:Yane Vitale RN) Tubal Ligation: No (04/30/2016 18:08:Yane Vitale RN) Tubal Authorization Signed: N/A (04/30/2016 18:08:Yane Vitale RN) Consent: N/A (04/30/2016 18:08:Yane Vitale RN) Consent Signed: N/A (04/30/2016 18:08:Yane Vitale RN) Pain Management Plans: Natural (04/30/2016 18:08:Patrick Bustos RN) Plans for Labor and Delivery: None (04/30/2016 18:08:Yane Vitale RN) Support Person: Jeramy Wynne (04/30/2016 18:08:Yane Vitale RN) Support Person Relationship: (04/30/2016 18:08:Yane Vitale RN) Cultural/Spritual Practice: [facility] (04/30/2016 18:08:Yane Vitale RN) Spir/Cult Dietary Needs: [facility] (04/30/2016 18:08:Yane Vitale RN) LIVING SITUATION/DISCHARGE PLAN Living Arrangements: House (04/30/2016 18:08:Yane Vitale RN) Adequate Access to:: Electric; Heat; Refrigeration; Plumbing/Running water; Phone; Transportation (04/30/2016 18:08:Yane Vitale RN) WIC Program: [facility] (04/30/2016 18:08:Yane Vitale RN) Discharge Traffic Personnel Supervisor Person: Jeramy Wynne (04/30/2016 18:08:Yane Vitale RN) Person to Help after Discharge: Jeramy Wynne (04/30/2016 18:08:Yane Vitale RN) Currently Using Commun Resources: [facility] (04/30/2016 18:08:Yane Vitale RN) Outside Agency/Color Corrector: [facility] (04/30/2016 18:08:Yane Vitale RN) Car Seat for Discharge: [facility] (04/30/2016 18:08:Yane Vitale RN) Adoption Requested: [facility] (04/30/2016 18:08:Yane Vitale RN) Pt Contact w/ Post : N/A (04/30/2016 18:08:Yane Vitale RN) LABS Blood Type: O Positive (04/30/2016 18:08:Patrick Bustos RN) Antibody Screen: Negative (04/30/2016 18:08:Patrick Bustos RN) Hemoglobin: 8.8 L (06/13/2016 06:47:QS system process) Hematocrit: 27.4 L (06/13/2016 06:47:QS system process) MCV: 80 (06/13/2016 06:47:QS system process) Group Beta Strep: Negative (04/30/2016 18:08:Patrick Bustos RN) Gonorrhea: Negative (04/30/2016 18:08:Patrick Bustos RN) Chlamydia: Negative (04/30/2016 18:08:Patrick Bustos RN) RPR/VDRL: Nonreactive (04/30/2016 18:08:Yane Vitale RN) HIV Exposure Test: Negative (04/30/2016 18:08:Patrick Bustos RN) Hepatitis B: Negative (04/30/2016 18:08:Patrick Bustos RN) Rubella: Immune (04/30/2016 18:08:Patrick Bustos RN) Varicella: Positive (04/30/2016 18:08:Patrick Bustos RN) Varicella Titer: 641 (04/30/2016 18:08:Patrick Bustos RN) OB/PREVIOUS HISTORY LMP: 08/28/2015 00:00 (04/30/2016 18:08:Patrick Bustos RN) Previous Procedures: Ultrasound; NST (04/30/2016 18:08:Yane Vitale RN) Current Procedures: Ultrasound; NST (04/30/2016 18:08:Yane Vitale RN) History of Previous : No (04/30/2016 18:08:Yane Vitale RN) History of Gestational Diabetes: No (04/30/2016 18:08:Yane Vitale RN) History of PIH: No (04/30/2016 18:08:Yane Vitale RN) History of Incompetent Cervix: No (04/30/2016 18:08:Yane Vitale RN) History of Placenta Previa/Abrup: No (04/30/2016 18:08:Yane Vitale RN) History of Macrosomia: No (04/30/2016 18:08:Yane Vitale RN) History of IUGR: No (04/30/2016 18:08:Yane Vitale RN) History of Hemorrhage: No (04/30/2016 18:08:Yane Vitale RN) History of Loss/Stillborn: No (04/30/2016 18:08:Yane Vitale RN) History of : No (04/30/2016 18:08:Yane Vitale RN) History of D (Rh) Sensitization: No (04/30/2016 18:08:Yane Vitale RN) History Recurrent Loss/Stillborn: No (04/30/2016 18:08:Yane Vitale RN) History Depression/PP Depression: No (04/30/2016 18:08:Yane Vitale RN) History of Uterine Anomaly/NEVAEH: No (04/30/2016 18:08:Yane Vitale RN) History of Infertility: No (04/30/2016 18:08:Yane Vitale RN) History of ART Treatment: No (04/30/2016 18:08:Yane Vitale RN) History of NEVAEH: No (04/30/2016 18:08:Yane Vitale RN) Comments Obstetrical History: G1- 1993 at 40 weeks G2- 1995- at 40 weeks G3- 2007- EAB G4- current (04/30/2016 18:08:Yane Vitale RN) MEDICAL HISTORY Med Hx Diabetes: No (04/30/2016 18:08:Yane Vitale RN) Med Hx Hypertension: No (04/30/2016 18:08:Yane Vitale RN) Med Hx Heart Disease: No (04/30/2016 18:08:Yane Vitale RN) Med Hx Autoimmune Disorder: No (04/30/2016 18:08:Yane Vitale RN) Med Hx Kidney Disease/UTI: No (04/30/2016 18:08:Yane Vitale RN) Med Hx Neurologic/Epilepsy: No (04/30/2016 18:08:Yane Vitale RN) Med Hx Psychiatric Disorders: No (04/30/2016 18:08:Yane Vitale RN) Med Hx Hepatitis/Liver Disease: No (04/30/2016 18:08:Yane Vitale RN) Med Hx Varicosities/Phlebitis: No (04/30/2016 18:08:Yane Vitale RN) Med Hx Thyroid Dysfunction: No (04/30/2016 18:08:Yane Vitale RN) Med Hx Trauma/Violence: No (04/30/2016 18:08:Yane Vitale RN) Med Hx Blood Transfusion: No (04/30/2016 18:08:Yane Vitale RN) Med Hx Pulmonary (Asthma,TB): No (04/30/2016 18:08:Yane Vitale RN) Med Hx Breast: No (04/30/2016 18:08:Yane Vitale RN) Med Hx MANAGER EMPLOYEE RELATIONS Surgery: No (04/30/2016 18:08:Yane Vitale RN) Med Hx Hospitalization/Surgery: Yes (04/30/2016 18:08:Yane Vitale RN) Med Hx Anesthetic Complications: No (04/30/2016 18:08:Yane Vitale RN) Med Hx Abnormal Pap Smear: No (04/30/2016 18:08:Yane Vitale RN) Other Medical Diseases: No (04/30/2016 18:08:Yane Vitale RN) Med Hx Significant Family Hx: No (04/30/2016 18:08:Yane Vitale RN) Details of Med/Surg Hx: 1994 gallbladder removal (04/30/2016 18:08:Yane Vitale RN) INFECTIOUS HISTORY Inf Hx Gonorrhea: No (04/30/2016 18:08:Yane Vitale RN) Inf Hx Chlamydia: Yes (04/30/2016 18:08:Yane Vitale RN) Inf Hx Syphilis: No (04/30/2016 18:08:Yane Vitale RN) Inf Hx HIV/AIDS: No (04/30/2016 18:08:Yane Vitale RN) Inf Hx Human Papilloma Virus: No (04/30/2016 18:08:Yane Vitale RN) Inf Hx Pt/Partner Genital Herpes: No (04/30/2016 18:08:Yane Vitale RN) Inf Hx Tuberculosis/Exposure: No (04/30/2016 18:08:Yane Vitale RN) Inf Hx Hepatitis B,C: No (04/30/2016 18:08:Yane Vitale RN) Inf Hx Rash or Viral Illness: No (04/30/2016 18:08:Yane Vitale RN) Details of Infectious Hx: Chlamydia 1994 (04/30/2016 18:08:Yane Vitale RN) GENETIC HISTORY Gen Hx Age >=35 at [place]: Yes (04/30/2016 18:08:Mary Vidales RN) Gen Hx Thalassemia: No (04/30/2016 18:08:Yane Vitale RN) Gen Hx Congenital Heart Defect: No (04/30/2016 18:08:Yane Vitale RN) Gen Hx Neural Tube Defect: No (04/30/2016 18:08:Yane Vitale RN) Gen Hx Down's Syndrome: No (04/30/2016 18:08:Yane Vitale RN) Gen Hx Andrew-Sachs: No (04/30/2016 18:08:Yane Vitale RN) Gen Hx Cara: No (04/30/2016 18:08:Yane Vitale RN) Gen Hx Familial Dysautonomia: No (04/30/2016 18:08:Yane Vitale RN) Gen Hx Sickle Cell Disease/Trait: No (04/30/2016 18:08:Yane Vitale RN) Gen Hx Hemophilia/Blood Disorder: No (04/30/2016 18:08:Yane Vitale RN) Gen Hx Muscular Dystrophy: No (04/30/2016 18:08:Yane Vitale RN) Gen Hx Cystic Fibrosis: No (04/30/2016 18:08:Yane Vitale RN) Gen Hx Huntingtons Chorea: No (04/30/2016 18:08:Yane Vitale RN) Gen Hx Mental Retardation/Autism: No (04/30/2016 18:08:Yane Vitale RN) Gen Hx Tested for Fragile X: No (04/30/2016 18:08:Yane Vitale RN) Gen Hx Other Inher/Chromosomal: No (04/30/2016 18:08:Yane Vitale RN) Gen Hx Maternal Metabolic DO: No (04/30/2016 18:08:Yane Vitale RN) Gen Hx Pt Father or FOB Defect: No (04/30/2016 18:08:Yane Vitale RN) Gen Hx Other Genetic History: No (04/30/2016 18:08:Yane Vitale RN) Gen Hx Drugs/Meds since LMP: Yes (04/30/2016 18:08:Yane Vitale RN) Gen Hx Medications: folic acid, tylenol tylenol (04/30/2016 18:08:Patrick Bustos RN)
--- NOTE | 2016-06-24 06:13 | L&D Current Admission ---
Current Admit Datetime Report Generated by CPN: 06/24/2016 06:00 ADMISSION INFORMATION Current Admit Date/Time: 06/11/2016 17:46 (06/11/2016 15:00:Patrick Bustos RN) Reason for Admission: Induction of Labor (06/11/2016 15:00:Patrick Bustos RN) EGA per Dates: 41.1 (06/11/2016 15:00:QS system process) Method of Arrival: Ambulatory (06/11/2016 15:00:Patrick Bustos RN) Reason for Induction: Postterm; Other (06/11/2016 15:00:Patrick Bustos RN) Reason for Induction- Other: AMA (06/11/2016 15:00:Patrick Bustos RN) Records Available: Yes (06/11/2016 15:00:Patrick Bustos RN) General Admission Information: Reviewed; Updated; Confirmed (06/11/2016 15:00:Patrick Bustos RN) General Admission Reviewed By: Kena Bustos RN (06/11/2016 15:00:Patrick Bustos RN) BELONGINGS/ADVANCED DIRECTIVES Disposition of Belongings: Kept with Patient (06/11/2016 15:00:Patrick Bustos RN) Comments Regarding Disposition: See [facility] belongings form filled out by patient (06/11/2016 15:00:Patrick Bustos RN) Advance Direct for Healthcare: No, and Wants No Information (06/11/2016 15:00:Patrick Bustos RN) Durable Power of [place] Lacer Hand: No (06/11/2016 15:00:Patrick Bustos RN) Living Will: No (06/11/2016 15:00:Patrick Bustos RN) Organ Donor: No (06/11/2016 15:00:Patrick Bustos RN) Pt Rights Information Given: Yes (06/11/2016 15:00:Patrick Bustos RN) Pt Understands Pt Rights: Yes (06/11/2016 15:00:Patrick Bustos RN) LEARNING ASSESSMENT Knowledge Level: Understands L_D Process (06/11/2016 15:00:Patrick Bustos RN) Barriers to Learning: None (06/11/2016 15:00:Patrick Bustos RN) Learning Readiness: Motivated (06/11/2016 15:00:Patrick Bustos RN) Learns Best By: 1 to 1 Instruction (06/11/2016 15:00:Patrick Bustos RN) Learning Needs: Labor and Delivery Process; Pain Management; Symptoms to Report; Treatment Plan; Medication; Diagnosis (06/11/2016 15:00:Patrick Bustos RN) DOMESTIC VIOLANCE SCREENING Dom Viol Threatened/Hurt: No (06/11/2016 15:00:Patrick Bustos RN) Hx of Abuse/Neglect past 2yrs: No (06/11/2016 15:00:Patrick Bustos RN) Feel Unsafe Going Home: No (06/11/2016 15:00:Patrick Bustos RN) Addt'l Observ Indicating Abuse: No (06/11/2016 15:00:Patrick Bustos RN) Reason Unable to Complete Screen: N/A, Screen Completed (06/11/2016 15:00:Patrick Bustos RN) Considered Personal Harm/Suicide: No (06/11/2016 15:00:Patrick Bustos RN) NUTRITIONAL/FUNCTIONAL SCREENING Problem with Appetite >5 Days: No (06/11/2016 15:00:Patrick Bustos RN) Chew/Swallow Difficulties: No (06/11/2016 15:00:Patrick Bustos RN) Inappropriate Wt Gain/Loss: No (06/11/2016 15:00:Patrick Bustos RN) Presence Skin Breakdown/Ulcer: No (06/11/2016 15:00:Patrick Bustos RN) Special Diet: No (06/11/2016 15:00:Patrick Bustos RN) Pt Requests Salesperson Hearing Aids Visit: No (06/11/2016 15:00:Patrick Bustos RN) Hx of Any of the Following?: N/A (06/11/2016 15:00:Patrick Bustos RN) New Diagnosis of: N/A (06/11/2016 15:00:Patrick Bustos RN) Requires Assist w/Ambulation: No (06/11/2016 15:00:Patrick Bustos RN) Uses Assist Device to Ambulate: No (06/11/2016 15:00:Patrick Bustos RN) Pt Requires Help w/ADL's: No (06/11/2016 15:00:Patrick Bustos RN)
--- NOTE | 2016-06-25 06:11 | L&D General Admission ---
General Admit Datetime Report Generated by CPN: 06/25/2016 06:00 INFORMATION Patient Age: 41 (04/30/2016 18:04:QS system process) EDC: 06/03/2016 00:00 (04/30/2016 18:08:Yane Vitale RN) LMP: 08/28/2015 00:00 (04/30/2016 18:08:Patrick Bustos RN) : 4 (04/30/2016 18:08:Yane Vitale RN) Para: 2 (04/30/2016 18:08:Helen Randolph RN) Term: 2 (04/30/2016 18:08:Yane Vitale RN) Induced Abortions: 1 (04/30/2016 18:08:Yane Vitale RN) Livin (04/30/2016 18:08:Patrick Bustos RN) Cesareans: 0 (04/30/2016 18:08:Patrick Bustos RN) Baby, Number in Womb: 1 (04/30/2016 18:40:Yane Iam, RN) CARE Primary Maintenance Supervisor Electrical: [employer] (04/30/2016 18:08:Yane Vitale RN) Month of 1st Visit: September (04/30/2016 18:08:Yane Vitale RN) Adequate Care: Yes (04/30/2016 18:08:Yane Vitale RN) Prepregnancy Weight (lb): 172 (04/30/2016 18:08:Patrick Bustos RN) Prepregnancy Weight (kg): 78.2 (04/30/2016 18:08:QS system process) Height (in): 68 (06/14/2016 10:13:QS system process) ALLERGIES Medication Allergy: No (04/30/2016 18:08:Yane Vitale RN) Medication Allergies: No Known Allergies (06/11/2016) (06/11/2016 14:46:QS system process) Latex Allergy: No Latex Allergies (04/30/2016 18:08:Yane Vitale RN) Food Allergies: n/a (04/30/2016 18:08:Yane Vitale RN) Environmental Allergies: n/a (04/30/2016 18:08:Yane Vitale RN) COMMUNICATION Primary Language: Cymro (04/30/2016 18:08:Yane Vitale RN) Medical Tx Preferred Language: Cymro (04/30/2016 18:08:Yane Vitale RN) Communication Barrier(s): None (04/30/2016 18:08:Patrick Bustos RN) DEMOGRAPHICS Address: [address] [place] [id number] (04/30/2016 18:04:QS system process) Zipcode: [id number] (04/30/2016 18:04:QS system process) Home (04/30/2016 18:04:QS system process) SSN: [id number] (04/30/2016 18:04:QS system process) Next of Kin Name: JERAMY WYNNE (04/30/2016 18:04:QS system process) Next of Kin (04/30/2016 18:04:QS system process) Next of Kin Relationship: SPO (04/30/2016 18:04:QS system process) Date of : 1975 (04/30/2016 18:04:QS system process) Marital Status: (04/30/2016 18:04:QS system process) Sex: Female (04/30/2016 18:04:QS system process) Race: Other (04/30/2016 18:04:QS system process) Ethnicity: Non- or (04/30/2016 18:04:QS system process) Methodist: Nondenominational (04/30/2016 18:04:QS system process) DRUG AND ALCOHOL USE Alcohol: No (04/30/2016 18:08:Yane Vitale RN) Cigarettes: Never Smoker. [id number] (04/30/2016 18:08:Yane Vitale RN) Marijuana: No (04/30/2016 18:08:Yane Vitale RN) Cocaine: No (04/30/2016 18:08:Yane Vitale RN) Other Illicit Drugs: No (04/30/2016 18:08:Yane Vitale RN) VACCINE HISTORY Influenza Vaccine: No (04/30/2016 18:08:Yane Vitale RN) Pneumococcal Vaccine: No (04/30/2016 18:08:Yane Vitale RN) Tetanus Vaccine: Uncertain (04/30/2016 18:08:Yane Vitale RN) Tdap Vaccine: Yes (04/30/2016 18:08:Patrick Bustos RN) Tdap Date: 11/23/2011 (04/30/2016 18:08:Patrick Bustos RN) Hepatitis B Vaccine: Uncertain (04/30/2016 18:08:Yane Vitale RN) Rides Supervisor: [facility] (04/30/2016 18:08:Yane Vitale RN) Feeding Preference: Both (04/30/2016 18:08:Shelby Smith RN) Benefit of Breast Feed Discussed: Yes (04/30/2016 18:08:Yane Vitale RN) Circumcision: N/A (04/30/2016 18:08:Yane Vitale RN) Classes Attended: No (04/30/2016 18:08:Yane Vitale RN) Tubal Ligation: No (04/30/2016 18:08:Yane Vitale RN) Tubal Authorization Signed: N/A (04/30/2016 18:08:Yane Vitale RN) Consent: N/A (04/30/2016 18:08:Yane Vitale RN) Consent Signed: N/A (04/30/2016 18:08:Yane Vitale RN) Pain Management Plans: Natural (04/30/2016 18:08:Patrick Bustos RN) Plans for Labor and Delivery: None (04/30/2016 18:08:Yane Vitale RN) Support Person: Jeramy Wynne (04/30/2016 18:08:Yane Vitale RN) Support Person Relationship: (04/30/2016 18:08:Yane Vitale RN) Cultural/Spritual Practice: [facility] (04/30/2016 18:08:Yane Vitale RN) Spir/Cult Dietary Needs: [facility] (04/30/2016 18:08:Yane Vitale RN) LIVING SITUATION/DISCHARGE PLAN Living Arrangements: House (04/30/2016 18:08:Yane Vitale RN) Adequate Access to:: Electric; Heat; Refrigeration; Plumbing/Running water; Phone; Transportation (04/30/2016 18:08:Yane Vitale RN) WIC Program: [facility] (04/30/2016 18:08:Yane Vitale RN) 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 Maintenance 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 Person: Jeramy Wynne (04/30/2016 18:08:Yane Vitale RN) Person to Help after Discharge: Jeramy Wynne (04/30/2016 18:08:Yane Vitale RN) Currently Using Commun Resources: [facility] (04/30/2016 18:08:Yane Vitale RN) Outside Agency/Sweetbread Trimmer: [facility] (04/30/2016 18:08:Yane Vitale RN) Car Seat for Discharge: [facility] (04/30/2016 18:08:Yane Vitale RN) Adoption Requested: [facility] (04/30/2016 18:08:Yane Vitale RN) Pt Contact w/ Post : N/A (04/30/2016 18:08:Yane Vitale RN) LABS Blood Type: O Positive (04/30/2016 18:08:Patrick Bustos RN) Antibody Screen: Negative (04/30/2016 18:08:Patrick Bustos RN) Hemoglobin: 8.8 L (06/13/2016 06:47:QS system process) Hematocrit: 27.4 L (06/13/2016 06:47:QS system process) MCV: 80 (06/13/2016 06:47:QS system process) Group Beta Strep: Negative (04/30/2016 18:08:Patrick Bustos RN) Gonorrhea: Negative (04/30/2016 18:08:Patrick Bustos RN) Chlamydia: Negative (04/30/2016 18:08:Patrick Bustso RN) RPR/VDRL: Nonreactive (04/30/2016 18:08:Yane Vitale RN) HIV Exposure Test: Negative (04/30/2016 18:08:Patrick Bustos RN) Hepatitis B: Negative (04/30/2016 18:08:Patrick Bustos RN) Rubella: Immune (04/30/2016 18:08:Patrick Bustos RN) Varicella: Positive (04/30/2016 18:08:Patrick Bustos RN) Varicella Titer: 641 (04/30/2016 18:08:Patrick Bustos RN) OB/PREVIOUS HISTORY LMP: 08/28/2015 00:00 (04/30/2016 18:08:Patrick Bustos RN) Previous Procedures: Ultrasound; NST (04/30/2016 18:08:Yane Vitale RN) Current Procedures: Ultrasound; NST (04/30/2016 18:08:Yane Vitale RN) History of Previous : No (04/30/2016 18:08:Yane Vitale RN) History of Gestational Diabetes: No (04/30/2016 18:08:Yane Vitale RN) History of PIH: No (04/30/2016 18:08:Yane Vitale RN) History of Incompetent Cervix: No (04/30/2016 18:08:Yane Vitale RN) History of Placenta Previa/Abrup: No (04/30/2016 18:08:Yane Vitale RN) History of Macrosomia: No (04/30/2016 18:08:Yane Vitale RN) History of IUGR: No (04/30/2016 18:08:Yane Vitale RN) History of Hemorrhage: No (04/30/2016 18:08:Yane Vitale RN) History of Loss/Stillborn: No (04/30/2016 18:08:Yane Vitale RN) History of : No (04/30/2016 18:08:Yane Vitale RN) History of D (Rh) Sensitization: No (04/30/2016 18:08:Yane Vitale RN) History Recurrent Loss/Stillborn: No (04/30/2016 18:08:Yane Vitale RN) History Depression/PP Depression: No (04/30/2016 18:08:Yane Vitale RN) History of Uterine Anomaly/NEVAEH: No (04/30/2016 18:08:Yane Vitale RN) History of Infertility: No (04/30/2016 18:08:Yane Vitale RN) History of ART Treatment: No (04/30/2016 18:08:Yane Vitale RN) History of NEVAEH: No (04/30/2016 18:08:Yane Vitale RN) Comments Obstetrical History: G1- 1993 at 40 weeks G2- 1995- at 40 weeks G3- 2007- EAB G4- current (04/30/2016 18:08:Yane Vitale RN) MEDICAL HISTORY Med Hx Diabetes: No (04/30/2016 18:08:Yane Vitale RN) Med Hx Hypertension: No (04/30/2016 18:08:Yane Vitale RN) Med Hx Heart Disease: No (04/30/2016 18:08:Yane Vitale RN) Med Hx Autoimmune Disorder: No (04/30/2016 18:08:Yane Vitale RN) Med Hx Kidney Disease/UTI: No (04/30/2016 18:08:Yane Vitale RN) Med Hx Neurologic/Epilepsy: No (04/30/2016 18:08:Yane Vitale RN) Med Hx Psychiatric Disorders: No (04/30/2016 18:08:Yane Vitale RN) Med Hx Hepatitis/Liver Disease: No (04/30/2016 18:08:Yane Vitale RN) Med Hx Varicosities/Phlebitis: No (04/30/2016 18:08:Yane Vitale RN) Med Hx Thyroid Dysfunction: No (04/30/2016 18:08:Yane Vitale RN) Med Hx Trauma/Violence: No (04/30/2016 18:08:Yane Vitale RN) Med Hx Blood Transfusion: No (04/30/2016 18:08:Yane Vitale RN) Med Hx Pulmonary (Asthma,TB): No (04/30/2016 18:08:Yane Vitale RN) Med Hx Breast: No (04/30/2016 18:08:Yane Vitale RN) Med Hx MEDICAL BILLING AND CODING INSTRUCTOR Surgery: No (04/30/2016 18:08:Yane Vitale RN) Med Hx Hospitalization/Surgery: Yes (04/30/2016 18:08:Yane Vitale RN) Med Hx Anesthetic Complications: No (04/30/2016 18:08:Yane Vitale RN) Med Hx Abnormal Pap Smear: No (04/30/2016 18:08:Yane Vitale RN) Other Medical Diseases: No (04/30/2016 18:08:Yane Vitale RN) Med Hx Significant Family Hx: No (04/30/2016 18:08:Yane Vitale RN) Details of Med/Surg Hx: 1994 gallbladder removal (04/30/2016 18:08:Yane Vitale RN) INFECTIOUS HISTORY Inf Hx Gonorrhea: No (04/30/2016 18:08:Yane Vitale RN) Inf Hx Chlamydia: Yes (04/30/2016 18:08:Yane Vitale RN) Inf Hx Syphilis: No (04/30/2016 18:08:Yane Vitale RN) Inf Hx HIV/AIDS: No (04/30/2016 18:08:Yane Vitale RN) Inf Hx Human Papilloma Virus: No (04/30/2016 18:08:Yane Vitale RN) Inf Hx Pt/Partner Genital Herpes: No (04/30/2016 18:08:Yane Vitale RN) Inf Hx Tuberculosis/Exposure: No (04/30/2016 18:08:Yane Vitale RN) Inf Hx Hepatitis B,C: No (04/30/2016 18:08:Yane Vitale RN) Inf Hx Rash or Viral Illness: No (04/30/2016 18:08:Yane Vitale RN) Details of Infectious Hx: Chlamydia 1994 (04/30/2016 18:08:Yane Vitale RN) GENETIC HISTORY Gen Hx Age >=35 at [place]: Yes (04/30/2016 18:08:Mary Vidales RN) Gen Hx Thalassemia: No (04/30/2016 18:08:Yane Vitale RN) Gen Hx Congenital Heart Defect: No (04/30/2016 18:08:Yane Vitale RN) Gen Hx Neural Tube Defect: No (04/30/2016 18:08:Yane Vitale RN) Gen Hx Down's Syndrome: No (04/30/2016 18:08:Yane Vitale RN) Gen Hx Andrew-Sachs: No (04/30/2016 18:08:Yane Vitale RN) Gen Hx Cara: No (04/30/2016 18:08:Yane Vitale RN) Gen Hx Familial Dysautonomia: No (04/30/2016 18:08:Yane Vitale RN) Gen Hx Sickle Cell Disease/Trait: No (04/30/2016 18:08:Yane Vitale RN) Gen Hx Hemophilia/Blood Disorder: No (04/30/2016 18:08:Yane Vitale RN) Gen Hx Muscular Dystrophy: No (04/30/2016 18:08:Yane Vitale RN) Gen Hx Cystic Fibrosis: No (04/30/2016 18:08:Yane Vitale RN) Gen Hx [place] Chorea: No (04/30/2016 18:08:Yane Vitale RN) Gen Hx Mental Retardation/Autism: No (04/30/2016 18:08:Yane Vitale RN) Gen Hx Tested for Fragile X: No (04/30/2016 18:08:Yane Vitale RN) Gen Hx Other Inher/Chromosomal: No (04/30/2016 18:08:Yane Vitale RN) Gen Hx Maternal Metabolic DO: No (04/30/2016 18:08:Yane Vitale RN) Gen Hx Pt Father or FOB Defect: No (04/30/2016 18:08:Yane Vitale RN) Gen Hx Other Genetic History: No (04/30/2016 18:08:Yane Vitale RN) Gen Hx Drugs/Meds since LMP: Yes (04/30/2016 18:08:Yane Vitale RN) Gen Hx Medications: folic acid, tylenol tylenol (04/30/2016 18:08:Patrick Bsutos RN)
--- NOTE | 2016-06-26 06:12 | L&D General Admission ---
General Admit Datetime Report Generated by CPN: 06/26/2016 06:00 INFORMATION Patient Age: 41 (04/30/2016 18:04:QS system process) EDC: 06/03/2016 00:00 (04/30/2016 18:08:Yane Vitale RN) LMP: 08/28/2015 00:00 (04/30/2016 18:08:Patrick Bustos RN) : 4 (04/30/2016 18:08:Yane Vitale RN) Para: 2 (04/30/2016 18:08:Helen Randolph RN) Term: 2 (04/30/2016 18:08:Yane Vitale RN) Induced Abortions: 1 (04/30/2016 18:08:Yane Vitale RN) Livin (04/30/2016 18:08:Patrick Bustos RN) Cesareans: 0 (04/30/2016 18:08:Patrick Bustos RN) Baby, Number in Womb: 1 (04/30/2016 18:40:Yane Iam, RN) CARE Primary Garnishment Specialist: [facility] (04/30/2016 18:08:Yane Vitale RN) Month of 1st Visit: September (04/30/2016 18:08:Yane Vitale RN) Adequate Care: Yes (04/30/2016 18:08:Yane Vitale RN) Prepregnancy Weight (lb): 172 (04/30/2016 18:08:Patrick Bustos RN) Prepregnancy Weight (kg): 78.2 (04/30/2016 18:08:QS system process) Height (in): 68 (06/14/2016 10:13:QS system process) ALLERGIES Medication Allergy: No (04/30/2016 18:08:Yane Vitale RN) Medication Allergies: No Known Allergies (06/11/2016) (06/11/2016 14:46:QS system process) Latex Allergy: No Latex Allergies (04/30/2016 18:08:Yane Vitale RN) Food Allergies: n/a (04/30/2016 18:08:Yane Vitale RN) Environmental Allergies: n/a (04/30/2016 18:08:Yane Vitale RN) COMMUNICATION Primary Language: [place] Islander (04/30/2016 18:08:Yane Vitale RN) Medical Tx Preferred Language: [place] Islander (04/30/2016 18:08:Yane Vitale RN) Communication Barrier(s): None (04/30/2016 18:08:Patrick Bustos RN) DEMOGRAPHICS Address: [address] [place] [id number] (04/30/2016 18:04:QS system process) Zipcode: [id number] (04/30/2016 18:04:QS system process) Home (04/30/2016 18:04:QS system process) SSN: [id number] (04/30/2016 18:04:QS system process) Next of Kin Name: JERAMY WYNNE (04/30/2016 18:04:QS system process) Next of Kin (04/30/2016 18:04:QS system process) Next of Kin Relationship: SPO (04/30/2016 18:04:QS system process) Date of : 1975 (04/30/2016 18:04:QS system process) Marital Status: (04/30/2016 18:04:QS system process) Sex: Female (04/30/2016 18:04:QS system process) Race: Other (04/30/2016 18:04:QS system process) Ethnicity: Non- or (04/30/2016 18:04:QS system process) Restoration: Sikh (04/30/2016 18:04:QS system process) DRUG AND ALCOHOL USE Alcohol: No (04/30/2016 18:08:Yane Vitale RN) Cigarettes: Never Smoker. 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: [facility] (04/30/2016 18:08:Yane Vitale RN) Feeding Preference: Both (04/30/2016 18:08:Shelby Smith RN) Benefit of Breast Feed Discussed: Yes (04/30/2016 18:08:Yane Vitale RN) Circumcision: N/A (04/30/2016 18:08:Yane Vitale RN) Classes Attended: No (04/30/2016 18:08:Yane Vitale RN) Tubal Ligation: No (04/30/2016 18:08:Yane Vitale RN) Tubal Authorization Signed: N/A (04/30/2016 18:08:Yane Vitale RN) Consent: N/A (04/30/2016 18:08:Yane Vitale RN) Consent Signed: N/A (04/30/2016 18:08:Yane Vitale RN) Pain Management Plans: Natural (04/30/2016 18:08:Patrick Bustos RN) Plans for Labor and Delivery: None (04/30/2016 18:08:Yane Vitale RN) Support Person: Jeramy Wynne (04/30/2016 18:08:Yane Vitale RN) Support Person Relationship: (04/30/2016 18:08:Yane Vitale RN) Cultural/Spritual Practice: [facility] (04/30/2016 18:08:Yane Vitale RN) Spir/Cult Dietary Needs: [facility] (04/30/2016 18:08:Yane Vitale RN) LIVING SITUATION/DISCHARGE PLAN Living Arrangements: House (04/30/2016 18:08:Yane Vitale RN) Adequate Access to:: Electric; Heat; Refrigeration; Plumbing/Running water; Phone; Transportation (04/30/2016 18:08:Yane Vitale RN) WIC Program: [facility] (04/30/2016 18:08:Yane Vitale RN) Discharge Plant Operator/Shift Supervisor Person: Jeramy Wynne (04/30/2016 18:08:Yane Vitale RN) Person to Help after Discharge: Jeramy Wynne (04/30/2016 18:08:Yane Vitale RN) Currently Using Commun Resources: [facility] (04/30/2016 18:08:Yane Vitale RN) Outside Agency/Walking Dragline Operator: [facility] (04/30/2016 18:08:Yane iVtale RN) Car Seat for Discharge: [facility] (04/30/2016 18:08:Yane Vitale RN) Adoption Requested: [facility] (04/30/2016 18:08:Yane Vitale RN) Pt Contact w/ Post : N/A (04/30/2016 18:08:Yane Vitale RN) LABS Blood Type: O Positive (04/30/2016 18:08:Patrick Bustos RN) Antibody Screen: Negative (04/30/2016 18:08:Patrick Bustos RN) Hemoglobin: 8.8 L (06/13/2016 06:47:QS system process) Hematocrit: 27.4 L (06/13/2016 06:47:QS system process) MCV: 80 (06/13/2016 06:47:QS system process) Group Beta Strep: Negative (04/30/2016 18:08:Patrick Bustos RN) Gonorrhea: Negative (04/30/2016 18:08:Patrick Bustos RN) Chlamydia: Negative (04/30/2016 18:08:Patrick Bustos RN) RPR/VDRL: Nonreactive (04/30/2016 18:08:Yane Vitale RN) HIV Exposure Test: Negative (04/30/2016 18:08:Patrick Bustos RN) Hepatitis B: Negative (04/30/2016 18:08:Patrick Bustos RN) Rubella: Immune (04/30/2016 18:08:Patrick Bustos RN) Varicella: Positive (04/30/2016 18:08:Patrick Bustos RN) Varicella Titer: 641 (04/30/2016 18:08:Patrick Bustos RN) OB/PREVIOUS HISTORY LMP: 08/28/2015 00:00 (04/30/2016 18:08:Patrick Bustos RN) Previous Procedures: Ultrasound; NST (04/30/2016 18:08:Yane Vitale RN) Current Procedures: Ultrasound; NST (04/30/2016 18:08:Yane Vitale RN) History of Previous : No (04/30/2016 18:08:Yane Vitale RN) History of Gestational Diabetes: No (04/30/2016 18:08:Yane Vitale RN) History of PIH: No (04/30/2016 18:08:Yane Vitale RN) History of Incompetent Cervix: No (04/30/2016 18:08:Yane Vitale RN) History of Placenta Previa/Abrup: No (04/30/2016 18:08:Yane Vitale RN) History of Macrosomia: No (04/30/2016 18:08:Yane Vitale RN) History of IUGR: No (04/30/2016 18:08:Yane Vitale RN) History of Hemorrhage: No (04/30/2016 18:08:Yane Vitale RN) History of Loss/Stillborn: No (04/30/2016 18:08:Yane Vitale RN) History of : No (04/30/2016 18:08:Yane Vitale RN) History of D (Rh) Sensitization: No (04/30/2016 18:08:Yane Vitale RN) History Recurrent Loss/Stillborn: No (04/30/2016 18:08:Yane Vitale RN) History Depression/PP Depression: No (04/30/2016 18:08:Ynae Vitale RN) History of Uterine Anomaly/NEVAEH: No (04/30/2016 18:08:Yane Vitale RN) History of Infertility: No (04/30/2016 18:08:Yane Vitale RN) History of ART Treatment: No (04/30/2016 18:08:Yane Vitale RN) History of NEVAEH: No (04/30/2016 18:08:Yane Vitale RN) Comments Obstetrical History: G1- 1993 at 40 weeks G2- 1995- at 40 weeks G3- 2007- EAB G4- current (04/30/2016 18:08:Yane Vitale RN) MEDICAL HISTORY Med Hx Diabetes: No (04/30/2016 18:08:Yane Vitale RN) Med Hx Hypertension: No (04/30/2016 18:08:Yane Vitale RN) Med Hx Heart Disease: No (04/30/2016 18:08:Yane Vitale RN) Med Hx Autoimmune Disorder: No (04/30/2016 18:08:Yane Vitale RN) Med Hx Kidney Disease/UTI: No (04/30/2016 18:08:Yane Vitale RN) Med Hx Neurologic/Epilepsy: No (04/30/2016 18:08:Yane Vitale RN) Med Hx Psychiatric Disorders: No (04/30/2016 18:08:Yane Vitale RN) Med Hx Hepatitis/Liver Disease: No (04/30/2016 18:08:Yane Vitale RN) Med Hx Varicosities/Phlebitis: No (04/30/2016 18:08:Yane Vitale RN) Med Hx Thyroid Dysfunction: No (04/30/2016 18:08:Yane Vitale RN) Med Hx Trauma/Violence: No (04/30/2016 18:08:Yane Vitale RN) Med Hx Blood Transfusion: No (04/30/2016 18:08:Yane Vitale RN) Med Hx Pulmonary (Asthma,TB): No (04/30/2016 18:08:Yane Vitale RN) Med Hx Breast: No (04/30/2016 18:08:Yane Vitale RN) Med Hx SPINNER HAND Surgery: No (04/30/2016 18:08:Yane Vitale RN) Med Hx Hospitalization/Surgery: Yes (04/30/2016 18:08:Yane Vitale RN) Med Hx Anesthetic Complications: No (04/30/2016 18:08:Yane Vitale RN) Med Hx Abnormal Pap Smear: No (04/30/2016 18:08:Yane Vitale RN) Other Medical Diseases: No (04/30/2016 18:08:Yane Vitale RN) Med Hx Significant Family Hx: No (04/30/2016 18:08:Yane Vitale RN) Details of Med/Surg Hx: 1994 gallbladder removal (04/30/2016 18:08:Yane Vitale RN) INFECTIOUS HISTORY Inf Hx Gonorrhea: No (04/30/2016 18:08:Yane Vitale RN) Inf Hx Chlamydia: Yes (04/30/2016 18:08:Yane Vitale RN) Inf Hx Syphilis: No (04/30/2016 18:08:Yane Vitale RN) Inf Hx HIV/AIDS: No (04/30/2016 18:08:Yane Vitale RN) Inf Hx Human Papilloma Virus: No (04/30/2016 18:08:Yane Vitale RN) Inf Hx Pt/Partner Genital Herpes: No (04/30/2016 18:08:Yane Vitale RN) Inf Hx Tuberculosis/Exposure: No (04/30/2016 18:08:Yane Vitale RN) Inf Hx Hepatitis B,C: No (04/30/2016 18:08:Yane Vitale RN) Inf Hx Rash or Viral Illness: No (04/30/2016 18:08:Yane Vitale RN) Details of Infectious Hx: Chlamydia 1994 (04/30/2016 18:08:Yane Vitale RN) GENETIC HISTORY Gen Hx Age >=35 at [place]: Yes (04/30/2016 18:08:Mary Vidales RN) Gen Hx Thalassemia: No (04/30/2016 18:08:Yane Vitale RN) Gen Hx Congenital Heart Defect: No (04/30/2016 18:08:Yane Vitale RN) Gen Hx Neural Tube Defect: No (04/30/2016 18:08:Yane Vitale RN) Gen Hx Down's Syndrome: No (04/30/2016 18:08:Yane Vitale RN) Gen Hx Andrew-Sachs: No (04/30/2016 18:08:Yane Vitale RN) Gen Hx Cara: No (04/30/2016 18:08:Yane Vitale RN) Gen Hx Familial Dysautonomia: No (04/30/2016 18:08:Yane Vitale RN) Gen Hx Sickle Cell Disease/Trait: No (04/30/2016 18:08:Yane Vitale RN) Gen Hx Hemophilia/Blood Disorder: No (04/30/2016 18:08:Yane Vitale RN) Gen Hx Muscular Dystrophy: No (04/30/2016 18:08:Yane Vitale RN) Gen Hx Cystic Fibrosis: No (04/30/2016 18:08:Yane Vitale RN) Gen Hx [place] Chorea: No (04/30/2016 18:08:Yane Vitale RN) Gen Hx Mental Retardation/Autism: No (04/30/2016 18:08:Yane Vitale RN) Gen Hx Tested for Fragile X: No (04/30/2016 18:08:Yane Vitale RN) Gen Hx Other Inher/Chromosomal: No (04/30/2016 18:08:Yane Vitale RN) Gen Hx Maternal Metabolic DO: No (04/30/2016 18:08:Yane Vitale RN) Gen Hx Pt Father or FOB Defect: No (04/30/2016 18:08:Yane Vitale RN) Gen Hx Other Genetic History: No (04/30/2016 18:08:Yane Vitale RN) Gen Hx Drugs/Meds since LMP: Yes (04/30/2016 18:08:Yane Vitale RN) Gen Hx Medications: folic acid, tylenol tylenol (04/30/2016 18:08:Patrick Bustos RN)
--- NOTE | 2016-06-26 06:12 | L&D Current Admission ---
Current Admit Datetime Report Generated by CPN: 06/26/2016 06:00 ADMISSION INFORMATION Current Admit Date/Time: 06/11/2016 17:46 (06/11/2016 15:00:Patrick Bustos RN) Reason for Admission: Induction of Labor (06/11/2016 15:00:Patrick Bustos RN) EGA per Dates: 41.1 (06/11/2016 15:00:QS system process) Method of Arrival: Ambulatory (06/11/2016 15:00:Patrick Bustos RN) Reason for Induction: Postterm; Other (06/11/2016 15:00:Patrick Bustos RN) Reason for Induction- Other: AMA (06/11/2016 15:00:Patrick Bustos RN) Records Available: Yes (06/11/2016 15:00:Patrick Bustos RN) General Admission Information: Reviewed; Updated; Confirmed (06/11/2016 15:00:Patrick Bustos RN) General Admission Reviewed By: Kena Busots RN (06/11/2016 15:00:Patrick Bustos RN) BELONGINGS/ADVANCED DIRECTIVES Disposition of Belongings: Kept with Patient (06/11/2016 15:00:Patrick Bustos RN) Comments Regarding Disposition: See [facility] belongings form filled out by patient (06/11/2016 15:00:Patrick Bustos RN) Advance Direct for Healthcare: No, and Wants No Information (06/11/2016 15:00:Patrick Bustos RN) Durable Power of Marine Steam Fitter: No (06/11/2016 15:00:Patrick Bustos RN) Living Will: No (06/11/2016 15:00:Patrick Bustos RN) Organ Donor: No (06/11/2016 15:00:Patrick Bustos RN) Pt Rights Information Given: Yes (06/11/2016 15:00:Patrick Bustos RN) Pt Understands Pt Rights: Yes (06/11/2016 15:00:Patrick Bustos RN) LEARNING ASSESSMENT Knowledge Level: Understands L_D Process (06/11/2016 15:00:Patrick Bustos RN) Barriers to Learning: None (06/11/2016 15:00:Patrick Bustos RN) Learning Readiness: Motivated (06/11/2016 15:00:Patrick Bustos RN) Learns Best By: 1 to 1 Instruction (06/11/2016 15:00:Patrick Bustos RN) Learning Needs: Labor and Delivery Process; Pain Management; Symptoms to Report; Treatment Plan; Medication; Diagnosis (06/11/2016 15:00:Patrick Bustos RN) DOMESTIC VIOLANCE SCREENING Dom Viol Threatened/Hurt: No (06/11/2016 15:00:Patrick Bustos RN) Hx of Abuse/Neglect past 2yrs: No (06/11/2016 15:00:Patrick Bustos RN) Feel Unsafe Going Home: No (06/11/2016 15:00:Patrick Bustos RN) Addt'l Observ Indicating Abuse: No (06/11/2016 15:00:Patrick Bustos RN) Reason Unable to Complete Screen: N/A, Screen Completed (06/11/2016 15:00:Patrick Bustos RN) Considered Personal Harm/Suicide: No (06/11/2016 15:00:Patrick Bustos RN) NUTRITIONAL/FUNCTIONAL SCREENING Problem with Appetite >5 Days: No (06/11/2016 15:00:Patrick Bustos RN) Chew/Swallow Difficulties: No (06/11/2016 15:00:Patrick Bustos RN) Inappropriate Wt Gain/Loss: No (06/11/2016 15:00:Patrick Bustos RN) Presence Skin Breakdown/Ulcer: No (06/11/2016 15:00:Patrick Bustos RN) Special Diet: No (06/11/2016 15:00:Patrick Bustos RN) Pt Requests Drilling Engineering Manager Visit: No (06/11/2016 15:00:Patrick Bustos RN) Hx of Any of the Following?: N/A (06/11/2016 15:00:Patrick Bustos RN) New Diagnosis of: N/A (06/11/2016 15:00:Patrick Bustos RN) Requires Assist w/Ambulation: No (06/11/2016 15:00:Patrick Bustos RN) Uses Assist Device to Ambulate: No (06/11/2016 15:00:Patrick Bustos RN) Pt Requires Help w/ADL's: No (06/11/2016 15:00:Patrick Bustos RN)
--- NOTE | 2016-06-27 06:12 | L&D Current Admission ---
Current Admit Datetime Report Generated by CPN: 06/27/2016 06:00 ADMISSION INFORMATION Current Admit Date/Time: 06/11/2016 17:46 (06/11/2016 15:00:Patrikc Bustos RN) Reason for Admission: Induction of Labor (06/11/2016 15:00:Patrick Bustos RN) EGA per Dates: 41.1 (06/11/2016 15:00:QS system process) Method of Arrival: Ambulatory (06/11/2016 15:00:Patrick Bustos RN) Reason for Induction: Postterm; Other (06/11/2016 15:00:Patrick Bustos RN) Reason for Induction- Other: AMA (06/11/2016 15:00:Patrick Bustos RN) Records Available: Yes (06/11/2016 15:00:Patrick Bustos RN) General Admission Information: Reviewed; Updated; Confirmed (06/11/2016 15:00:Patrick Bustos RN) General Admission Reviewed By: Kena Bustos RN (06/11/2016 15:00:Patrick Bustos RN) BELONGINGS/ADVANCED DIRECTIVES Disposition of Belongings: Kept with Patient (06/11/2016 15:00:Patrick Bustos RN) Comments Regarding Disposition: See [facility] belongings form filled out by patient (06/11/2016 15:00:Patrick Bustos RN) Advance Direct for Healthcare: No, and Wants No Information (06/11/2016 15:00:Patrick Bustos RN) Durable Power of Marketing Support Specialist: No (06/11/2016 15:00:Patrick Bustos RN) Living Will: No (06/11/2016 15:00:Patrick Bustos RN) Organ Donor: No (06/11/2016 15:00:Patrick Bustos RN) Pt Rights Information Given: Yes (06/11/2016 15:00:Patrick Bustos RN) Pt Understands Pt Rights: Yes (06/11/2016 15:00:Patrick Bustos RN) LEARNING ASSESSMENT Knowledge Level: Understands L_D Process (06/11/2016 15:00:Patrick Bustos RN) Barriers to Learning: None (06/11/2016 15:00:Patrick Bustos RN) Learning Readiness: Motivated (06/11/2016 15:00:Patirck Bustos RN) Learns Best By: 1 to 1 Instruction (06/11/2016 15:00:Patrick Bustos RN) Learning Needs: Labor and Delivery Process; Pain Management; Symptoms to Report; Treatment Plan; Medication; Diagnosis (06/11/2016 15:00:Patrick Bustos RN) DOMESTIC VIOLANCE SCREENING Dom Viol Threatened/Hurt: No (06/11/2016 15:00:Patrick Bustos RN) Hx of Abuse/Neglect past 2yrs: No (06/11/2016 15:00:Patrick Bustos RN) Feel Unsafe Going Home: No (06/11/2016 15:00:Patrick Bustos RN) Addt'l Observ Indicating Abuse: No (06/11/2016 15:00:Patrick Bustos RN) Reason Unable to Complete Screen: N/A, Screen Completed (06/11/2016 15:00:Patrick Bustos RN) Considered Personal Harm/Suicide: No (06/11/2016 15:00:Patrick Bustos RN) NUTRITIONAL/FUNCTIONAL SCREENING Problem with Appetite >5 Days: No (06/11/2016 15:00:Patrick Bustos RN) Chew/Swallow Difficulties: No (06/11/2016 15:00:Patrick Bustos RN) Inappropriate Wt Gain/Loss: No (06/11/2016 15:00:Patrick Bustos RN) Presence Skin Breakdown/Ulcer: No (06/11/2016 15:00:Patrick Bustos RN) Special Diet: No (06/11/2016 15:00:Patrick Bustos RN) Pt Requests Psychiatric Attendant Visit: No (06/11/2016 15:00:Patrick Bustos RN) Hx of Any of the Following?: N/A (06/11/2016 15:00:Patrick Bustos RN) New Diagnosis of: N/A (06/11/2016 15:00:Patrick Bustos RN) Requires Assist w/Ambulation: No (06/11/2016 15:00:Patrick Bustos RN) Uses Assist Device to Ambulate: No (06/11/2016 15:00:Patrick Bustos RN) Pt Requires Help w/ADL's: No (06/11/2016 15:00:Patrick Bustos RN)
--- NOTE | 2016-06-27 06:12 | L&D General Admission ---
General Admit Datetime Report Generated by CPN: 06/27/2016 06:00 INFORMATION Patient Age: 41 (04/30/2016 18:04:QS system process) EDC: 06/03/2016 00:00 (04/30/2016 18:08:Yane Vitale RN) LMP: 08/28/2015 00:00 (04/30/2016 18:08:Patrick Bustos RN) : 4 (04/30/2016 18:08:Yane Vitale RN) Para: 2 (04/30/2016 18:08:Helen Randolph RN) Term: 2 (04/30/2016 18:08:Yane Vitale RN) Induced Abortions: 1 (04/30/2016 18:08:Yane Vitale RN) Livin (04/30/2016 18:08:Patrick Bustos RN) Cesareans: 0 (04/30/2016 18:08:Patrick Bustos RN) Baby, Number in Womb: 1 (04/30/2016 18:40:Yane Iam, RN) CARE Primary Non Food Receiving Clerk: [employer] (04/30/2016 18:08:Yane Vitale RN) Month of 1st Visit: September (04/30/2016 18:08:Yane Vitale RN) Adequate Care: Yes (04/30/2016 18:08:Yane Vitale RN) Prepregnancy Weight (lb): 172 (04/30/2016 18:08:Patrick Bustos RN) Prepregnancy Weight (kg): 78.2 (04/30/2016 18:08:QS system process) Height (in): 68 (06/14/2016 10:13:QS system process) ALLERGIES Medication Allergy: No (04/30/2016 18:08:Yane Vitale RN) Medication Allergies: No Known Allergies (06/11/2016) (06/11/2016 14:46:QS system process) Latex Allergy: No Latex Allergies (04/30/2016 18:08:Yane Vitale RN) Food Allergies: n/a (04/30/2016 18:08:Yane Vitale RN) Environmental Allergies: n/a (04/30/2016 18:08:Yane Vitale RN) COMMUNICATION Primary Language: Bermudian (04/30/2016 18:08:Yane Vitale RN) Medical Tx Preferred Language: Bermudian (04/30/2016 18:08:Yane Vitale RN) Communication Barrier(s): None (04/30/2016 18:08:Patrick Bustos RN) DEMOGRAPHICS Address: [address] [place] [id number] (04/30/2016 18:04:QS system process) Zipcode: [id number] (04/30/2016 18:04:QS system process) Home (04/30/2016 18:04:QS system process) SSN: [id number] (04/30/2016 18:04:QS system process) Next of Kin Name: JERAMY WYNNE (04/30/2016 18:04:QS system process) Next of Kin (04/30/2016 18:04:QS system process) Next of Kin Relationship: SPO (04/30/2016 18:04:QS system process) Date of : 1975 (04/30/2016 18:04:QS system process) Marital Status: (04/30/2016 18:04:QS system process) Sex: Female (04/30/2016 18:04:QS system process) Race: Other (04/30/2016 18:04:QS system process) Ethnicity: Non- or (04/30/2016 18:04:QS system process) Rastafarian: Yazidi (04/30/2016 18:04:QS system process) DRUG AND ALCOHOL USE Alcohol: No (04/30/2016 18:08:Yane Vitale RN) Cigarettes: Never Smoker. [id number] (04/30/2016 18:08:Yane Vitale RN) Marijuana: No (04/30/2016 18:08:Yane Vitale RN) Cocaine: No (04/30/2016 18:08:Yane Vitale RN) Other Illicit Drugs: No (04/30/2016 18:08:Yane Vitale RN) VACCINE HISTORY Influenza Vaccine: No (04/30/2016 18:08:Yane Vitale RN) Pneumococcal Vaccine: No (04/30/2016 18:08:Yane Vitale RN) Tetanus Vaccine: Uncertain (04/30/2016 18:08:Yane Vitale RN) Tdap Vaccine: Yes (04/30/2016 18:08:Patrick Bustos RN) Tdap Date: 11/23/2011 (04/30/2016 18:08:Patrick Bustos RN) Hepatitis B Vaccine: Uncertain (04/30/2016 18:08:Yane Vitale RN) Cafe Team Member: [facility] (04/30/2016 18:08:Yane Vitale RN) Feeding Preference: Both (04/30/2016 18:08:Shelby Smith RN) Benefit of Breast Feed Discussed: Yes (04/30/2016 18:08:Yane Vitale RN) Circumcision: N/A (04/30/2016 18:08:Yane Vitale RN) Classes Attended: No (04/30/2016 18:08:Yane Vitale RN) Tubal Ligation: No (04/30/2016 18:08:Yane Vitale RN) Tubal Authorization Signed: N/A (04/30/2016 18:08:Yane Vitale RN) Consent: N/A (04/30/2016 18:08:Yane Vitale RN) Consent Signed: N/A (04/30/2016 18:08:Yane Vitale RN) Pain Management Plans: Natural (04/30/2016 18:08:Patrick Bustos RN) Plans for Labor and Delivery: None (04/30/2016 18:08:Yane Vitale RN) Support Person: Jeramy Wynne (04/30/2016 18:08:Yane Vitale RN) Support Person Relationship: (04/30/2016 18:08:Yane Vitale RN) Cultural/Spritual Practice: [facility] (04/30/2016 18:08:Yane Vitale RN) Spir/Cult Dietary Needs: [facility] (04/30/2016 18:08:Yane Vitale RN) LIVING SITUATION/DISCHARGE PLAN Living Arrangements: House (04/30/2016 18:08:Yane Vitale RN) Adequate Access to:: Electric; Heat; Refrigeration; Plumbing/Running water; Phone; Transportation (04/30/2016 18:08:Yane Vitale RN) WIC Program: [facility] (04/30/2016 18:08:Yane Vitale RN) Discharge Home Mortgage Disclosure Act Specialist Person: Jeramy Wynne (04/30/2016 18:08:Yane Vitale RN) Person to Help after Discharge: Jeramy Wynne (04/30/2016 18:08:Yane Vitale RN) Currently Using Commun Resources: [facility] (04/30/2016 18:08:Yane Vitale RN) Outside Agency/Scale Clerk: [facility] (04/30/2016 18:08:Yane Vitale RN) Car Seat for Discharge: [facility] (04/30/2016 18:08:Yane Vitale RN) Adoption Requested: [facility] (04/30/2016 18:08:Yane Vitale RN) Pt Contact w/ Post : N/A (04/30/2016 18:08:Yane Vitale RN) LABS Blood Type: O Positive (04/30/2016 18:08:Patrick Bustos RN) Antibody Screen: Negative (04/30/2016 18:08:Patrick Bustos RN) Hemoglobin: 8.8 L (06/13/2016 06:47:QS system process) Hematocrit: 27.4 L (06/13/2016 06:47:QS system process) MCV: 80 (06/13/2016 06:47:QS system process) Group Beta Strep: Negative (04/30/2016 18:08:Patrick Bustos RN) Gonorrhea: Negative (04/30/2016 18:08:Patrick Bustos RN) Chlamydia: Negative (04/30/2016 18:08:Patrick Bustos RN) RPR/VDRL: Nonreactive (04/30/2016 18:08:Yane Vitale RN) HIV Exposure Test: Negative (04/30/2016 18:08:Patrick Bustos RN) Hepatitis B: Negative (04/30/2016 18:08:Patrick Bustos RN) Rubella: Immune (04/30/2016 18:08:Patrick Bustos RN) Varicella: Positive (04/30/2016 18:08:Patrick Bustos RN) Varicella Titer: 641 (04/30/2016 18:08:Patrick Bustos RN) OB/PREVIOUS HISTORY LMP: 08/28/2015 00:00 (04/30/2016 18:08:Patrick Bustos RN) Previous Procedures: Ultrasound; NST (04/30/2016 18:08:Yane Vitale RN) Current Procedures: Ultrasound; NST (04/30/2016 18:08:Yane Vitale RN) History of Previous : No (04/30/2016 18:08:Yane Vitale RN) History of Gestational Diabetes: No (04/30/2016 18:08:Yane Vitale RN) History of PIH: No (04/30/2016 18:08:Yane Vitale RN) History of Incompetent Cervix: No (04/30/2016 18:08:Yane Vitale RN) History of Placenta Previa/Abrup: No (04/30/2016 18:08:Yane Vitale RN) History of Macrosomia: No (04/30/2016 18:08:Yane Vitale RN) History of IUGR: No (04/30/2016 18:08:Yane Vitale RN) History of Hemorrhage: No (04/30/2016 18:08:Yane Vitale RN) History of Loss/Stillborn: No (04/30/2016 18:08:Yane Vitale RN) History of : No (04/30/2016 18:08:Yane Vitale RN) History of D (Rh) Sensitization: No (04/30/2016 18:08:Yane Vitale RN) History Recurrent Loss/Stillborn: No (04/30/2016 18:08:Yane Vitale RN) History Depression/PP Depression: No (04/30/2016 18:08:Yane Vitale RN) History of Uterine Anomaly/NEVAEH: No (04/30/2016 18:08:Yane Vitale RN) History of Infertility: No (04/30/2016 18:08:Yane Vitale RN) History of ART Treatment: No (04/30/2016 18:08:Yane Vitale RN) History of NEVAEH: No (04/30/2016 18:08:Yane Vitale RN) Comments Obstetrical History: G1- 1993 at 40 weeks G2- 1995- at 40 weeks G3- 2007- EAB G4- current (04/30/2016 18:08:Yane Vitale RN) MEDICAL HISTORY Med Hx Diabetes: No (04/30/2016 18:08:Yane Vitale RN) Med Hx Hypertension: No (04/30/2016 18:08:Yane Vitale RN) Med Hx Heart Disease: No (04/30/2016 18:08:Yane Vitale RN) Med Hx Autoimmune Disorder: No (04/30/2016 18:08:Yane Vitale RN) Med Hx Kidney Disease/UTI: No (04/30/2016 18:08:Yane Vitale RN) Med Hx Neurologic/Epilepsy: No (04/30/2016 18:08:Yane Vitale RN) Med Hx Psychiatric Disorders: No (04/30/2016 18:08:Yane Vitale RN) Med Hx Hepatitis/Liver Disease: No (04/30/2016 18:08:Yane Vitale RN) Med Hx Varicosities/Phlebitis: No (04/30/2016 18:08:Yane Vitale RN) Med Hx Thyroid Dysfunction: No (04/30/2016 18:08:Yane Vitale RN) Med Hx Trauma/Violence: No (04/30/2016 18:08:Yane Vitale RN) Med Hx Blood Transfusion: No (04/30/2016 18:08:Yane Vitale RN) Med Hx Pulmonary (Asthma,TB): No (04/30/2016 18:08:Yane Vitale RN) Med Hx Breast: No (04/30/2016 18:08:Yane Vitale RN) Med Hx HOT KNIFE FOXING CUTTER Surgery: No (04/30/2016 18:08:Yane Vitale RN) Med Hx Hospitalization/Surgery: Yes (04/30/2016 18:08:Yane Vitale RN) Med Hx Anesthetic Complications: No (04/30/2016 18:08:Yane Vitale RN) Med Hx Abnormal Pap Smear: No (04/30/2016 18:08:Yane Vitale RN) Other Medical Diseases: No (04/30/2016 18:08:Yane Vitale RN) Med Hx Significant Family Hx: No (04/30/2016 18:08:Yane Vitale RN) Details of Med/Surg Hx: 1994 gallbladder removal (04/30/2016 18:08:Yane Vitale RN) INFECTIOUS HISTORY Inf Hx Gonorrhea: No (04/30/2016 18:08:Yane Vitale RN) Inf Hx Chlamydia: Yes (04/30/2016 18:08:Yane Vitale RN) Inf Hx Syphilis: No (04/30/2016 18:08:Yane Vitale RN) Inf Hx HIV/AIDS: No (04/30/2016 18:08:Yane Vitale RN) Inf Hx Human Papilloma Virus: No (04/30/2016 18:08:Yane Vitale RN) Inf Hx Pt/Partner Genital Herpes: No (04/30/2016 18:08:Yane Vitale RN) Inf Hx Tuberculosis/Exposure: No (04/30/2016 18:08:Yane Vitale RN) Inf Hx Hepatitis B,C: No (04/30/2016 18:08:Yane Vitale RN) Inf Hx Rash or Viral Illness: No (04/30/2016 18:08:Yane Vitale RN) Details of Infectious Hx: Chlamydia 1994 (04/30/2016 18:08:Yane Vitale RN) GENETIC HISTORY Gen Hx Age >=35 at [place]: Yes (04/30/2016 18:08:Mary Vidales RN) Gen Hx Thalassemia: No (04/30/2016 18:08:Yane Vitale RN) Gen Hx Congenital Heart Defect: No (04/30/2016 18:08:Yane Vitale RN) Gen Hx Neural Tube Defect: No (04/30/2016 18:08:Yane Vitale RN) Gen Hx Down's Syndrome: No (04/30/2016 18:08:Yane Vitale RN) Gen Hx Andrew-Sachs: No (04/30/2016 18:08:Yane Vitale RN) Gen Hx Cara: No (04/30/2016 18:08:Yane Vitale RN) Gen Hx Familial Dysautonomia: No (04/30/2016 18:08:Yane Vitale RN) Gen Hx Sickle Cell Disease/Trait: No (04/30/2016 18:08:Yane Vitale RN) Gen Hx Hemophilia/Blood Disorder: No (04/30/2016 18:08:Yane Vitale RN) Gen Hx Muscular Dystrophy: No (04/30/2016 18:08:Yane Vitale RN) Gen Hx Cystic Fibrosis: No (04/30/2016 18:08:Yane Vitale RN) Gen Hx Huntingtons Chorea: No (04/30/2016 18:08:Yane Vitale RN) Gen Hx Mental Retardation/Autism: No (04/30/2016 18:08:Yane Vitale RN) Gen Hx Tested for Fragile X: No (04/30/2016 18:08:Yane Vitale RN) Gen Hx Other Inher/Chromosomal: No (04/30/2016 18:08:Yane Vitale RN) Gen Hx Maternal Metabolic DO: No (04/30/2016 18:08:Yane Vitale RN) Gen Hx Pt Father or FOB Defect: No (04/30/2016 18:08:Yane Vitale RN) Gen Hx Other Genetic History: No (04/30/2016 18:08:Yane Vitale RN) Gen Hx Drugs/Meds since LMP: Yes (04/30/2016 18:08:Yane Vitale RN) Gen Hx Medications: folic acid, tylenol tylenol (04/30/2016 18:08:Patrick Bustos RN)
--- NOTE | 2016-06-28 06:11 | L&D General Admission ---
General Admit Datetime Report Generated by CPN: 06/28/2016 06:00 INFORMATION Patient Age: 41 (04/30/2016 18:04:QS system process) EDC: 06/03/2016 00:00 (04/30/2016 18:08:Yane Vitale RN) LMP: 08/28/2015 00:00 (04/30/2016 18:08:Patrick Bustos RN) : 4 (04/30/2016 18:08:Yane Vitale RN) Para: 2 (04/30/2016 18:08:Helen Randolph RN) Term: 2 (04/30/2016 18:08:Yane Vitale RN) Induced Abortions: 1 (04/30/2016 18:08:Yane Vitale RN) Livin (04/30/2016 18:08:Patrick Bustos RN) Cesareans: 0 (04/30/2016 18:08:Patrick Bustos RN) Baby, Number in Womb: 1 (04/30/2016 18:40:Yane Iam, RN) CARE Primary Director [facility]: [facility] (04/30/2016 18:08:Yane Vitale RN) Month of 1st Visit: September (04/30/2016 18:08:Yane Vitale RN) Adequate Care: Yes (04/30/2016 18:08:Yane Vitale RN) Prepregnancy Weight (lb): 172 (04/30/2016 18:08:Patrick Bustos RN) Prepregnancy Weight (kg): 78.2 (04/30/2016 18:08:QS system process) Height (in): 68 (06/14/2016 10:13:QS system process) ALLERGIES Medication Allergy: No (04/30/2016 18:08:Yane Vitale RN) Medication Allergies: No Known Allergies (06/11/2016) (06/11/2016 14:46:QS system process) Latex Allergy: No Latex Allergies (04/30/2016 18:08:Yane Vitale RN) Food Allergies: n/a (04/30/2016 18:08:Yane Vitale RN) Environmental Allergies: n/a (04/30/2016 18:08:Yane Vitale RN) COMMUNICATION Primary Language: German (04/30/2016 18:08:Yane Vitale RN) Medical Tx Preferred Language: German (04/30/2016 18:08:Yane Vitale RN) Communication Barrier(s): None (04/30/2016 18:08:Patrick Bustos RN) DEMOGRAPHICS Address: [address] [place] [id number] (04/30/2016 18:04:QS system process) Zipcode: [address] (04/30/2016 18:04:QS system process) Home (04/30/2016 18:04:QS system process) SSN: [id number] (04/30/2016 18:04:QS system process) Next of Kin Name: JERAMY WYNNE (04/30/2016 18:04:QS system process) Next of Kin (04/30/2016 18:04:QS system process) Next of Kin Relationship: SPO (04/30/2016 18:04:QS system process) Date of : 1975 (04/30/2016 18:04:QS system process) Marital Status: (04/30/2016 18:04:QS system process) Sex: Female (04/30/2016 18:04:QS system process) Race: Other (04/30/2016 18:04:QS system process) Ethnicity: Non- or (04/30/2016 18:04:QS system process) Mormonism: Restoration (04/30/2016 18:04:QS system process) DRUG AND ALCOHOL USE Alcohol: No (04/30/2016 18:08:Yane Vitale RN) Cigarettes: Never Smoker. [id number] (04/30/2016 18:08:Yane Vitale RN) Marijuana: No (04/30/2016 18:08:Yane Vitale RN) Cocaine: No (04/30/2016 18:08:Yane Vitale RN) Other Illicit Drugs: No (04/30/2016 18:08:Yane Vitale RN) VACCINE HISTORY Influenza Vaccine: No (04/30/2016 18:08:Yane Vitale RN) Pneumococcal Vaccine: No (04/30/2016 18:08:Yane Vitale RN) Tetanus Vaccine: Uncertain (04/30/2016 18:08:Yane Vitale RN) Tdap Vaccine: Yes (04/30/2016 18:08:Patrick Bustos RN) Tdap Date: 11/23/2011 (04/30/2016 18:08:Patrick Bustos RN) Hepatitis B Vaccine: Uncertain (04/30/2016 18:08:Yane Vitale RN) Allergy And Immunology Specialist: [facility] (04/30/2016 18:08:Yane Vitale RN) Feeding Preference: Both (04/30/2016 18:08:Shelby Smith RN) Benefit of Breast Feed Discussed: Yes (04/30/2016 18:08:Yane Vitale RN) Circumcision: N/A (04/30/2016 18:08:Yane Vitale RN) Classes Attended: No (04/30/2016 18:08:Yane Vitale RN) Tubal Ligation: No (04/30/2016 18:08:Yane Vitale RN) Tubal Authorization Signed: N/A (04/30/2016 18:08:Yane Vitale RN) Consent: N/A (04/30/2016 18:08:Yane Vitale RN) Consent Signed: N/A (04/30/2016 18:08:Yane Vitale RN) Pain Management Plans: Natural (04/30/2016 18:08:Patrick Bustos RN) Plans for Labor and Delivery: None (04/30/2016 18:08:Yane Vitale RN) Support Person: Jeramy Wynne (04/30/2016 18:08:Yane Vitale RN) Support Person Relationship: (04/30/2016 18:08:Yane Vitale RN) Cultural/Spritual Practice: [facility] (04/30/2016 18:08:Yane Vitale RN) Spir/Cult Dietary Needs: [facility] (04/30/2016 18:08:Yane Vitale RN) LIVING SITUATION/DISCHARGE PLAN Living Arrangements: House (04/30/2016 18:08:Yane Vitale RN) Adequate Access to:: Electric; Heat; Refrigeration; Plumbing/Running water; Phone; Transportation (04/30/2016 18:08:Yane Vitale RN) WIC Program: [facility] (04/30/2016 18:08:Yane Vitale RN) Discharge Manager Payer Person: Jeramy Wynne (04/30/2016 18:08:Yane Vitale RN) Person to Help after Discharge: Jeramy Wynne (04/30/2016 18:08:Yane Vitale RN) Currently Using Commun Resources: [facility] (04/30/2016 18:08:Yane Vitale RN) Outside Agency/Soaker Helper: [facility] (04/30/2016 18:08:Yane Vitale RN) Car Seat for Discharge: [facility] (04/30/2016 18:08:Yane Vitale RN) Adoption Requested: [facility] (04/30/2016 18:08:Yane Vitale RN) Pt Contact w/ Post : N/A (04/30/2016 18:08:Yane Vitale RN) LABS Blood Type: O Positive (04/30/2016 18:08:Patrick Bustos RN) Antibody Screen: Negative (04/30/2016 18:08:Patrick Bustos RN) Hemoglobin: 8.8 L (06/13/2016 06:47:QS system process) Hematocrit: 27.4 L (06/13/2016 06:47:QS system process) MCV: 80 (06/13/2016 06:47:QS system process) Group Beta Strep: Negative (04/30/2016 18:08:Patrick Bustos RN) Gonorrhea: Negative (04/30/2016 18:08:Patrick Bustos RN) Chlamydia: Negative (04/30/2016 18:08:Patrick Butsos RN) RPR/VDRL: Nonreactive (04/30/2016 18:08:Yane Vitale RN) HIV Exposure Test: Negative (04/30/2016 18:08:Patrick Bustos RN) Hepatitis B: Negative (04/30/2016 18:08:Patrick Bustos RN) Rubella: Immune (04/30/2016 18:08:Patrick Bustos RN) Varicella: Positive (04/30/2016 18:08:Patrick Bustos RN) Varicella Titer: 641 (04/30/2016 18:08:Patrick Bustos RN) OB/PREVIOUS HISTORY LMP: 08/28/2015 00:00 (04/30/2016 18:08:Patrick Bustos RN) Previous Procedures: Ultrasound; NST (04/30/2016 18:08:Yane Vitale RN) Current Procedures: Ultrasound; NST (04/30/2016 18:08:Yane Vitale RN) History of Previous : No (04/30/2016 18:08:Yane Vitale RN) History of Gestational Diabetes: No (04/30/2016 18:08:Yane Vitale RN) History of PIH: No (04/30/2016 18:08:Yane Vitale RN) History of Incompetent Cervix: No (04/30/2016 18:08:Yane Vitale RN) History of Placenta Previa/Abrup: No (04/30/2016 18:08:Yane Vitale RN) History of Macrosomia: No (04/30/2016 18:08:Yane Vitale RN) History of IUGR: No (04/30/2016 18:08:Yane Vitale RN) History of Hemorrhage: No (04/30/2016 18:08:Yane Vitale RN) History of Loss/Stillborn: No (04/30/2016 18:08:Yane Vitale RN) History of : No (04/30/2016 18:08:Yane Vitale RN) History of D (Rh) Sensitization: No (04/30/2016 18:08:Yane Vitale RN) History Recurrent Loss/Stillborn: No (04/30/2016 18:08:Yane Vitale RN) History Depression/PP Depression: No (04/30/2016 18:08:Yane Vitale RN) History of Uterine Anomaly/NEVAEH: No (04/30/2016 18:08:Yane Vitale RN) History of Infertility: No (04/30/2016 18:08:Yane Vitale RN) History of ART Treatment: No (04/30/2016 18:08:Yane Vitale RN) History of NEVAEH: No (04/30/2016 18:08:Yane Vitale RN) Comments Obstetrical History: G1- 1993 at 40 weeks G2- 1995- at 40 weeks G3- 2007- EAB G4- current (04/30/2016 18:08:Yane Vitale RN) MEDICAL HISTORY Med Hx Diabetes: No (04/30/2016 18:08:Yane Vitale RN) Med Hx Hypertension: No (04/30/2016 18:08:Yane Vitale RN) Med Hx Heart Disease: No (04/30/2016 18:08:Yane Vitale RN) Med Hx Autoimmune Disorder: No (04/30/2016 18:08:Yane Vitale RN) Med Hx Kidney Disease/UTI: No (04/30/2016 18:08:Yane Vitale RN) Med Hx Neurologic/Epilepsy: No (04/30/2016 18:08:Yane Vitale RN) Med Hx Psychiatric Disorders: No (04/30/2016 18:08:Yane Vitale RN) Med Hx Hepatitis/Liver Disease: No (04/30/2016 18:08:Yane Vitale RN) Med Hx Varicosities/Phlebitis: No (04/30/2016 18:08:Yane Vitale RN) Med Hx Thyroid Dysfunction: No (04/30/2016 18:08:Yane Vitale RN) Med Hx Trauma/Violence: No (04/30/2016 18:08:Yane Vitale RN) Med Hx Blood Transfusion: No (04/30/2016 18:08:Yane Vitale RN) Med Hx Pulmonary (Asthma,TB): No (04/30/2016 18:08:Yane Vitale RN) Med Hx Breast: No (04/30/2016 18:08:Yane Vitale RN) Med Hx INVOICE CHECKER Surgery: No (04/30/2016 18:08:Yane Vitale RN) Med Hx Hospitalization/Surgery: Yes (04/30/2016 18:08:Yane Vitale RN) Med Hx Anesthetic Complications: No (04/30/2016 18:08:Yane Vitale RN) Med Hx Abnormal Pap Smear: No (04/30/2016 18:08:Yane Vitale RN) Other Medical Diseases: No (04/30/2016 18:08:Yane Vitale RN) Med Hx Significant Family Hx: No (04/30/2016 18:08:Yane Vitale RN) Details of Med/Surg Hx: 1994 gallbladder removal (04/30/2016 18:08:Yane Vitale RN) INFECTIOUS HISTORY Inf Hx Gonorrhea: No (04/30/2016 18:08:Yane Vitale RN) Inf Hx Chlamydia: Yes (04/30/2016 18:08:Yane Vitale RN) Inf Hx Syphilis: No (04/30/2016 18:08:Yane Vitale RN) Inf Hx HIV/AIDS: No (04/30/2016 18:08:Yane Vitale RN) Inf Hx Human Papilloma Virus: No (04/30/2016 18:08:Yane Vitale RN) Inf Hx Pt/Partner Genital Herpes: No (04/30/2016 18:08:Yane Vitale RN) Inf Hx Tuberculosis/Exposure: No (04/30/2016 18:08:Yane Vitale RN) Inf Hx Hepatitis B,C: No (04/30/2016 18:08:Yane Vitale RN) Inf Hx Rash or Viral Illness: No (04/30/2016 18:08:Yane Vitale RN) Details of Infectious Hx: Chlamydia 1994 (04/30/2016 18:08:Yane Vitale RN) GENETIC HISTORY Gen Hx Age >=35 at [place]: Yes (04/30/2016 18:08:Mary Vidales RN) Gen Hx Thalassemia: No (04/30/2016 18:08:Yane Vitale RN) Gen Hx Congenital Heart Defect: No (04/30/2016 18:08:Yane Vitale RN) Gen Hx Neural Tube Defect: No (04/30/2016 18:08:Yane Vitale RN) Gen Hx Down's Syndrome: No (04/30/2016 18:08:Yane Vitale RN) Gen Hx Andrew-Sachs: No (04/30/2016 18:08:Yane Vitale RN) Gen Hx Cara: No (04/30/2016 18:08:Yane Vitale RN) Gen Hx Familial Dysautonomia: No (04/30/2016 18:08:Yane Vitale RN) Gen Hx Sickle Cell Disease/Trait: No (04/30/2016 18:08:Yane Vitale RN) Gen Hx Hemophilia/Blood Disorder: No (04/30/2016 18:08:Yane Vitale RN) Gen Hx Muscular Dystrophy: No (04/30/2016 18:08:Yane Vitale RN) Gen Hx Cystic Fibrosis: No (04/30/2016 18:08:Yane Vitale RN) Gen Hx Huntingtons Chorea: No (04/30/2016 18:08:Yane Vitale RN) Gen Hx Mental Retardation/Autism: No (04/30/2016 18:08:Yane Vitale RN) Gen Hx Tested for Fragile X: No (04/30/2016 18:08:Yane Vitale RN) Gen Hx Other Inher/Chromosomal: No (04/30/2016 18:08:Yane Vitale RN) Gen Hx Maternal Metabolic DO: No (04/30/2016 18:08:Yane Vitale RN) Gen Hx Pt Father or FOB Defect: No (04/30/2016 18:08:Yane Vitale RN) Gen Hx Other Genetic History: No (04/30/2016 18:08:Yane Vitale RN) Gen Hx Drugs/Meds since LMP: Yes (04/30/2016 18:08:Yane Vitale RN) Gen Hx Medications: folic acid, tylenol tylenol (04/30/2016 18:08:Patrick Bustos RN)
--- NOTE | 2016-06-28 06:11 | L&D Current Admission ---
Current Admit Datetime Report Generated by CPN: 06/28/2016 06:00 ADMISSION INFORMATION Current Admit Date/Time: 06/11/2016 17:46 (06/11/2016 15:00:Patrick Bustos RN) Reason for Admission: Induction of Labor (06/11/2016 15:00:Patrick Bustos RN) EGA per Dates: 41.1 (06/11/2016 15:00:QS system process) Method of Arrival: Ambulatory (06/11/2016 15:00:Patrick Bustos RN) Reason for Induction: Postterm; Other (06/11/2016 15:00:Patrick Bustos RN) Reason for Induction- Other: AMA (06/11/2016 15:00:Patrick Bustos RN) Records Available: Yes (06/11/2016 15:00:Patrick Bustos RN) General Admission Information: Reviewed; Updated; Confirmed (06/11/2016 15:00:Patrick Bustos RN) General Admission Reviewed By: Kena Bustos RN (06/11/2016 15:00:Patrick Bustos RN) BELONGINGS/ADVANCED DIRECTIVES Disposition of Belongings: Kept with Patient (06/11/2016 15:00:Patrick Bustos RN) Comments Regarding Disposition: See [facility] belongings form filled out by patient (06/11/2016 15:00:Patrick Bustos RN) Advance Direct for Healthcare: No, and Wants No Information (06/11/2016 15:00:Patrick Bustos RN) Durable Power of Special Needs Librarian: No (06/11/2016 15:00:Patrick Bustos RN) Living Will: No (06/11/2016 15:00:Patrick Bustos RN) Organ Donor: No (06/11/2016 15:00:Patrick Bustos RN) Pt Rights Information Given: Yes (06/11/2016 15:00:Patrick Bustos RN) Pt Understands Pt Rights: Yes (06/11/2016 15:00:Patrick Bustos RN) LEARNING ASSESSMENT Knowledge Level: Understands L_D Process (06/11/2016 15:00:Patrick Bustos RN) Barriers to Learning: None (06/11/2016 15:00:Patrick Bustos RN) Learning Readiness: Motivated (06/11/2016 15:00:Patrick Bustos RN) Learns Best By: 1 to 1 Instruction (06/11/2016 15:00:Patrick Bustos RN) Learning Needs: Labor and Delivery Process; Pain Management; Symptoms to Report; Treatment Plan; Medication; Diagnosis (06/11/2016 15:00:Patrick Bustos RN) DOMESTIC VIOLANCE SCREENING Dom Viol Threatened/Hurt: No (06/11/2016 15:00:Patrick Bustos RN) Hx of Abuse/Neglect past 2yrs: No (06/11/2016 15:00:Patrick Bustos RN) Feel Unsafe Going Home: No (06/11/2016 15:00:Patrick Bustos RN) Addt'l Observ Indicating Abuse: No (06/11/2016 15:00:Patrick Bustos RN) Reason Unable to Complete Screen: N/A, Screen Completed (06/11/2016 15:00:Patrick Bustos RN) Considered Personal Harm/Suicide: No (06/11/2016 15:00:Patrick Bustos RN) NUTRITIONAL/FUNCTIONAL SCREENING Problem with Appetite >5 Days: No (06/11/2016 15:00:Patrick Bustos RN) Chew/Swallow Difficulties: No (06/11/2016 15:00:Patrick Bustos RN) Inappropriate Wt Gain/Loss: No (06/11/2016 15:00:Patrick Bustos RN) Presence Skin Breakdown/Ulcer: No (06/11/2016 15:00:Patrick Bustos RN) Special Diet: No (06/11/2016 15:00:Patrick Bustos RN) Pt Requests Mold Capper Visit: No (06/11/2016 15:00:Patrick Bustos RN) Hx of Any of the Following?: N/A (06/11/2016 15:00:Patrick Bustos RN) New Diagnosis of: N/A (06/11/2016 15:00:Patrick Bustos RN) Requires Assist w/Ambulation: No (06/11/2016 15:00:Patrick Bustos RN) Uses Assist Device to Ambulate: No (06/11/2016 15:00:Patrick Bustos RN) Pt Requires Help w/ADL's: No (06/11/2016 15:00:Patrick Bustos RN)
--- NOTE | 2016-06-29 06:11 | L&D Current Admission ---
Current Admit Datetime Report Generated by CPN: 06/29/2016 06:00 ADMISSION INFORMATION Current Admit Date/Time: 06/11/2016 17:46 (06/11/2016 15:00:Patrick Bustos RN) Reason for Admission: Induction of Labor (06/11/2016 15:00:Patrick Bustos RN) EGA per Dates: 41.1 (06/11/2016 15:00:QS system process) Method of Arrival: Ambulatory (06/11/2016 15:00:Patrick Bustos RN) Reason for Induction: Postterm; Other (06/11/2016 15:00:Patrick Bustos RN) Reason for Induction- Other: AMA (06/11/2016 15:00:Patrick Bustos RN) Records Available: Yes (06/11/2016 15:00:Patrick Bustos RN) General Admission Information: Reviewed; Updated; Confirmed (06/11/2016 15:00:Patrick Bustos RN) General Admission Reviewed By: Kena Bustos RN (06/11/2016 15:00:Patrick Bustos RN) BELONGINGS/ADVANCED DIRECTIVES Disposition of Belongings: Kept with Patient (06/11/2016 15:00:Patrick Bustos RN) Comments Regarding Disposition: See [facility] belongings form filled out by patient (06/11/2016 15:00:Patrick Bustos RN) Advance Direct for Healthcare: No, and Wants No Information (06/11/2016 15:00:Patrick Bustos RN) Durable Power of Medical Sales Associate: No (06/11/2016 15:00:Patrick Bustos RN) Living Will: No (06/11/2016 15:00:Patrick Bustos RN) Organ Donor: No (06/11/2016 15:00:Patrick Bustos RN) Pt Rights Information Given: Yes (06/11/2016 15:00:Patrick Bustos RN) Pt Understands Pt Rights: Yes (06/11/2016 15:00:Patrick Bustos RN) LEARNING ASSESSMENT Knowledge Level: Understands L_D Process (06/11/2016 15:00:Patrick Bustos RN) Barriers to Learning: None (06/11/2016 15:00:Patrick Bustos RN) Learning Readiness: Motivated (06/11/2016 15:00:Patrick Bustos RN) Learns Best By: 1 to 1 Instruction (06/11/2016 15:00:Patrick Bustos RN) Learning Needs: Labor and Delivery Process; Pain Management; Symptoms to Report; Treatment Plan; Medication; Diagnosis (06/11/2016 15:00:Patrick Bustos RN) DOMESTIC VIOLANCE SCREENING Dom Viol Threatened/Hurt: No (06/11/2016 15:00:Patrick Bustos RN) Hx of Abuse/Neglect past 2yrs: No (06/11/2016 15:00:Patrick Bustos RN) Feel Unsafe Going Home: No (06/11/2016 15:00:Patrick Bustos RN) Addt'l Observ Indicating Abuse: No (06/11/2016 15:00:Patrick Bustos RN) Reason Unable to Complete Screen: N/A, Screen Completed (06/11/2016 15:00:Patrick Bustos RN) Considered Personal Harm/Suicide: No (06/11/2016 15:00:Patrick Bustos RN) NUTRITIONAL/FUNCTIONAL SCREENING Problem with Appetite >5 Days: No (06/11/2016 15:00:Patrick Bustos RN) Chew/Swallow Difficulties: No (06/11/2016 15:00:Patrick Bustos RN) Inappropriate Wt Gain/Loss: No (06/11/2016 15:00:Patrick Bustos RN) Presence Skin Breakdown/Ulcer: No (06/11/2016 15:00:Patrick Bustos RN) Special Diet: No (06/11/2016 15:00:Patrick Bustos RN) Pt Requests Habilitation Specialist Visit: No (06/11/2016 15:00:Patrick Bustos RN) Hx of Any of the Following?: N/A (06/11/2016 15:00:Patrick Bustos RN) New Diagnosis of: N/A (06/11/2016 15:00:Patrick Bustos RN) Requires Assist w/Ambulation: No (06/11/2016 15:00:Patrick Bustos RN) Uses Assist Device to Ambulate: No (06/11/2016 15:00:Patrick Bustos RN) Pt Requires Help w/ADL's: No (06/11/2016 15:00:Patrick Bustos RN)
--- NOTE | 2016-06-29 06:11 | L&D General Admission ---
General Admit Datetime Report Generated by CPN: 06/29/2016 06:00 INFORMATION Patient Age: 41 (04/30/2016 18:04:QS system process) EDC: 06/03/2016 00:00 (04/30/2016 18:08:Yane Vitale RN) LMP: 08/28/2015 00:00 (04/30/2016 18:08:Patrick Bustos RN) : 4 (04/30/2016 18:08:Yane Vitale RN) Para: 2 (04/30/2016 18:08:Helen Randolph RN) Term: 2 (04/30/2016 18:08:Yane Vitale RN) Induced Abortions: 1 (04/30/2016 18:08:Yane Vitale RN) Livin (04/30/2016 18:08:Patrick Bustos RN) Cesareans: 0 (04/30/2016 18:08:Patrick Bustos RN) Baby, Number in Womb: 1 (04/30/2016 18:40:Yane Iam, RN) CARE Primary Teaching Pastor: [facility] (04/30/2016 18:08:Yane Vitale RN) Month of 1st Visit: September (04/30/2016 18:08:Yane Vitale RN) Adequate Care: Yes (04/30/2016 18:08:Yane Vitale RN) Prepregnancy Weight (lb): 172 (04/30/2016 18:08:Patrick Bustos RN) Prepregnancy Weight (kg): 78.2 (04/30/2016 18:08:QS system process) Height (in): 68 (06/14/2016 10:13:QS system process) ALLERGIES Medication Allergy: No (04/30/2016 18:08:Yane Vitale RN) Medication Allergies: No Known Allergies (06/11/2016) (06/11/2016 14:46:QS system process) Latex Allergy: No Latex Allergies (04/30/2016 18:08:Yane Vitale RN) Food Allergies: n/a (04/30/2016 18:08:Yane Vitale RN) Environmental Allergies: n/a (04/30/2016 18:08:Yane Vitale RN) COMMUNICATION Primary Language: Thai (04/30/2016 18:08:Yane Vitale RN) Medical Tx Preferred Language: Thai (04/30/2016 18:08:Yane Vitale RN) Communication Barrier(s): None (04/30/2016 18:08:Patrick Bustos RN) DEMOGRAPHICS Address: [address] [place] [id number] (04/30/2016 18:04:QS system process) Zipcode: [address] (04/30/2016 18:04:QS system process) Home (04/30/2016 18:04:QS system process) SSN: [id number] (04/30/2016 18:04:QS system process) Next of Kin Name: JERAMY WYNNE (04/30/2016 18:04:QS system process) Next of Kin (04/30/2016 18:04:QS system process) Next of Kin Relationship: SPO (04/30/2016 18:04:QS system process) Date of : 1975 (04/30/2016 18:04:QS system process) Marital Status: (04/30/2016 18:04:QS system process) Sex: Female (04/30/2016 18:04:QS system process) Race: Other (04/30/2016 18:04:QS system process) Ethnicity: Non- or (04/30/2016 18:04:QS system process) Oriental Orthodox: Church (04/30/2016 18:04:QS system process) DRUG AND ALCOHOL USE Alcohol: No (04/30/2016 18:08:Yane Vitale RN) Cigarettes: Never Smoker. [id number] (04/30/2016 18:08:Yane Vitale RN) Marijuana: No (04/30/2016 18:08:Yane Vitale RN) Cocaine: No (04/30/2016 18:08:Yane Vitale RN) Other Illicit Drugs: No (04/30/2016 18:08:Yane Vitale RN) VACCINE HISTORY Influenza Vaccine: No (04/30/2016 18:08:Yane Vitale RN) Pneumococcal Vaccine: No (04/30/2016 18:08:Yane Vitale RN) Tetanus Vaccine: Uncertain (04/30/2016 18:08:Yane Vitale RN) Tdap Vaccine: Yes (04/30/2016 18:08:Patrick Bustos RN) Tdap Date: 11/23/2011 (04/30/2016 18:08:Patrick Bustos RN) Hepatitis B Vaccine: Uncertain (04/30/2016 18:08:Yane Vitale RN) Cook House Supervisor: [facility] (04/30/2016 18:08:Yane Vitale RN) Feeding Preference: Both (04/30/2016 18:08:Shelby Smith RN) Benefit of Breast Feed Discussed: Yes (04/30/2016 18:08:Yane Vitale RN) Circumcision: N/A (04/30/2016 18:08:Ynae Vitale RN) Classes Attended: No (04/30/2016 18:08:Yane Vitale RN) Tubal Ligation: No (04/30/2016 18:08:Yane Vitale RN) Tubal Authorization Signed: N/A (04/30/2016 18:08:Yane Vitale RN) Consent: N/A (04/30/2016 18:08:Yane Vitale RN) Consent Signed: N/A (04/30/2016 18:08:Yane Vitale RN) Pain Management Plans: Natural (04/30/2016 18:08:Patrick Bustos RN) Plans for Labor and Delivery: None (04/30/2016 18:08:Yane Vitale RN) Support Person: Jeramy Wynne (04/30/2016 18:08:Yane Vitale RN) Support Person Relationship: (04/30/2016 18:08:Yane Vitale RN) Cultural/Spritual Practice: [facility] (04/30/2016 18:08:Yane Vitale RN) Spir/Cult Dietary Needs: [facility] (04/30/2016 18:08:Yane Vitale RN) LIVING SITUATION/DISCHARGE PLAN Living Arrangements: House (04/30/2016 18:08:Yane Vitale RN) Adequate Access to:: Electric; Heat; Refrigeration; Plumbing/Running water; Phone; Transportation (04/30/2016 18:08:Yane Vitale RN) WIC Program: [facility] (04/30/2016 18:08:Yane Vitale RN) Discharge Offc Spec Person: Jeramy Wynne (04/30/2016 18:08:Yane Vitale RN) Person to Help after Discharge: Jeramy Wynne (04/30/2016 18:08:Yane Vitale RN) Currently Using Commun Resources: [facility] (04/30/2016 18:08:Yane Vitale RN) Outside Agency/Employee Health Rn: [facility] (04/30/2016 18:08:Yane Vitale RN) Car Seat for Discharge: [facility] (04/30/2016 18:08:Yane Vitale RN) Adoption Requested: [facility] (04/30/2016 18:08:Yane Vitale RN) Pt Contact w/ Post : N/A (04/30/2016 18:08:Yane Vitale RN) LABS Blood Type: O Positive (04/30/2016 18:08:Patrick Bustos RN) Antibody Screen: Negative (04/30/2016 18:08:Patrick Bustos RN) Hemoglobin: 8.8 L (06/13/2016 06:47:QS system process) Hematocrit: 27.4 L (06/13/2016 06:47:QS system process) MCV: 80 (06/13/2016 06:47:QS system process) Group Beta Strep: Negative (04/30/2016 18:08:Patrick Bustos RN) Gonorrhea: Negative (04/30/2016 18:08:Patrikc Bustos RN) Chlamydia: Negative (04/30/2016 18:08:Patrick Bustos RN) RPR/VDRL: Nonreactive (04/30/2016 18:08:Yane Vitale RN) HIV Exposure Test: Negative (04/30/2016 18:08:Patrick Bustos RN) Hepatitis B: Negative (04/30/2016 18:08:Patrick Bustos RN) Rubella: Immune (04/30/2016 18:08:Patrick Bustos RN) Varicella: Positive (04/30/2016 18:08:Patrick Bustos RN) Varicella Titer: 641 (04/30/2016 18:08:Patrick Bustos RN) OB/PREVIOUS HISTORY LMP: 08/28/2015 00:00 (04/30/2016 18:08:Patrick Bustos RN) Previous Procedures: Ultrasound; NST (04/30/2016 18:08:Yane Vitale RN) Current Procedures: Ultrasound; NST (04/30/2016 18:08:Yane Vitale RN) History of Previous : No (04/30/2016 18:08:Yane Vitale RN) History of Gestational Diabetes: No (04/30/2016 18:08:Yane Vitale RN) History of PIH: No (04/30/2016 18:08:Yane Vitale RN) History of Incompetent Cervix: No (04/30/2016 18:08:Yane Vitale RN) History of Placenta Previa/Abrup: No (04/30/2016 18:08:Yane Vitale RN) History of Macrosomia: No (04/30/2016 18:08:Yane Vitale RN) History of IUGR: No (04/30/2016 18:08:Yane Vitale RN) History of Hemorrhage: No (04/30/2016 18:08:Yane Vitale RN) History of Loss/Stillborn: No (04/30/2016 18:08:Yane Vitale RN) History of : No (04/30/2016 18:08:Yane Vitale RN) History of D (Rh) Sensitization: No (04/30/2016 18:08:Yane Vitale RN) History Recurrent Loss/Stillborn: No (04/30/2016 18:08:Yane Vitale RN) History Depression/PP Depression: No (04/30/2016 18:08:Yane Vitale RN) History of Uterine Anomaly/NEVAEH: No (04/30/2016 18:08:Yane Vitale RN) History of Infertility: No (04/30/2016 18:08:Yane Vitale RN) History of ART Treatment: No (04/30/2016 18:08:Yane Vitale RN) History of NEVAEH: No (04/30/2016 18:08:Yane Vitale RN) Comments Obstetrical History: G1- 1993 at 40 weeks G2- 1995- at 40 weeks G3- 2007- EAB G4- current (04/30/2016 18:08:Yane Vitale RN) MEDICAL HISTORY Med Hx Diabetes: No (04/30/2016 18:08:Yane Vitale RN) Med Hx Hypertension: No (04/30/2016 18:08:Yane Vitale RN) Med Hx Heart Disease: No (04/30/2016 18:08:Yane Vitale RN) Med Hx Autoimmune Disorder: No (04/30/2016 18:08:Yane Vitale RN) Med Hx Kidney Disease/UTI: No (04/30/2016 18:08:Yane Vitale RN) Med Hx Neurologic/Epilepsy: No (04/30/2016 18:08:Yane Vitale RN) Med Hx Psychiatric Disorders: No (04/30/2016 18:08:Yane Vitale RN) Med Hx Hepatitis/Liver Disease: No (04/30/2016 18:08:Yane Vitale RN) Med Hx Varicosities/Phlebitis: No (04/30/2016 18:08:Yane Vitale RN) Med Hx Thyroid Dysfunction: No (04/30/2016 18:08:Yane Vitale RN) Med Hx Trauma/Violence: No (04/30/2016 18:08:Yane Vitale RN) Med Hx Blood Transfusion: No (04/30/2016 18:08:Yane Vitale RN) Med Hx Pulmonary (Asthma,TB): No (04/30/2016 18:08:Yane Vitale RN) Med Hx Breast: No (04/30/2016 18:08:Yane Vitale RN) Med Hx AUTOMOBILE UPHOLSTERER APPRENTICE Surgery: No (04/30/2016 18:08:Yane Vitale RN) Med Hx Hospitalization/Surgery: Yes (04/30/2016 18:08:Yane Vitale RN) Med Hx Anesthetic Complications: No (04/30/2016 18:08:Yane Vitale RN) Med Hx Abnormal Pap Smear: No (04/30/2016 18:08:Yane Vitale RN) Other Medical Diseases: No (04/30/2016 18:08:Yane Vitale RN) Med Hx Significant Family Hx: No (04/30/2016 18:08:Yane Vitale RN) Details of Med/Surg Hx: 1994 gallbladder removal (04/30/2016 18:08:Yane Vitale RN) INFECTIOUS HISTORY Inf Hx Gonorrhea: No (04/30/2016 18:08:Yane Vitale RN) Inf Hx Chlamydia: Yes (04/30/2016 18:08:Yane Vitale RN) Inf Hx Syphilis: No (04/30/2016 18:08:Yane Vitale RN) Inf Hx HIV/AIDS: No (04/30/2016 18:08:Yane Vitale RN) Inf Hx Human Papilloma Virus: No (04/30/2016 18:08:Yane Vitale RN) Inf Hx Pt/Partner Genital Herpes: No (04/30/2016 18:08:Yane Vitale RN) Inf Hx Tuberculosis/Exposure: No (04/30/2016 18:08:Yane Vitale RN) Inf Hx Hepatitis B,C: No (04/30/2016 18:08:Yane Vitale RN) Inf Hx Rash or Viral Illness: No (04/30/2016 18:08:Yane Vitale RN) Details of Infectious Hx: Chlamydia 1994 (04/30/2016 18:08:Yane Vitale RN) GENETIC HISTORY Gen Hx Age >=35 at [place]: Yes (04/30/2016 18:08:Mary Vidales RN) Gen Hx Thalassemia: No (04/30/2016 18:08:Yane Vitale RN) Gen Hx Congenital Heart Defect: No (04/30/2016 18:08:Yane Vitale RN) Gen Hx Neural Tube Defect: No (04/30/2016 18:08:Yane Vitale RN) Gen Hx Down's Syndrome: No (04/30/2016 18:08:Yane Vitale RN) Gen Hx Andrew-Sachs: No (04/30/2016 18:08:Yane iVtale RN) Gen Hx Cara: No (04/30/2016 18:08:Yane Vitale RN) Gen Hx Familial Dysautonomia: No (04/30/2016 18:08:Yane Vitale RN) Gen Hx Sickle Cell Disease/Trait: No (04/30/2016 18:08:Yane Vitale RN) Gen Hx Hemophilia/Blood Disorder: No (04/30/2016 18:08:Yane Vitale RN) Gen Hx Muscular Dystrophy: No (04/30/2016 18:08:Yane Vitale RN) Gen Hx Cystic Fibrosis: No (04/30/2016 18:08:Yane Vitale RN) Gen Hx Huntingtons Chorea: No (04/30/2016 18:08:Yane Vitale RN) Gen Hx Mental Retardation/Autism: No (04/30/2016 18:08:Yane Vitale RN) Gen Hx Tested for Fragile X: No (04/30/2016 18:08:Yane Vitale RN) Gen Hx Other Inher/Chromosomal: No (04/30/2016 18:08:Yane Vitale RN) Gen Hx Maternal Metabolic DO: No (04/30/2016 18:08:Yane Vitale RN) Gen Hx Pt Father or FOB Defect: No (04/30/2016 18:08:Yane Vitale RN) Gen Hx Other Genetic History: No (04/30/2016 18:08:Yane Vitale RN) Gen Hx Drugs/Meds since LMP: Yes (04/30/2016 18:08:Yane Vitale RN) Gen Hx Medications: folic acid, tylenol tylenol (04/30/2016 18:08:Patrick Bustos RN)
--- NOTE | 2016-06-29 18:14 | L&D Current Admission ---
Current Admit Datetime Report Generated by CPN: 06/29/2016 18:00 ADMISSION INFORMATION Current Admit Date/Time: 06/11/2016 17:46 (06/11/2016 15:00:Patrick Bustos RN) Reason for Admission: Induction of Labor (06/11/2016 15:00:Patrick Bustos RN) EGA per Dates: 41.1 (06/11/2016 15:00:QS system process) Method of Arrival: Ambulatory (06/11/2016 15:00:Patrick Bustos RN) Reason for Induction: Postterm; Other (06/11/2016 15:00:Patrick Bustos RN) Reason for Induction- Other: AMA (06/11/2016 15:00:Patrick Bustos RN) Records Available: Yes (06/11/2016 15:00:Patrick Bustos RN) General Admission Information: Reviewed; Updated; Confirmed (06/11/2016 15:00:Patrick Bustos RN) General Admission Reviewed By: Kena Bustos RN (06/11/2016 15:00:Patrick Bustos RN) BELONGINGS/ADVANCED DIRECTIVES Disposition of Belongings: Kept with Patient (06/11/2016 15:00:Patrick Bustos RN) Comments Regarding Disposition: See [facility] belongings form filled out by patient (06/11/2016 15:00:Patrick Bustos RN) Advance Direct for Healthcare: No, and Wants No Information (06/11/2016 15:00:Patrick Bustos RN) Durable Power of Maintenance Inspector: No (06/11/2016 15:00:Patrick Bustos RN) Living Will: No (06/11/2016 15:00:Patrick Bustos RN) Organ Donor: No (06/11/2016 15:00:Patrick Bustos RN) Pt Rights Information Given: Yes (06/11/2016 15:00:Patrick Bustos RN) Pt Understands Pt Rights: Yes (06/11/2016 15:00:Patrick Bustos RN) LEARNING ASSESSMENT Knowledge Level: Understands L_D Process (06/11/2016 15:00:Patrick Bustos RN) Barriers to Learning: None (06/11/2016 15:00:Patrick Bustos RN) Learning Readiness: Motivated (06/11/2016 15:00:Patrick Bustos RN) Learns Best By: 1 to 1 Instruction (06/11/2016 15:00:Patrick Bustos RN) Learning Needs: Labor and Delivery Process; Pain Management; Symptoms to Report; Treatment Plan; Medication; Diagnosis (06/11/2016 15:00:Patrick Bustos RN) DOMESTIC VIOLANCE SCREENING Dom Viol Threatened/Hurt: No (06/11/2016 15:00:Patrick Bustos RN) Hx of Abuse/Neglect past 2yrs: No (06/11/2016 15:00:Patrick Bustos RN) Feel Unsafe Going Home: No (06/11/2016 15:00:Patrick Bustos RN) Addt'l Observ Indicating Abuse: No (06/11/2016 15:00:Patrick Bustos RN) Reason Unable to Complete Screen: N/A, Screen Completed (06/11/2016 15:00:Patrick Bustos RN) Considered Personal Harm/Suicide: No (06/11/2016 15:00:Patrick Bustos RN) NUTRITIONAL/FUNCTIONAL SCREENING Problem with Appetite >5 Days: No (06/11/2016 15:00:Patrick Bustos RN) Chew/Swallow Difficulties: No (06/11/2016 15:00:Patrick Bustos RN) Inappropriate Wt Gain/Loss: No (06/11/2016 15:00:Patrick Bustos RN) Presence Skin Breakdown/Ulcer: No (06/11/2016 15:00:Patrick Bustos RN) Special Diet: No (06/11/2016 15:00:Patrick Bustos RN) Pt Requests Food And Nutrition Supervisor Visit: No (06/11/2016 15:00:Patrick Bustos RN) Hx of Any of the Following?: N/A (06/11/2016 15:00:Patrick Bustos RN) New Diagnosis of: N/A (06/11/2016 15:00:Patrick Bustos RN) Requires Assist w/Ambulation: No (06/11/2016 15:00:Patrick Bustos RN) Uses Assist Device to Ambulate: No (06/11/2016 15:00:Patrick Bustos RN) Pt Requires Help w/ADL's: No (06/11/2016 15:00:Patrick Bustos RN)
--- NOTE | 2016-06-29 18:14 | L&D General Admission ---
General Admit Datetime Report Generated by CPN: 06/29/2016 18:00 INFORMATION Patient Age: 41 (04/30/2016 18:04:QS system process) EDC: 06/03/2016 00:00 (04/30/2016 18:08:Yane Vitale RN) LMP: 08/28/2015 00:00 (04/30/2016 18:08:Patrick Bustos RN) : 4 (04/30/2016 18:08:Yane Vitale RN) Para: 2 (04/30/2016 18:08:Helen Randolph RN) Term: 2 (04/30/2016 18:08:Yane Vitale RN) Induced Abortions: 1 (04/30/2016 18:08:Yane Vitale RN) Livin (04/30/2016 18:08:Patrick Bustos RN) Cesareans: 0 (04/30/2016 18:08:Patrick Bustos RN) Baby, Number in Womb: 1 (04/30/2016 18:40:Yane Iam, RN) CARE Primary Appointment Setter: [facility] (04/30/2016 18:08:Yane Vitale RN) Month of 1st Visit: September (04/30/2016 18:08:Yane Vitale RN) Adequate Care: Yes (04/30/2016 18:08:Yane Vitale RN) Prepregnancy Weight (lb): 172 (04/30/2016 18:08:Patrick Bustos RN) Prepregnancy Weight (kg): 78.2 (04/30/2016 18:08:QS system process) Height (in): 68 (06/14/2016 10:13:QS system process) ALLERGIES Medication Allergy: No (04/30/2016 18:08:Yane Vitale RN) Medication Allergies: No Known Allergies (06/11/2016) (06/11/2016 14:46:QS system process) Latex Allergy: No Latex Allergies (04/30/2016 18:08:Yane Vitale RN) Food Allergies: n/a (04/30/2016 18:08:Yane Vitale RN) Environmental Allergies: n/a (04/30/2016 18:08:Yane Vitale RN) COMMUNICATION Primary Language: Moroccan (04/30/2016 18:08:Yane Vitale RN) Medical Tx Preferred Language: Moroccan (04/30/2016 18:08:Yane Vitale RN) Communication Barrier(s): None (04/30/2016 18:08:Patrick Bustos RN) DEMOGRAPHICS Address: [address] [place] [id number] (04/30/2016 18:04:QS system process) Zipcode: [address] (04/30/2016 18:04:QS system process) Home (04/30/2016 18:04:QS system process) SSN: [id number] (04/30/2016 18:04:QS system process) Next of Kin Name: JERAMY WYNNE (04/30/2016 18:04:QS system process) Next of Kin (04/30/2016 18:04:QS system process) Next of Kin Relationship: SPO (04/30/2016 18:04:QS system process) Date of : 1975 (04/30/2016 18:04:QS system process) Marital Status: (04/30/2016 18:04:QS system process) Sex: Female (04/30/2016 18:04:QS system process) Race: Other (04/30/2016 18:04:QS system process) Ethnicity: Non- or (04/30/2016 18:04:QS system process) Holiness: Religious (04/30/2016 18:04:QS system process) DRUG AND ALCOHOL USE Alcohol: No (04/30/2016 18:08:Yane Vitale RN) Cigarettes: Never Smoker. [id number] (04/30/2016 18:08:Yane Vitale RN) Marijuana: No (04/30/2016 18:08:Yane Vitale RN) Cocaine: No (04/30/2016 18:08:Yane Vitale RN) Other Illicit Drugs: No (04/30/2016 18:08:Yane Vitale RN) VACCINE HISTORY Influenza Vaccine: No (04/30/2016 18:08:Yane Vitale RN) Pneumococcal Vaccine: No (04/30/2016 18:08:Yane Vitale RN) Tetanus Vaccine: Uncertain (04/30/2016 18:08:Yane Vitale RN) Tdap Vaccine: Yes (04/30/2016 18:08:Patrick Bustos RN) Tdap Date: 11/23/2011 (04/30/2016 18:08:Patrick Bustos RN) Hepatitis B Vaccine: Uncertain (04/30/2016 18:08:Yane Vitale RN) Disc Inspector: [facility] (04/30/2016 18:08:Yane Vitale RN) Feeding Preference: Both (04/30/2016 18:08:Shelby Smiht RN) Benefit of Breast Feed Discussed: Yes (04/30/2016 18:08:Yane Vitale RN) Circumcision: N/A (04/30/2016 18:08:Yane Vitale RN) Classes Attended: No (04/30/2016 18:08:Yane Vitale RN) Tubal Ligation: No (04/30/2016 18:08:Yane Vitale RN) Tubal Authorization Signed: N/A (04/30/2016 18:08:Yane Vitale RN) Consent: N/A (04/30/2016 18:08:Yane Vitale RN) Consent Signed: N/A (04/30/2016 18:08:Yane Vitale RN) Pain Management Plans: Natural (04/30/2016 18:08:Patrick Bustos RN) Plans for Labor and Delivery: None (04/30/2016 18:08:Yane Vitale RN) Support Person: Jeramy Wynne (04/30/2016 18:08:Yane Vitale RN) Support Person Relationship: (04/30/2016 18:08:Yane Vitale RN) Cultural/Spritual Practice: [facility] (04/30/2016 18:08:Yane Vitale RN) Spir/Cult Dietary Needs: [facility] (04/30/2016 18:08:Yane Vitale RN) LIVING SITUATION/DISCHARGE PLAN Living Arrangements: House (04/30/2016 18:08:Yane Vitale RN) Adequate Access to:: Electric; Heat; Refrigeration; Plumbing/Running water; Phone; Transportation (04/30/2016 18:08:Yane Vitale RN) WIC Program: [facility] (04/30/2016 18:08:Yane Vitale RN) Discharge Director Of Rehabilitation Person: Jeramy Wynne (04/30/2016 18:08:Yane Vitale RN) Person to Help after Discharge: Jeramy Wynne (04/30/2016 18:08:Yane Vitale RN) Currently Using Commun Resources: [facility] (04/30/2016 18:08:Yane Vitale RN) Outside Agency/Natural Resources Instructor: [facility] (04/30/2016 18:08:Yane Vitale RN) Car Seat for Discharge: [facility] (04/30/2016 18:08:Yane Vitale RN) Adoption Requested: [facility] (04/30/2016 18:08:Yane Vitale RN) Pt Contact w/ Post : N/A (04/30/2016 18:08:Yane Vitale RN) LABS Blood Type: O Positive (04/30/2016 18:08:Patrick Bustos RN) Antibody Screen: Negative (04/30/2016 18:08:Patrick Bustos RN) Hemoglobin: 8.8 L (06/13/2016 06:47:QS system process) Hematocrit: 27.4 L (06/13/2016 06:47:QS system process) MCV: 80 (06/13/2016 06:47:QS system process) Group Beta Strep: Negative (04/30/2016 18:08:Patrick Bustos RN) Gonorrhea: Negative (04/30/2016 18:08:Patrick Bustos RN) Chlamydia: Negative (04/30/2016 18:08:Patrick Bustos RN) RPR/VDRL: Nonreactive (04/30/2016 18:08:Yane Vitale RN) HIV Exposure Test: Negative (04/30/2016 18:08:Patrick Bustos RN) Hepatitis B: Negative (04/30/2016 18:08:Patrick Bustos RN) Rubella: Immune (04/30/2016 18:08:Patrick Bustos RN) Varicella: Positive (04/30/2016 18:08:Patrick Bustos RN) Varicella Titer: 641 (04/30/2016 18:08:Patrick Bustos RN) OB/PREVIOUS HISTORY LMP: 08/28/2015 00:00 (04/30/2016 18:08:Patrick Bustos RN) Previous Procedures: Ultrasound; NST (04/30/2016 18:08:Yane Vitale RN) Current Procedures: Ultrasound; NST (04/30/2016 18:08:Yane Vitale RN) History of Previous : No (04/30/2016 18:08:Yane Vitale RN) History of Gestational Diabetes: No (04/30/2016 18:08:Yane Vitale RN) History of PIH: No (04/30/2016 18:08:Yane Vitale RN) History of Incompetent Cervix: No (04/30/2016 18:08:Yane Vitale RN) History of Placenta Previa/Abrup: No (04/30/2016 18:08:Yane Vitale RN) History of Macrosomia: No (04/30/2016 18:08:Yane Vitale RN) History of IUGR: No (04/30/2016 18:08:Yane Vitale RN) History of Hemorrhage: No (04/30/2016 18:08:Yane Vitale RN) History of Loss/Stillborn: No (04/30/2016 18:08:Yane Vitale RN) History of : No (04/30/2016 18:08:Yane Vitale RN) History of D (Rh) Sensitization: No (04/30/2016 18:08:Yane Vitale RN) History Recurrent Loss/Stillborn: No (04/30/2016 18:08:Yane Vitale RN) History Depression/PP Depression: No (04/30/2016 18:08:Yane Vitale RN) History of Uterine Anomaly/NEVAEH: No (04/30/2016 18:08:Yane Vitale RN) History of Infertility: No (04/30/2016 18:08:Yane Vitale RN) History of ART Treatment: No (04/30/2016 18:08:Yane Vitale RN) History of NEVAEH: No (04/30/2016 18:08:Yane Vitale RN) Comments Obstetrical History: G1- 1993 at 40 weeks G2- 1995- at 40 weeks G3- 2007- EAB G4- current (04/30/2016 18:08:Yane Vitale RN) MEDICAL HISTORY Med Hx Diabetes: No (04/30/2016 18:08:Yane Vitale RN) Med Hx Hypertension: No (04/30/2016 18:08:Yane Vitale RN) Med Hx Heart Disease: No (04/30/2016 18:08:Yane Vitale RN) Med Hx Autoimmune Disorder: No (04/30/2016 18:08:Yane Vitale RN) Med Hx Kidney Disease/UTI: No (04/30/2016 18:08:Yane Vitale RN) Med Hx Neurologic/Epilepsy: No (04/30/2016 18:08:Yane Vitale RN) Med Hx Psychiatric Disorders: No (04/30/2016 18:08:Yane Vitale RN) Med Hx Hepatitis/Liver Disease: No (04/30/2016 18:08:Yane Vitale RN) Med Hx Varicosities/Phlebitis: No (04/30/2016 18:08:Yane Vitale RN) Med Hx Thyroid Dysfunction: No (04/30/2016 18:08:Yane Vitale RN) Med Hx Trauma/Violence: No (04/30/2016 18:08:Yane Vitale RN) Med Hx Blood Transfusion: No (04/30/2016 18:08:Yane Vitale RN) Med Hx Pulmonary (Asthma,TB): No (04/30/2016 18:08:Yane Vitale RN) Med Hx Breast: No (04/30/2016 18:08:Yane Vitale RN) Med Hx RO[employer] Surgery: No (04/30/2016 18:08:Yane Vitale RN) Med Hx Hospitalization/Surgery: Yes (04/30/2016 18:08:Yane Vitale RN) Med Hx Anesthetic Complications: No (04/30/2016 18:08:Yane Vitale RN) Med Hx Abnormal Pap Smear: No (04/30/2016 18:08:Yane Vitale RN) Other Medical Diseases: No (04/30/2016 18:08:Yane Vitale RN) Med Hx Significant Family Hx: No (04/30/2016 18:08:Yane Vitale RN) Details of Med/Surg Hx: 1994 gallbladder removal (04/30/2016 18:08:Yane Vitale RN) INFECTIOUS HISTORY Inf Hx Gonorrhea: No (04/30/2016 18:08:Yane Vitale RN) Inf Hx Chlamydia: Yes (04/30/2016 18:08:Yane Vitale RN) Inf Hx Syphilis: No (04/30/2016 18:08:Yane Vitale RN) Inf Hx HIV/AIDS: No (04/30/2016 18:08:Yane Vitale RN) Inf Hx Human Papilloma Virus: No (04/30/2016 18:08:Yane Vitale RN) Inf Hx Pt/Partner Genital Herpes: No (04/30/2016 18:08:Yane Vitale RN) Inf Hx Tuberculosis/Exposure: No (04/30/2016 18:08:Yane Vitale RN) Inf Hx Hepatitis B,C: No (04/30/2016 18:08:Yane Vitale RN) Inf Hx Rash or Viral Illness: No (04/30/2016 18:08:Yane Vitale RN) Details of Infectious Hx: Chlamydia 1994 (04/30/2016 18:08:Yane Vitale RN) GENETIC HISTORY Gen Hx Age >=35 at [place]: Yes (04/30/2016 18:08:Mary Vidales RN) Gen Hx Thalassemia: No (04/30/2016 18:08:Yane Vitale RN) Gen Hx Congenital Heart Defect: No (04/30/2016 18:08:Yane Vitale RN) Gen Hx Neural Tube Defect: No (04/30/2016 18:08:Yane Vitale RN) Gen Hx Down's Syndrome: No (04/30/2016 18:08:Yane Vitale RN) Gen Hx Andrew-Sachs: No (04/30/2016 18:08:Yane Vitale RN) Gen Hx Cara: No (04/30/2016 18:08:Yane Vitale RN) Gen Hx Familial Dysautonomia: No (04/30/2016 18:08:Yane Vitale RN) Gen Hx Sickle Cell Disease/Trait: No (04/30/2016 18:08:Yane Vitale RN) Gen Hx Hemophilia/Blood Disorder: No (04/30/2016 18:08:Yane Vitale RN) Gen Hx Muscular Dystrophy: No (04/30/2016 18:08:Yane Viatle RN) Gen Hx Cystic Fibrosis: No (04/30/2016 18:08:Yane Vitale RN) Gen Hx Huntingtons Chorea: No (04/30/2016 18:08:Yane Vitale RN) Gen Hx Mental Retardation/Autism: No (04/30/2016 18:08:Yane Vitale RN) Gen Hx Tested for Fragile X: No (04/30/2016 18:08:Yane Vitale RN) Gen Hx Other Inher/Chromosomal: No (04/30/2016 18:08:Yane Vitale RN) Gen Hx Maternal Metabolic DO: No (04/30/2016 18:08:Yane Vitale RN) Gen Hx Pt Father or FOB Defect: No (04/30/2016 18:08:Yane Vitale RN) Gen Hx Other Genetic History: No (04/30/2016 18:08:Yane Vitale RN) Gen Hx Drugs/Meds since LMP: Yes (04/30/2016 18:08:Yane Vitale RN) Gen Hx Medications: folic acid, tylenol tylenol (04/30/2016 18:08:Patrick Bustos RN)
--- NOTE | 2016-06-30 06:14 | L&D General Admission ---
General Admit Datetime Report Generated by CPN: 06/30/2016 06:00 INFORMATION Patient Age: 41 (04/30/2016 18:04:QS system process) EDC: 06/03/2016 00:00 (04/30/2016 18:08:Yane Vitale RN) LMP: 08/28/2015 00:00 (04/30/2016 18:08:Patrick Bustos RN) : 4 (04/30/2016 18:08:Yane Vitale RN) Para: 2 (04/30/2016 18:08:Helen Randolph RN) Term: 2 (04/30/2016 18:08:Yane Vitale RN) Induced Abortions: 1 (04/30/2016 18:08:Yane Vitale RN) Livin (04/30/2016 18:08:Patrick Bustos RN) Cesareans: 0 (04/30/2016 18:08:Patrick Bustos RN) Baby, Number in Womb: 1 (04/30/2016 18:40:Yane Iam, RN) CARE Primary Assistant Bookkeeper: [facility] (04/30/2016 18:08:Yane Vitale RN) Month of 1st Visit: September (04/30/2016 18:08:Yane Vitale RN) Adequate Care: Yes (04/30/2016 18:08:Yane Vitale RN) Prepregnancy Weight (lb): 172 (04/30/2016 18:08:Patrick Bustos RN) Prepregnancy Weight (kg): 78.2 (04/30/2016 18:08:QS system process) Height (in): 68 (06/14/2016 10:13:QS system process) ALLERGIES Medication Allergy: No (04/30/2016 18:08:Yane Vitale RN) Medication Allergies: No Known Allergies (06/11/2016) (06/11/2016 14:46:QS system process) Latex Allergy: No Latex Allergies (04/30/2016 18:08:Yane Vitale RN) Food Allergies: n/a (04/30/2016 18:08:Yane Vitale RN) Environmental Allergies: n/a (04/30/2016 18:08:Yane Vitale RN) COMMUNICATION Primary Language: [place] Citizen (04/30/2016 18:08:Yane Vitale RN) Medical Tx Preferred Language: [place] Citizen (04/30/2016 18:08:Yane Vitale RN) Communication Barrier(s): None (04/30/2016 18:08:Patrick Bustos RN) DEMOGRAPHICS Address: [address] [place] [id number] (04/30/2016 18:04:QS system process) Zipcode: [address] (04/30/2016 18:04:QS system process) Home (04/30/2016 18:04:QS system process) SSN: [id number] (04/30/2016 18:04:QS system process) Next of Kin Name: JERAMY WYNNE (04/30/2016 18:04:QS system process) Next of Kin (04/30/2016 18:04:QS system process) Next of Kin Relationship: SPO (04/30/2016 18:04:QS system process) Date of : 1975 (04/30/2016 18:04:QS system process) Marital Status: (04/30/2016 18:04:QS system process) Sex: Female (04/30/2016 18:04:QS system process) Race: Other (04/30/2016 18:04:QS system process) Ethnicity: Non- or (04/30/2016 18:04:QS system process) Islam: Hindu (04/30/2016 18:04:QS system process) DRUG AND ALCOHOL USE Alcohol: No (04/30/2016 18:08:Yane Vitale RN) Cigarettes: Never Smoker. [id number] (04/30/2016 18:08:Yane Vitale RN) Marijuana: No (04/30/2016 18:08:Yane Vitale RN) Cocaine: No (04/30/2016 18:08:Yane Vitale RN) Other Illicit Drugs: No (04/30/2016 18:08:Yane Vtiale RN) VACCINE HISTORY Influenza Vaccine: No (04/30/2016 18:08:Yane Vitale RN) Pneumococcal Vaccine: No (04/30/2016 18:08:Yane Vitale RN) Tetanus Vaccine: Uncertain (04/30/2016 18:08:Yane Vitale RN) Tdap Vaccine: Yes (04/30/2016 18:08:Patrick Bustos RN) Tdap Date: 11/23/2011 (04/30/2016 18:08:Patrick Bustos RN) Hepatitis B Vaccine: Uncertain (04/30/2016 18:08:Yane Vitale RN) Director Community Organization: [facility] (04/30/2016 18:08:Yane Vitale RN) Feeding Preference: Both (04/30/2016 18:08:Shelby Smith RN) Benefit of Breast Feed Discussed: Yes (04/30/2016 18:08:Yane Vitale RN) Circumcision: N/A (04/30/2016 18:08:Yane Vitale RN) Classes Attended: No (04/30/2016 18:08:Yane Vitale RN) Tubal Ligation: No (04/30/2016 18:08:Yane Vitale RN) Tubal Authorization Signed: N/A (04/30/2016 18:08:Yane Vitale RN) Consent: N/A (04/30/2016 18:08:Yane Vitale RN) Consent Signed: N/A (04/30/2016 18:08:Yane Vitale RN) Pain Management Plans: Natural (04/30/2016 18:08:Patrick Bustos RN) Plans for Labor and Delivery: None (04/30/2016 18:08:Yane Vitale RN) Support Person: Jeramy Wynne (04/30/2016 18:08:Yane Vitale RN) Support Person Relationship: (04/30/2016 18:08:Yane Vitale RN) Cultural/Spritual Practice: [facility] (04/30/2016 18:08:Yane Vitale RN) Spir/Cult Dietary Needs: [facility] (04/30/2016 18:08:Yane Vitale RN) LIVING SITUATION/DISCHARGE PLAN Living Arrangements: House (04/30/2016 18:08:Yane Vitale RN) Adequate Access to:: Electric; Heat; Refrigeration; Plumbing/Running water; Phone; Transportation (04/30/2016 18:08:Yane Vitale RN) WIC Program: [facility] (04/30/2016 18:08:Yane Vitale RN) Discharge Table Runner Person: Jeramy Wynne (04/30/2016 18:08:Yane Vitale RN) Person to Help after Discharge: Jeramy Wynne (04/30/2016 18:08:Yane Vitale RN) Currently Using Commun Resources: [facility] (04/30/2016 18:08:Yane Vitale RN) Outside Agency/Monument Carver: [facility] (04/30/2016 18:08:Yane Vitale RN) Car Seat for Discharge: [facility] (04/30/2016 18:08:Yane Vitale RN) Adoption Requested: [facility] (04/30/2016 18:08:Yane Vitale RN) Pt Contact w/ Post : N/A (04/30/2016 18:08:Yane Vitale RN) LABS Blood Type: O Positive (04/30/2016 18:08:Patrick Bustos RN) Antibody Screen: Negative (04/30/2016 18:08:Patrick Bustos RN) Hemoglobin: 8.8 L (06/13/2016 06:47:QS system process) Hematocrit: 27.4 L (06/13/2016 06:47:QS system process) MCV: 80 (06/13/2016 06:47:QS system process) Group Beta Strep: Negative (04/30/2016 18:08:Patrick Bustos RN) Gonorrhea: Negative (04/30/2016 18:08:Patrick Bustos RN) Chlamydia: Negative (04/30/2016 18:08:Patrick Bustos RN) RPR/VDRL: Nonreactive (04/30/2016 18:08:Yane Vitale RN) HIV Exposure Test: Negative (04/30/2016 18:08:Patrick Bustos RN) Hepatitis B: Negative (04/30/2016 18:08:Patrick Bustos RN) Rubella: Immune (04/30/2016 18:08:Patrick Bustos RN) Varicella: Positive (04/30/2016 18:08:Patrick Bustos RN) Varicella Titer: 641 (04/30/2016 18:08:Patrick Bustos RN) OB/PREVIOUS HISTORY LMP: 08/28/2015 00:00 (04/30/2016 18:08:Patrick Bustos RN) Previous Procedures: Ultrasound; NST (04/30/2016 18:08:Yane Vitale RN) Current Procedures: Ultrasound; NST (04/30/2016 18:08:Yane Vitale RN) History of Previous : No (04/30/2016 18:08:Yane Vtiale RN) History of Gestational Diabetes: No (04/30/2016 18:08:Yane Vitale RN) History of PIH: No (04/30/2016 18:08:Yane Vitale RN) History of Incompetent Cervix: No (04/30/2016 18:08:Yane Vitale RN) History of Placenta Previa/Abrup: No (04/30/2016 18:08:Yane Vitale RN) History of Macrosomia: No (04/30/2016 18:08:Yane Vitale RN) History of IUGR: No (04/30/2016 18:08:Yane Vitale RN) History of Hemorrhage: No (04/30/2016 18:08:Yane Vitale RN) History of Loss/Stillborn: No (04/30/2016 18:08:Yane Vitale RN) History of : No (04/30/2016 18:08:Yane Vitale RN) History of D (Rh) Sensitization: No (04/30/2016 18:08:Yane Vitale RN) History Recurrent Loss/Stillborn: No (04/30/2016 18:08:Yane Vitale RN) History Depression/PP Depression: No (04/30/2016 18:08:Yane Vitale RN) History of Uterine Anomaly/NEVAEH: No (04/30/2016 18:08:Yane Vitale RN) History of Infertility: No (04/30/2016 18:08:Yane Vitale RN) History of ART Treatment: No (04/30/2016 18:08:Yane Vitale RN) History of NEVAEH: No (04/30/2016 18:08:Yane Vitale RN) Comments Obstetrical History: G1- 1993 at 40 weeks G2- 1995- at 40 weeks G3- 2007- EAB G4- current (04/30/2016 18:08:Yane Vitale RN) MEDICAL HISTORY Med Hx Diabetes: No (04/30/2016 18:08:Yane Vitale RN) Med Hx Hypertension: No (04/30/2016 18:08:Yane Vitale RN) Med Hx Heart Disease: No (04/30/2016 18:08:Yane Vitale RN) Med Hx Autoimmune Disorder: No (04/30/2016 18:08:Yane Vitale RN) Med Hx Kidney Disease/UTI: No (04/30/2016 18:08:Yane Vitale RN) Med Hx Neurologic/Epilepsy: No (04/30/2016 18:08:Yane Vitale RN) Med Hx Psychiatric Disorders: No (04/30/2016 18:08:Yane Vitale RN) Med Hx Hepatitis/Liver Disease: No (04/30/2016 18:08:Yane Vitale RN) Med Hx Varicosities/Phlebitis: No (04/30/2016 18:08:Yane Vitale RN) Med Hx Thyroid Dysfunction: No (04/30/2016 18:08:Yane Vitale RN) Med Hx Trauma/Violence: No (04/30/2016 18:08:Yane Vitale RN) Med Hx Blood Transfusion: No (04/30/2016 18:08:Yane Vitale RN) Med Hx Pulmonary (Asthma,TB): No (04/30/2016 18:08:Yane Vitale RN) Med Hx Breast: No (04/30/2016 18:08:Yane Vitale RN) Med Hx STRIP DEBURRER Surgery: No (04/30/2016 18:08:Yane Vitale RN) Med Hx Hospitalization/Surgery: Yes (04/30/2016 18:08:Yane Vitale RN) Med Hx Anesthetic Complications: No (04/30/2016 18:08:Yane Vitale RN) Med Hx Abnormal Pap Smear: No (04/30/2016 18:08:Yane Vitale RN) Other Medical Diseases: No (04/30/2016 18:08:Yane Vitale RN) Med Hx Significant Family Hx: No (04/30/2016 18:08:Yane Vitale RN) Details of Med/Surg Hx: 1994 gallbladder removal (04/30/2016 18:08:Yane Vitale RN) INFECTIOUS HISTORY Inf Hx Gonorrhea: No (04/30/2016 18:08:Yane Vitale RN) Inf Hx Chlamydia: Yes (04/30/2016 18:08:Yane Vitale RN) Inf Hx Syphilis: No (04/30/2016 18:08:Yane Vitale RN) Inf Hx HIV/AIDS: No (04/30/2016 18:08:Yane Vitale RN) Inf Hx Human Papilloma Virus: No (04/30/2016 18:08:Yane Vitale RN) Inf Hx Pt/Partner Genital Herpes: No (04/30/2016 18:08:Yane Vitale RN) Inf Hx Tuberculosis/Exposure: No (04/30/2016 18:08:Yane Vitale RN) Inf Hx Hepatitis B,C: No (04/30/2016 18:08:Yane Vitale RN) Inf Hx Rash or Viral Illness: No (04/30/2016 18:08:Yane Vitale RN) Details of Infectious Hx: Chlamydia 1994 (04/30/2016 18:08:Yane Vitale RN) GENETIC HISTORY Gen Hx Age >=35 at [place]: Yes (04/30/2016 18:08:Mary Vidales RN) Gen Hx Thalassemia: No (04/30/2016 18:08:Yane Vitale RN) Gen Hx Congenital Heart Defect: No (04/30/2016 18:08:Yane Vitale RN) Gen Hx Neural Tube Defect: No (04/30/2016 18:08:Yane Vitale RN) Gen Hx Down's Syndrome: No (04/30/2016 18:08:Yane Vitale RN) Gen Hx Andrew-Sachs: No (04/30/2016 18:08:Yane Vitale RN) Gen Hx Cara: No (04/30/2016 18:08:Yane Vitale RN) Gen Hx Familial Dysautonomia: No (04/30/2016 18:08:Yane Vitale RN) Gen Hx Sickle Cell Disease/Trait: No (04/30/2016 18:08:Yane Vitale RN) Gen Hx Hemophilia/Blood Disorder: No (04/30/2016 18:08:Yane Vitale RN) Gen Hx Muscular Dystrophy: No (04/30/2016 18:08:Yane Vitale RN) Gen Hx Cystic Fibrosis: No (04/30/2016 18:08:Yane Vitale RN) Gen Hx Huntingtons Chorea: No (04/30/2016 18:08:Yane Vitale RN) Gen Hx Mental Retardation/Autism: No (04/30/2016 18:08:Yane Vitale RN) Gen Hx Tested for Fragile X: No (04/30/2016 18:08:Yane Vitale RN) Gen Hx Other Inher/Chromosomal: No (04/30/2016 18:08:Yane Vitale RN) Gen Hx Maternal Metabolic DO: No (04/30/2016 18:08:Yane Vitale RN) Gen Hx Pt Father or FOB Defect: No (04/30/2016 18:08:Yane Vitale RN) Gen Hx Other Genetic History: No (04/30/2016 18:08:Yane Vitale RN) Gen Hx Drugs/Meds since LMP: Yes (04/30/2016 18:08:Yane Vitale RN) Gen Hx Medications: folic acid, tylenol tylenol (04/30/2016 18:08:Patrick Bustos RN)
--- NOTE | 2016-06-30 06:14 | L&D Current Admission ---
Current Admit Datetime Report Generated by CPN: 06/30/2016 06:00 ADMISSION INFORMATION Current Admit Date/Time: 06/11/2016 17:46 (06/11/2016 15:00:Patrick Bustos RN) Reason for Admission: Induction of Labor (06/11/2016 15:00:Patrick Bustos RN) EGA per Dates: 41.1 (06/11/2016 15:00:QS system process) Method of Arrival: Ambulatory (06/11/2016 15:00:Patrick Bustos RN) Reason for Induction: Postterm; Other (06/11/2016 15:00:Patrick Bustos RN) Reason for Induction- Other: AMA (06/11/2016 15:00:Patrick Bustos RN) Records Available: Yes (06/11/2016 15:00:Patrick Bustos RN) General Admission Information: Reviewed; Updated; Confirmed (06/11/2016 15:00:Patrick Bustos RN) General Admission Reviewed By: Kena Bustos RN (06/11/2016 15:00:Patrick Bustos RN) BELONGINGS/ADVANCED DIRECTIVES Disposition of Belongings: Kept with Patient (06/11/2016 15:00:Patrick Bustos RN) Comments Regarding Disposition: See [facility] belongings form filled out by patient (06/11/2016 15:00:Patrick Bustos RN) Advance Direct for Healthcare: No, and Wants No Information (06/11/2016 15:00:Patrick Bustos RN) Durable Power of Senior Restaurant Manager: No (06/11/2016 15:00:Patrick Bustos RN) Living Will: No (06/11/2016 15:00:Patrick Bustos RN) Organ Donor: No (06/11/2016 15:00:Patrick Bustos RN) Pt Rights Information Given: Yes (06/11/2016 15:00:Patrick Bustos RN) Pt Understands Pt Rights: Yes (06/11/2016 15:00:Patrick Bustos RN) LEARNING ASSESSMENT Knowledge Level: Understands L_D Process (06/11/2016 15:00:Patrick Bustos RN) Barriers to Learning: None (06/11/2016 15:00:Patrick Bustos RN) Learning Readiness: Motivated (06/11/2016 15:00:Patrick Bustos RN) Learns Best By: 1 to 1 Instruction (06/11/2016 15:00:Patrick Bustos RN) Learning Needs: Labor and Delivery Process; Pain Management; Symptoms to Report; Treatment Plan; Medication; Diagnosis (06/11/2016 15:00:Patrick Bustos RN) DOMESTIC VIOLANCE SCREENING Dom Viol Threatened/Hurt: No (06/11/2016 15:00:Patrick Bustos RN) Hx of Abuse/Neglect past 2yrs: No (06/11/2016 15:00:Patrick Bustos RN) Feel Unsafe Going Home: No (06/11/2016 15:00:Patrick Bustos RN) Addt'l Observ Indicating Abuse: No (06/11/2016 15:00:Patrick Bustos RN) Reason Unable to Complete Screen: N/A, Screen Completed (06/11/2016 15:00:Patrick Bustos RN) Considered Personal Harm/Suicide: No (06/11/2016 15:00:Patrick Bustos RN) NUTRITIONAL/FUNCTIONAL SCREENING Problem with Appetite >5 Days: No (06/11/2016 15:00:Patrick Bustos RN) Chew/Swallow Difficulties: No (06/11/2016 15:00:Patrick Bustos RN) Inappropriate Wt Gain/Loss: No (06/11/2016 15:00:Patrick Bustos RN) Presence Skin Breakdown/Ulcer: No (06/11/2016 15:00:Patrick Bustos RN) Special Diet: No (06/11/2016 15:00:Patrick Bustos RN) Pt Requests Motorcycle Fabricator Visit: No (06/11/2016 15:00:Patrick Bustos RN) Hx of Any of the Following?: N/A (06/11/2016 15:00:Patrick Bustos RN) New Diagnosis of: N/A (06/11/2016 15:00:Patrick Bustos RN) Requires Assist w/Ambulation: No (06/11/2016 15:00:Patrick Bustos RN) Uses Assist Device to Ambulate: No (06/11/2016 15:00:Patrick Bustos RN) Pt Requires Help w/ADL's: No (06/11/2016 15:00:Patrick Bustos RN)
== END 2016-06-14 11:42 | disposition home or self-care (01) | DRG 775 ==
LOC: LC 14:30 → LR 17:54 → 2S 06-12 11:20
PROVIDERS: ADMIT Obstetrics & Gynecology; ATTEND Obstetrics & Gynecology
PROC: 10E0XZZ Delivery of Products of Conception, External Approach (ICD-10-PCS; principal; 2016-06-11)
PROC: 3E0P7GC Introduction of Other Therapeutic Substance into Female Reproductive, Via Natural or Artificial Opening (ICD-10-PCS; 2016-06-11)
PROC: 0HQ9XZZ Repair Perineum Skin, External Approach (ICD-10-PCS; 2016-06-11)
PROC: 3E0234Z Introduction of Serum, Toxoid and Vaccine into Muscle, Percutaneous Approach (ICD-10-PCS; 2016-06-14)
DX: O48.0 Post-term pregnancy (principal); D62 Acute posthemorrhagic anemia; O62.3 Precipitate labor; O76 Abnormality in fetal heart rate and rhythm complicating labor and delivery; O70.0 First degree perineal laceration during delivery; O90.81 Anemia of the puerperium; Z3A.41 41 weeks gestation of pregnancy; Z37.0 Single live birth; Z23 Encounter for immunization
CPT/HCPCS: 36415; 80307; 81005; 85025; 85027; 86592; 86850; 86900; 86901; 88307; 90715; J2405; J2590; J3490; J7120